=== PATIENT | female | born 1960 | race Caucasian/White ===

== ENCOUNTER 2016-04-12 10:27 | Inpatient (IN) | payer OTHER ==
[2016-04-12] MEDS ORDERED: NS 0.9% 1000 ML* 2,000 ML IV ONE (11:50)
[2016-04-12] MEDS ORDERED: LORazepam INJ* 2 MG/ML 1 ML VIAL IV ONE (11:50)
[2016-04-12 12:40] LABS: Hematocrit 39 % (35-47); Hemoglobin 12.4 g/dl (12.0-16.0); Mean Corpuscular HGB Conc 32 g/dl (31-36); Mean Corpuscular Hemoglobin 27 pg (27-31); Mean Corpuscular Volume 83 fL (80-97); Mean Platelet Volume 8 um3 (7.4-10.4); Red Blood Count 4.65 10^6/ul (4.0-5.4); Red Cell Distribution Width 16 % (10.5-15); White Blood Count 8.9 10^3/ul (3.5-10.8)
[2016-04-12 12:56] LABS: ALT 13 U/L (7-52); AST 16 U/L (13-39); Albumin 4.1 g/dL (3.2-5.2); Alkaline Phosphatase 79 U/L (34-104); Anion Gap 6 mmol/L (2-11); BUN/Creatinine Ratio 15.8 (8-20); Blood Urea Nitrogen 12 mg/dL (6-24); CO2 Carbon Dioxide 24 mmol/L (22-32); Calcium 9.6 mg/dL (8.6-10.3); Chloride 107 mmol/L (101-111); EGFR Non-African American 79.3 (>60); Globulin 3.5 g/dL (2-4); Glucose 103 mg/dL (70-100); Potassium 3.9 mmol/L (3.5-5.0); Sodium 137 mmol/L (133-145); Total Protein 7.6 g/dL (6.4-8.9)
[2016-04-12] MEDS ORDERED: Iohexol 350* (CONTRAST) 500 ML MDV IV ONE (13:06)
[2016-04-12 13:10] LABS: Alcohol < 10 mg/dL (<10)
--- NOTE | 2016-04-12 13:47 | RAD ---
HISTORY: Expressive aphasia, subacute trauma COMPARISONS: May 03, 2007 TECHNIQUE: Multiple contiguous axial CT scans were obtained of the head without intravenous contrast. FINDINGS: HEMORRHAGE/INFARCT: There is no hemorrhage or acute infarct. MASSES/SHIFT: There is no mass or shift. EXTRA-AXIAL SPACES: There are no extra-axial fluid collections. SULCI AND VENTRICLES: The sulci and ventricles are normal in size and position for the patient's stated age. CEREBRUM: There are no focal parenchymal abnormalities. BRAINSTEM: There are no focal parenchymal abnormalities. CEREBELLUM: There are no focal parenchymal abnormalities. VESSELS: The vessels are grossly normal. PARANASAL SINUSES: The paranasal sinuses are clear. ORBITS: The orbits are unremarkable. BONES AND SOFT TISSUE: No bone or soft tissue abnormalities are noted. OTHER: None IMPRESSION: NO ACUTE INTRACRANIAL PATHOLOGY.
--- NOTE | 2016-04-12 14:07 | RAD ---
HISTORY: Especially aphasia, carotid occlusion COMPARISONS: Head CT dated April 12, 2016 TECHNIQUE: Multiple contiguous axial CT scans were obtained of the head and neck After the administration of nonionic intravenous contrast timed to the systemic arterial phase of contrast enhancement. Coronal and sagittal multiplanar reformations are submitted for review. Multiple 3-D maximum intensity projection reconstructions are also submitted for review. FINDINGS: CTA NECK: AORTIC ARCH: There is a normal three-vessel branching pattern of the aortic arch. There is no ostial or proximal stenosis of the cephalic great vessels. RIGHT VERTEBRAL ARTERY: The right vertebral artery is patent along its course, without stenosis. LEFT VERTEBRAL ARTERY: The left vertebral artery is patent along its course, without stenosis. DOMINANCE: The vertebral arteries are codominant. RIGHT COMMON CAROTID ARTERY: The right common carotid artery is patent. The right carotid bifurcation occurs at C4 RIGHT INTERNAL CAROTID ARTERY: There is no right internal carotid artery stenosis by NASCET criteria. RIGHT EXTERNAL CAROTID ARTERY: The right external carotid artery is unremarkable. LEFT COMMON CAROTID ARTERY: The left common carotid artery is patent. The left carotid bifurcation occurs at C4-C5 LEFT INTERNAL CAROTID ARTERY: There is no left internal carotid artery stenosis by NASCET criteria. LEFT EXTERNAL CAROTID ARTERY: The left external carotid artery is unremarkable. VENOUS CIRCULATION: The venous system is unremarkable. SALIVARY GLANDS: The parotid glands, submandibular glands, sublingual glands are normal. NASAL CAVITY/NASOPHARYNX: The nasal cavity and nasopharynx are normal. ORAL CAVITY/OROPHARYNX: The oral cavity is obscured by streak artifact from dental amalgam. The visualized oral cavity and oropharynx are unremarkable. LARYNGEAL APPARATUS/HYPOPHARYNX: The laryngeal apparatus and hypopharynx are normal. UPPER AIRWAY/UPPER ESOPHAGUS: The visualized upper airway and esophagus are normal. LUNG APICES: There is biapical panacinar emphysematous change THYROID GLAND: The thyroid gland is normal. LYMPH NODES: There is no lymphadenopathy by size criteria. BONES AND SOFT TISSUES: No bone or soft tissue abnormalities are noted. CTA HEAD: INTRACRANIAL CIRCULATION: There is no aneurysm, vascular malformation, occlusion, or stenosis of the visualized intracranial circulation. The anterior communicating artery complex is clear. Bilateral posterior communicating arteries are identified. VENOUS CIRCULATION: The venous system is unremarkable. PERFUSION: There is no obvious parenchymal perfusion deficit. HEMORRHAGE/INFARCT: There is no hemorrhage or acute infarct. MASSES/SHIFT: There is no mass or shift. EXTRA-AXIAL SPACES: There are no extra-axial fluid collections. SULCI AND VENTRICLES: The sulci and ventricles are normal in size and position for the patient's stated age. CEREBRUM: There are no focal parenchymal abnormalities. BRAINSTEM: There are no focal parenchymal abnormalities. CEREBELLUM: There are no focal parenchymal abnormalities. PARANASAL SINUSES: The paranasal sinuses are clear. ORBITS: The orbits are unremarkable. BONES AND SOFT TISSUE: Degenerative changes are noted along the spine OTHER: There is no abnormal enhancement. IMPRESSION: 1. NO INTERNAL CAROTID ARTERY STENOSIS BY NASCET CRITERIA. 2. NO ANEURYSM, VASCULAR MALFORMATION, OCCLUSION, OR STENOSIS OF THE VISUALIZED INTRACRANIAL CIRCULATION. 3. EMPHYSEMA CPT II Codes: 3100F
[2016-04-12 15:02] LABS: Urine Bacteria Absent (Absent); Urine Bilirubin Negative (Negative); Urine Glucose Negative (Negative); Urine Nitrite Negative (Negative)
--- NOTE | 2016-04-12 16:16 | ED ---
Neno Blanchard Adam, scribed for Navdeep Fall MD on 04/12/16 at 1143 . Neurological HPI - HPI Summary HPI Summary: Pt is a 55 year old female presenting with expressive aphasia. She and her family state that she has been stuttering and unable to form complete sentences since this morning. Pt states that she knows what to say in her head but can not "get the words in line". She is able to understand what others are saying to her. The family states that this has happened once before and it seems to be triggered by stress. The pt fell backwards on the ice last week and struck the back of her head. Since then she has been having shooting pain from her head down her neck whenever she tilts her head backwards. She also c/o fatigue. She denies numbness, weakness, and visual disturbances. PMHx includes emphysema. Pt is on Klonopin. She denies kidney problems. Former tobacco use; negative alcohol /drug use. Pt is left-handed. FMHx of cardiac disease and epilepsy. - History of Current Complaint Chief Complaint: EDNeurologicalDeficit Stated Complaint: AMS, UNABLE TO GET WORDS OUT Time Seen by Provider: 04/12/16 11:23 Hx Obtained From: Patient, Family/Founder And Chief Executive Officer Onset/Duration: Gradual Onset, Started hours ago, Still Present Timing: Constant Onset Severity: Moderate Current Severity: Moderate Neurological Deficit Location: Facial Pain Intensity: 0 Character: Impaired Speech Aggravating: Unknown Alleviating: Nothing Associated Signs and Symptoms: Positive: Headache - Allergy/Home Medications Allergies/Adverse Reactions: Allergies Allergy/AdvReac Type Severity Reaction Status Date / Time Penicillins Allergy Severe Difficulty Verified 10/11/12 08:25 Breathing Home Medications: Home Medications Albuterol/Ipratropium RESP(NF) [Combivent Respimat(NF)] 1 puff INH QID 04/12/16 [History Confirmed 04/12/16] Zolpidem TAB* [Ambien TAB*] 10 mg PO BEDTIME 04/12/16 [History Confirmed ] clonazePAM TAB(*) [KlonoPIN TAB(*)] 3 mg PO TID PRN 04/12/16 [History Confirmed 04/12/16] PMH/Surg Hx/FS Hx/Imm Hx Respiratory History: Reports: Other Respiratory Problems/Disorders - COPD - Cancer History Hx Chemotherapy: No Hx Radiation Therapy: No - Surgical History Surgery Procedure, Year, and Place: Hysterectomy 01/15. Bladder sling and cystocele + rectocele. Bladder repair 08/17 Infectious Disease History: No Infectious Disease History: Denies: Traveled Outside the [place] in Last 30 Days - Family History Known Family History: Positive: Cardiac Disease, Other - Epilepsy, breast cancer - Social History Occupation: Unemployed Lives: With Family - Alcohol Use: None Hx Substance Use: No Substance Use Type: Reports: None Hx Tobacco Use: Yes Smoking Status (MU): Former Smoker Review of Systems Positive: Fatigue. Negative: Fever Negative: Blurred Vision Positive: Other - Neck pain Neurological: Other - Expressive aphasia, repetitive Positive: Headache, Slurred Speech. Negative: Weakness, Numbness All Other Systems Reviewed And Are Negative: Yes Physical Exam - Summary Physical Exam Summary: The patient is obese in no acute distress and in no acute pain. The skin is warm and dry and skin color reflects adequate perfusion. HEENT: The head is normocephalic and atraumatic. The pupils are equal and reactive. The conjunctivae are clear and without drainage. Nares are patent and without drainage. Mouth reveals moist mucous membranes and the throat is without erythema and exudate. The external ears are intact. The ear canals are patent and without drainage. The tympanic membranes are intact. Neck is supple with full range of motion and non-tender. There are no carotid bruits. There is no neck vein distension. Respiratory: Chest is non-tender. Lungs are clear to auscultation and breath sounds are symmetrical and equal. Cardiovascular: Heart is regular rate and rhythm. There is no murmur or rub auscultated. There is no peripheral edema and pulses are symmetrical and equal. Abdomen: The abdomen is soft and non-tender. There are normal bowel sounds heard in all four quadrants and there is no organomegaly palpated. Musculoskeletal: There is no back pain noted. Extremities are non-tender with full range of motion. There is good capillary refill. There is no peripheral edema or calf tenderness elicited. Neurological: Expressive aphasia, repetitive. Slurred speech. No facial droop. No decreased sensation. Negative finger to nose. No drift. Negative heel to lópez. No Babinski. No visual losses. Patient is alert and oriented to person, place and time. The patient has symmetrical motor strength in all four extremities. Psychiatric: The patient has an appropriate affect and does not exhibit any anxiety or depression. Triage Information Reviewed: Yes Vital Signs On Initial Exam: Initial Vitals Temp Pulse Resp BP Pulse Ox 98.2 F 73 20 162/85 100 04/12/16 10:30 04/12/16 10:30 04/12/16 10:30 04/12/16 10:30 04/12/16 10:30 Vital Signs Reviewed: Yes Diagnostics - Vital Signs Vital Signs Temp Pulse Resp BP Pulse Ox 04/12/16 10:30 98.2 F 73 20 162/85 100 - Laboratory Lab Results: Lab Results 04/12/16 04/12/16 04/12/16 Range/Units 12:21 12:21 12:21 WBC 8.9 (3.5-10.8) 10^3/ul RBC 4.65 (4.0-5.4) 10^6/ul Hgb 12.4 (12.0-16.0) g/dl Hct 39 (35-47) % MCV 83 (80-97) fL MCH 27 (27-31) pg MCHC 32 (31-36) g/dl RDW 16 H (10.5-15) % Plt Count 309 (150-450) 10^3/ul MPV 8 (7.4-10.4) um3 Neut % (Auto) 67.8 (38-83) % Lymph % (Auto) 24.5 L (25-47) % [place] % (Auto) 5.5 (1-9) % Eos % (Auto) 1.5 (0-6) % Baso % (Auto) 0.7 (0-2) % Absolute Neuts (auto) 6.0 (1.5-7.7) 10^3/ul Absolute Lymphs (auto) 2.2 (1.0-4.8) 10^3/ul Absolute Monos (auto) 0.5 (0-0.8) 10^3/ul Absolute Eos (auto) 0.1 (0-0.6) 10^3/ul Absolute Basos (auto) 0.1 (0-0.2) 10^3/ul Absolute Nucleated RBC 0 10^3/ul Nucleated RBC % 0 INR (Anticoag Therapy) (0.89-1.11) Sodium 137 (133-145) mmol/L Potassium 3.9 (3.5-5.0) mmol/L Chloride 107 (101-111) mmol/L Carbon Dioxide 24 (22-32) mmol/L Anion Gap 6 (2-11) mmol/L BUN 12 (6-24) mg/dL Creatinine 0.76 (0.51-0.95) mg/dL Est GFR ( Amer) 102.0 (>60) Est GFR (Non-Af Amer) 79.3 (>60) BUN/Creatinine Ratio 15.8 (8-20) Glucose 103 H (70-100) mg/dL Lactic Acid 1.3 (0.5-2.0) mmol/L Calcium 9.6 (8.6-10.3) mg/dL Total Bilirubin 0.30 (0.2-1.0) mg/dL AST 16 (13-39) U/L ALT 13 (7-52) U/L Alkaline Phosphatase 79 (34-104) U/L Troponin I 0.00 (<0.04) ng/mL Total Protein 7.6 (6.4-8.9) g/dL Albumin 4.1 (3.2-5.2) g/dL Globulin 3.5 (2-4) g/dL Albumin/Globulin Ratio 1.2 (1-3) Urine Color Urine Appearance Urine pH (5-9) Ur Specific [place] (1.010-1.030) Urine Protein (Negative) Urine Ketones (Negative) Urine Blood (Negative) Urine Nitrate (Negative) Urine Bilirubin (Negative) Urine Urobilinogen (Negative) Ur Leukocyte Esterase (Negative) Urine WBC (Auto) (Absent) Urine RBC (Auto) (Absent) Ur Squamous Epith Cells (Absent) Urine Bacteria (Absent) Urine Glucose (Negative) Serum Alcohol < 10 (<10) mg/dL 04/12/16 04/12/16 Range/Units 13:00 14:47 WBC (3.5-10.8) 10^3/ul RBC (4.0-5.4) 10^6/ul Hgb (12.0-16.0) g/dl Hct (35-47) % MCV (80-97) fL MCH (27-31) pg MCHC (31-36) g/dl RDW (10.5-15) % Plt Count (150-450) 10^3/ul MPV (7.4-10.4) um3 Neut % (Auto) (38-83) % Lymph % (Auto) (25-47) % [place] % (Auto) (1-9) % Eos % (Auto) (0-6) % Baso % (Auto) (0-2) % Absolute Neuts (auto) (1.5-7.7) 10^3/ul Absolute Lymphs (auto) (1.0-4.8) 10^3/ul Absolute Monos (auto) (0-0.8) 10^3/ul Absolute Eos (auto) (0-0.6) 10^3/ul Absolute Basos (auto) (0-0.2) 10^3/ul Absolute Nucleated RBC 10^3/ul Nucleated RBC % INR (Anticoag Therapy) 0.93 (0.89-1.11) Sodium (133-145) mmol/L Potassium (3.5-5.0) mmol/L Chloride (101-111) mmol/L Carbon Dioxide (22-32) mmol/L Anion Gap (2-11) mmol/L BUN (6-24) mg/dL Creatinine (0.51-0.95) mg/dL Est GFR ( Amer) (>60) Est GFR (Non-Af Amer) (>60) BUN/Creatinine Ratio (8-20) Glucose (70-100) mg/dL Lactic Acid (0.5-2.0) mmol/L Calcium (8.6-10.3) mg/dL Total Bilirubin (0.2-1.0) mg/dL AST (13-39) U/L ALT (7-52) U/L Alkaline Phosphatase (34-104) U/L Troponin I (<0.04) ng/mL Total Protein (6.4-8.9) g/dL Albumin (3.2-5.2) g/dL Globulin (2-4) g/dL Albumin/Globulin Ratio (1-3) Urine Color Straw Urine Appearance Clear Urine pH 5.0 (5-9) Ur Specific [place] 1.005 L (1.010-1.030) Urine Protein Negative (Negative) Urine Ketones Negative (Negative) Urine Blood 1+ H (Negative) Urine Nitrate Negative (Negative) Urine Bilirubin Negative (Negative) Urine Urobilinogen Negative (Negative) Ur Leukocyte Esterase 1+ H (Negative) Urine WBC (Auto) Trace(0-5/hpf) (Absent) Urine RBC (Auto) 1+(3-5/hpf) H (Absent) Ur Squamous Epith Cells Present H (Absent) Urine Bacteria Absent (Absent) Urine Glucose Negative (Negative) Serum Alcohol (<10) mg/dL Result Diagrams: 04/12/16 12:21 04/12/16 12:21 Lab Statement: Any lab studies that have been ordered have been reviewed, and results considered in the medical decision making process. - CT HEAD CTA CT Interpretation Completed By: Radiologist - IMPRESSION: 1. NO INTERNAL CAROTID ARTERY STENOSIS BY NASCET CRITERIA. 2. NO ANEURYSM, VASCULAR MALFORMATION, OCCLUSION, OR STENOSIS OF THE VISUALIZED INTRACRANIAL CIRCULATION. 3. EMPHYSEMA BRAIN CT Interpretation Completed By: Radiologist - IMPRESSION: NO ACUTE INTRACRANIAL PATHOLOGY. - EKG 11:20 Cardiac Rate: NL - 78 BPM EKG Interpretation: Poor R wave progression - Additional Comments Diagnostic Additional Comments: Troponin I - 0.00 NIH Scale - NIH Scale Level of Consciousness: Alert/Keenly Responsive Ask Patient the Month and His/Her Age: Both Correct Ask Pt to Open/Close Eyes and Plant Sciences Professor/Release Non-Paretic Hand: Both Correctly Best Gaze (Only Horizontal Eye Movement): Normal Visual Field Testing: No Visual Loss Facial Paresis-Pt to Smile & Close Eyes or Grimace Symmetry: Normal/Symmetrical Motor Function - Right Arm: No Drift-Holds 10 Seconds Motor Function - Left Arm: No Drift-Holds 10 Seconds Motor Function - Right Leg: No Drift-Holds 10 Seconds Motor Function - Left Leg: No Drift-Holds 10 Seconds Limb Ataxia-Must be out of Proportion to Weakness Present: Absent Sensory (Use Pinprick to Test Arms/Legs/Trunk/Face): Normal Best Language (Describe Picture, Name Items): Some Loss Dysarthria (Read Several Words): Slurs Some Words Extinction and Inattention: No Abnormality Total Score: 2 Course/Dx - Course Course Of Treatment: 14:20 - Requested consult with Neurology. Dr. Mendosa will evaluate the patient. - Differential Dx Differential Diagnoses Neuro: Positive: Anxiety, Cerebrovascular Accident, Metabolic Abnormality, Seizure Disorder, Transient Ischemic Attack - Diagnoses Provider Diagnoses: Expressive aphasia Discharge - Discharge Plan Condition: Stable Disposition: OTHER Discharge Disposition Comment: Pending Neurology consult Referrals: Jami Coppola MD [Primary Care Provider] - The documentation as recorded by the Neno encinas Adam accurately reflects the service I personally performed and the decisions made by me, Navdeep Fall MD.
--- NOTE | 2016-04-12 19:35 | CONS ---
NEUROLOGY CONSULTATION: DATE OF CONSULT: 04/12/16 LOCATION: She is in the emergency room. REFERRING PHYSICIAN: Navdeep Fall DO. CHIEF COMPLAINT: Difficulty speaking. HISTORY OF PRESENT ILLNESS: Libby Mitchell is a 55-year-old right-handed woman accompanied by her and daughter. She was on the phone today speaking with her nephew and then her sister. Her nephew was being sent off to half-way and apparently, the sister wanted some support or there is some other stress going on, but she denies that it was stressful. In any event, she developed difficulty producing words. 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 She has had other episodes in the last several weeks where she stutters and has difficulty speaking when she gets anxious or upset. However, this is qualitatively different and she is having great difficulty producing language. She has not noticed any change in strength, sensation, or vision with this symptom complex, but just inability to produce language to the degree she is used to. PAST MEDICAL HISTORY: Notable for anxiety disorder on chronic clonazepam therapy, COPD. MEDICATIONS: At home consist of: 1. Clonazepam 1 mg p.o. b.i.d. 2. Zolpidem 10 mg p.o. q.h.s. 3. Albuterol 1 puff 4 times a day. ALLERGIES: She is allergic to PENICILLIN. FAMILY HISTORY: Noncontributory. REVIEW OF SYSTEMS: Notable for a fall about 2 weeks ago where she hit her head. Her neck is still sore. She did not lose consciousness. She has not had any recent fevers, infections, change in weight. She has had elevated anxiety for several weeks and just started seeing a therapist a couple of weeks ago. She had an increased dose of her clonazepam for 1 dose when she was extremely sad after the fire department meeting, but that is the only change in medication recently. She gets anxious when she gets short of breath. There is no history of diabetes, cardiac disease, or hypertension. No history of dyslipidemia or thyroid disease. PHYSICAL EXAM: She is overweight. She is afebrile. Blood pressure on the monitor 140/88, heart rate 70 and regular, respiratory rate 16. Heart is in a regular rate and rhythm without murmurs. Carotid pulses are symmetrical and there are no cervical bruits. Lungs are clear. Neurological Exam: Pupils, fundi, and eye movements are normal. I tried to get her to visually track to command and she has normal eye movements when observed casually and also when I have her fix at an object at various points in the room. Visual davis are full to finger counting bilaterally. Facial musculature is intact and symmetric. Facial sensation to pin and light touch are intact and symmetric. Hearing is intact bilaterally. Neck strength is normal. Palate and tongue appear normal. Tongue protrudes in the midline. Palate rises symmetrically. Motor exam reveals normal muscle tone and strength in the limbs. She elevates the right leg and holds it stiffly, but does not offer resistance with break- away weakness inconsistently. She has normal strength in the upper and lower extremities otherwise. Finger taps are slow and telegraphic in the right hand and less so in the left. There is no tremor. Sensory exam in the limbs is intact to light touch, vibration, and proprioception other than diminished vibration in the great toe on the left. I did not attempt to ambulate her. She is alert and tearful. She stutters at times and at other times just speaks extremely slowly and labored. She produces full sentences without paraphasic errors, but does so struggling to get one word out at a time and very slowly. At other times, she stutters on various syllables, but not typically the first one, but sometimes the first one. There is no dysarthria. DIAGNOSTIC STUDIES/LAB DATA: Includes a CT of the brain, which I reviewed and which looks normal. A CT angiogram of the head also interpreted as normal. Other laboratory data notable for a normal CBC and a normal chemistry profile other than a nonfasting glucose of 103. IMPRESSION: Psychogenic speech disorder. Her speech is not aphasic nor is it dysarthric. Her symptoms seem to be precipitated by stressful situations and she has an anxiety disorder. Discussed this with the patient and her family. 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 She has appointment to see a counselor in the last week or two. I have discussed my impression with Libby and her family. Recommended that Mental Health evaluate her while she is here and they are in agreement with that plan. I have also discussed my impression with Dr. Rankin. [id number]/[facility] #: [id number] DARWIN
[2016-04-12] MEDS ORDERED: Albuterol HFA INHALER* 8 gm MDI INH PRN (21:16)
[2016-04-12] MEDS ORDERED: Al Hydrox/Mg Hydrox/Simet LIQ* 30 ML UDC PO PRN (21:17)
[2016-04-12] MEDS: clonazePAM TAB(*) 0.5 MG PO SCH (21:54)
[2016-04-12] MEDS: Zolpidem TAB* 10 MG PO SCH (21:54)
[2016-04-12] MEDS: Ibuprofen TAB* 400 MG PO SCH (21:55)
[2016-04-13] MEDS: Vitamin THERAPEUTIC TAB PO SCH (08:34)
[2016-04-13] MEDS: clonazePAM TAB(*) 0.5 MG PO SCH ×2 (08:35→20:22)
[2016-04-13] MEDS: Acetaminophen TAB* 325 MG PO PRN ×2 (08:36→13:59)
[2016-04-13 10:42] LABS: Benzodiazepine Urine Screen None Detected (None Detect)
--- NOTE | 2016-04-13 12:54 | PN ---
[facility]: Group Therapy Note - Service Type Service Type: 52156 Group Psychotherapy - Cognitive Behavioral Group Therapy ( CBT):Patient attended CBT programming this morning and presented with flat affect that did not vary with discussion. Although responsive to direct prompts to respond to questions, patient did not engage in spontaneous conversation.
[2016-04-13] MEDS: Venlafaxine EXT RELEASE CAP* 37.5 MG PO SCH (14:14)
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
[2016-04-13] MEDS: PTO:Albuterol/Ipratropium RESP(NF) MDI (Combivent Respimat) INH SCH ×2 (18:25→20:22)
[2016-04-13] MEDS: Zolpidem TAB* 10 MG PO SCH (20:23)
[2016-04-13] MEDS: Ibuprofen TAB* 400 MG PO SCH (20:23)
[2016-04-14 01:49] LABS: Cholesterol 159 mg/dL; LDL Cholesterol 69 mg/dL; Triglycerides 217 mg/dL
[2016-04-14] MEDS: Vitamin THERAPEUTIC TAB PO SCH (08:27)
[2016-04-14] MEDS: clonazePAM TAB(*) 0.5 MG PO SCH ×2 (08:27→20:21)
[2016-04-14] MEDS: Venlafaxine EXT RELEASE CAP* 37.5 MG PO SCH (08:28)
[2016-04-14] MEDS: PTO:Albuterol/Ipratropium RESP(NF) MDI (Combivent Respimat) INH SCH ×4 (09:34→20:23)
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
[2016-04-14] MEDS: Ibuprofen TAB* 400 MG PO SCH (20:21)
[2016-04-14] MEDS: Zolpidem TAB* 10 MG PO SCH (20:21)
[2016-04-15] MEDS: PTO:Albuterol/Ipratropium RESP(NF) MDI (Combivent Respimat) INH SCH ×5 (09:09→20:27)
[2016-04-15] MEDS: Vitamin THERAPEUTIC TAB PO SCH (09:10)
[2016-04-15] MEDS: clonazePAM TAB(*) 0.5 MG PO SCH ×2 (09:11→20:26)
[2016-04-15] MEDS: Venlafaxine EXT RELEASE CAP* 75 MG PO SCH (09:11)
--- NOTE | 2016-04-15 11:34 | PN ---
MHU: Group Therapy Note - Service Type Service Type: 44110 Group Psychotherapy - Cognitive Behavioral Group Therapy ( CBT):Patient was attentive and participatory in CBT programming this morning, and remained in good behavioral control. Patient expressed positive insights regarding relevant treatment interventions and goals.
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
[2016-04-15] MEDS: Zolpidem TAB* 10 MG PO SCH (20:26)
[2016-04-15] MEDS: Ibuprofen TAB* 400 MG PO SCH (20:26)
[2016-04-16] MEDS: PTO:Albuterol/Ipratropium RESP(NF) MDI (Combivent Respimat) INH SCH ×4 (09:05→20:30)
[2016-04-16] MEDS: Vitamin THERAPEUTIC TAB PO SCH (09:06)
[2016-04-16] MEDS: Venlafaxine EXT RELEASE CAP* 75 MG PO SCH (09:06)
[2016-04-16] MEDS: clonazePAM TAB(*) 0.5 MG PO SCH ×2 (09:06→20:29)
--- NOTE | 2016-04-16 11:48 | PN ---
MHU: Group Therapy Note - Service Type Service Type: 62093 Group Psychotherapy - Cognitive Behavioral Group Therapy ( CBT):Patient was attentive and participatory in CBT programming this morning, and remained in good behavioral control. Patient expressed positive insights regarding relevant treatment interventions and goals.
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
[2016-04-16] MEDS: Zolpidem TAB* 10 MG PO SCH (20:29)
[2016-04-16] MEDS: Ibuprofen TAB* 400 MG PO SCH (20:32)
[2016-04-17] MEDS: clonazePAM TAB(*) 0.5 MG PO SCH ×2 (09:39→20:34)
[2016-04-17] MEDS: Venlafaxine EXT RELEASE CAP* 75 MG PO SCH (09:39)
[2016-04-17] MEDS: Vitamin THERAPEUTIC TAB PO SCH (09:39)
[2016-04-17] MEDS: PTO:Albuterol/Ipratropium RESP(NF) MDI (Combivent Respimat) INH SCH ×4 (09:39→20:45)
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
[2016-04-17] MEDS: Zolpidem TAB* 10 MG PO SCH (20:34)
[2016-04-17] MEDS: Ibuprofen TAB* 400 MG PO SCH (20:34)
[2016-04-17] MEDS: guaiFENesin LIQ* 100 MG/5 ML UDC PO PRN (20:36)
[2016-04-18] MEDS: Vitamin THERAPEUTIC TAB PO SCH (08:29)
[2016-04-18] MEDS: clonazePAM TAB(*) 0.5 MG PO SCH ×2 (08:30→20:16)
[2016-04-18] MEDS: Venlafaxine EXT RELEASE CAP* 75 MG PO SCH (08:30)
[2016-04-18] MEDS: PTO:Albuterol/Ipratropium RESP(NF) MDI (Combivent Respimat) INH SCH ×4 (08:34→22:06)
[2016-04-18] MEDS: Acetaminophen TAB* 325 MG PO PRN (09:52)
[2016-04-18] MEDS: guaiFENesin LIQ* 100 MG/5 ML UDC PO PRN ×2 (09:52→20:17)
[2016-04-18] MEDS: Ibuprofen TAB* 400 MG PO SCH (20:15)
[2016-04-18] MEDS: Zolpidem TAB* 10 MG PO SCH (20:16)
[2016-04-19] MEDS: guaiFENesin LIQ* 100 MG/5 ML UDC PO PRN (03:09)
[2016-04-19] MEDS: Acetaminophen TAB* 325 MG PO PRN (03:15)
[2016-04-19 08:19] VITALS: BP 130/63
[2016-04-19] MEDS: clonazePAM TAB(*) 0.5 MG PO SCH (08:31)
[2016-04-19] MEDS: Vitamin THERAPEUTIC TAB PO SCH (08:31)
[2016-04-19] MEDS: Venlafaxine EXT RELEASE CAP* 75 MG PO SCH (08:31)
[2016-04-19] MEDS: PTO:Albuterol/Ipratropium RESP(NF) MDI (Combivent Respimat) INH SCH ×2 (08:33→13:14)
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
== END 2016-04-19 14:15 | disposition home or self-care (01) | DRG 751 ==
LOC: ED 10:27 → BSU 19:42
PROVIDERS: ADMIT Psychiatry & Neurology Psychiatry; ATTEND Psychiatry & Neurology Psychiatry
DX: F32.2 Major depressive disorder, single episode, severe without psychotic features (principal); E55.9 Vitamin D deficiency, unspecified; F41.1 Generalized anxiety disorder; J44.9 Chronic obstructive pulmonary disease, unspecified; N39.3 Stress incontinence (female) (male); Z79.899 Other long term (current) drug therapy; Z81.8 Family history of other mental and behavioral disorders; Z81.1 Family history of alcohol abuse and dependence; Z88.0 Allergy status to penicillin
CPT/HCPCS: 36415; 70450; 70496; 70498; 80053; 80061; 80307; 80320; 81003; 81015; 83605; 84484; 85025; 85610; 87086; 90853; 93005; 99222; 99231; 99232; 99233; 99238; A9270-GY; G0480; J2060; Q9967

== ENCOUNTER 2016-08-11 16:46 | Emergency (ER) | payer OTHER ==
[2016-08-11 16:51] VITALS: BP 140/65
[2016-08-11] MEDS ORDERED: Ketorolac INJ* 60 MG/2 ML VIAL IM ONE (17:39)
--- NOTE | 2016-08-11 18:26 | RAD ---
INDICATION: Back pain. COMPARISON: Comparison is made with a prior x-ray study of the lumbar spine from May 15, 2015. TECHNIQUE: 5 views of the lumbar spine were obtained including lateral, oblique, AP and a coned-down lateral view of the lumbar sacral junction. FINDINGS: There is a mild lumbar scoliosis convex toward the left side. In addition there is mild retrolisthesis of L2 relative to L3 of approximately 5 mm which is unchanged. No fracture is seen. There is mild to moderate degenerative disc disease at the L1-L2, L2-L3 and L5-S1 levels. There is a small calcification which projects over the lower pole of the right kidney measuring 4 mm in size. IMPRESSION: 1. MILD TO MODERATE DEGENERATIVE DISC DISEASE. 2. GRADE 1 RETROLISTHESIS AT THE L2-L3 LEVEL. 3. PROBABLE SMALL RIGHT RENAL CALCULUS.
--- NOTE | 2016-08-11 19:50 | UC ---
Carlito Blanchard Benjamin, scribed for Ling Lazcano MD on 08/11/16 at 1732 . Back Pain HPI - HPI Summary HPI Summary: 55yo female c/o having low back pain for a week that radiates down her LLE with numbness. Pain is worse with movement. 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 No relief with oxycodone or Klonopin. Pt has hx of chronic back pain from a slipped disk but her pain now is worse. Pt thinks her disk has slipped out again. Pain gets worse with movement. Denies any trauma. Pt had some urinary incontinence earlier but not now and this is not unusual for her. She is s/p vaginal sling. Pt denies dysuria and hematuria. No hx of kidney stones. Fhx of HTN, DM, [place] at 39, back problems, and scoliosis. PMHx includes slipped disk, aphasia, depression, and anxiety. Former smoker. - History of Current Complaint Chief Complaint: UCBackPain Stated Complaint: LOWER BACK PAIN Time Seen by Provider: 08/11/16 17:25 Hx Obtained From: Patient ?: No Onset/Duration: Gradual Onset, Lasting Days, Still Present Timing: Constant Severity Initially: Severe Severity Currently: Severe Pain Intensity: 10 Pain Scale Used: 0-10 Numeric Back Pain: Is Discrete @ - lower back Character: Aching Aggravating: Movement Alleviating: Nothing Associated Signs And Symptoms: Positive: Numbness - LLE Related History: Previous Back Injury - Allergies/Home Medications Allergies/Adverse Reactions: Allergies Allergy/AdvReac Type Severity Reaction Status Date / Time Penicillins Allergy Severe Difficulty Verified 08/11/16 16:50 Breathing PMH/Surg Hx/FS Hx/Imm Hx Previously Healthy: No Respiratory History: COPD Psychological History: Anxiety, Depression - Surgical History Surgical History: Yes Surgery Procedure, Year, and Place: Hysterectomy 01/15. Bladder sling and cystocele + rectocele. Bladder repair 08/17 - Family History Known Family History: Positive: Cardiac Disease, Other - Epilepsy, breast cancer - Social History Alcohol Use: None Substance Use Type: None Smoking Status (MU): Former Smoker - Immunization History Most Recent Influenza Vaccination: this season Most Recent Tetanus Shot: Unknown Most Recent Pneumonia Vaccination: none Review of Systems Constitutional: Negative Skin: Negative Eyes: Negative ENT: Negative Respiratory: Negative Cardiovascular: Negative Gastrointestinal: Negative Genitourinary: Negative Motor: Negative Neurovascular: Negative Musculoskeletal: Arthralgia - lower back pain Neurological: Negative Psychological: Negative All Other Systems Reviewed And Are Negative: Yes Physical Exam Triage Information Reviewed: Yes Appearance: Ill-Appearing, Pain Distress - Moderate, Obese Vital Signs: Initial Vital Signs Temp 98.1 F 08/11/16 16:49 Pulse 105 08/11/16 16:49 Resp 20 08/11/16 16:49 BP 140/65 08/11/16 16:49 Pulse Ox 98 08/11/16 16:49 Vital Signs Reviewed: Yes Eyes: Positive: Conjunctiva Clear ENT: Positive: Normal ENT inspection, Hearing grossly normal. Negative: Muffled /hoarse voice Neck: Positive: Supple, Nontender, No Lymphadenopathy Respiratory: Positive: Lungs clear, Normal breath sounds, No respiratory distress Cardiovascular: Positive: RRR, No Murmur, Pulses Normal Abdomen Description: Positive: Nontender, No Organomegaly, Soft. Negative: Distended, Guarding, McBurney's Point Tenderness, Peritoneal Signs Bowel Sounds: Positive: Present Musculoskeletal: Positive: Strength Intact, ROM Intact, Other: - tender in Lumbarsacral area, left paraspinous. pt able to walk on heels and toes. Reflexes knee and ankle 2+ symmetric. No CVA tenderness Neurological: Positive: Alert, Muscle Tone Normal Psychological Exam: Normal Skin Exam: Normal Diagnostics - Laboratory Diagnostic Studies Completed/Ordered: Test: Negative. UA: positive for blood and leukocyte esterase, otherwise normal urine. - Radiology LS XR Xray Interpretation: Positive (See Comments) - IMPRESSION: 1. MILD TO MODERATE DEGENERATIVE DISC DISEASE. 2. GRADE 1 RETROLISTHESIS AT THE L2-L3 LEVEL. 3. PROBABLE SMALL RIGHT RENAL CALCULUS. Radiology Interpretation Completed By: Radiologist Re-Evaluation - Re-Evaluation First Eval Re-Evaluation Time: 18:45 Change: Improved Comment: Pt is improved with Toradol. Back Pain Course/Dx - Course Course Of Treatment: No results on I-STOP. Allergies noted. high blood pressure noted. 54yo F with hx of chronic low back pain s/p slipped disk today presents with worsened low back pain that radiates to left leg with numbness and tingling. Pain is now severe and upon examination, Lumbarsacral X-ray was ordered. X-ray reports RETROLISTHESIS, DDD, and SMALL RIGHT RENAL CALCULUS. Urine was positive for blood and leukocyte esterase, otherwise normal. Pt will be discharged with pain medications and recommendation to follow up with MRI. Pt wants to work. Will not treat as UTI at this time as pt has no urinary sxs. This does not present as a kidney stone with the subacute hx and no hematuria or flank pain, however pt is advised that there is a stone in her right kidney ( not in her ureter or pelvis that is noted on plain lumbar films). - Differential Dx/Diagnosis Differential Diagnosis/HQI/PQRI: Arthritis, Herniated Disc, Strain, Sprain Provider Diagnoses: High blood pressure without diagnosis of hypertension. Lumbar Strain. Discharge - Discharge Plan Condition: Stable Disposition: HOME Prescriptions: Carisoprodol TAB* [Soma TAB*] 350 mg PO BEDTIME PRN #15 tab MDD 1 PRN Reason: Pain HYDROcodone/ACETAMIN 5-325 MG* [[place] 5-325 TAB*] 1 tab PO Q4H PRN #18 tab MDD 6 PRN Reason: Pain Patient Education Materials: Low Back Strain (ED) Referrals: Jami Coppola MD [Primary Care Provider] - 2 Days Additional Instructions: Your blood pressure was elevated today. You need to have this rechecked within a month with Dr. Coppola. We gave a copy of your xray results to you. You may have a urinary tract infection. We will notify you if you need antibiotics based on the urine culture results. RETURN TO URGENT CARE FOR ANY NEW OR WORSENING SYMPTOMS. The documentation as recorded by the Carlito encinas Benjamin accurately reflects the service I personally performed and the decisions made by me, Ling Lazcano MD.
== END 2016-08-11 19:00 | disposition home or self-care (01) ==
LOC: UCEAST 16:46
DX: R03.0 Elevated blood-pressure reading, without diagnosis of hypertension (principal); S39.012A Strain of muscle, fascia and tendon of lower back, initial encounter; X58.XXXA Exposure to other specified factors, initial encounter; Z87.891 Personal history of nicotine dependence
CPT/HCPCS: 72110; 81003; 84702; 87086; 96372; 99212; G0463; J1885

== ENCOUNTER 2016-12-11 11:00 | Emergency (ER) | payer OTHER ==
[2016-12-11 11:17] VITALS: BP 131/71
--- NOTE | 2016-12-11 11:47 | UC ---
Complaint Female HPI - HPI Summary HPI Summary: Patient presents with complaints of increased dysuria, urinary frequency, and urgency x 2 weeks. She tried to flush it out with azo and reports very little improvement. She complains of flank pain. Denies fever, chills, nausea or vomiting. She states she has a history of UTI's and has not had one in a very long time. She reports these symptoms are like what she has experienced in the past. - History Of Current Complaint Chief Complaint: UCGU Stated Complaint: UTI Time Seen by Provider: 12/11/16 11:17 Hx Obtained From: Patient ?: No Onset/Duration: Gradual Onset, Lasting Weeks, Still Present Timing: Intermittent Severity Initially: Moderate Severity Currently: Moderate Character: Burning Aggravating Factor(s): Urination Associated Signs And Symptoms: Positive: Back Pain Related Hx: Similar Episode/Dx as: - UTI - Allergies/Home Medications Allergies/Adverse Reactions: Allergies Allergy/AdvReac Type Severity Reaction Status Date / Time Penicillins Allergy Severe Difficulty Verified 11/22/16 11:25 Breathing PMH/Surg Hx/FS Hx/Imm Hx Previously Healthy: Yes - Surgical History Surgical History: Yes Surgery Procedure, Year, and Place: Hysterectomy 01/15. Bladder sling and cystocele + rectocele. Bladder repair 08/17 - Family History Known Family History: Positive: Cardiac Disease, Other - Epilepsy, breast cancer - Social History Occupation: Employed Full-time Lives: Alone Alcohol Use: None Substance Use Type: None Smoking Status (MU): Former Smoker - Immunization History Most Recent Influenza Vaccination: this season Most Recent Tetanus Shot: Unknown Most Recent Pneumonia Vaccination: none Review of Systems Constitutional: Negative Skin: Negative Eyes: Negative ENT: Negative Respiratory: Negative Cardiovascular: Negative Gastrointestinal: Negative Genitourinary: Dysuria, Frequency, Urgency Motor: Negative Neurovascular: Negative Musculoskeletal: Negative Neurological: Negative Psychological: Negative All Other Systems Reviewed And Are Negative: Yes Physical Exam Triage Information Reviewed: Yes Appearance: Well-Appearing Vital Signs: Initial Vital Signs Temp 98.6 F 12/11/16 11:14 Pulse 79 12/11/16 11:14 Resp 18 12/11/16 11:14 BP 131/71 12/11/16 11:14 Pulse Ox 99 12/11/16 11:14 Vital Signs Reviewed: Yes Eye Exam: Normal ENT Exam: Normal Dental Exam: Normal Neck exam: Normal Neck: Positive: 1 Respiratory Exam: Normal Cardiovascular Exam: Normal Abdominal Exam: Normal Musculoskeletal Exam: Normal Neurological Exam: Normal Psychological Exam: Normal Skin Exam: Normal Complaint Female Dx - Course Course Of Treatment: Patient presents with symptoms similar to her previous UTI' s. Nontoxic appearance, normal vital signs. Currently taking azo so ua was unreliable so there fore will treat based on previous history. I recommend that she follow up with her urologist in 2 days, and go to the ER if she develops fever, chills worsening back pain. Virgilio verbalized understanding and was in agreement with the discharge plan. - Differential Dx/Diagnosis Differential Diagnosis/HQI/PQRI: Urinary Tract Infection Provider Diagnoses: uti Discharge - Discharge Plan Condition: Stable Disposition: HOME Prescriptions: Ciprofloxacin TAB* [Cipro 500 MG TAB*] 500 mg PO BID #20 tab Fluconazole 100 MG TAB* [Diflucan 100 MG TAB*] 100 mg PO DAILY #1 tab Phenazopyridine 200 mg (NF) [Pyridium 200 MG tab *] 200 mg PO TID PRN #6 tab PRN Reason: uti Patient Education Materials: Urinary Tract Infection in Women (GEN) Referrals: Jami Coppola MD [Primary Care Provider] - Froylan Cruz MD [Medical Doctor] - Additional Instructions: If you feel worse with fever, chills flank or flank pain you must go to the ER at once.
--- NOTE | 2016-12-13 10:57 | UC ---
Progress - Progress Note Progress Note: please call this pt and let her know that her urine cx revealed mixed [place] which raised suspicion for contamination of urine sample. if pt is doing well and problems are resolving, she should follow up as directed. if not, pt should be re-seen and a new specimen collected.
== END 2016-12-11 12:00 | disposition home or self-care (01) ==
LOC: UCEAST 11:00
DX: N39.0 Urinary tract infection, site not specified (principal); Z88.0 Allergy status to penicillin
CPT/HCPCS: 81003; 87086; 99212; G0463

== ENCOUNTER 2017-03-26 08:32 | Emergency (ER) | payer OTHER ==
[2017-03-26 08:48] VITALS: BP 127/68
--- NOTE | 2017-03-26 09:34 | UC ---
Complaint Female HPI - HPI Summary HPI Summary: urinary frequency and dysuria for several days about a week and has been taking analgesics to no avail, no fever no flank pain. - History Of Current Complaint Chief Complaint: UCGU Stated Complaint: URINARY ISSUE Time Seen by Provider: 03/26/17 08:55 Hx Obtained From: Patient Hx Last Menstrual Period: hyster ?: No Onset/Duration: Gradual Onset, Lasting Days Timing: Constant Severity Initially: Mild Severity Currently: Moderate Pain Scale Used: 0-10 Numeric - 4 Character: Burning Aggravating Factor(s): Urination Alleviating Factor(s): Nothing Associated Signs And Symptoms: Positive: Negative - Risk Factors Ectopic Risk Factor: Negative Ovarian Torsion Risk Factor: Negative - Allergies/Home Medications Allergies/Adverse Reactions: Allergies Allergy/AdvReac Type Severity Reaction Status Date / Time Penicillins Allergy Severe Difficulty Verified 03/26/17 08:43 Breathing PMH/Surg Hx/FS Hx/Imm Hx Previously Healthy: Yes Respiratory History: Asthma GI/ History: Urosepsis Psychological History: Anxiety, Depression - Surgical History Surgical History: Yes Surgery Procedure, Year, and Place: Hysterectomy 01/15. Bladder sling and cystocele + rectocele. Bladder repair 08/17 - Family History Known Family History: Positive: Cardiac Disease, Other - Epilepsy, breast cancer - Social History Alcohol Use: None Substance Use Type: None Smoking Status (MU): Former Smoker - Immunization History Most Recent Influenza Vaccination: this season Most Recent Tetanus Shot: Unknown Most Recent Pneumonia Vaccination: none Review of Systems Constitutional: Negative Genitourinary: Dysuria All Other Systems Reviewed And Are Negative: Yes Physical Exam Triage Information Reviewed: Yes Appearance: Well-Appearing Vital Signs: Initial Vital Signs Temp 98 F 03/26/17 08:45 Pulse 91 03/26/17 08:45 Resp 16 03/26/17 08:45 BP 127/68 03/26/17 08:45 Pulse Ox 100 03/26/17 08:45 Vital Signs Reviewed: Yes Eye Exam: Normal ENT Exam: Normal Dental Exam: Normal Neck exam: Normal Respiratory Exam: Normal Cardiovascular Exam: Normal Abdominal Exam: Normal Complaint Female Dx - Course Course Of Treatment: continue fluids, rest, take antibiotics as prescribed - Differential Dx/Diagnosis Provider Diagnoses: UTI Discharge - Discharge Plan Condition: Stable Disposition: HOME Patient Education Materials: Urinary Tract Infection in Women (ED) Referrals: Iggy Kumar MD [Primary Care Provider] -
--- NOTE | 2017-03-27 16:13 | UC ---
- Progress Note Progress Note: Please call patient -let here know her urine culture does not show evidence of UTI, If symptoms are continuing this patient should follow with primary care doctor---ok to stop Cipro Course/Dx - Course Course Of Treatment: continue fluids, rest, take antibiotics as prescribed
== END 2017-03-26 09:45 | disposition home or self-care (01) ==
LOC: UCEAST 08:32
DX: N39.0 Urinary tract infection, site not specified (principal); J45.909 Unspecified asthma, uncomplicated; F41.9 Anxiety disorder, unspecified; F32.9 Major depressive disorder, single episode, unspecified; Z90.710 Acquired absence of both cervix and uterus; Z88.0 Allergy status to penicillin; Z87.891 Personal history of nicotine dependence
CPT/HCPCS: 81003; 87086; 99212; G0463

== ENCOUNTER 2017-05-16 15:07 | Emergency (ER) | payer OTHER ==
[2017-05-16 15:21] VITALS: BP 134/80
--- NOTE | 2017-05-16 15:33 | UC ---
Throat Pain/Nasal [place] HPI - HPI Summary HPI Summary: 56 y/o female presents to the urgent care c/o sore throat, laryngitis, nasal congestion w/ yellowish nasal discharge for the past week. Pt reports she has PMHX of COPD, emphysema and recurrent sinusitis. She has been taking Ciprofloxacin PO she had at home since last Tuesday to alleviate her symptoms. She states sinus pain and ISBELL started today. She feels SOB at times and her PCP usually give her Prednisone PO to alleviate symptoms. Pt denies SOB today, chest pain, abdominal pain, dizziness, N/V/D - History of Current Complaint Hx Obtained From: Patient Hx Last Menstrual Period: hysterectomy ?: No Onset/Duration: Gradual Onset, Lasting Weeks - 1 week, Worse Since - today Severity: Moderate Pain Intensity: 7 Pain Scale Used: 0-10 Numeric Cough: Nonproductive Associated Signs & Symptoms: Positive: Sinus Discomfort, Nasal Discharge, Other - hoarseness. Negative: Fever, Rash - Epiglottits Risk Factors Epiglottis Risk Factors: Negative <Mildred Nicole - Last Filed: 05/17/17 14:24> <Geovanna Heredia - Last Filed: 05/17/17 14:52> - History of Current Complaint Chief Complaint: UCRespiratory Stated Complaint: CONGESTED Time Seen by Provider: 05/16/17 15:22 - Allergies/Home Medications Allergies/Adverse Reactions: Allergies Allergy/AdvReac Type Severity Reaction Status Date / Time Penicillins Allergy Hives/Diff. Verified 05/16/17 15:21 Breathing/I tching PMH/Surg Hx/FS Hx/Imm Hx Previously Healthy: Yes Respiratory History: COPD Other Respiratory History: emphysema Psychological History: Anxiety, Depression - Surgical History Surgical History: Yes Surgery Procedure, Year, and Place: Hysterectomy 01/15. Bladder sling and cystocele + rectocele. Bladder repair 08/17 - Family History Known Family History: Positive: Cardiac Disease Family History: Epilepsy, breast cancer - Social History Occupation: Employed Part-time Lives: With Family Alcohol Use: None Substance Use Type: None Smoking Status (MU): Former Smoker - Immunization History Most Recent Influenza Vaccination: this season Most Recent Tetanus Shot: Unknown Most Recent Pneumonia Vaccination: none <Mildred Nicole - Last Filed: 05/17/17 14:24> Review of Systems Constitutional: Negative Skin: Negative Eyes: Negative ENT: Sore Throat, Nasal Discharge, Sinus Congestion, Sinus Pain/Tenderness, Other - hoarseness Respiratory: Cough Cardiovascular: Negative Gastrointestinal: Negative Genitourinary: Negative Motor: Negative Neurovascular: Negative Musculoskeletal: Negative Neurological: Headache Psychological: Negative Is Patient Immunocompromised?: No All Other Systems Reviewed And Are Negative: Yes <Mildred Nicole - Last Filed: 05/17/17 14:24> Physical Exam - Summary Physical Exam Summary: Vitals: reviewed General: Well developed, well-nourished female patient with NAD. Head and face: Normocephalic and atraumatic, Positive tenderness over the frontal and maxillary sinuses.. Eyes: PERRLA, EOMI x 2. Normal conjunctiva. No eye discharge. ENT: Ears and TM with normal limits. Nose: with yellowish discharge and erythematous mucosa. Pharynx with erythema , no exudate.No B/L tonsilar enlargement. Neck: Supple, no JVD, no carotid bruits and no lymphadenopathy. Lungs: clear, no rales, no rhonchi, no wheezes. CVS: RRR, S1 and S2 present no murmurs or gallops appreciated. Abdomen: soft nontender with positive bowel sounds. Extremities: no edema noted. Neuro: WNL. Skin: warm and dry Triage Information Reviewed: Yes Vital Signs: Initial Vital Signs Temp 98.4 F 05/16/17 15:12 Pulse 80 05/16/17 15:12 Resp 18 05/16/17 15:12 BP 134/80 05/16/17 15:12 Pulse Ox 100 05/16/17 15:12 <Mildred Nicole - Last Filed: 05/17/17 14:24> Vital Signs: Initial Vital Signs Temp 98.4 F 05/16/17 15:12 Pulse 80 05/16/17 15:12 Resp 18 05/16/17 15:12 BP 134/80 05/16/17 15:12 Pulse Ox 100 05/16/17 15:12 <Geovanna Heredia - Last Filed: 05/17/17 14:52> Throat Pain/Nasal Course/Dx - Course Course Of Treatment: 56 y/o female presents to the urgent care c/o sore throat, laryngitis, nasal congestion w/ yellowish nasal discharge for the past week. Pt reports she has PMHX of COPD, emphysema and recurrent sinusitis. She has been taking Ciprofloxacin PO she had at home since last Tuesday to alleviate her symptoms. She states sinus pain and ISBELL started today. She feels SOB at times and her PCP usually give her Prednisone PO to alleviate symptoms. Pt denies SOB today, chest pain, abdominal pain, dizziness, N/V/D. Hx obtained. Pt w/ acute bacterial sinusitis on examination. Pt explained she doesn't need Prednisone PO for now since her lungs are clear. Pt insistead and started to cry. Pt also requested refill for albuterol inhaler. Pt w/ PMHX of anxiety and depression. She insisted she didn' wants to get a COPD exacerbation. Pt PCP allergic. Pt Rx Doxycycline PO, Flonase nasal spray and Prednisone taper dose. Discharge instructions explained to Pt. Advised to Return to the clinic or PCP if symptoms do not improve.Pt understood and agreed with plan of care. - Differential Dx/Diagnosis Differential Diagnosis/HQI/PQRI: Laryngitis, Mononucleosis, Otitis Media, Pharyngitis, Sinusitis, Tonsillitis, URI Provider Diagnoses: 1- Acute bacterial sinusitis <Mildred Nicole - Last Filed: 05/17/17 14:24> Discharge <Mildred Nicole - Last Filed: 05/17/17 14:24> <Geovanna Heredia - Last Filed: 05/17/17 14:52> - Discharge Plan Condition: Stable Disposition: HOME Prescriptions: Albuterol HFA INHALER* [Ventolin HFA Inhaler*] 1 - 2 puff INH Q4H PRN #1 mdi PRN Reason: Wheezing Albuterol/Ipratropium RESP(NF) [Combivent Respimat (NF)] 1 aer IN DAILY #1 mdi DOXYcycline CAP(*) [DOXYcycline 100MG CAP(*)] 100 mg PO BID #20 cap Fluticasone NASAL SPRAY 50MCG* [Flonase NASAL SPRAY 50MCG*] 2 spray BOTH NARES DAILY #1 btl predniSONE TAB* [Deltasone TAB*] 20 mg PO DAILY #11 tab Patient Education Materials: Sinusitis (ED) Referrals: Iggy Kumar MD [Primary Care Provider] - 1 Week Additional Instructions: 1- Please increase fluid intake and rest. take full course of antibiotic to avoid resistance. Please stop taking the Ciprofloxacin PO 2-Use Flonase as directed to help drain fluid. Also buy saline drops to clear sinuses 3- Continue taking the albuterol inhaler to alleviate cough 3-Return to the clinic or PCP if symptoms do not improve for further management and treatment Attestation Statement User Type: Provider - I was available for consult. This patient was seen by the DE[facility]. The patient was not presented to, seen by, or examined by me. Kathie <Geovanna Heredia - Last Filed: 05/17/17 14:52>
== END 2017-05-16 15:45 | disposition home or self-care (01) ==
LOC: UCEAST 15:07
DX: J01.90 Acute sinusitis, unspecified (principal); J43.9 Emphysema, unspecified; F41.9 Anxiety disorder, unspecified; F32.9 Major depressive disorder, single episode, unspecified; Z88.0 Allergy status to penicillin
CPT/HCPCS: 99212; G0463

== ENCOUNTER 2018-02-07 11:29 | Emergency (ER) | payer OTHER ==
--- OUTSIDE RECORDS SUMMARY | 2018-02-07 11:35 | XMS REPORT | Continuity of Care Document ---
:1960 External Reference #:[id number] Author Name [facility] Care Team Providers Name Role Phone Iggy Kumar MD Primary Care Physician Unavailable Payers Type Date Identification Numbers Payment Provider Subscriber Policy Number: [id number] Jasmine/[employer] Libby Mitchell PayID: [id number] [address] [address] [place] [address] Advance Directives Description No Information Available Problems Date Description Provider Status Onset: 01/07/2016 Chronic obstructive lung disease Feli Niño MD Active Onset: 01/07/2016 Disturbance in sleep behavior Feli Niño MD Active Onset: 01/07/2016 Obesity Feli Niño MD Active Onset: 01/04/2017 Speech and language disorder Iggy Kumar M.D. Active Onset: 02/15/2017 Disturbance in speech Iggy Kumar M.D. Active Onset: 02/15/2017 Thoracic and lumbosacral neuritis Iggy Kumar M.D. Active Onset: 04/11/2017 Concussion with no loss of Sin Sol M.D. Active consciousness Onset: 04/11/2017 Disturbance in speech rhythm Sin Sol M.D. Active Onset: 10/07/2017 Pain in limb Iggy Kumar M.D. 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 Hand Dominance Left-handed Cigarette Use Quit 16 Years Ago ETOH Use Denies alcohol use Tobacco Use Start: Unknown End: Patient is a former smoker Unknown Smoking Status Reviewed: 02/02/18 Patient is a former smoker Exercise Type/Frequency Exercises rarely Allergies, Adverse Reactions, Alerts Date Description Reaction Status Severity Comments 01/07/2016 Penicillin Active Medications Medication Date Status Form Strength Qnty SIG Indications Ordering Provider Incruse Ellipta 12/30/ Active Aerosol 62.5mcg/I 30uni 1 act qday Zsofia 2018 nh ts Tim[place], GEAR INSPECTOR Phenazopyridine 12/21/ Active Tablets 100mg 30tab 1 tabs by N39.0 Zsofia HCL 2018 s mouth [place], three GEAR INSPECTOR times a day as needed Vitamin D 10/26/ Active Capsules [id number] 8caps take 1 E55.9 Zsofia (Ergocalciferol) 2018 capsule [place], every week GEAR INSPECTOR for 8 weeks Ventolin HFA 10/13/ Active Aerosol 108(90Bas 18gm 2 puffs by Feli 2017 e) mouth four [place], mcg/Act times a MD day as needed Albuterol Sulfate 01/05/ Active Nebulizer (2.5mg/3M 270ml 1 vial via Feli 2015 L) 0.083% nebulizer [place], 4 times MD daily as needed Clonazepam 01/05/ Active Tablets 2mg 1 by mouth Unknown 2015 three times a day as needed Combivent 01/05/ Active Aerosol 20-100mcg 12gm 1 puffs 4 Feli Respimat 2015 /Act daily as [place], needed MD Ibuprofen 01/05/ Active Tablets 200mg as needed Unknown 2015 Effexor XR / Active Caps ER 150mg 1 by mouth Unknown 0000 24HR every day, take with 37.5 MG Hydrocodone/Aceta / Active Take 1 Unknown minophen [phone] tablet 3 MG times daily Vitamin D3 / Active Capsules 5000Unit 1 by mouth Unknown Maximum Strength 0000 every day Zinc / Active Capsules 1 by mouth Unknown 0000 every day Effexor XR / Active Caps ER 37.5mg two by Unknown 0000 24HR mouth every day with the 150 MG tab Gabapentin / Active Capsules 300mg Take 1 Unknown 0000 Capsule By Mouth Four Times A Day as Needed Ciprofloxacin HCL 12/21/ Hx Tablets 250mg 10tab take 1 tab N39.0 Zsofia 2018 - s by mouth [place], 12/30/ twice a GEAR INSPECTOR 2018 day for 5 days Spiriva Respimat 10/19/ Hx Aerosol 2.5mcg/Ac 4unit 2 puffs J43.9 Zsofia 2018 - t s every day [place], 12/26/ GEAR INSPECTOR 2018 Prednisone 01/06/ Hx Tablets 1mg 120ta take 4 J44.9 Feli 2015 - bs tablets by [place], 04/01/ mouth 2016 daily Ambien 01/05/ Hx Tablets 10mg 1 by mouth Unknown 2015 - every 11/29/ night at 2017 bedtime as needed sleep insomnia Ergocalciferol 01/05/ Hx Capsules [id number] 1 tab by Unknown 2015 - mouth 01/05/ every week 2015 Prednisone 01/05/ Hx Tablets 10mg 5tabx Unknown 2015 - 2days,4 01/05/ [id number] 2015 [id number] ,7cmqb2vpu s,1tabxday . Vesicare 01/05/ Hx Tablets 10mg 1 by mouth Unknown 2015 - every day 02/15/ prn 2016 Neurontin / Hx Capsules 100mg 300 mg in Unknown 0000 - the 10/12/ morning, 2018 600 mg at bedtime Immunizations CPT Code Status Date Vaccine Reaction Lot # [id number] Given 12/21/2017 Influenza Virus Vaccine, [id number] Quadrivalent, Split, Preservative Free 31027 Given 02/15/2017 Pneumonia Vaccine [id number] Given 01/04/2017 Influenza Virus Vaccine, no immediate reaction, [id number] Quadrivalent, Split, pt tolerated well Preservative Free Vital Signs Date Vital Result Comment 02/02/2018 1:56pm Height 64 inches 5'4" Heart Rate 72 /min BP Systolic Sitting 110 mmHg BP Diastolic Sitting 78 mmHg Respiratory Rate 16 /min 12/21/2017 2:13pm Height 64 inches 5'4" Weight 239.00 lb Heart Rate 87 /min BP Systolic Sitting 112 mmHg BP Diastolic Sitting 80 mmHg Body Temperature 98.8 F O2 % BldC Oximetry 98 % BMI (Body Mass Index) 41.0 kg/m2 10/26/2017 9:17am Height 64 inches 5'4" Weight 235.38 lb Heart Rate 90 /min BP Systolic Sitting 98 mmHg BP Diastolic Sitting 68 mmHg O2 % BldC Oximetry 97 % BMI (Body Mass Index) 40.4 kg/m2 10/13/2017 10:51am Height 64 inches 5'4" Weight 232.00 lb Heart Rate 84 /min BP Systolic Sitting 90 mmHg BP Diastolic Sitting 60 mmHg Respiratory Rate 14 /min O2 % BldC Oximetry 95 % BMI (Body Mass Index) 39.8 kg/m2 10/07/2017 8:33am Height 64 inches 5'4" Weight 229.00 lb Heart Rate 89 /min BP Systolic 100 mmHg BP Diastolic 78 mmHg O2 % BldC Oximetry 98 % BMI (Body Mass Index) 39.3 kg/m2 05/26/2017 1:43pm Height 64 inches 5'4" Weight 224.00 lb Heart Rate 108 /min BP Systolic Sitting 112 mmHg BP Diastolic Sitting 82 mmHg Respiratory Rate 17 /min BMI (Body Mass Index) 38.4 kg/m2 05/23/2017 9:54am Height 64 inches 5'4" Weight 223.38 lb Heart Rate 87 /min BP Systolic Sitting 112 mmHg BP Diastolic Sitting 78 mmHg Body Temperature 97.9 F O2 % BldC Oximetry 97 % BMI (Body Mass Index) 38.3 kg/m2 04/11/2017 1:05pm Height 64 inches 5'4" Weight 225.00 lb Heart Rate 84 /min BP Systolic 116 mmHg BP Diastolic 78 mmHg Respiratory Rate 16 /min BMI (Body Mass Index) 38.6 kg/m2 02/15/2017 8:30am Height 64 inches 5'4" Weight 224.00 lb w/o shoes Heart Rate 88 /min reg BP Systolic Sitting 100 mmHg Lue, lg cuff BP Diastolic Sitting 72 mmHg Lue, lg cuff Respiratory Rate 16 /min Body Temperature 98.3 F tympanic BMI (Body Mass Index) 38.4 kg/m2 01/04/2017 3:27pm Height 64 inches 5'4" Weight 223.38 lb Heart Rate 82 /min BP Systolic 118 mmHg BP Diastolic 68 mmHg Body Temperature 99.1 F O2 % BldC Oximetry 96 % BMI (Body Mass Index) 38.3 kg/m2 11/30/2016 9:32am Height 64 inches 5'4" Weight 220.00 lb Heart Rate 93 /min BP Systolic Sitting 118 mmHg BP Diastolic Sitting 70 mmHg Respiratory Rate 18 /min Pain Level 0 O2 % BldC Oximetry 97 % BMI (Body Mass Index) 37.8 kg/m2 04/02/2016 8:30am Height 64 inches 5'4" Heart Rate 92 /min BP Systolic Sitting 138 mmHg BP Diastolic Sitting 78 mmHg Respiratory Rate 18 /min O2 % BldC Oximetry 96 % 01/07/2016 10:29am Height 64 inches 5'4" Weight 221.50 lb Heart Rate 80 /min BP Systolic 122 mmHg BP Diastolic 80 mmHg Respiratory Rate 14 /min O2 % BldC Oximetry 98 % BMI (Body Mass Index) 38.0 kg/m2 Neck Circumference in inches 15.5 Results Test Date Facility Test Result H/L Range Note Ua Routine 12/21/2017 [facility] Ua Specific [place] 1.020 Ua PH 5 Ua Color yellow Ua Appera clear Ua WBC ++ Ua Protein trace Ua Glucose normal Ua Ketones negative Ua Bilirubin negative Ua Urobilinogen normal Ua Nitrite negative Ua Occult Blood about 50 Urinalysis Profile 12/21/2017 [facility] Urine Color Yellow [address] [place] [address] [phone] Urine Appearance Cloudy Urine Specific [place] 1.012 N 1.010-1.030 Urine pH 5.0 N 5-9 Urine Urobilinogen Negative Negative Urine Ketones Negative Negative Urine Protein Negative Negative Urine Leukocytes 3+ Abnormal Negative Urine Blood 1+ Abnormal Negative Urine Nitrite Negative Negative Urine Bilirubin Negative Negative Urine Glucose Negative Negative Urine White Blood Cell 2+(11-20/hpf) Abnormal Absent Urine Red Blood Cell 1+(3-5/hpf) Abnormal Absent Urine Bacteria 1+ Abnormal Absent Urine Squamous Epithelial Cell Present Abnormal Absent Urine Culture And 12/21/2017 [facility] Urine Culture SEE RESULT [address] [place] [address] [phone] Connective Tissue 10/07/2017 [facility] Anti-Nuclear 0.[address] [place] [address] [phone] Cyclic Citrullinated Peptide <15.6 U 3 Interpretation See Comment 4 Laboratory test 08/16/2017 [facility] Vitamin B12 419 pg/mL N 180-[address] [place] [address] [phone] Vitamin D Total 25(Oh) 15.9 ng/mL Low 20-50 Ceruloplasmin 27.9 mg/dL 6 Urine Culture And 08/16/2017 [facility] Urine Culture SEE RESULT [address] [place] [address] [phone] CBC Auto Diff 08/16/2017 [facility] White Blood 7.7 10^3/uL N 3.5-[address] Count .8 [place] [address] [phone] Red Blood Count 4.64 10^6/uL N 4.00-5.40 Hemoglobin 12.6 g/dL N 12.0-16.0 Hematocrit 39 % N 35-47 Mean Corpuscular Volume 84 fL N 80-97 Mean Corpuscular Hemoglobin 27 pg N 27-31 Mean Corpuscular HGB Conc 32 g/dL N 31-36 Red Cell Distribution Width 16 % High 10.5-15 Platelet Count 300 10^3/uL N 150-450 Mean Platelet Volume 7.8 um3 N 7.4-10.4 Abs Neutrophils 4.5 10^3/uL N 1.5-7.7 Abs Lymphocytes 2.3 10^3/uL N 1.0-4.8 Abs Monocytes 0.5 10^3/uL N 0-0.8 Abs Eosinophils 0.3 10^3/uL N 0-0.6 Abs Basophils 0.1 10^3/uL N 0-0.2 Abs Nucleated RBC 0 10^3/uL Granulocyte % 58.5 % N 38-83 Lymphocyte % 30.5 % N 25-47 Monocyte % 6.7 % N 0-7 Eosinophil % 3.4 % N 0-6 Basophil % 0.9 % N 0-2 Nucleated Red Blood Cells % 0.1 Comp Metabolic Panel 08/16/2017 [facility] Sodium 139 mmol/L N 139-[address] [place] [address] [phone] Potassium 4.7 mmol/L N 3.5-5.0 Chloride 104 mmol/L N 101-111 Co2 Carbon Dioxide 28 mmol/L N 22-32 Anion Gap 7 mmol/L N 2-11 Glucose 91 mg/dL N 70-100 Blood Urea Nitrogen 11 mg/dL N 6-24 Creatinine 0.81 mg/dL N 0.51-0.95 BUN/Creatinine Ratio 13.6 N 8-20 Calcium 9.5 mg/dL N 8.6-10.3 Total Protein 6.9 g/dL N 6.4-8.9 Albumin 4.0 g/dL N 3.2-5.2 Globulin 2.9 g/dL N 2-4 Albumin/Globulin Ratio 1.4 N 1-3 Total Bilirubin 0.40 mg/dL N 0.2-1.0 Alkaline Phosphatase 75 U/L N 34-104 Alt 20 U/L N 7-52 Ast 20 U/L N 13-39 Egfr Non- 73.4 >60 Egfr 94.4 >60 8 Laboratory test 08/16/2017 [facility] Cortisol 4.63 g/dL [address] [place] [address] [phone] Lipid Profile 08/16/2017 [facility] Triglycerides 237 mg/dL 10 (Trig/Chol/HDL) [address] [place] [address] [phone] Cholesterol 166 mg/dL 11 HDL Cholesterol 46.2 mg/dL 12 LDL Cholesterol 72 mg/dL 13 Laboratory test 08/16/2017 [facility] TSH 1.28 N 0.34-5.[address] (Thyroid mcIU/[place] [address] Stim Horm) [phone] Urine Culture And 03/26/2017 [facility] Urine SEE RESULT 14 , Sensitivities [address] Culture BELOW [address] [place] [address] [phone] Poc Urinalysis 03/26/2017 [facility] Poc Negative Negative [address] Glucose, [place] [address] Urine [phone] Poc Bilirubin, Urine Negative Negative Poc Ketone, Urine Negative Negative Poc Specific [place], Urine <=1.005 Low 1.010-1.030 Poc Blood, Urine Trace-lysed Abnormal Negative Poc pH, Urine 6.0 N 5-9 Poc Protein, Urine Negative Negative Poc Urobilinogen, Urine 0.2 Negative Poc Nitrite, Urine Negative Negative Poc Leukocytes, Urine 1+ Abnormal Negative Poc Color, Urine Yellow Poc Clarity, Urine Clear 16 Xray 12/03/[address] [facility] [address] Lung <pending> [address] [place] [address] Dose [phone] Laboratory test 02/12/2016 [facility] Alpha 1 147 mg/dL N 100 - [address] Antitrypsin A1a [address] [place] [address] [phone] 1 SEE RESULT BELOW Name: LIBBY MITCHELL : [address]: Suleiman Izquierdo NP Acct: [id number] Unit: [id number] AGE: 57 Location: [facility] Re12/21/17 SEX: F Status: REG REF SPEC: [id number] CRICKET: 12/21/[address]: Suleiman Izquierdo NP REQ: [id number] RECD: 12/21/17 STATUS: COMP _ SOURCE: URINE SPDESC: ORDERED: Urine Culture COMMENTS: [id number] Urine Source: Clean Catch Procedure Result Reported Site Urine Culture Final 12/22/17- 1656 ML No growth of clinically significant organisms * ML - Main Lab . END OF REPORT DEPARTMENT OF PATHOLOGY, [address] [place] [address] Joby Hays M.D. Director [facility] # [id number] 2 REFERENCE VALUE <=1.0 (Negative) 3 REFERENCE VALUE <20.0 (Negative) 4 Tests for antibodies to dsDNA and CORTEZ antigens are not performed automatically unless the DEDRA result is > or= 3.0 U. Studies performed at [facility] indicate that positive DEDRA results <3.0 U are rarely accompanied by positive second order tests. Test Performed by: [facility] [place] - [address] [address] 5 Normal Range 180 to 914 Indeterminate Range 145 to 180 Deficient Range <145 6 REFERENCE VALUE 20.0 - 51.0 Test Performed by: [facility] - [address] [address] 7 SEE RESULT BELOW Name: LIBBY MITCHELL : [address]: Hortensia Recinos [facility] Acct: [id number] Unit: [id number] AGE: 56 Location: [facility] Re08/16/17 SEX: F Status: REG REF SPEC: [id number] CRICKET: 08/16/[address]: Hortensia Recinos [facility] REQ: [id number] RECD: 08/16/17 STATUS: JONO BO DR: Rachana Kumar MD _ SOURCE: URINE SPDESC: ORDERED: Urine Culture QUERIES: Urine Source: Clean Catch Procedure Result Reported Site Urine Culture Final 08/17/17- 1326 ML No growth of clinically significant organisms * ML - Main Lab . END OF REPORT DEPARTMENT OF PATHOLOGY, [address] [place] [address] Joby Hays M.D. Director [facility] # [id number] 8 Because ethnic data is not always readily available, this report includes an eGFR for both -Americans and non- Americans. The National Kidney Disease Education Program (NKDEP) does not endorse the use of the MDRD equation for patients that are not between the ages of 18 and 70, are , have extremes of body size, muscle mass, or nutritional status, or are non- or non-. According to the National Kidney Foundation, irrespective of diagnosis, the stage of the disease is based on the level of kidney function: Stage Description GFR(mL/min/1.73 m(2)) 1 Kidney damage with normal or decreased GFR 90 2 Kidney damage with mild decrease in GFR 60-89 3 Moderate decrease in GFR 30-59 4 Severe decrease in GFR 15-29 5 Kidney failure <15 (or dialysis) 9 AM 8.7-22.4 PM <10 10 Desirable: <150 Borderline High: 150-199 High: 200-499 Very High: >500 11 Desirable: <200 Borderline High: 200-239 High: >239 12 Low: <40 Desirable: 40-60 High: >60 13 Desirable: <100 Near Optimal: 100-129 Borderline High: 130-159 High: 160-189 Very High: >189 14 [id number] 15 SEE RESULT BELOW Name: LIBBY MITCHELL : [address]: Shanice Oates MD Acct: [id number] Unit: [id number] AGE: 56 Location: [facility] Re03/26/17 SEX: F Status: DEP ER SPEC: [id number] CRICKET: 03/26/17-[address] [facility] DR: Shanice Oates MD REQ: [id number] RECD: 03/26/17 STATUS: JONO BO DR: Iggy Kumar MD _ SOURCE: URINE SPDESC: ORDERED: Urine Culture COMMENTS: [id number] Procedure Result Reported Site Urine Culture Final 03/27/17- 1204 ML No Growth (<1,000 CFU/mL) * ML - MAIN LAB ([facility]) . END OF REPORT * ML=Testing performed at Main Lab DEPARTMENT OF PATHOLOGY, [address] [place] [address] Joby Hays M.D. Director [facility] # [id number] 16 [employer] Consultant: [id number] Test Performed by: [address] [address] [employer] Set Up Technician: Tarun Saab II, M.D., Ph.D. Procedures Date Code Description Status 11/17/2017 [id number] Bone Mineral Density Test Completed 11/17/2017 45960265 Mammogram Completed 04/06/2016 67305 EKG, Interpretation Only Completed 02/13/2016 48949 Polysomnography Sleep Staging 4+ Parameters Completed 02/12/2016 51192 Diffusing Capacity Completed 02/12/2016 41358 Plethysmography Determination Lung Volumes & Per Completed Airway Resist 02/12/2016 00061 Pulmonary Stress Test Simple Completed 02/12/2016 79981 Pulmonary Function><Bronchodil Completed 04/22/2014 56428696 Mammogram Completed 03/07/2012 45939567 Colonoscopy Completed Encounters Type Date Location Provider Dx Diagnosis Office Visit 12/21/2017 [facility] Internal Suleiman Izquierdo, N39.0 Urinary tract 2:20p Medicine - [place] GEAR INSPECTOR infection, site Rd not specified J43.8 Other emphysema E55.9 Vitamin D deficiency, unspecified E66.09 Other obesity due to excess calories Z23 Encounter for immunization Office Visit 10/26/2017 9:20a [facility] Internal Suleiman Izquierdo, Z00.00 Encntr for Medicine - [place] GEAR INSPECTOR general adult Rd medical exam w/o abnormal findings E55.9 Vitamin D deficiency, unspecified E66.09 Other obesity due to excess calories Z12.31 Encntr screen mammogram for malignant neoplasm of breast N95.1 Menopausal and female climacteric states H61.21 Impacted cerumen, right ear Z00.01 Encounter for general adult medical exam w abnormal findings H61.23 Impacted cerumen, bilateral Office Visit 10/13/2017 11:00a Pulmonology And [facility]eli J44.9 [facility] [place] obstructive [facility] pulmonary disease, unspecified E66.09 Other obesity due to excess calories Office Visit 10/07/2017 8:20a [facility] Internal Iggy R47.89 Other speech Crow Kumar M.D. disturbances [place] [address] M79.606 Pain in leg, unspecified J44.9 Chronic obstructive pulmonary disease, unspecified Office Visit 05/26/2017 Marisol Sol R47.89 Other speech 1:45p Neurologic [place] disturbances Services Of [facility] S06.0x0S Concussion without loss of consciousness, sequela R41.89 Oth symptoms and signs w cognitive functions and awareness Office Visit 05/23/2017 10:00a [facility] Internal Iggy R47.89 Other speech Crow Kumar M.D. disturbances [address] Z12.39 Encounter for oth screening for malignant neoplasm of breast J44.9 Chronic obstructive pulmonary disease, unspecified E66.9 Obesity, unspecified Office Visit 04/11/2017 Marisol Sol, R47.89 Other speech 1:00p Neurologic MSunnyDSunny disturbances Services Of [facility] Office Visit 02/15/2017 [facility] Internal Iggy Kumar R47.9 Unspecified 8:40a Medicine - [place] Yennifer.DSunny speech Rd disturbances J44.9 Chronic obstructive pulmonary disease, unspecified M51.16 Intervertebral disc disorders w radiculopathy, lumbar region E66.8 Other obesity Z68.38 Body mass index (BMI) 38.0-38.9, adult Z23 Encounter for immunization Office Visit 01/04/2017 3:20p [facility] Jacob Gifford.9 Chronic Medicine - [place] obstructive [address] pulmonary disease, unspecified S06.0x0A Concussion without loss of consciousness, initial encounter Z23 Encounter for immunization Office Visit 11/30/2016 9:15a Pulmonology And Feli Vela44.9 [facility] [place] obstructive [facility] pulmonary disease, unspecified Z12.2 Encntr screen for malignant neoplasm of respiratory organs Z87.891 Personal history of nicotine dependence Office Visit 04/12/2016 Neurohospitalist Maninder Castro 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 at [place] [facility]02/02/2018 - Sin Sol M.D.R47.89 Other speech nshkdzzooanhJ23.0x0S Concussion without loss of consciousness, sequela
[2018-02-07 11:51] VITALS: BP 116/71
--- NOTE | 2018-02-07 11:56 | UC ---
UC General HPI - HPI Summary HPI Summary: 57 yo lady c/o 4-5 days dysuria, local pain with urination, lower pelvic pain. No fever / chills. Does have a hx of urethral sling. No sharon hematuria. Does suffer from back pain, trying to have physical therapy. However, this has been causing her pelvic discomfort. No rash. - History of Current Complaint Chief Complaint: UCGU Stated Complaint: PERSONAL Time Seen by Provider: 02/07/18 11:55 Hx Obtained From: Patient Hx Last Menstrual Period: hysterectomy Pain Intensity: 8 - Allergy/Home Medications Allergies/Adverse Reactions: Allergies Allergy/AdvReac Type Severity Reaction Status Date / Time Penicillins Allergy Hives/Diff. Verified 02/07/18 11:51 Breathing/I tching Home Medications: Home Medications Phenazopyridine HCl [Pyridium] 1 tab PO ONCE PRN 02/07/18 [History Confirmed 06/22] PMH/Surg Hx/FS Hx/Imm Hx Previously Healthy: No - see hpi, see below - Surgical History Surgical History: Yes Surgery Procedure, Year, and Place: Hysterectomy 01/15. Bladder sling and cystocele + rectocele. Bladder repair 08/17 - Family History Known Family History: Positive: Cardiac Disease, Other - Epilepsy, breast cancer Family History: Epilepsy, breast cancer - Social History Alcohol Use: None Substance Use Type: None Substance Use Comment - Amount & Last Used: hydrocodone with tylenol and clonazepam Smoking Status (MU): Former Smoker Length of Time of Smoking/Using Tobacco: 1999 - Immunization History Most Recent Influenza Vaccination: this season Most Recent Tetanus Shot: Unknown Most Recent Pneumonia Vaccination: none Review of Systems All Other Systems Reviewed And Are Negative: Yes Constitutional: Positive: Negative Skin: Positive: Other - see hpi Eyes: Positive: Negative ENT: Positive: Negative Respiratory: Positive: Negative Cardiovascular: Positive: Negative Gastrointestinal: Positive: Other - see hpi Genitourinary: Positive: Other - see hpi Motor: Positive: Negative Neurovascular: Positive: Negative Musculoskeletal: Positive: Negative Neurological: Positive: Negative Psychological: Positive: Negative Is Patient Immunocompromised?: No Physical Exam Triage Information Reviewed: Yes Appearance: Well-Nourished Vital Signs: Initial Vital Signs Temp 97.5 F 02/07/18 11:40 Pulse 83 02/07/18 11:40 Resp 18 02/07/18 11:40 BP 116/71 02/07/18 11:40 Pulse Ox 100 02/07/18 11:40 Vital Signs Reviewed: Yes Eye Exam: Normal - grossly normal ENT Exam: Normal - grossly normal Neck exam: Normal Respiratory Exam: Normal - no tachypnea, no dyspnea RR normal Cardiovascular Exam: Normal - HR regular. Nondiaphoretic. Abdominal Exam: Other - No cvat Abd nontender. Local pelvic discomfort. See Pelvic exam. Pelvic Exam: Positive: Other - Normal female genitalia. Urethral meatus mild swelling (as described by pt) No external sores / lesions noted. Vag vault white discharge. No sharon masses / focal tenderness. Musculoskeletal Exam: Normal - grossly nad. + hx chronic back pain Neurological Exam: Normal - grossly nonfocal Psychological Exam: Normal - conversing easily and appropriately Skin Exam: Normal - no visible or reported rash Course/Dx - Course Course Of Treatment: Reviewed coa / tx plan. Will hold off abx, pending urine cx. She will f/u PCP as well. Encouraged to f/u Dr. Cruz, but doesn't want to call for follow up at this time. Questions answered as posed to the best of my ability. - Diagnoses Provider Diagnosis: Vaginitis Discharge - Sign-Out/Discharge Documenting (check all that apply): Patient Departure All imaging exams completed and their final reports reviewed: No Studies - Discharge Plan Condition: Stable Disposition: HOME Prescriptions: Fluconazole [Diflucan 150 MG (NF)] 150 mg PO DAILY #2 tab metroNIDAZOLE VAGINAL 0.75%* 1 applic VAGINAL BEDTIME 7 Days #1 tube Patient Education Materials: Vaginitis (ED) Referrals: Iggy Kumar MD [Primary Care Provider] - Additional Instructions: We are treating you for presumptive yeast infection and presumptive bacterial vaginosis. You have other tests in the lab, including urine culture. You will be notified if the urine culture is positive, requiring treatment. Also routine test for gc / chlamydia. You will be notified if results positive. Please follow up with your primary care physician - in the next 1-2 weeks for re -evaluation. Seek medical attention for worse or new problems. Drink plenty of water. - Billing Disposition and Condition Condition: STABLE Disposition: Home
--- NOTE | 2018-02-08 16:26 | UC ---
- Progress Note Progress Note: 02/08/2015 Vaginal swabs positive for Gardnerella and negative for Jessica. Pt Rx Metrogel and Fluconazole PO. GC/Chlamydia=negative No change Mildred Gonzalez PA-C Course/Dx - Diagnoses Provider Diagnoses: Vaginitis Discharge - Sign-Out/Discharge Documenting (check all that apply): Patient Departure - d/c home All imaging exams completed and their final reports reviewed: No Studies - Discharge Plan Condition: Stable Disposition: HOME Prescriptions: Fluconazole [Diflucan 150 MG (NF)] 150 mg PO DAILY #2 tab metroNIDAZOLE VAGINAL 0.75%* 1 applic VAGINAL BEDTIME 7 Days #1 tube Patient Education Materials: Vaginitis (ED) Referrals: Iggy Kumar MD [Primary Care Provider] - Additional Instructions: We are treating you for presumptive yeast infection and presumptive bacterial vaginosis. You have other tests in the lab, including urine culture. You will be notified if the urine culture is positive, requiring treatment. Also routine test for gc / chlamydia. You will be notified if results positive. Please follow up with your primary care physician - in the next 1-2 weeks for re -evaluation. Seek medical attention for worse or new problems. Drink plenty of water. - Billing Disposition and Condition Condition: STABLE Disposition: Home
== END 2018-02-07 13:01 | disposition home or self-care (01) ==
LOC: UCEAST 11:29
DX: N76.0 Acute vaginitis (principal); Z90.710 Acquired absence of both cervix and uterus; Z88.0 Allergy status to penicillin; Z87.891 Personal history of nicotine dependence
CPT/HCPCS: 81003; 87086; 87480; 87491; 87510; 87591; 99212; G0463

== ENCOUNTER 2018-02-25 08:42 | Emergency (ER) | payer OTHER ==
[2018-02-25 08:48] VITALS: BP 115/70
--- NOTE | 2018-02-25 09:03 | UC ---
Throat Pain/Nasal [place] HPI - HPI Summary HPI Summary: 57-year-old female presents with onset of sore throat yesterday. Denies fever, chills, ear pain, nasal congestion, dysphagia, chest pain, shortness of breath, cough, wheezing, abdominal pain, nausea, vomiting, or diarrhea. - History of Current Complaint Chief Complaint: UCRespiratory Stated Complaint: SORE THROAT Time Seen by Provider: 02/25/18 09:00 Hx Obtained From: Patient Hx Last Menstrual Period: hysterectomy Pain Intensity: 5 - Allergies/Home Medications Allergies/Adverse Reactions: Allergies Allergy/AdvReac Type Severity Reaction Status Date / Time Penicillins Allergy Hives/Diff. Verified 02/25/18 08:48 Breathing/I tching PMH/Surg Hx/FS Hx/Imm Hx Respiratory History: COPD Psychological History: Anxiety Other Psychological History: Complex regional pain syndrome - Surgical History Surgical History: Yes Surgery Procedure, Year, and Place: Hysterectomy 01/15. Bladder sling and cystocele + rectocele. Bladder repair 08/17 - Family History Known Family History: Positive: Cardiac Disease, Other - Epilepsy, breast cancer Family History: Epilepsy, breast cancer - Social History Occupation: Employed Full-time Lives: With Family Alcohol Use: None Substance Use Type: None Substance Use Comment - Amount & Last Used: hydrocodone with tylenol and clonazepam Smoking Status (MU): Former Smoker Length of Time of Smoking/Using Tobacco: 1999 - Immunization History Most Recent Influenza Vaccination: this season Most Recent Tetanus Shot: Unknown Most Recent Pneumonia Vaccination: none Review of Systems All Other Systems Reviewed And Are Negative: Yes Constitutional: Negative: Fever, Chills Skin: Negative: Rash ENT: Positive: Sore Throat. Negative: Ear Ache, Nasal Discharge, Sinus Congestion, Sinus Pain/Tenderness Respiratory: Negative: Shortness Of Breath, Cough Cardiovascular: Negative: Palpitations, Chest Pain Gastrointestinal: Negative: Abdominal Pain, Vomiting, Diarrhea, Nausea Is Patient Immunocompromised?: No Physical Exam - Summary Physical Exam Summary: GENERAL APPEARANCE: Well developed, well nourished, alert and cooperative, and appears to be in no acute distress. EYES: Conjunctiva clear. No discharge. Vision is grossly intact. EARS: External auditory canals and tympanic membranes clear, hearing grossly intact. NOSE: No nasal discharge. THROAT: Mild pharyngeal erythema. No tonsilar inflammation or exudate. Oral cavity normal. NECK: Neck supple, non-tender without lymphadenopathy. CARDIAC: Normal S1 and S2. No S3, S4 or murmurs. Rhythm is regular. There is no peripheral edema, cyanosis or pallor. Extremities are warm and well perfused. Capillary refill is less than 2 seconds. LUNGS: Clear to auscultation and percussion without rales, rhonchi, wheezing or diminished breath sounds. ABDOMEN: Positive bowel sounds. Soft, nondistended, nontender. No guarding or rebound. No masses or hepatosplenomegally. SKIN: Skin normal color, texture and turgor with no lesions or eruptions. Triage Information Reviewed: Yes Vital Signs: Initial Vital Signs Temp 99 F 02/25/18 08:45 Pulse 104 02/25/18 08:45 Resp 20 02/25/18 08:45 BP 115/70 02/25/18 08:45 Pulse Ox 98 02/25/18 08:45 Vital Signs Reviewed: Yes Diagnostics - Laboratory Diagnostic Studies Completed/Ordered: Rapid strep negative. Throat culture pending. Throat Pain/Nasal Course/Dx - Course Course Of Treatment: 57-year-old female presents with onset of sore throat yesterday. Denies fever, chills, ear pain, nasal congestion, dysphagia, chest pain, shortness of breath, cough, wheezing, abdominal pain, nausea, vomiting, or diarrhea. Afebrile. VSS. Exam unremarkable except for mild pharyngeal erythema. Rapid strep negative. Patient concerned that rapid strep is not accurate. Will send throat culture at her request. Recommend symptomatic treatment for viral pharyngitis. She is to follow up with PCP if symptoms persist. Warning symptoms reviewed. Verbalizes understanding and agrees with POC. - Differential Dx/Diagnosis Differential Diagnosis/HQI/PQRI: Influenza, Pharyngitis, Sinusitis, Tonsillitis , URI Provider Diagnosis: Viral pharyngitis Discharge - Sign-Out/Discharge Documenting (check all that apply): Patient Departure All imaging exams completed and their final reports reviewed: No Studies - Discharge Plan Condition: Stable Disposition: HOME Referrals: Iggy Kumar MD [Primary Care Provider] - 7 Days (If symptoms persist.) Additional Instructions: Your rapid strep test in the clinic today was negative. Your symptoms are likely from a viral infection. Viral infections do not respond to antibiotics and are limited to the treatment of symptoms. Viral infections typically run their course in 7-10 days. Drink plenty of fluids to avoid dehydration especially if you are running any fever. Use salt water gargles several times a day. Take over the counter acetaminophen (Tylenol) or ibuprofen (Advil, Motrin) according to directions as needed for pain or fever. You may also use Chloraseptic spray or Cepacol lonzenges according to directions which contain a numbing medication and can provide some temporary relief from your sore throat. Return here or follow up with your primary care provider if symptoms persist for more than 10 days or if you have any worsening of symptoms. Seek immediate medical attention in the emergency room if you have fever greater than 100.5 F despite taking acetaminophen or ibuprofen, are unable to swallow or develop drooling, are unable to open your mouth fully, are unable to eat or drink, have pain that is not relieved with over the counter pain medication, or have any difficulty breathing. - Billing Disposition and Condition Condition: STABLE Disposition: Home
== END 2018-02-25 09:34 | disposition home or self-care (01) ==
LOC: UCEAST 08:42
DX: J02.9 Acute pharyngitis, unspecified (principal); J44.9 Chronic obstructive pulmonary disease, unspecified; Z88.0 Allergy status to penicillin; Z87.891 Personal history of nicotine dependence
CPT/HCPCS: 87070; 87651; 99211; G0463

== ENCOUNTER 2018-04-16 14:52 | Emergency (ER) | payer OTHER ==
--- OUTSIDE RECORDS SUMMARY | 2018-04-16 14:57 | XMS REPORT | Continuity of Care Document ---
:1960 External Reference #:[id number] Author Name Pooja Cat Care Team Providers Name Role Phone Iggy Kumar MD Primary Care Physician Unavailable Payers Type Date Identification Numbers Payment Provider Subscriber Policy Number: [id number] Jasmine/[employer] Medicaid Libby Mitchell PayID: [id number] [address] [address] [place] [address] Advance Directives Description No Information Available Problems [...] Comments General Coronary Artery Disease (CAD) General PA Father due to PA () - age 73 Mother due to Emphysema () - age 58 Siblings 4 1 brother of PA age 39 1 sister obesity Social History Type Date Description Comments Sex Unknown Marital Status 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 Cigarette Use Quit 16 Years Ago ETOH Use Denies alcohol use Tobacco Use Start: Unknown End: Patient is a former smoker Unknown Smoking Status Reviewed: 03/23/18 Patient is a former smoker Exercise Type/Frequency Exercises rarely Allergies, Adverse Reactions, Alerts Date Description Reaction Status Severity Comments 01/07/2016 Penicillin Active Medications Medication Date Status Form Strength Qnty SIG Indications Ordering Provider Spiriva 02/22 Active Capsules 18mcg 30cap inhale the J44.9 Holland Handihaler /2017 s contents of DRAKE Ye one capsule via handihaler by mouth every day Phenazopyridine 12/21 Active Tablets 100mg 30tab 1 tabs by N39.0 Zsofia HCL s mouth three [place], times a day BLUE LINE OPERATOR as needed Vitamin D 10/26 Active Capsules [id number] 8caps take 1 E55.9 Zsofia (Ergocalciferol) capsule Tim[place], every week BLUE LINE OPERATOR for 8 weeks Ventolin HFA 10/13 Active Aerosol 108(90Bas 18gm 2 puffs by Feli e) mouth four [place], mcg/Act times a day MD as needed Albuterol Sulfate 01/05 Active Nebulizer (2.5mg/3M 270ml 1 vial via L) 0.083% nebulizer 4 [place], times daily MD as needed Clonazepam 01/05 Active Tablets 2mg 1 by mouth three times a day as needed Combivent 01/05 Active Aerosol 20-100mcg 12gm 1 puffs 4 Feli Respimat /2015 /Act daily as [place], needed Ibuprofen 01/05 Active Tablets 200mg as needed Effexor XR Active Caps ER 150mg 1 by mouth Unknown /0000 24HR every day, take with 37.5 MG Hydrocodone/Aceta Active Take 1 Unknown minophen 500-300 /0000 tablet 3 MG times daily Vitamin D3 Active Capsules 5000Unit 1 by mouth Unknown Maximum Strength /0000 every day Zinc Active Capsules 1 by mouth Unknown /0000 every day Effexor XR Active Caps ER 37.5mg two by Unknown /0000 24HR mouth every day with the 150 MG tab Gabapentin Active Capsules 300mg Take 1 Unknown /0000 Capsule By Mouth Four Times A Day as Needed Incruse Ellipta 12/30 Hx Aerosol 62.5mcg/I 30uni 1 act qday J44.9 nh ts [place], - BLUE LINE OPERATOR 02/22 Ciprofloxacin HCL 12/21 Hx Tablets 250mg 10tab take 1 tab N39.0 s by mouth [place], - twice a day BLUE LINE OPERATOR 12/30 for 5 days Spiriva Respimat 10/19 Hx Aerosol 2.5mcg/Ac 4unit 2 puffs J43.9 t s every day [place], - BLUE LINE OPERATOR 12/26 Prednisone 01/06 Hx Tablets 1mg 120ta take 4 J44.9 bs tablets by [place], - mouth daily MD 04/01 Ambien 01/05 Hx Tablets 10mg 1 by mouth every night - at bedtime 11/29 as needed sleep insomnia Ergocalciferol 01/05 Hx Capsules [id number] 1 tab by mouth every - week 01/05 Prednisone 01/05 Hx Tablets 10mg 5tabx 2days,4 - [id number] 01/05 9tpor4awaf, [id number], 1tabxday. Vesicare 01/05 Hx Tablets 10mg 1 by mouth every day - prn 02/15 Neurontin 00 Hx Capsules 100mg 300 mg in Unknown /0000 the - morning, 10/12 600 mg at bedtime Immunizations CPT Code Status Date Vaccine Reaction Lot # [id number] Given 12/21/2017 Influenza Virus Vaccine, [id number] Quadrivalent, Split, Preservative Free [id number] Given 02/15/2017 Pneumonia Vaccine [id number] Given 01/04/2017 Influenza Virus Vaccine, no immediate reaction, [id number] Quadrivalent, Split, pt tolerated well Preservative Free Vital Signs Date Vital Result Comment 03/23/2018 2:46pm Height 64 inches 5'4" Weight 244.00 lb Heart Rate 91 /min BP Systolic Sitting 100 mmHg large cuff left arm BP Diastolic Sitting 80 mmHg large cuff left arm Body Temperature 98.5 F O2 % BldC Oximetry 97 % at rest on room air BMI (Body Mass Index) 41.9 kg/m2 02/22/2018 2:00pm Height 64 inches 5'4" Weight 241.00 lb Heart Rate 91 /min BP Systolic 109 mmHg BP Diastolic 62 mmHg O2 % BldC Oximetry 97 % BMI (Body Mass Index) 41.4 kg/m2 02/02/2018 1:56pm Height 64 inches 5'4" Heart [...] Date Facility Test Result H/L Range Note Laboratory test [facility] Culture Throat SEE RESULT 1, 2 finding [address] [place] [address] [phone] Laboratory test [facility] Rapid Strep Negative Negative 3 finding [address] [place] [address] [phone] Laboratory test [facility] Gardnerella/Yeas SEE RESULT 4, 5 finding [address] t: [place] [address] [phone] GC/Chlamydia [facility] Chlamydia Negative Negative Amplified Rna [address] [place] [address] [phone] Neisseria gonorrhoeae (GC) Rna Negative Negative Urine Culture And 02/07/2018 [facility] Urine SEE RESULT 6 , [address] [place] [address] [phone] Poc Urinalysis 02/07/2018 [facility] Poc Negative Negative [address] Glucose, [place] [address] Urine [phone] Poc Bilirubin, Urine Negative Negative Poc Ketone, Urine Negative Negative Poc Specific [place], Urine 1.010 N 1.010-1.030 Poc Blood, Urine 1+ Abnormal Negative Poc pH, Urine 5.0 N 5-9 Poc Protein, Urine Negative Negative Poc Urobilinogen, Urine 0.2 Negative Poc Nitrite, Urine Negative Negative Poc Leukocytes, Urine 3+ Abnormal Negative Poc Color, Urine Yellow Poc Clarity, Urine Clear 8 Ua Routine 12/21/2017 [facility] Ua Specific [place] 1.020 Ua PH 5 Ua Color yellow Ua Appera clear Ua WBC ++ Ua Protein trace Ua Glucose normal Ua Ketones negative Ua Bilirubin negative Ua Urobilinogen normal Ua Nitrite negative Ua Occult Blood about 50 Urinalysis Profile 12/21/2017 [facility] Urine Color Yellow [address] [place] [address] [phone] Urine Appearance Cloudy Urine Specific [place] 1.012 N 1.010-1.030 Urine pH 5.0 N [...] Present Abnormal Absent Urine Culture And 12/21/2017 [facility] Urine Culture SEE RESULT [address] [place] [address] [phone] Connective Tissue 10/07/2017 [facility] Anti-Nuclear 0.3 U [address] [place] [address] [phone] Cyclic Citrullinated Peptide <15.6 U 11 Interpretation See Comment 12 Laboratory 08/16/2017 [facility] TSH (Thyroid Stim 1.28 N 0.34 -5.60 test finding [address] Horm) mcIU/[place] [address] [phone] Lipid Profile 08/16/2017 [facility] Triglycerides 237 mg/dL 13 (Trig/Chol/HDL [address] ) [place] [address] [phone] Cholesterol 166 mg/dL 14 HDL Cholesterol 46.2 mg/dL 15 LDL Cholesterol 72 mg/dL 16 Laboratory test 08/16/2017 [facility] Cortisol 4.63 g/dL [address] [place] [address] [phone] Comp Metabolic 08/16/2017 [facility] Sodium 139 mmol/L N 139- [address] [place] [address] [phone] Potassium 4.7 mmol/L N 3.5-5.0 Chloride 104 [...] Egfr Non- 73.4 >60 Egfr 94.4 >60 18 CBC Auto Diff 08/16/2017 [facility] White Blood 7.7 10^3/uL N 3.5-10.[address] [place] [address] [phone] Red Blood Count 4.64 10^6/uL N 4.00-5.40 [...] 0-2 Nucleated Red Blood Cells % 0.1 Urine Culture And 08/16/2017 [facility] Urine Culture SEE RESULT [address] [place] [place], [place] [address] [phone] Laboratory test 08/16/2017 [facility] Vitamin B12 419 pg/mL N 180-9 [address] 14 [place], [place] [address] [phone] Vitamin D Total 25(Oh) 15.9 ng/mL Low 20-50 Ceruloplasmin 27.9 mg/dL 21 Poc Urinalysis 03/26/2017 [facility] Poc Glucose, Negative Negative [address] Urine [place], [place] [address] [phone] Poc Bilirubin, Urine Negative Negative Poc Ketone, Urine Negative Negative Poc Specific [place], Urine <=1.005 Low 1.010-1.030 Poc Blood, Urine Trace-lysed Abnormal Negative Poc pH, Urine 6.0 N 5-9 Poc Protein, Urine Negative Negative Poc Urobilinogen, Urine 0.2 Negative Poc Nitrite, Urine Negative Negative Poc Leukocytes, Urine 1+ Abnormal Negative Poc Color, Urine Yellow Poc Clarity, Urine Clear 22 Urine Culture And 03/26/2017 [facility] Urine Culture SEE RESULT 23, [address] [place] [place], [place] [id number] [phone] Xray 12/03/[address] [facility] [address] Lung <pending> [address] [address] Dose [phone] Laboratory test 02/12/2016 [facility] Alpha 1 147 mg/dL N 100 - [address] Antitrypsin A1a 190 [place], [place] [address] [phone] 1 [id number] 2 SEE RESULT BELOW Name: LIBBY MITCHELL : [address]: Shanice Alarcon MD Acct: [id number] Unit: [id number] AGE: 57 Location: [facility] Re02/25/18 SEX: F Status: DEP ER SPEC: [id number] CRICKET: 02/25/[address] [facility] [address]: Jr Vallejo NP REQ: [id number] RECD: 02/25/18 STATUS: COMP HIENHR DR: Shanice Kumar MD _ SOURCE: THROAT SPDESC: ORDERED: Throat Culture COMMENTS: [id number] Procedure Result Reported Site Throat Culture Final 02/27/18- 1258 ML Organism 1 NORMAL GUILLERMO Quantity 2+ Throat cultures are clinically indicated to detect the presence of group A strep, arcanobacterium and yeast. In certain cases, predominating organisms will be reported. * ML - Main Lab . END OF REPORT DEPARTMENT OF PATHOLOGY, [address] [place] [address] Joby Hays M.D. Director [facility] # [id number] 3 Stock Blender: [id number] Would you like to order Trichomonas Vaginalis RNA testing? N 5 SEE RESULT BELOW Name: LIBBY MITCHELL : [address]: Michelle Gleason MD Acct: [id number] Unit: [id number] AGE: 57 Location: [facility] Re02/07/18 SEX: F Status: DEP ER SPEC: [id number] CRICKET: 02/07/18-[address] [facility] [address]: Michelle Gleason MD REQ: [id number] RECD: 02/07/18 STATUS: [facility] DR: Iggy Kumar MD _ S[facility] ORDERED: Raheem,Yeast DNA COMMENTS: [id number] Would you like to order Trichomonas Vaginalis RNA testing? N Procedure Result Reported Site Gardnerella/Yeast: Vaginal DNA Final 02/08/18- 1235 ML Organism 1 POSITIVE GARDNERELLA Organism 2 Negative Jessica The presence of G. vaginalis, although suggestive, is not diagnostic for bacterial vaginosis. Results should be interpreted in conjuction with other clinical and laboratory data available. Women with vaginal discharge should be evaluated for risk factors of cervicitis and pelvic inflammatory disease, toxic shock syndrome (S.aureus), and if present, evaluated for organisms not included in this assay such as N. gonorrhoeae, C. trachomatis, Mobiluncus, Mycoplasma and/or Prevotella. Mixed infections may occur. The performance of this test on patient specimens collected during or immediately after antimicrobial therapy is unknown. The presence or absence of Jessica species, or G. vaginalis cannot be used as a test for therapeutic success or failure. * ML - Main Lab . END OF REPORT DEPARTMENT OF PATHOLOGY, [address] [place] [address] Joby Hays M.D. Director [facility] # [id number] 6 [id number] 7 SEE RESULT BELOW Name: LIBBY MITCHELL : [address]: Michelle Gleason MD Acct: [id number] Unit: [id number] AGE: 57 Location: [facility] Re02/07/18 SEX: F Status: DEP ER SPEC: [id number] CRICKET: 02/07/18-[address] [facility] [address]: Michelle Gleason MD REQ: [id number] RECD: 02/07/18 STATUS: JONO BO DR: Iggy Kumar MD _ SOURCE: URINE SPDESC: ORDERED: Urine Culture COMMENTS: [id number] Procedure Result Reported Site Urine Culture Final 02/08/18- 1326 ML No growth of clinically significant organisms * ML - Main Lab . END OF REPORT DEPARTMENT OF PATHOLOGY, [address] [place] [address] Joby Hays M.D. Director [facility] # [id number] 8 Stock Blender: [id number] 9 SEE RESULT BELOW Name: LIBBY MITCHELL : [address]: Suleiman Izquierdo NP Acct: [id number] Unit: [id number] AGE: 57 Location: [facility] Re12/21/17 SEX: F Status: REG REF SPEC: [id number] CRICKET: 12/21/17-[address]: Suleiman Izquierdo NP REQ: [id number] RECD: 12/21/17 STATUS: COMP _ SOURCE: URINE SPDESC: ORDERED: Urine Culture COMMENTS: [id number] Urine Source: Clean Catch Procedure Result Reported Site Urine Culture Final 12/22/17- 1657 ML No growth of clinically significant organisms * ML - Main Lab . END OF REPORT DEPARTMENT OF PATHOLOGY, [address] [place] [address] Joby Hays M.D. Director [facility] # [id number] 10 REFERENCE VALUE <=1.0 (Negative) 11 REFERENCE VALUE <20.0 (Negative) 12 Tests for antibodies to dsDNA and CORTEZ antigens are not performed automatically unless the DEDRA result is > or= 3.0 U. Studies performed at [facility] indicate that positive DEDRA results <3.0 U are rarely accompanied by positive second order tests. Test Performed by: [address] [address] 13 Desirable: <150 Borderline High: 150-199 High: 200-499 Very High: >500 14 Desirable: <200 Borderline High: 200-239 High: >239 15 Low: <40 Desirable: 40-60 High: >60 16 Desirable: <100 Near Optimal: 100-129 Borderline High: 130-159 High: 160-189 Very High: >189 17 AM 8.7-22.4 PM <10 18 Because ethnic data is not always readily [...] 15-29 5 Kidney failure <15 (or dialysis) 19 SEE RESULT BELOW Name: LIBBY MITCHELL : [address]: Hortensia Recinos [facility] Acct: [id number] Unit: [id number] AGE: 56 Location: [facility] Re08/16/17 SEX: F Status: REG REF SPEC: [id number] CRICKET: 08/16/[address]: Hortensia Recinos [facility] REQ: [id number] RECD: 08/16/17 STATUS: JONO BO DR: Rachana Kumar MD _ SOURCE: URINE SPDESC: ORDERED: Urine Culture QUERIES: Urine Source: Clean Catch Procedure Result Reported Site Urine Culture Final 08/17/17- 1326 ML No growth of clinically significant organisms * ML - Main Lab . END OF REPORT DEPARTMENT OF PATHOLOGY, [address] [place] [address] Joby Hays M.D. Director [facility] # [id number] 20 Normal Range 180 to 914 Indeterminate Range 145 to 180 Deficient Range <145 21 REFERENCE VALUE 20.0 - 51.0 Test Performed by: [address] [address] 22 Stock Blender: [id number] 24 SEE RESULT BELOW Name: LIBBY MITCHELL : [address]: Shanice Oates MD Acct: [id number] Unit: [id number] AGE: 56 Location: [facility] Re03/26/17 SEX: F Status: DEP ER SPEC: [id number] CRICKET: 03/26/[address] [facility] [address]: Shanice Oates MD REQ: [id number] RECD: 03/26/17 STATUS: COMP ANUPAM DR: Iggy Kumar MD _ SOURCE: URINE SPDESC: ORDERED: Urine Culture COMMENTS: [id number] Procedure Result Reported Site Urine Culture Final 03/27/17- 1204 ML No Growth (<1,000 CFU/mL) * ML - MAIN LAB ([facility]) . END OF REPORT * ML=Testing performed at Main Lab DEPARTMENT OF PATHOLOGY, [address] [place] [address] Joby Hays M.D. Director [facility] # [id number] 25 Test Performed by: [facility] [place] [address] Collar Sewer: Tarun Saab II, M.D., Ph.D. Procedures Date Code Description Status 11/17/2017 642031465 Bone Mineral Density Test Completed 11/17/2017 90102830 Mammogram Completed 04/06/2016 82531 EKG, Interpretation Only Completed 02/13/2016 13338 Polysomnography Sleep Staging 4+ Parameters Completed 02/12/2016 60262 Diffusing Capacity Completed 02/12/2016 69733 Plethysmography Determination Lung Volumes & Per Completed Airway Resist 02/12/2016 83637 Pulmonary Stress Test Simple Completed 02/12/2016 77608 Pulmonary Function><Bronchodil Completed 04/22/2014 48167346 Mammogram Completed 03/07/2012 24100853 Colonoscopy Completed Encounters Type Date Location Provider Dx Diagnosis Office Visit 02/22/2018 [facility] Internal Holland Ye NP M54.9 Dorsalgia, 1:40p Medicine - unspecified [place] J44.9 Chronic obstructive pulmonary disease, unspecified Office Visit 02/02/2018 Marisol Sol, R47.89 Other speech 1:45p Neurologic M.D. disturbances [facility] S06.0x0S Concussion without loss of consciousness, sequela Office Visit 12/21/2017 2:20p [facility] Internal [place] Timbo, N39.0 Urinary tract Medicine - [place] BLUE LINE OPERATOR infection, site Rd not specified J43.8 Other emphysema E55.9 Vitamin D deficiency, unspecified E66.09 Other obesity due to excess calories Z23 Encounter for immunization Office Visit 10/26/2017 9:20a [facility] Internal Zsofia Timbo, Z00.00 Encntr for Medicine - [place] BLUE LINE OPERATOR general adult Rd medical exam w/o abnormal [...] Chronic Sleep Services Of MD [place] obstructive [facility] pulmonary disease, unspecified E66.09 Other obesity due to excess calories Office Visit 10/07/2017 8:20a [facility] Internal Iggy R47.89 Other speech Medicine Maged Kumar M.D. disturbances [place] [address] M79.606 Pain in leg, unspecified J44.9 Chronic obstructive pulmonary disease, unspecified Office Visit 05/26/2017 Marisol Sol R47.89 Other speech 1:45p Neurologic M.DSunny disturbances [facility] S06.0x0S Concussion without loss of consciousness, sequela R41.89 Oth symptoms and signs w cognitive functions and awareness Office Visit 05/23/2017 10:00a [facility] Internal Iggy R47.89 Other speech Medicine Maged Kumar M.D. disturbances [place] [address] Z12.39 Encounter for oth screening for malignant neoplasm of breast J44.9 Chronic obstructive pulmonary disease, unspecified E66.9 Obesity, unspecified Office Visit 04/11/2017 Marisol Sol R47.89 Other speech 1:00p Neurologic MSunnyDSunny disturbances Services [facility] Office Visit 02/15/2017 [facility] Internal Iggy Kumar, R47.9 Unspecified 8:40a Medicine - [place] Yennifer.Bharath speech Rd disturbances J44.9 Chronic obstructive pulmonary disease, unspecified M51.16 Intervertebral disc disorders w radiculopathy, lumbar region E66.8 Other obesity Z68.38 Body mass index (BMI) 38.0-38.9, adult Z23 Encounter for immunization Office Visit 01/04/2017 3:20p [facility] Dane Gifford44Pillo Chronic Medicine - Kim[place] obstructive [place] [address] pulmonary disease, unspecified S06.0x0A Concussion without loss of consciousness, initial encounter Z23 Encounter for immunization Office Visit 11/30/2016 9:15a Pulmonology And Feli James.Rito Chronic Sleep [facility] Of [facility] [place] obstructive 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 MD [place] obstructive pulmonary disease, unspecified E66.09 Other obesity due to excess calories Office Visit 01/07/2016 10:15a Pulmonology And Feli J44.9 Chronic Sleep Services Of MD [place] obstructive [facility] pulmonary disease, unspecified G47.9 Sleep disorder, unspecified E66.09 Other obesity due to excess calories Plan of Treatment Future Appointment(s):05/08/2018 10:00 am - Sin Sol M.D. at [place] [facility]03/23/2018 - Hoang He M.D.J06.9 Acute upper respiratory infection, unspecifiedComments:Likely viral; pain sx resolved at present. Continue rest, fluids, analgesics as needed. (+) white spot on L tonsil perhaps entrapped food as the tonsil does not look inflamed. Gargles suggested for now
[2018-04-16] MEDS ORDERED: Aspirin 81 mg CHEW TAB* 81 MG TAB.CHEW ONE (15:38)
[2018-04-16] MEDS ORDERED: Aspirin 81 mg CHEW TAB* 81 MG TAB.CHEW PO ONE (15:40)
--- NOTE | 2018-04-16 15:47 | UC ---
Cardiac HPI - HPI Summary HPI Summary: PT PRESENTS WITH 2 DAYS OF MIDSTERNAL CHEST PAIN - DESCRIBED SQUEEZING PRESSURE. ALSO C/O SOB - WORSE WHEN LAYING DOWN AND TAKING DEEP BREATHS. HAS ISBELL BUT DENIES NAUSEA. NO SWEATS. STATES HER SPEECH IS "OFF" TODAY. PT HAS STUTTER AT BASELINE AND ALSO SUSTAINED A HEAD INJURY 2017 WHICH LEFT HER WITH DELAYED SPEECH. PT TODAY IS HAVING DIFFICULTY WITH FINDING WORDS AND HAS SOME GARBLED SPEECH. - History of Current Complaint Chief Complaint: UCChestPain Stated Complaint: SOB Time Seen by Provider: 04/16/18 15:26 Hx Obtained From: Patient Hx Last Menstrual Period: hysterectomy Onset/Duration: Lasting Days, Still Present Timing: Constant Initial Severity: Moderate Current Severity: Moderate Pain Intensity: 4 Chest Pain Location: Mid Sternal Character: Pressure/Squeezing Aggravating Factor(s): Position, Deep Breaths Alleviating Factor(s): Nothing Associated Signs & Symptoms: Positive: Chest Pain, Headaches, SOB, Nausea/ Vomiting - Allergy/Home Medications Allergies/Adverse Reactions: Allergies Allergy/AdvReac Type Severity Reaction Status Date / Time Penicillins Allergy Hives/Diff. Verified 04/16/18 15:05 Breathing/I tching PMH/Surg Hx/FS Hx/Imm Hx Respiratory History: COPD, Asthma Other Neurological History: HEAD INJURY 2017 WITH DELAYED SPEECH - Surgical History Surgical History: Yes Surgery Procedure, Year, and Place: Hysterectomy 01/15. Bladder sling and cystocele + rectocele. Bladder repair 08/17 - Family History Known Family History: Positive: Cardiac Disease, Other - Epilepsy, breast cancer Family History: Epilepsy, breast cancer - Social History Alcohol Use: None Substance Use Type: None Substance Use Comment - Amount & Last Used: hydrocodone with tylenol and clonazepam Smoking Status (MU): Former Smoker Length of Time of Smoking/Using Tobacco: 1999 - Immunization History Most Recent Influenza Vaccination: this season Most Recent Tetanus Shot: Unknown Most Recent Pneumonia Vaccination: none Review of Systems All Other Systems Reviewed And Are Negative: Yes Constitutional: Positive: Negative Respiratory: Positive: Shortness Of Breath Cardiovascular: Positive: Chest Pain Gastrointestinal: Positive: Nausea Neurological: Positive: Headache, Other - SPEECH DIFFICULTY Physical Exam Triage Information Reviewed: Yes Appearance: Well-Appearing, No Pain Distress, Well-Nourished Vital Signs: Initial Vital Signs Temp 97.5 F 04/16/18 15:07 Pulse 90 02/10/19 15:07 Resp 16 04/16/18 15:07 BP 146/90 04/16/18 15:07 Pulse Ox 99 04/16/18 15:07 Vital Signs Reviewed: Yes Eyes: Positive: Conjunctiva Clear ENT: Positive: Hearing grossly normal Neck: Positive: Supple, Nontender, No Lymphadenopathy Respiratory Exam: Normal Cardiovascular Exam: Normal Abdomen Description: Positive: Nontender, Soft Musculoskeletal: Positive: No Edema Neurological: Positive: Alert, Other: - CN II-XII GROSSLY INTACT BILATERALLY. RAPID ALTERNATING MOVEMENTS INTACT. NEG PRONATOR DRIFT. NEG ROMBERG. 5/5 STRENGTH. HEEL TO LAMBERT INTACT BILATERALLY. FINGER TO NOSE INTACT BUT SLUGGISH. SPEECH IS SLOW WITH DIFFICULTY FINDING WORDS AND SOME GARBLED SPEECH Psychological: Positive: Age Appropriate Behavior Skin: Negative: Rashes Diagnostics - EKG Cardiac Rate: NL - 80BPM Cardiac Rhythm: Sinus: Normal Ectopy: None ST Segment: Normal - Assessment/Plan Course Of Treatment: PT WITH 2 DAYS OF CP, SOB AND TODAY HAS GARBLED SPEECH AND DIFFICULTY FINDING WORDS. HAS A STUTTER AT BASELINE BUT PT STATES TODAY IS WORSE. TO [facility] BY AMBULANCE. - Clinical Impression Provider Diagnosis: Chest pain, Speech abnormality - Physician Notifications Discussed Patient Care With: John Monreal - TO [facility] BY AMBULANCE Time Discussed With Above Provider: 15:45 Instructed by Provider To: Will See In ED Discharge - Sign-Out/Discharge Documenting (check all that apply): Patient Departure All imaging exams completed and their final reports reviewed: No Studies - Discharge Plan Condition: Stable Disposition: TRANS HIGHER LVL OF CARE FAC Referrals: Iggy Kumar MD [Primary Care Provider] - - Billing Disposition and Condition Condition: STABLE Disposition: Trans Higher Lvl of Care Fac
[2018-04-16 15:52] VITALS: BP 129/75
== END 2018-04-16 15:55 | disposition short-term general hospital (02) ==
LOC: UCEAST 14:52
DX: R07.89 Other chest pain (principal); R47.89 Other speech disturbances; J44.9 Chronic obstructive pulmonary disease, unspecified; Z87.891 Personal history of nicotine dependence; Z88.0 Allergy status to penicillin
CPT/HCPCS: 93005; 99213; A9270-GY; G0463

== ENCOUNTER 2018-04-16 16:21 | Emergency (ER) | payer OTHER ==
[2018-04-16] MEDS ORDERED: Albuterol/Ipratropium NEB.SOL* Albuterol 2.5 MG/Ipratropium 0.5 MG 3 ML INH ONE (16:30)
[2018-04-16] MEDS ORDERED: methylPREDNISolone 125 MG* 2 ML VIAL IV ONE (16:30)
--- NOTE | 2018-04-16 16:33 | ED ---
Shortness of Breath - HPI Summary HPI Summary: This patient is a 57 year old F brought in by ambulance and referred to [facility] by convenient care with a chief complaint of SOB that began two days ago. The patient rates the pain 5/10 in severity. Symptoms aggravated by nothing. Symptoms alleviated by nothing. Patient reports chest pressure, difficulty swallowing, back pain, and cough (green sputum). Patient denies fever and chills. Patient has baseline dysphasia from a previous concussion. - History of Current Complaint Time Seen by Provider: 04/16/18 16:24 Hx Obtained From: Patient Onset/Duration: Sudden Onset, Lasting Days, Still Present Timing: Constant Dyspnea At: Rest Aggrevating Factors: Nothing Alleviating Factors: Nothing Associated Signs & Symptoms: Cough (Productive), Chest Pain Unrelated to Cough - Allergy/Home Medications Allergies/Adverse Reactions: Allergies Allergy/AdvReac Type Severity Reaction Status Date / Time Penicillins Allergy Hives/Diff. Verified 04/16/18 15:05 Breathing/I tching Home Medications: Home Medications Umeclidinium [place] [Incruse Ellipta] 62.5 mcg INH DAILY 04/16/18 [History Confirmed 04/16/18] PMH/Surg Hx/FS Hx/Imm Hx Previously Healthy: No Endocrine/Hematology History: Denies: Hx Diabetes, Hx Thyroid Disease Cardiovascular History: Denies: Hx Hypertension, Hx Pacemaker/ICD Respiratory History: Reports: Hx Asthma, Hx Chronic Obstructive Pulmonary Disease (COPD) - stage 3, Other Respiratory Problems/Disorders - COPD GI History: Denies: Hx Ulcer History: Denies: Hx Renal Disease Musculoskeletal History: Reports: Hx Back Problems, Hx Scoliosis Sensory History: Denies: Hx Hearing Aid Psychiatric History: Reports: Hx Anxiety, Hx Depression, Hx Post Traumatic Stress Disorder Denies: Hx Eating Disorder, Hx Panic Disorder, Hx Suicide Attempt, Hx of Violent Episodes Against Others - Cancer History Hx Chemotherapy: No Hx Radiation Therapy: No - Surgical History Surgery Procedure, Year, and Place: Hysterectomy 01/15. Bladder sling and cystocele + rectocele. Bladder repair 08/17 Infectious Disease History: Denies: Hx Clostridium Difficile, Hx Hepatitis, Hx Human Immunodeficiency Virus (HIV), Hx of Known/Suspected MRSA, Hx Shingles, Hx Tuberculosis, Hx Known/ Suspected VRE, Hx Known/Suspected VRSA, History Other Infectious Disease - Family History Known Family History: Positive: Cardiac Disease, Other - Epilepsy, breast cancer Family History: Epilepsy, breast cancer - Social History Occupation: Employed Full-time Lives: With Family Alcohol Use: None Hx Substance Use: No Substance Use Type: Reports: None Substance Use Comment - Amount & Last Used: hydrocodone with tylenol and clonazepam Hx Tobacco Use: Yes Smoking Status (MU): Former Smoker Length of Time of Smoking/Using Tobacco: 1999 Review of Systems Negative: Fever, Chills Positive: Other - Positive difficulty swallowing Positive: Chest Pain Positive: Shortness Of Breath, Cough Positive: Other - Positive back pain All Other Systems Reviewed And Are Negative: Yes Physical Exam - Summary Physical Exam Summary: VITAL SIGNS: Reviewed. GENERAL: Patient is a well-developed and nourished female who is lying comfortable in the stretcher. Patient is not in any acute respiratory distress. HEAD AND FACE: No signs of trauma. No ecchymosis, hematomas or skull depressions. No sinus tenderness. EYES: PERRLA, EOMI x 2, No injected conjunctiva, no nystagmus. EARS: Hearing grossly intact. Ear canals and tympanic membranes are within normal limits. MOUTH: Oropharynx within normal limits. NECK: Supple, trachea is midline, no adenopathy, no JVD, no carotid bruit, no c- spine tenderness, neck with full ROM. CHEST: Symmetric, no tenderness at palpation LUNGS: Wheezing. Decreased breath sounds bilaterally. CVS: Regular rate and rhythm, S1 and S2 present, no murmurs or gallops appreciated. ABDOMEN: Soft, non-tender. No signs of distention. No rebound no guarding, and no masses palpated. Bowel sounds are normal. EXTREMITIES: FROM in all major joints, no edema, no cyanosis or clubbing. NEURO: Alert and oriented x 3. No acute neurological deficits. Speech is normal and follows commands. 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 SKIN: Dry and warm Triage Information Reviewed: Yes Vital Signs Reviewed: Yes Diagnostics - Laboratory Result Diagrams: 04/16/18 16:42 04/16/18 16:42 Lab Statement: Any lab studies that have been ordered have been reviewed, and results considered in the medical decision making process. - Radiology Chest XR Radiology Interpretation Completed By: Radiologist Summary of Radiographic Findings: CXR reveals, per radiologist, low lung volumes , small bibasilar infiltrates suggestive of atelectasis less likely pneumonia. ED physician has reviewed this radiology report. - EKG 1626 Cardiac Rate: NL EKG Rhythm: Sinus Rhythm - 83 BPM Summary of EKG Findings: An EKG taken at 1626 reveals nml sinus rhythm at 83 BPM and similar to previous EKG taken on 04/12/16. Course/Dx - Course Assessment/Plan: Patient is a 57-year-old female who presents to the emergency room complaining of shortness of breath. Patient has history of emphysema. Test results without any significant abnormality except for glucose of 1:15 and CRP of 39. Urinalysis is contaminated however the patient has 3+ leukocytes, 3+ RBCs and positive squamous epithelial cells. Influenza A and B is negative. Chest x-ray impression: Low lung volumes, small bibasilar infiltrate suggestive of atelectasis is likely pneumonia. The ED course the patient was given Levaquin to cover an early pneumonia and questionable UTI. Patient also was given DuoNebs and centimeter and her symptoms have improved. At this time the patient will be discharged home with follow-up with PCP. Patient is hemolyticus stable alert oriented 3. - Diagnoses Differential Diagnosis/HQI/PQRI: Positive: Bronchitis, CHF, Chest Wall Pain, COPD Exacerbation, NE, Pneumonia Provider Diagnoses: Pneumonia, COPD (chronic obstructive pulmonary disease) Discharge - Sign-Out/Discharge Documenting (check all that apply): Patient Departure - Discharge home Patient Received Moderate/Deep Sedation with Procedure: No - Discharge Plan Condition: Stable Disposition: HOME Prescriptions: Levofloxacin TAB* [Levaquin TAB*] 750 mg PO DAILY #6 tab Patient Education Materials: Levofloxacin (By mouth), Urinary Tract Infection in Women (ED), Pneumonia (ED) Referrals: Iggy Kumar MD [Primary Care Provider] - 2 Days Additional Instructions: RETURN TO THE EMERGENCY DEPARTMENT FOR NEW OR WORSENING SYMPTOMS - Billing Disposition and Condition Condition: STABLE Disposition: Home - Attestation Statements Document Initiated by Scribe: Yes Documenting Scribe: Ada Palumbo Provider For Whom Daniel is Documenting (Include Credential): Dr. Hoang Macario MD Scribe Attestation: Ada Blanchard scribed for Dr. Hoang Macario MD on 04/16/18 at 2101. Scribe Documentation Reviewed: Yes Provider Attestation: The documentation as recorded by the Ada encinas accurately reflects the service I personally performed and the decisions made by me, Dr. Hoang Macario MD Status of Daniel Document: Viewed
[2018-04-16 17:02] LABS: Hematocrit 40 % (35-47); Hemoglobin 13.2 g/dl (12.0-16.0); Mean Corpuscular HGB Conc 33 g/dl (31-36); Mean Corpuscular Hemoglobin 28 pg (27-31); Mean Corpuscular Volume 85 fL (80-97); Red Blood Count 4.72 10^6/ul (4.00-5.40); White Blood Count 9.7 10^3/ul (3.5-10.8)
[2018-04-16 17:03] LABS: ABS Basophils 0.1 10^3/ul (0-0.2); ABS Eosinophils 0.3 10^3/ul (0-0.6); ABS Lymphocytes 2.9 10^3/ul (1.0-4.8); ABS Monocytes 0.6 10^3/ul (0-0.8); ABS Nucleated RBC 0 10^3/ul; Mean Platelet Volume 7.6 fL (7.4-10.4); Platelet Count 362 10^3/ul (150-450); Red Cell Distribution Width 16 % (10.5-15)
[2018-04-16 17:04] LABS: Eosinophil % 2.6 %; Lymphocyte % 29.3 %; Nucleated Red Blood Cells % 0
[2018-04-16 17:27] LABS: Albumin 4.4 g/dL (3.2-5.2); Calcium 9.6 mg/dL (8.6-10.3); Total Bilirubin 0.4 mg/dL (0.2-1.0)
[2018-04-16 17:43] LABS: Influenza A Molecular NEGATIVE (Negative); Influenza B Molecular NEGATIVE (Negative)
[2018-04-16 17:52] LABS: Albumin/Globulin Ratio 1.2 (1-3); BUN/Creatinine Ratio 11.1 (8-20); CKMB ng/mL 1.7 ng/mL (0.6-6.3); EGFR African American 88.5 (>60); EGFR Non-African American 73.1 (>60); Globulin 3.7 g/dL (2-4); Total Protein 8.1 g/dL (6.4-8.9)
[2018-04-16 17:53] LABS: C Reactive Protein 39.09 mg/L (<8.01)
[2018-04-16 18:51] LABS: Urine Appearance Cloudy; Urine Bacteria 1+ (Absent); Urine Bilirubin Negative (Negative); Urine Blood 1+ (Negative); Urine Color Yellow; Urine Glucose Negative (Negative); Urine Ketones Negative (Negative); Urine Nitrite Negative (Negative); Urine Protein Negative (Negative); Urine Red Blood Cell 3+(>10/hpf) (Absent); Urine Specific Gravity 1.004 (1.010-1.030); Urine Squamous Epithelial Cell Present (Absent); Urine Urobilinogen Negative (Negative); Urine White Blood Cell 3+(>20/hpf) (Absent)
[2018-04-16] MEDS ORDERED: Levofloxacin TAB* 250 MG PO ONE (19:43)
[2018-04-16 19:59] VITALS: BP 130/76
== END 2018-04-16 19:59 | disposition home or self-care (01) ==
LOC: ED 16:21
DX: J18.9 Pneumonia, unspecified organism (principal); J44.9 Chronic obstructive pulmonary disease, unspecified; Z88.0 Allergy status to penicillin; Z87.891 Personal history of nicotine dependence
CPT/HCPCS: 36415; 71046; 80053; 81003; 81015; 82550; 82553; 83605; 83880; 84484; 85025; 86140; 87040; 87086; 93005; 96374; 99284; A9270-GY; J2930

== ENCOUNTER 2018-04-17 15:16 | Emergency (ER) | payer OTHER ==
--- NOTE | 2018-04-17 18:09 | ED ---
Shortness of Breath - HPI Summary HPI Summary: Pt is a 57 y/o F presenting to the ED with a chief complaint of shortness of breath. She was here yesterday and received a breathing treatment but her sob has been the same since then, which she has been monitoring with a pulse oximeter. She gets out of breath very easily, including when she talks. She last used her nebulizer just MACHINE BOSS. - History of Current Complaint Chief Complaint: EDShortnessOfBreath Time Seen by Provider: 04/17/18 17:57 Hx Obtained From: Patient Onset/Duration: Gradual Onset, Lasting Days, Still Present Timing: Constant Current Severity: Moderate Dyspnea At: Rest Aggrevating Factors: Movement, Deep Breaths, Other - talking Alleviating Factors: Bronchodilators Associated Signs & Symptoms: Negative - Allergy/Home Medications Allergies/Adverse Reactions: Allergies Allergy/AdvReac Type Severity Reaction Status Date / Time Penicillins Allergy Hives/Diff. Verified 04/17/18 15:44 Breathing/I tching PMH/Surg Hx/FS Hx/Imm Hx Previously Healthy: No Endocrine/Hematology History: Denies: Hx Diabetes, Hx Thyroid Disease Cardiovascular History: Denies: Hx Hypertension, Hx Pacemaker/ICD Respiratory History: Reports: Hx Asthma, Hx Chronic Obstructive Pulmonary Disease (COPD) - stage 3, Other Respiratory Problems/Disorders - emphysema GI History: Denies: Hx Ulcer History: Denies: Hx Renal Disease Musculoskeletal History: Reports: Hx Back Problems, Hx Scoliosis Sensory History: Denies: Hx Hearing Aid Psychiatric History: Reports: Hx Anxiety, Hx Depression, Hx Post Traumatic Stress Disorder Denies: Hx Eating Disorder, Hx Panic Disorder, Hx Suicide Attempt, Hx of Violent Episodes Against Others - Cancer History Hx Chemotherapy: No Hx Radiation Therapy: No - Surgical History Surgery Procedure, Year, and Place: Hysterectomy 01/15. Bladder sling and cystocele + rectocele. Bladder repair 08/17 Infectious Disease History: No Infectious Disease History: Denies: Hx Clostridium Difficile, Hx Hepatitis, Hx Human Immunodeficiency Virus (HIV), Hx of Known/Suspected MRSA, Hx Shingles, Hx Tuberculosis, Hx Known/ Suspected VRE, Hx Known/Suspected VRSA, History Other Infectious Disease, Traveled Outside the [place] in Last 30 Days - Family History Known Family History: Positive: Cardiac Disease, Other - Epilepsy, breast cancer Family History: Epilepsy, breast cancer - Social History Alcohol Use: None Hx Substance Use: No Substance Use Type: Reports: None Substance Use Comment - Amount & Last Used: hydrocodone with tylenol and clonazepam Hx Tobacco Use: Yes Smoking Status (MU): Former Smoker Length of Time of Smoking/Using Tobacco: 1999 Review of Systems Negative: Fever Positive: Shortness Of Breath All Other Systems Reviewed And Are Negative: Yes Physical Exam - Summary Physical Exam Summary: Appearance: The patient is ill-appearing in no acute distress and in no acute pain. Skin: The skin is warm and dry and skin color reflects adequate perfusion. HEENT: The head is normocephalic and atraumatic. The pupils are equal and reactive. The conjunctivae are clear and without drainage. Nares are patent and without drainage. Mouth reveals moist mucous membranes and the throat is without erythema and exudate. The external ears are intact. The ear canals are patent and without drainage. The tympanic membranes are intact. Neck: The neck is supple with full range of motion and non-tender. There are no carotid bruits. There is no neck vein distension. Respiratory: Chest is non-tender. Lungs are clear to auscultation and breath sounds are symmetrical and equal. Cardiovascular: Heart is regular rate and rhythm. There is no murmur or rub auscultated. There is no peripheral edema and pulses are symmetrical and equal. Abdomen: The abdomen is soft and non-tender. There are normal bowel sounds heard in all four quadrants and there is no organomegaly palpated. Musculoskeletal: There is no back tenderness noted. Extremities are non-tender with full range of motion. There is good capillary refill. There is no peripheral edema or calf tenderness elicited. Neurological: Patient is alert and oriented to person, place and time. The patient has symmetrical motor strength in all four extremities. Cranial nerves are grossly intact. Deep tendon reflexes are symmetrical and equal in all four extremities. Psychiatric: The patient has an appropriate affect and does not exhibit any anxiety or depression. Triage Information Reviewed: Yes Vital Signs On Initial Exam: Initial Vitals Temp Pulse Resp BP Pulse Ox 99 F 95 18 146/75 97 04/17/18 15:36 04/17/18 15:36 04/17/18 15:36 04/17/18 15:36 04/17/18 15:36 Vital Signs Reviewed: Yes Diagnostics - Vital Signs Vital Signs Temp Pulse Resp BP Pulse Ox 04/17/18 17:18 99 F 96 20 132/62 99 04/17/18 15:36 99 F 95 18 146/75 97 - Laboratory Result Diagrams: 04/17/18 18:06 04/17/18 18:06 Lab Statement: Any lab studies that have been ordered have been reviewed, and results considered in the medical decision making process. - EKG 1634 Cardiac Rate: NL - 91 EKG Rhythm: Sinus Rhythm ST Segment: Normal Ectopy: None EKG Comparison: No Significant Change - from 04/16/18. Summary of EKG Findings: L axis deviation Course/Dx - Course Course Of Treatment: Ms. Mitchell presented to the emergency department with the complaint that she needs to be observed. She was seen here yesterday and diagnosed as early pneumonia with COPD exacerbation. She was given a dose of steroids here in the emergency department and discharged home on antibiotics. She has a nebulizer machine as well as an inhaler. She is almost out of her nebulizer solution so she called Dr. Niño's office with a request for refill. Something in my conversation had Dr. Niño refer her to the emergency department. She did refill the prescription. Here the patient is nontoxic in appearance with stable vitals her pulse ox varies a little bit with conversation. We ambulated her around and she did not significantly drop her pulse ox although her heart rate increased a little bit. She felt fine. I recommended we continue the steroids for a few days and we gave her dose here and a prescription for a few more days. - Diagnoses Provider Diagnoses: COPD exacerbation, Pneumonia Discharge - Sign-Out/Discharge Documenting (check all that apply): Patient Departure Patient Received Moderate/Deep Sedation with Procedure: No - Discharge Plan Condition: Stable Disposition: HOME Prescriptions: predniSONE TAB* [Deltasone 20 MG TAB*] 40 mg PO DAILY #10 tab Referrals: Iggy Kumar MD [Primary Care Provider] - Additional Instructions: Please take your prescribed medications as instructed. Follow up with your primary care provider in the next 2-3 days. Return to the Emergency Department with any new or worsening symptoms. - Billing Disposition and Condition Condition: STABLE Disposition: Home - Attestation Statements Document Initiated by Scribe: Yes Documenting Scribe: Yesi Cowart Provider For Whom Scribe is Documenting (Include Credential): John Monreal MD. Scribe Attestation: I, Yesi Cowart, scribed for John Monreal MD. on 04/17/18 at 2050. Scribe Documentation Reviewed: Yes Provider Attestation: The documentation as recorded by the scribe, Yesi Cowart accurately reflects the service I personally performed and the decisions made by me, John Monreal MD. Status of Scribe Document: Viewed
[2018-04-17 18:38] LABS: Albumin 4.5 g/dL (3.2-5.2); Albumin/Globulin Ratio 1.3 (1-3); BUN/Creatinine Ratio 16.7 (8-20); Calcium 9.6 mg/dL (8.6-10.3); EGFR African American 92.4 (>60); EGFR Non-African American 76.4 (>60); Globulin 3.6 g/dL (2-4); Total Bilirubin 0.3 mg/dL (0.2-1.0); Total Protein 8.1 g/dL (6.4-8.9)
[2018-04-17 18:39] LABS: ABS Basophils 0 10^3/ul (0-0.2); ABS Eosinophils 0 10^3/ul (0-0.6); ABS Lymphocytes 2.8 10^3/ul (1.0-4.8); ABS Monocytes 1.1 10^3/ul (0-0.8); ABS Neutrophils 14.7 10^3/ul (1.5-7.7); ABS Nucleated RBC 0 10^3/ul; Eosinophil % 0 %; Hematocrit 38 % (35-47); Hemoglobin 12.6 g/dl (12.0-16.0); Lymphocyte % 15.3 %; Mean Corpuscular HGB Conc 33 g/dl (31-36); Mean Corpuscular Hemoglobin 28 pg (27-31); Mean Corpuscular Volume 85 fL (80-97); Mean Platelet Volume 7.9 fL (7.4-10.4); Nucleated Red Blood Cells % 0.1; Platelet Count 383 10^3/ul (150-450); Red Blood Count 4.53 10^6/ul (4.00-5.40); Red Cell Distribution Width 15 % (10.5-15); White Blood Count 18.7 10^3/ul (3.5-10.8)
[2018-04-17] MEDS ORDERED: predniSONE TAB* 20 MG PO ONE (18:39)
[2018-04-17 19:09] VITALS: BP 133/75
== END 2018-04-17 19:36 | disposition home or self-care (01) ==
LOC: ED 15:16
DX: J44.1 Chronic obstructive pulmonary disease with (acute) exacerbation (principal); J18.9 Pneumonia, unspecified organism; I48.91 Unspecified atrial fibrillation; Z88.0 Allergy status to penicillin; Z87.891 Personal history of nicotine dependence
CPT/HCPCS: 36415; 80053; 83605; 83880; 84484; 85025; 87040; 93005; 99282; J7512

== ENCOUNTER 2018-05-26 05:41 | Observation (INO) | payer OTHER ==
--- OUTSIDE RECORDS SUMMARY | 2018-05-26 06:06 | XMS REPORT | Continuity of Care Document ---
:1960 External Reference #:[id number] Author Name Mally Hatfield Care Team Providers Name Role Phone Iggy Kumar MD Primary Care Physician Unavailable Payers Date Identification Numbers Payment Provider Subscriber Policy Number: [id number] Jasmine/[employer] Libby Mtichell PayID: [id number] [address] [id number] [place] [address] Advance Directives Description No Information Available Problems Date Description Provider Status Onset: 01/07/2016 Chronic obstructive lung disease Feli Niño MD Active Onset: 01/07/2016 Disturbance in sleep behavior Feli Niño MD Active Onset: 01/07/2016 Obesity Feli Nioñ MD Active Onset: 01/04/2017 Speech and language disorder Iggy Kumar M.D. Active Onset: 02/15/2017 Disturbance in speech Iggy Kumar M.D. Active Onset: 02/15/2017 Thoracic and lumbosacral neuritis Iggy Kumar M.D. Active Onset: 04/11/2017 Concussion with no loss of Sin Sol M.D. Active consciousness Onset: 04/11/2017 Disturbance in speech rhythm Sin Sol M.D. Active Onset: 10/07/2017 Pain in limb Iggy Kumar M.D. Active Onset: 05/08/2018 Abnormal involuntary movement Sin Sol M.D. Active Onset: 05/08/2018 Headache Sin Sol M.D. 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 Hand Dominance Left-handed Cigarette Use Quit 16 Years Ago ETOH Use Denies alcohol use Tobacco Use Start: Unknown End: Patient is a former smoker Unknown Smoking Status Reviewed: 05/12/18 Patient is a former smoker Exercise Type/Frequency Exercises rarely Allergies, Adverse Reactions, Alerts Date Description Reaction Status Severity Comments 01/07/2016 Penicillin Active Medications Medication Date Status Form Strength Qnty SIG Indications Ordering Provider Omeprazole 04/21 Active Capsules 20mg 30cap 1 by mouth R10.[address] estes once daily DRAKE Ye Spiriva 02/22 Active Capsules 18mcg 30cap inhale the J44.9 Holland Handihaler s contents of DRAKE Ye one capsule via handihaler by mouth every day Phenazopyridine 12/21 Active Tablets 100mg 30tab 1 tabs by N39.0 Zsofia HCL s mouth three [place], times a day ORCHID GROWER as needed Ventolin HFA 10/13 Active Aerosol 108(90Bas 18gm 2 puffs by Feli e) mouth four [place], mcg/Act times a day MD as needed Albuterol Sulfate 01/05 Active Nebulizer (2.5mg/3M 270ml 1 vial via L) 0.083% nebulizer 4 [place], times daily MD as needed Clonazepam 01/05 Active Tablets 2mg 1 by mouth two times a day, additional one time per day in the middle of the day if needed Ibuprofen 01/05 Active Tablets 200mg as needed Effexor XR Active Caps ER 150mg 1 by mouth Unknown /0000 24HR every day, take with 75 MG Vitamin D3 Active Capsules 5000Unit 1 by mouth Unknown Maximum Strength /0000 every day (when remembered per pt 05/08/18) Gabapentin Active Capsules 300mg Take 1 Unknown /0000 Capsule By Mouth Four Times A Day as Needed Effexor XR Active Caps ER 75mg 1 cap by Unknown /0000 24HR mouth every day with Effexor 150 MG Hydrocodone-Aceta Active Tablets 5-325mg Take 1 Unknown minophen /0000 Tablet By Mouth Three Times Daily as Needed For Pain Maximum Daily Dose Of3 Tablets Per Day Prednisone 04/21 Hx Tablets 10mg 12tab 3 tab daily J44.9 Holland s x 2 days, DRAKE Ye - then 2 tab 05/07 daily for day, and 1 tab for 2 day. Incruse Ellipta 12/30 Hx Aerosol 62.5mcg/I 30uni 1 act qday J44.9 ofi nh ts Timbo, - ORCHID GROWER 02/22 Ciprofloxacin HCL 12/21 Hx Tablets 250mg 10tab take 1 tab N39.0 ofi s by mouth [place], - twice a day ORCHID GROWER 12/30 for 5 days Vitamin D 10/26 Hx Capsules 98256Rfum 8caps take 1 E55.9 Zsofia (Ergocalciferol) capsule Tim[place], - every week ORCHID GROWER 05/07 for 8 weeks Spiriva Respimat 10/19 Hx Aerosol 2.5mcg/Ac 4unit 2 puffs J43.9 t s every day Timbo, - ORCHID GROWER 12/26 Prednisone 01/06 Hx Tablets 1mg 120ta take 4 J44.9 bs tablets by [place], - mouth daily 04/01 Ambien 01/05 Hx Tablets 10mg 1 by mouth every night - at bedtime 11/29 as needed sleep insomnia Combivent 01/05 Hx Aerosol 20-100mcg 12gm 04/21/18 Feli Respimat /2015 /Act reports [place], - pulmonary 05/07 DC'd puffs 4 daily as needed Ergocalciferol 01/05 Hx Capsules 79321Fool 1 tab by mouth every - week 01/05 Prednisone 01/05 Hx Tablets 10mg 5tabx 2days,4 - [id number] 01/05 [id number], [id number], 1tabxday. Vesicare 01/05 Hx Tablets 10mg 1 by mouth every day - prn 02/15 Neurontin 00 Hx Capsules 100mg 300 mg in Unknown / the - morning, 10/12 600 mg at bedtime Hydrocodone/Aceta Hx Take 1 Unknown minophen 500-300 /0000 tablet 3 MG - times daily 05/07 Zinc Hx Capsules 1 by mouth Unknown /0000 every day - 05/07 Effexor XR Hx Caps ER 37.5mg two by Unknown /0000 24HR mouth every - day with 05/08 the 150 MG tab Prednisone Hx Tablets 20mg Take 40mg Unknown /0000 by mouth - once a day 05/07 for 5 days. Levaquin Hx Tablets 500mg 1 by mouth Unknown /0000 every day - for 7 days. 04/21 Immunizations CPT Code Status Date Vaccine Reaction Lot # 97711 Given 12/21/2017 Influenza Virus Vaccine, [id number] Quadrivalent, Split, Preservative Free [id number] Given 02/15/2017 Pneumonia Vaccine [id number] Given 01/04/2017 Influenza Virus Vaccine, no immediate reaction, [id number] Quadrivalent, Split, pt tolerated well Preservative Free Vital Signs Date Vital Result Comment 05/12/2018 8:49am Height 64 inches 5'4" Weight 239.12 lb Heart Rate 96 /min BP Systolic Sitting 104 mmHg BP Diastolic Sitting 82 mmHg Respiratory Rate 16 /min O2 % BldC Oximetry 96 % On Ra BMI (Body Mass Index) 41.0 kg/m2 05/08/2018 10:05am Height 64 inches 5'4" Weight 239.00 lb Heart Rate 104 /min BP Systolic Sitting 104 mmHg BP Diastolic Sitting 78 mmHg Respiratory Rate 18 /min BMI (Body Mass Index) 41.0 kg/m2 04/21/2018 10:17am Height 64 inches 5'4" Weight 239.25 lb Heart Rate 84 /min BP Systolic 123 mmHg BP Diastolic 72 mmHg Body Temperature 96.7 F O2 % BldC Oximetry 97 % BMI (Body Mass Index) 41.1 kg/m2 03/23/2018 2:46pm Height 64 inches 5'4" Weight [...] Test Result H/L Range Note Laboratory test 04/21/2018 [facility] Vitamin D 22.1 ng/mL N 20-[address](Oh) [place] [address] [phone] Laboratory test 04/21/2018 [facility] Lipase 20 U/L N 11.0- 82.[address] [place] [address] [phone] Hemoglobin A1c (Glyco HGB) 6.3 % High 4.0-5.6 1 Laboratory test 04/17/2018 [facility] Lactic Acid 1.9 mmol/L N 0.5-2.0 [address] [place] [address] [phone] CBC Auto Diff 04/17/2018 [facility] White Blood 18.7 High 3.5- 10.[address] Count 10^3/[place] [address] [phone] Red Blood Count 4.53 10^6/uL N 4.00-5.40 Hemoglobin 12.6 g/dL N 12.0-16.0 Hematocrit 38 % N 35-47 Mean Corpuscular Volume 85 fL N 80-97 Mean Corpuscular Hemoglobin 28 pg N 27-31 Mean Corpuscular HGB Conc 33 g/dL N 31-36 Red Cell Distribution Width 15 % N 10.5-15 Platelet Count 383 10^3/uL N 150-450 Mean Platelet Volume 7.9 fL N 7.4-10.4 Abs Neutrophils 14.7 10^3/uL High 1.5-7.7 Abs Lymphocytes 2.8 10^3/uL N 1.0-4.8 Abs Monocytes 1.1 10^3/uL High 0-0.8 Abs Eosinophils 0 10^3/uL N 0-0.6 Abs Basophils 0 10^3/uL N 0-0.2 Abs Nucleated RBC 0 10^3/uL Granulocyte % 79.0 % Lymphocyte % 15.3 % Monocyte % 5.7 % Eosinophil % 0 % Basophil % 0 % Nucleated Red Blood Cells % 0.1 Comp Metabolic Panel 04/17/2018 [facility] Sodium 138 mmol/L N 135-[address] [place] [address] [phone] Potassium 4.0 mmol/L N 3.5-5.0 Chloride 105 mmol/L N 101-111 Co2 Carbon Dioxide 26 mmol/L N 22-32 Anion Gap 7 mmol/L N 2-11 Glucose 146 mg/dL High 70-100 Blood Urea Nitrogen 13 mg/dL N 6-24 Creatinine 0.78 mg/dL N 0.51-0.95 BUN/Creatinine Ratio 16.7 N 8-20 Calcium 9.6 mg/dL N 8.6-10.3 Total Protein 8.1 g/dL N 6.4-8.9 Albumin 4.5 g/dL N 3.2-5.2 Globulin 3.6 g/dL N 2-4 Albumin/Globulin Ratio 1.3 N 1-3 Total Bilirubin 0.30 mg/dL N 0.2-1.0 Alkaline Phosphatase 83 U/L N 34-104 Alt 20 U/L N 7-52 Ast 17 U/L N 13-39 Egfr Non- 76.4 >60 Egfr 92.4 >60 3 Laboratory test 04/17/2018 [facility] Troponin-I (TnI) 0.00 ng/ mL <0.04 [address] [place] [address] [phone] B-Type Natriuretic Peptide BNP 42 pg/mL <=100 Blood Culture SEE RESULT BELOW 5 Urinalysis Profile 04/16/2018 [facility] Urine Color Yellow [address] [place] [address] [phone] Urine Appearance Cloudy Urine Specific [place] 1.004 Low 1.010-1.030 Urine pH 6.0 N 5-9 Urine Urobilinogen Negative Negative Urine Ketones Negative Negative Urine Protein Negative Negative Urine Leukocytes 3+ Abnormal Negative Urine Blood 1+ Abnormal Negative Urine Nitrite Negative Negative Urine Bilirubin Negative Negative Urine Glucose Negative Negative Urine White Blood Cell 3+(>20/hpf) Abnormal Absent Urine Red Blood Cell 3+(>10/hpf) Abnormal Absent Urine Bacteria 1+ Abnormal Absent Urine Squamous Epithelial Cell Present Abnormal Absent Urine Culture And 04/16/2018 [facility] Urine Culture SEE RESULT [address] [place] [address] [phone] Rapid Influenza A 04/16/2018 [facility] Influenza A NEGATIVE Negative 7 & B Molecular [address] [place] [address] [phone] Influenza B Molecular NEGATIVE Negative Laboratory test 04/16/2018 [facility] Rapid Influenza SEE RESULT [address] [place] [address] [phone] CBC Auto Diff 04/16/2018 [facility] White Blood 9.7 10^3/uL N 3.5-[address] Count .8 [place] [address] [phone] Red Blood Count 4.72 10^6/uL N 4.00-5.40 Hemoglobin 13.2 g/dL N 12.0-16.0 Hematocrit 40 % N 35-47 Mean Corpuscular Volume 85 fL N 80-97 Mean Corpuscular Hemoglobin 28 pg N 27-31 Mean Corpuscular HGB Conc 33 g/dL N 31-36 Red Cell Distribution Width 16 % High 10.5-15 Platelet Count 362 10^3/uL N 150-450 Mean Platelet Volume 7.6 fL N 7.4-10.4 Abs Neutrophils 6.0 10^3/uL N 1.5-7.7 Abs Lymphocytes 2.9 10^3/uL N 1.0-4.8 Abs Monocytes 0.6 10^3/uL N 0-0.8 Abs Eosinophils 0.3 10^3/uL N 0-0.6 Abs Basophils 0.1 10^3/uL N 0-0.2 Abs Nucleated RBC 0 10^3/uL Granulocyte % 61.4 % Lymphocyte % 29.3 % Monocyte % 6.1 % Eosinophil % 2.6 % Basophil % 0.1 % Nucleated Red Blood Cells % 0 Laboratory test 04/16/2018 [facility] Lactic Acid 1.1 mmol/L N 0.5-2.0 9 finding [address] [place] [address] [phone] B-Type Natriuretic Peptide BNP 11 pg/mL <=100 Comp Metabolic Panel 04/16/2018 [facility] Sodium 137 mmol/L N 135-145 [address] [place] [address] [phone] Potassium 4.0 mmol/L N 3.5-5.0 Chloride 103 mmol/L N 101-111 Co2 Carbon Dioxide 26 mmol/L N 22-32 Anion Gap 8 mmol/L N 2-11 Calcium 9.6 mg/dL N 8.6-10.3 Albumin 4.4 g/dL N 3.2-5.2 Total Bilirubin 0.40 mg/dL N 0.2-1.0 Glucose 115 mg/dL High 70-100 Blood Urea Nitrogen 9 mg/dL N 6-24 Creatinine 0.81 mg/dL N 0.51-0.95 BUN/Creatinine Ratio 11.1 N 8-20 Total Protein 8.1 g/dL N 6.4-8.9 Globulin 3.7 g/dL N 2-4 Albumin/Globulin Ratio 1.2 N 1-3 Alkaline Phosphatase 83 U/L N 34-104 Alt 19 U/L N 7-52 Ast 19 U/L N 13-39 Egfr Non- 73.1 >60 Egfr 88.5 >60 10 CKMB 04/16/2018 [facility] CKMB ng/mL 1.7 ng/mL N 0.6-6.3 [address] [place] [address] [phone] Laboratory test 04/16/2018 [facility] Troponin-I 0.00 ng/mL < 0.04 [address] (TnI) [place] [address] [phone] Creatine Kinase(CK) 84 U/L N 10-223 C Reactive Protein 39.09 mg/L High <8.01 Blood Culture SEE RESULT BELOW 12 Laboratory 02/25/2018 [facility] Culture Throat SEE RESULT 13, 14 test finding [address] [place] [address] [phone] Laboratory 02/25/2018 [facility] Rapid Strep Negative Negative 15 test finding [address] [place] [address] [phone] Laboratory 02/07/2018 [facility] Gardnerella/Ye SEE RESULT 16, 17 test finding [address] ast: [place] [address] Dna [phone] GC/Chlamydia 02/07/2018 [facility] Chlamydia Negative Negative Amplified Rna [address] [place] [address] Rna [phone] Neisseria gonorrhoeae (GC) Rna Negative Negative Urine Culture And 02/07/2018 [facility] Urine SEE RESULT 18 , [address] [place] [address] [phone] Poc Urinalysis 02/07/2018 [facility] Poc Negative Negative [address] Glucose, [place] [address] Urine [phone] Poc Bilirubin, Urine Negative Negative Poc Ketone, Urine Negative Negative Poc Specific [place], Urine 1.010 N 1.010-1.030 Poc Blood, Urine 1+ Abnormal Negative Poc pH, Urine 5.0 N 5-9 Poc Protein, Urine Negative Negative Poc Urobilinogen, Urine 0.2 Negative Poc Nitrite, Urine Negative Negative Poc Leukocytes, Urine 3+ Abnormal Negative Poc Color, Urine Yellow Poc Clarity, Urine Clear 20 Ua Routine 12/21/2017 [facility] In House Ua Specific [place] 1.020 Ua PH 5 Ua Color yellow Ua Appera clear Ua WBC ++ Ua Protein trace Ua Glucose normal Ua Ketones negative Ua Bilirubin negative Ua Urobilinogen normal Ua Nitrite negative Ua Occult Blood about 50 Urinalysis Profile 12/21/2017 [facility] Urine Color Yellow [address] [place] [address] [phone] Urine Appearance Cloudy Urine Specific [place] 1.012 N 1.010-1.030 Urine pH 5.0 N [...] Present Abnormal Absent Urine Culture And 12/21/2017 [facility] Urine Culture SEE RESULT [address] [place] [address] [phone] Connective Tissue 10/07/2017 [facility] Anti-Nuclear 0.3 U [address] [place] [address] [phone] Cyclic Citrullinated Peptide <15.6 U 23 Interpretation See Comment 24 Urine Culture And 08/16/2017 [facility] Urine Culture SEE RESULT [address] [place] [address] [phone] CBC Auto Diff 08/16/2017 [facility] White Blood 7.7 10^3/uL N 3.5-[address] Count 0.8 [place] [address] [phone] Red Blood Count 4.64 10^6/uL N 4.00-5.40 [...] 0-2 Nucleated Red Blood Cells % 0.1 Laboratory test 08/16/2017 [facility] Vitamin B12 419 pg/mL N 180-914 26 [place] [address] [phone] Vitamin D Total 25(Oh) 15.9 ng/mL Low 20-50 Ceruloplasmin 27.9 mg/dL 27 Comp Metabolic Panel 08/16/2017 [facility] Sodium 139 mmol/L N 139-145 [place] [address] [phone] Potassium 4.7 mmol/L N 3.5-5.0 Chloride 104 [...] Egfr Non- 73.4 >60 Egfr 94.4 >60 28 Laboratory 08/16/2017 [facility] TSH (Thyroid Stim 1.28 N 0.34 -5.60 test finding Horm) mcIU/[place] [address] [phone] Laboratory 08/16/2017 [facility] Cortisol 4.[address] [facility] g/[place] [address] [phone] Lipid Profile 08/16/2017 [facility] Triglycerides 237 mg/dL 30 (Trig/Chol/HDL [address] ) [place] [address] [phone] Cholesterol 166 mg/dL 31 HDL Cholesterol 46.2 mg/dL 32 LDL Cholesterol 72 mg/dL 33 Poc Urinalysis 03/26/2017 [facility] Poc Glucose, Negative Negative [address] [place] [address] [phone] Poc Bilirubin, Urine Negative Negative Poc Ketone, Urine Negative Negative Poc Specific [place], Urine <=1.005 Low 1.010-1.030 Poc Blood, Urine Trace-lysed Abnormal Negative Poc pH, Urine 6.0 N 5-9 Poc Protein, Urine Negative Negative Poc Urobilinogen, Urine 0.2 Negative Poc Nitrite, Urine Negative Negative Poc Leukocytes, Urine 1+ Abnormal Negative Poc Color, Urine Yellow Poc Clarity, Urine Clear 34 Urine Culture And 03/26/2017 [facility] Urine Culture SEE RESULT 35, [address] [place] [address] [phone] Xray 12/03/2016 [facility] CT Lung <pending> [address] [place] [address] Dose [phone] Laboratory test 02/12/2016 [facility] Alpha 1 147 mg/dL N 100 - [address] Antitrypsin A1a 190 [place], [place] [address] [phone] 1 Therapeutic target for the treatment of diabetes mellitus patients is <7% HBA1C, and in selective patients <6.0%. Please refer to [place] [employer] diabetic care guidelines for further information. 2 [facility] Severe Sepsis and Septic Shock Management Bundle Measure requires all lactic acids initially measuring >2.0 mmol/L be repeated. 3 Because ethnic data is not always readily [...] 15-29 5 Kidney failure <15 (or dialysis) 4 Troponin-I testing on Plasma Separator Tubes (PST) has a known false positive rate of 0.20-0.40%. All positive troponins reflex immediate secondary confirmatory testing. 5 SEE RESULT BELOW Name: LIBBY MITCHELL : [address]: John Monreal MD Acct: [id number] Unit: [id number] AGE: 57 Location: ED Re04/17/18 SEX: F Status: DEP ER SPEC: [id number] CRICKET: 04/17/[address] [facility] [address]: Demetrice ALY REQ: [id number] RECD: 04/17/18 STATUS: JONO BO DR: [facility] Iggy Kumar MD _ SOURCE: BLOOD,VENO SPDESC: ORDERED: Blood Cult Procedure Result Reported Site Aerobic Culture Bottle Final 04/22/18- 1818 ML No Growth Day 5 Anaerobic Culture Bottle Final 04/22/18- 1818 ML No Growth Day 5 * ML - Main Lab . END OF REPORT DEPARTMENT OF PATHOLOGY, [address] [place] [address] Joby Hays M.D. Director [facility] # [id number] SEE RESULT BELOW Name: RANILIBBY : [address]: Hoang Macario MD Acct: [id number] Unit: [id number] AGE: 57 Location: ED Re04/16/18 SEX: F Status: DEP ER SPEC: [id number] CRICKET: 04/16/[address]: Hoang Macario MD REQ: [id number] RECD: 04/16/18 STATUS: JONO BO DR: Iggy Kumar MD _ SOURCE: URINE SPDESC: ORDERED: Urine Culture Procedure Result Reported Site Urine Culture Final 04/18/18 0817 ML No growth of clinically significant organisms * ML - Main Lab . END OF REPORT DEPARTMENT OF PATHOLOGY, [address] [place] [address] Joby Hays M.D. Director [facility] # [id number] 7 Trimming Department Blocker: [id number] SEE RESULT BELOW Name: LIBBY MITCHELL : [address]: Hoang Macario MD Acct: [id number] Unit: [id number] AGE: 57 Location: ED Re04/16/18 SEX: F Status: REG ER SPEC: [id number] CRICKET: 04/16/[address] [facility] [address]: Hoang Macario MD REQ: [id number] RECD: 04/16/18 STATUS: JONO BO DR: Iggy Kumar MD _ SOURCE: FERN SPDES: ORDERED: Flu A B Request Procedure Result Reported Site Rapid Influenza A B Request Final 04/16/18- 1731 ML Specimen received for Influenza A/B Molecular testing * ML - Main Lab . END OF REPORT DEPARTMENT OF PATHOLOGY, [address] [place] [address] Joby Hays M.D. Director [facility] # [id number] 9 [facility] Severe Sepsis and Septic Shock Management Bundle Measure requires all lactic acids initially measuring >2.0 mmol/L be repeated. 10 Because ethnic data is not always readily [...] 15-29 5 Kidney failure <15 (or dialysis) 11 Troponin-I testing on Plasma Separator Tubes (PST) has a known false positive rate of 0.20-0.40%. All positive troponins reflex immediate secondary confirmatory testing. 12 SEE RESULT BELOW Name: LIBBY MITCHELL : [address]: Hoang Macario MD Acct: [id number] Unit: [id number] AGE: 57 Location: ED Re04/16/18 SEX: F Status: DEP ER SPEC: [id number] CRICKET: 04/16/[address] [facility] [address]: Hoang Macario MD REQ: [id number] RECD: 04/16/18 STATUS: JONO BO DR: Iggy Kumar MD _ SOURCE: BLOOD,VENO SPDESC: ORDERED: Blood Cult Procedure Result Reported Site Aerobic Culture Bottle Final 04/21/18- 1655 ML No Growth Day 5 Anaerobic Culture Bottle Final 04/21/18- 1655 ML No Growth Day 5 * ML - Main Lab . END OF REPORT DEPARTMENT OF PATHOLOGY, [address] [place] [address] Joby Hays M.D. Director [facility] # [id number] 14 SEE RESULT BELOW Name: LIBBY MITCHELL : [address]: Shanice Alarcon MD Acct: [id number] Unit: [id number] AGE: 57 Location: [facility] Re02/25/18 SEX: F Status: DEP ER SPEC: [id number] CRICKET: 02/25/[address] [facility] [address]: Jr Vallejo NP REQ: [id number] RECD: 02/25/18 STATUS: JONO BO DR: Shanice Kumar MD _ SOURCE: THROAT SPDESC: ORDERED: Throat Culture COMMENTS: [id number] Procedure Result Reported Site Throat Culture Final 02/27/18- 1258 ML Organism 1 NORMAL GUILLERMO Quantity 2+ Throat cultures are clinically indicated to detect the presence of group A strep, arcanobacterium and yeast. In certain cases, predominating organisms will be reported. * ML - Main Lab . END OF REPORT DEPARTMENT OF PATHOLOGY, [address] [place] [address] Joby Hays M.D. Director [facility] # [id number] 15 Trimming Department Blocker: [id number] Would you like to order Trichomonas Vaginalis RNA testing? N 17 SEE RESULT BELOW Name: LIBBY MITCHELL : [address]: Michelle Gleason MD Acct: [id number] Unit: [id number] AGE: 57 Location: [facility] Re02/07/18 SEX: F Status: DEP ER SPEC: [id number] CRICKET: 02/07/18-[address] [facility] [address]: Michelle Gleason MD REQ: [id number] RECD: 02/07/18-1608 STATUS: COMP ANUPAM DR: Iggy Kumar MD _ SOURCE: VAGINAL SPDESC: ORDERED: Raheem,Yeast DNA COMMENTS: [id number] Would you like to order Trichomonas Vaginalis [...] . END OF REPORT DEPARTMENT OF PATHOLOGY, [address] [place] [address] Joby Hays M.D. Director [facility] # [id number] 18 [id number] 19 SEE RESULT BELOW Name: LIBBY MITCHELL : [address]: Michelle Gleason MD Acct: [id number] Unit: [id number] AGE: 57 Location: [facility] Re02/07/18 SEX: F Status: DEP ER SPEC: [id number] CRICKET: 02/07/18-[address] [facility] [address]: Michelle Gleasno MD REQ: [id number] RECD: 02/07/18 STATUS: JONO BO DR: Iggy Kumar MD _ SOURCE: URINE SPDESC: ORDERED: Urine Culture COMMENTS: [id number] Procedure Result Reported Site Urine Culture Final 02/08/18- 1326 ML No growth of clinically significant organisms * ML - Main Lab . END OF REPORT DEPARTMENT OF PATHOLOGY, [address] [address] Joby Hays M.D. Director [facility] # [id number] 20 Trimming Department Blocker: [id number] 21 SEE RESULT BELOW Name: LIBBY MITCHELL : [address]: Suleiman Izquierdo NP Acct: [id number] Unit: [id number] AGE: 57 Location: [facility] Re12/21/17 SEX: F Status: REG REF SPEC: [id number] CRICKET: 12/21/[address] [facility] [address]: Suleiman Izquierdo NP REQ: [id number] RECD: 12/21/17 STATUS: COMP _ SOURCE: URINE SPDESC: ORDERED: Urine Culture COMMENTS: [id number] Urine Source: Clean Catch Procedure Result Reported Site Urine Culture Final 12/22/17- 1657 ML No growth of clinically significant organisms * - Main Lab . END OF REPORT DEPARTMENT OF PATHOLOGY, [address] [place] [address] Joby Hays M.D. Director [facility] # [id number] 22 REFERENCE VALUE <=1.0 (Negative) 23 REFERENCE VALUE <20.0 (Negative) 24 Tests for antibodies to dsDNA and CORTEZ antigens are not performed automatically unless the DEDRA result is > or= 3.0 U. Studies performed at [facility] indicate that positive DEDRA results <3.0 U are rarely accompanied by positive second order tests. Test Performed by: [facility] - [address] [address] 25 SEE RESULT BELOW Name: LIBBY MITCHELL : [address]: Hortensia Recinos [facility] Acct: [id number] Unit: [id number] AGE: 56 Location: [facility] [facility] Re08/16/17 SEX: F Status: REG REF SPEC: [id number] CRICKET: 08/16/[address]: Hortensia Recinos [facility] REQ: [id number] RECD: 08/16/17 STATUS: JONO BO DR: Rachana Kumar MD _ SOURCE: URINE SPDESC: ORDERED: Urine Culture QUERIES: Urine Source: Clean Catch Procedure Result Reported Site Urine Culture Final 08/17/17- 1326 ML No growth of clinically significant organisms * ML - Main Lab . END OF REPORT DEPARTMENT OF PATHOLOGY, [address] [place] [id number] Joby Hays M.D. Director [facility] # [id number] 26 Normal Range 180 to 914 Indeterminate Range 145 to 180 Deficient Range <145 27 REFERENCE VALUE 20.0 - 51.0 Test Performed by: [address] [id number] 28 Because ethnic data is not always readily [...] 15-29 5 Kidney failure <15 (or dialysis) 29 AM 8.7-22.4 PM <10 30 Desirable: <150 Borderline High: 150-199 High: 200-499 Very High: >500 31 Desirable: <200 Borderline High: 200-239 High: >239 32 Low: <40 Desirable: 40-60 High: >60 33 Desirable: <100 Near Optimal: 100-129 Borderline High: 130-159 High: 160-189 Very High: >189 34 Trimming Department Blocker: [id number] SEE RESULT BELOW Name: LIBBY MITCHELL : [address]: Shanice Oates MD Acct: [id number] Unit: [id number] AGE: 56 Location: [facility] Re03/26/17 SEX: F Status: DEP ER SPEC: [id number] CRICKET: 03/26/[address] [facility] [address]: Shanice Oates MD REQ: [id number] RECD: 03/26/17 STATUS: JONO BO DR: Iggy Kumar MD _ SOURCE: URINE SPDESC: ORDERED: Urine Culture COMMENTS: [id number] Procedure Result Reported Site Urine Culture Final 03/27/17- 1204 ML No Growth (<1,000 CFU/mL) * ML - MAIN LAB (PSC1) . END OF REPORT * ML=Testing performed at Main Lab DEPARTMENT OF PATHOLOGY, [address] [place] [address] Joby Hays M.D. Director [facility] # [id number] 37 Test Performed by: [address] [id number] [employer] Teacher: Tarun Saab II, M.D., Ph.D. Procedures Date Code Description Status 11/17/2017 623983187 Bone Mineral Density Test Completed 11/17/2017 [id number] Mammogram Completed 04/06/2016 95908 EKG, Interpretation Only Completed 02/13/2016 76911 Polysomnography Sleep Staging 4+ Parameters Completed 02/12/2016 08152 Diffusing Capacity Completed 02/12/2016 52005 Plethysmography Determination Lung Volumes & Per Completed Airway Resist 02/12/2016 98403 Pulmonary Stress Test Simple Completed 02/12/2016 75670 Pulmonary Function><Bronchodil Completed 04/22/2014 57943938 Mammogram Completed 03/07/2012 44039434 Colonoscopy Completed Encounters Type Date Location Provider Dx Diagnosis Office Visit 04/21/2018 [facility] Internal Holland Ye NP J44.9 Chronic obstructive 10:00a Medicine - pulmonary disease, [place] unspecified J18.9 Pneumonia, unspecified organism R10.9 Unspecified abdominal pain R73.9 Hyperglycemia, unspecified Office Visit 02/22/2018 1:40p 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 disturbances Services [facility] S06.0x0S Concussion without loss of consciousness, sequela Office Visit 12/21/2017 2:20p [facility] Internal Suleiman Izquierdo, N39.0 Urinary tract Medicine - [place] infection, site Rd not specified J43.8 Other emphysema E55.9 Vitamin D deficiency, unspecified E66.09 Other obesity due to excess calories Z23 Encounter for immunization Office Visit 10/26/2017 9:20a [facility] Internal Suleiman Izquierdo, Z00.00 Encntr for Medicine - [place] GROWER general adult Rd medical exam w/o abnormal [...] [facility] [place] obstructive Home Health Billing Specialist pulmonary disease, unspecified E66.09 Other obesity due to excess calories Office Visit 10/07/2017 8:20a [facility] Internal Iggy R47.89 Other speech Crow Kumar M.D. disturbances [place] [address] M79.606 Pain in leg, unspecified J44.9 Chronic obstructive pulmonary disease, unspecified Office Visit 05/26/2017 Marisol Sol R47.89 Other speech 1:45p Neurologic Kimi disturbances Services [facility] S06.0x0S Concussion without loss of consciousness, sequela R41.89 Oth symptoms and signs w cognitive functions and awareness Office Visit 05/23/2017 10:00a [facility] Internal Iggy R47.89 Other speech Crow Kumar M.D. disturbances [address] [address] Z12.39 Encounter for oth screening for malignant neoplasm of breast J44.9 Chronic obstructive pulmonary disease, unspecified E66.9 Obesity, unspecified Office Visit 04/11/2017 Marisol Sol R47.89 Other speech 1:00p Neurologic Kimi disturbances Services [facility] Office Visit 02/15/2017 [facility] Internal Briana Samayoa Unspecified 8:40a Medicine - [place] Yennifer.DSunny speech Rd disturbances J44.9 Chronic obstructive pulmonary disease, unspecified M51.16 Intervertebral disc disorders w radiculopathy, lumbar region E66.8 Other obesity Z68.38 Body mass index (BMI) 38.0-38.9, adult Z23 Encounter for immunization Office Visit 01/04/2017 3:20p [facility] Internal Iggy Stacy J44.9 Chronic Medicine - M.D. obstructive [address] pulmonary disease, unspecified S06.0x0A Concussion without loss of consciousness, initial encounter Z23 Encounter for immunization Office Visit 11/30/2016 9:15a Pulmonology And Feli Vela44.9 Chronic [facility] [place] obstructive 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 [place] obstructive pulmonary disease, unspecified E66.09 Other obesity due to excess calories Office Visit 01/07/2016 10:15a Pulmonology And Feli Vela44.9 Chronic [facility] [place] obstructive Home Health Billing Specialist pulmonary disease, unspecified G47.9 Sleep disorder, unspecified E66.09 Other obesity due to excess calories Plan of Treatment Future Appointment(s):08/24/2018 3:15 pm - Sin Sol M.D. at [place] [facility]05/12/2018 - Feli Niño MDJ44.9 Chronic obstructive pulmonary disease, unspecifiedNew Orders:PFTW/Spirometry Vol Pre/ Post Bronchdilat Dlco Complete, Ordered: 05/12/18Follow up:3 weeks, please schedule 30 min [id number] Pneumonia, unspecified organismNew Labs:Sputum Culture & Sensitiv, Ordered: 05/12/18New Xrays:CT Chest W/O, Ordered: R10.9 Unspecified abdominal pain
--- OUTSIDE RECORDS SUMMARY | 2018-05-26 06:07 | XMS REPORT | Continuity of Care Document ---
:1960 External Reference #:[id number] Author Name Shahrzad Catarina Care Team Providers Name Role Phone Iggy Kumar MD Primary Care Physician Unavailable Payers Date Identification Numbers Payment Provider Subscriber Policy Number: [id number] J[employer] Medicaid Libby Mitchell PayID: [id number] [address] [place] [address] Advance Directives Description No Information Available Problems [...] Comments General Coronary Artery Disease (CAD) General ID Father due to ID () - age 73 Mother due to Emphysema () - age 58 Siblings 4 1 brother of ID age 39 1 sister obesity Social History Type Date Description Comments Sex Unknown Marital Status 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 Cigarette Use Quit 16 Years Ago ETOH Use Denies alcohol use Tobacco Use Start: Unknown End: Patient is a former smoker Unknown Smoking Status Reviewed: 05/08/18 Patient is a former smoker Exercise Type/Frequency [...] s mouth three [place], times a day [employer] as needed Ventolin HFA 10/13 Active Aerosol 108(90Bas 18gm 2 puffs by Feli e) mouth four [place], mcg/Act times a day MD as needed Albuterol Sulfate 01/05 Active Nebulizer (2.5mg/3M 270ml 1 vial via L) 0.083% nebulizer 4 [place], times daily MD as needed Clonazepam 01/05 Active Tablets 2mg 1 by mouth three times a day as needed Ibuprofen 01/05 Active Tablets 200mg as needed Effexor XR Active Caps ER 150mg 1 by mouth Unknown /0000 24HR every day, take with 75 MG Vitamin D3 Active Capsules 5000Unit 1 by mouth Unknown Maximum Strength /0000 every day Zinc Active Capsules 1 by mouth Unknown /0000 every day Gabapentin Active Capsules 300mg Take 1 Unknown /0000 Capsule By Mouth Four Times A Day as Needed Prednisone Active Tablets 20mg Take 40mg Unknown /0000 by mouth once a day for 5 days. Effexor XR Active Caps ER 75mg 1 [...] Aerosol 62.5mcg/I 30uni 1 act qday J44.9 Zsofi nh ts Timbo, - [employer] 02/22 Ciprofloxacin HCL 12/21 Hx Tablets 250mg 10tab take 1 tab N39.0 Zsofi s by mouth Tim[place], - twice a day [employer] 12/30 for 5 days Vitamin D 10/26 Hx Capsules 06993Hcdq 8caps take 1 E55.9 Zsofia (Ergocalciferol) capsule Timbo, - every week [employer] 05/07 for 8 Spiriva Respimat 10/19 Hx Aerosol 2.5mcg/Ac 4unit 2 puffs J43.9 ofi t s every day Timbo, - [employer] 12/26 Prednisone 01/06 Hx Tablets 1mg 120ta take 4 J44.9 bs tablets by [place], - mouth daily 04/01 Ambien 01/05 Hx Tablets 10mg 1 by mouth every night - at bedtime 11/29 as needed sleep insomnia Combivent 01/05 Hx Aerosol 20-100mcg 12gm 04/21/18 Feli Respimat /2015 /Act reports [place], - pulmonary 05/07 DC'd puffs 4 daily as needed Ergocalciferol 01/05 Hx Capsules 53173Hxbe 1 tab by mouth every - week 01/05 Prednisone 01/05 Hx Tablets 10mg 5tabx 2days,4 - leyx3fbts 01/05 [id number], 0xbyi7aiir, 1tabxday. Vesicare 01/05 Hx Tablets 10mg 1 by mouth every day - prn 02/15 Neurontin 00 Hx Capsules 100mg 300 mg in Unknown / the - morning, 10/12 600 mg at bedtime Hydrocodone/Aceta 00 Hx Take 1 Unknown minophen 500-300 /0000 tablet 3 MG - times daily 05/07 Effexor XR Hx Caps ER 37.5mg two by Unknown /0000 24HR mouth every - day with 05/08 the 150 MG /2018 tab Levaquin Hx Tablets 500mg 1 by mouth Unknown /0000 every day - for 7 days. 04/21 Immunizations CPT Code Status Date Vaccine Reaction Lot # [id number] Given 12/21/2017 Influenza Virus Vaccine, [id number] Quadrivalent, Split, Preservative Free [id number] Given 02/15/2017 Pneumonia Vaccine [id number] Given 01/04/2017 Influenza Virus Vaccine, no immediate reaction, [id number] Quadrivalent, Split, pt tolerated well Preservative Free Vital Signs Date Vital Result Comment 05/08/2018 10:05am Height 64 inches 5'4" Weight [...] Result H/L Range Note Laboratory test 04/21/2018 [facility] Vitamin D 22.1 ng/mL N 20-[address](Oh) [place] [address] [phone] Laboratory test 04/21/2018 [facility] Lipase 20 U/L N 11.0- 82.[address] [place] [address] [phone] Hemoglobin A1c (Glyco HGB) 6.3 % High 4.0-5.6 1 Laboratory test 04/17/2018 [facility] Lactic Acid 1.9 mmol/L N 0.5-2.[address] [place] [address] [phone] CBC Auto Diff 04/17/2018 [facility] White Blood 18.7 High 3.5- 10.[address] Count 10^3/[place] [address] [phone] Red Blood Count 4.53 10^6/uL N 4.00-5.40 [...] Cells % 0.1 Comp Metabolic Panel 04/17/2018 [facility] Sodium 138 mmol/L N 135-145 [address] [place] [address] [phone] Potassium 4.0 mmol/L N 3.5-5.0 Chloride 105 [...] Egfr 92.4 >60 3 Laboratory test 04/17/2018 [facility] Troponin-I (TnI) 0.00 ng/ mL <0.04 4 finding [address] [place] [address] [phone] B-Type Natriuretic Peptide BNP 42 pg/mL <=100 Blood Culture SEE RESULT BELOW 5 Urinalysis Profile 04/16/2018 [facility] Urine Color Yellow [address] [place], [place] [address] [phone] Urine Appearance Cloudy Urine Specific Cherry 1.004 Low 1.010-1.030 Urine pH 6.0 N [...] Present Abnormal Absent Urine Culture And 04/16/2018 [facility] Urine Culture SEE RESULT [address] [place] [address] [phone] Rapid Influenza A 04/16/2018 [facility] Influenza A NEGATIVE Negative 7 & B Molecular [address] [place] [address] [phone] Influenza B Molecular NEGATIVE Negative Laboratory test 04/16/2018 [facility] Rapid Influenza SEE RESULT [address] A B Antigen BELOW [place], [place] [address] [phone] CBC Auto Diff 04/16/2018 [facility] White Blood 9.7 10^3/uL N 3.5-[address] Count .8 [place], [place] [address] [phone] Red Blood Count 4.72 10^6/uL N 4.00-5.40 [...] Blood Cells % 0 Laboratory test 04/16/2018 [facility] Lactic Acid 1.1 mmol/L N 0.5-2.[address] [place] [address] [phone] B-Type Natriuretic Peptide BNP 11 pg/mL <=100 Comp Metabolic Panel 04/16/2018 [facility] Sodium 137 mmol/L N 135-[address] [place] [address] [phone] Potassium 4.0 mmol/L N 3.5-5.0 Chloride 103 [...] >60 Egfr 88.5 >60 10 CKMB 04/16/2018 [facility] CKMB ng/mL 1.7 ng/mL N 0.6-6.[address] [place] [address] [phone] Laboratory test 04/16/2018 [facility] Troponin-I 0.00 ng/mL < 0.[address] (TnI) [place] [address] [phone] Creatine Kinase(CK) 84 U/L N 10-223 C Reactive Protein 39.09 mg/L High <8.01 Blood Culture SEE RESULT BELOW 12 Laboratory 02/25/2018 [facility] Rapid Strep Negative Negative 13 test finding [address] Molecular [place], [place] [phone] [phone] Laboratory 02/25/2018 [facility] Culture SEE RESULT 14, 15 test finding [address] Throat BELOW [place], [place] [address] [phone] Poc Urinalysis 02/07/2018 [facility] Poc Glucose, Negative Negative [address] Urine [place], [place] [address] [phone] Poc Bilirubin, Urine Negative Negative Poc Ketone, Urine Negative Negative Poc Specific Cherry, Urine 1.010 N 1.010-1.030 Poc Blood, Urine 1+ Abnormal Negative Poc pH, Urine 5.0 N 5-9 Poc Protein, Urine Negative Negative Poc Urobilinogen, Urine 0.2 Negative Poc Nitrite, Urine Negative Negative Poc Leukocytes, Urine 3+ Abnormal Negative Poc Color, Urine Yellow Poc Clarity, Urine Clear 16 Urine Culture 02/07/2018 [facility] Urine Culture SEE RESULT 17, And [address] BELOW 18 Sensitivities [place], [place] [address] [phone] GC/Chlamydia 02/07/2018 [facility] Chlamydia Negative Negative 19 Amplified Rna [address] [place] [address] Rna [phone] Neisseria gonorrhoeae (GC) Rna Negative Negative Laboratory test 02/07/2018 [facility] Gardnerella/Yeast: SEE RESULT [address] Vaginal Dna BELOW [place], [place] [id number] [phone] Ua Routine 12/21/2017 [facility] Ua Specific Cherry 1.020 Ua PH 5 Ua Color yellow Ua Appera clear Ua WBC ++ Ua Protein trace Ua Glucose normal Ua Ketones negative Ua Bilirubin negative Ua Urobilinogen normal Ua Nitrite negative Ua Occult Blood about 50 Urinalysis Profile 12/21/2017 [facility] Urine Color Yellow [address] [place] [address] [phone] Urine Appearance Cloudy Urine Specific Cherry 1.012 N 1.010-1.030 Urine pH 5.0 N [...] Present Abnormal Absent Urine Culture And 12/21/2017 [facility] Urine Culture SEE RESULT [address] [place] [address] [phone] Connective Tissue 10/07/2017 [facility] Anti-Nuclear 0.3 U [address] [place] [address] [phone] Cyclic Citrullinated Peptide <15.6 U 23 Interpretation See Comment 24 Laboratory test 08/16/2017 [facility] Vitamin B12 419 pg/mL N 180-914 [address] [place] [address] [phone] Vitamin D Total 25(Oh) 15.9 ng/mL Low 20-50 Ceruloplasmin 27.9 mg/dL 26 Laboratory 08/16/2017 [facility] TSH (Thyroid Stim 1.28 N 0.34 -5.[address] Horm) mcIU/[place] [address] [phone] Lipid Profile 08/16/2017 [facility] Triglycerides 237 mg/dL 27 (Trig/Chol/HDL [address] ) [place] [address] [phone] Cholesterol 166 mg/dL 28 HDL Cholesterol 46.2 mg/dL 29 LDL Cholesterol 72 mg/dL 30 Laboratory test 08/16/2017 [facility] Cortisol 4.63 g/dL [address] [place] [address] [phone] Comp Metabolic 08/16/2017 [facility] Sodium 139 mmol/L N 139- [address] [place] [address] [phone] Potassium 4.7 mmol/L N 3.5-5.0 Chloride 104 [...] Egfr Non- 73.4 >60 Egfr 94.4 >60 32 Urine Culture And 08/16/2017 [facility] Urine Culture SEE RESULT [address] [place] [address] [phone] CBC Auto Diff 08/16/2017 [facility] White Blood 7.7 10^3/uL N 3.5-[address] Count 0.8 [place] [address] [phone] Red Blood Count 4.64 10^6/uL N 4.00-5.40 [...] Blood Cells % 0.1 Urine Culture And 03/26/2017 [facility] Urine SEE RESULT 34 , [address] [place] [place] [address] [phone] Poc Urinalysis 03/26/2017 [facility] Poc Negative Negative [address] Glucose, [place] [address] Urine [phone] Poc Bilirubin, Urine Negative Negative Poc Ketone, Urine Negative Negative Poc Specific Cherry, Urine <=1.005 Low 1.010-1.030 Poc Blood, Urine Trace-lysed Abnormal Negative Poc pH, Urine 6.0 N 5-9 Poc Protein, Urine Negative Negative Poc Urobilinogen, Urine 0.2 Negative Poc Nitrite, Urine Negative Negative Poc Leukocytes, Urine 1+ Abnormal Negative Poc Color, Urine Yellow Poc Clarity, Urine Clear 36 Xray 12/03/2016 [facility] CT Lung <pending> [address] [place] [place] [address] Dose [phone] Laboratory test 02/12/2016 [facility] Alpha 1 147 mg/dL N 100 - [address] Antitrypsin A1a 190 [place] [address] [phone] 1 Therapeutic target for the treatment of diabetes mellitus patients is <7% HBA1C, and in selective patients <6.0%. Please refer to [place] [employer] diabetic care guidelines for further information. 2 [facility] Severe Sepsis and Septic Shock Management Bundle [...] [address]: John Monreal MD Acct: [id number] Unit: [id number] AGE: 57 Location: ED Re04/17/18 SEX: F Status: DEP ER SPEC: [id number] CRICKET: 04/17/[address]: Demetrice ALY REQ: [id number] RECD: 04/17/18 STATUS: JONO BO DR: [facility] Iggy Kumar MD _ SOURCE: BLOOD,VENO SPDESC: ORDERED: Blood Cult Procedure Result Reported Site Aerobic Culture Bottle Final 04/22/18- 1818 ML No Growth Day 5 Anaerobic Culture Bottle Final 04/22/18- 1818 ML No Growth Day 5 * ML - Main Lab . END OF REPORT DEPARTMENT OF PATHOLOGY, [address] [place] [address] Joby Hays M.D. Director [facility] # [id number] 6 SEE RESULT BELOW Name: LIBBY MITCHELL : [address]: Hoang Macario MD Acct: [id number] Unit: [id number] AGE: 57 Location: ED Re04/16/18 SEX: F Status: DEP ER SPEC: [id number] CRICKET: 04/16/[address]: Hoang Macario MD REQ: [id number] RECD: 02/10/19-1843 STATUS: COMP [facility] DR: Iggy Kumar MD _ SOURCE: URINE SPDESC: ORDERED: Urine Culture Procedure Result Reported Site Urine Culture Final 04/18/18- 816 ML No growth of clinically significant organisms * ML - Main Lab . END OF REPORT DEPARTMENT OF PATHOLOGY, [address] [place] [address] Joby Hays M.D. Director [facility] # [id number] 7 Collection Specialist: [id number] 8 SEE RESULT BELOW Name: LIBBY MITCHELL : [address]: Hoang Macario MD Acct: [id number] Unit: [id number] AGE: 57 Location: ED Re04/16/18 SEX: F Status: REG ER SPEC: [id number] CRICKET: 04/16/[address]: Hoang Macario MD REQ: [id number] RECD: 04/16/18 STATUS: COMP [facility]EN[facility] DR: Iggy Kumar MD _ SOURCE: [facility]: ORDERED: Flu A B Request Procedure Result Reported Site Rapid Influenza A B Request Final 04/16/18- 1730 ML Specimen received for Influenza A/B Molecular testing * ML - Main Lab . END OF REPORT DEPARTMENT OF PATHOLOGY, [address] [place] [address] Joby Hays M.D. Director [facility] # [id number] 9 [facility] Severe Sepsis and Septic Shock Management Bundle [...] [address]: Hoang Macario MD Acct: [id number] Unit: [id number] AGE: 57 Location: ED Re04/16/18 SEX: F Status: DEP ER SPEC: [id number] CRICKET: 04/16/[address] [facility] [address]: Hoang Macario MD REQ: [id number] RECD: 04/16/18 STATUS: JONO BO DR: Iggy Kumar MD _ SOURCE: BLOOD,VENO SPDES: ORDERED: Blood Cult Procedure Result Reported Site Aerobic Culture Bottle Final 04/21/18- 1654 ML No Growth Day 5 Anaerobic Culture Bottle Final 04/21/181654 ML No Growth Day 5 * ML - Main Lab . END OF REPORT DEPARTMENT OF PATHOLOGY, [address] [place] [address] Joby Hays M.D. Director [facility] # [id number] 13 Collection Specialist: [id number] 15 SEE RESULT BELOW Name: LIBBY MITCHELL : [address]: Shanice Alarcon MD Acct: [id number] Unit: [id number] AGE: 57 Location: [facility] Re02/25/18 SEX: F Status: DEP ER SPEC: [id number] CRICKET: 02/25/[address] [facility] [address]: Jr Vallejo NP REQ: [id number] RECD: 02/25/18 STATUS: JONO BO DR: Shanice Kumar MD _ SOURCE: THROAT SPDESC: ORDERED: Throat Culture COMMENTS: [id number] Procedure Result Reported Site Throat Culture Final 02/27/18- 1258 ML Organism 1 NORMAL GUILLERMO Quantity 2+ Throat cultures are clinically indicated to detect the presence of group A strep, arcanobacterium and yeast. In certain cases, predominating organisms will be reported. * ML - Main Lab . END OF REPORT DEPARTMENT OF PATHOLOGY, [address] [place] [address] Joby Hays M.D. Director [facility] # [id number] 16 Collection Specialist: [id number] 18 SEE RESULT BELOW Name: LIBBY MITCHELL : [address]: Michelle Gleason MD Acct: [id number] Unit: [id number] AGE: 57 Location: [facility] Re02/07/18 SEX: F Status: DEP ER SPEC: [id number] CRICKET: 02/07/18-[address] [facility] [address]: Michelle Gleason MD REQ: [id number] RECD: 02/07/18 STATUS: JONO BO DR: Iggy Kumar MD _ SOURCE: URINE [facility]: ORDERED: Urine Culture COMMENTS: [id number] Procedure Result Reported Site Urine Culture Final 02/08/18- 1326 ML No growth of clinically significant organisms * ML - Main Lab . END OF REPORT DEPARTMENT OF PATHOLOGY, [address] [place] [address] Joby Hays M.D. Director [facility] # [id number] 19 [id number] Would you like to order Trichomonas Vaginalis RNA testing? N 20 SEE RESULT BELOW Name: LIBBY MITCHELL : [address]: Michelle Gleason MD Acct: [id number] Unit: [id number] AGE: 57 Location: [facility] Re02/07/18 SEX: F Status: DEP ER SPEC: [id number] CRICKET: 02/07/18-[address] [facility] [address]: Michelle Gleason MD REQ: [id number] RECD: 02/07/18 STATUS: JONO BO DR: Iggy Kumar MD _ SOURCE: VAGINAL SPDESC: ORDERED: Raheem,Yeast DNA COMMENTS: [id number] Would you like to order Trichomonas Vaginalis [...] . END OF REPORT DEPARTMENT OF PATHOLOGY, [address] [place] [address] Joby Hays M.D. Director [facility] # [id number] 21 SEE RESULT BELOW Name: LIBBY MITCHELL : [address]: Suleiman Izquierdo NP Acct: [id number] Unit: [id number] AGE: 57 Location: [facility] Re12/21/17 SEX: F Status: REG REF SPEC: [id number] CRICKET: 12/21/17-[address]: Suleiman Izquierdo NP REQ: [id number] RECD: 12/21/17 STATUS: COMP _ SOURCE: URINE SPDESC: ORDERED: Urine Culture COMMENTS: [id number] Urine Source: Clean Catch Procedure Result Reported Site Urine Culture Final 12/22/17- 1657 ML No growth of clinically significant organisms * ML - Main Lab . END OF REPORT DEPARTMENT OF PATHOLOGY, [address] [place] [address] Joby Hays M.D. Director [facility] # [id number] 22 REFERENCE VALUE <=1.0 (Negative) 23 REFERENCE VALUE <20.0 (Negative) 24 Tests for antibodies to dsDNA and CORTEZ antigens are not performed automatically unless the DEDRA result is > or= 3.0 U. Studies performed at [facility] indicate that positive DEDRA results <3.0 U are rarely accompanied by positive second order tests. Test Performed by: [place] [address] 25 Normal Range 180 to 914 Indeterminate Range 145 to 180 Deficient Range <145 26 REFERENCE VALUE 20.0 - 51.0 Test Performed by: [place] [address] 27 Desirable: <150 Borderline High: 150-199 High: 200-499 Very High: >500 28 Desirable: <200 Borderline High: 200-239 High: >239 29 Low: <40 Desirable: 40-60 High: >60 30 Desirable: <100 Near Optimal: 100-129 Borderline High: 130-159 High: 160-189 Very High: >189 31 AM 8.7-22.4 PM <10 32 Because ethnic data is not always readily [...] 15-29 5 Kidney failure <15 (or dialysis) 33 SEE RESULT BELOW Name: LIBBY MITCHELL : [address]: Hortensia Recinos [facility] Acct: [id number] Unit: [id number] AGE: 56 Location: [facility] Re08/16/17 SEX: F Status: REG REF SPEC: [id number] CRICKET: 08/16/[address] [facility] [address]: Hortensia Recinos [facility] REQ: [id number] RECD: 08/16/17 STATUS: JONO BO DR: Rachana Kumar MD _ SOURCE: URINE SPDESC: ORDERED: Urine Culture QUERIES: Urine Source: Clean Catch Procedure Result Reported Site Urine Culture Final 08/17/17- 1326 ML No growth of clinically significant organisms * ML - Main Lab . END OF REPORT DEPARTMENT OF PATHOLOGY, [address] [place] [address] Joby Hays M.D. Director [facility] # [id number] 34 [id number] 35 SEE RESULT BELOW Name: LIBBY MITCHELL : [address]: Shanice Oates MD Acct: [id number] Unit: [id number] AGE: 56 Location: [facility] Re03/26/17 SEX: F Status: DEP ER SPEC: [id number] CRICKET: 03/26/[address] [facility] [address]: Shanice Oates MD REQ: [id number] RECD: 03/26/17 STATUS: COMP [facility] DR: Iggy Kumar MD _ SOURCE: URINE SPDESC: ORDERED: Urine Culture COMMENTS: [id number] Procedure Result Reported Site Urine Culture Final 03/27/17- 1204 ML No Growth (<1,000 CFU/mL) * ML - MAIN LAB ([facility]) . END OF REPORT * ML=Testing performed at Main Lab DEPARTMENT OF PATHOLOGY, [address] [place] [address] Joby Hays M.D. Director [facility] # [id number] 36 Collection Specialist: [id number] 37 Test Performed by: [address] [address] [employer]: Tarun Saab II, M.D., Ph.D. Procedures Date Code Description Status 11/17/2017 038969631 Bone Mineral Density Test Completed 11/17/2017 48334780 Mammogram Completed 04/06/2016 61713 EKG, Interpretation Only Completed 02/13/2016 78173 Polysomnography Sleep Staging 4+ Parameters Completed 02/12/2016 20161 Diffusing Capacity Completed 02/12/2016 00156 Plethysmography Determination Lung Volumes & Per Completed Airway Resist 02/12/2016 68810 Pulmonary Stress Test Simple Completed 02/12/2016 14787 Pulmonary Function><Bronchodil Completed 04/22/2014 39047037 Mammogram Completed 03/07/2012 37936184 Colonoscopy Completed Encounters Type Date Location Provider Dx Diagnosis Office Visit 04/21/2018 [facility] Holland Ye NP J44.9 Chronic obstructive 10:00a Medicine - pulmonary disease, [place] unspecified J18.9 Pneumonia, unspecified organism R10.9 Unspecified abdominal pain R73.9 Hyperglycemia, unspecified Office Visit 02/22/2018 1:40p [facility] Holland Ye, M54.9 Dorsalgia, Medicine - EXTERNAL AUDITOR unspecified [place] J44.9 Chronic obstructive pulmonary disease, unspecified Office Visit 02/02/2018 Marisol Vogt Ebenezer, R47.89 Other speech 1:45p Neurologic M.D. disturbances [facility] S06.0x0S Concussion without loss of consciousness, sequela Office Visit 12/21/2017 2:20p [facility] Suleiman Izquierdo, N39.0 Urinary tract Medicine - [place] [employer] infection, site Rd not specified J43.8 Other emphysema E55.9 Vitamin D deficiency, unspecified E66.09 Other obesity due to excess calories Z23 Encounter for immunization Office Visit 10/26/2017 9:20a [facility] Internal Suleiman Izquierdo, Z00.00 Encntr for Medicine - [place] [employer] ADJUSTER general adult Rd medical exam w/o abnormal [...] [facility] [place] obstructive [facility] pulmonary disease, unspecified E66.09 Other obesity due to excess calories Office Visit 10/07/2017 8:20a [facility] Internal Iggy R47.89 Other speech Medicine Maged Kumar M.D. disturbances [address] M79.606 Pain in leg, unspecified J44.9 Chronic obstructive pulmonary disease, unspecified Office Visit 05/26/2017 Marisol Sol R47.89 Other speech 1:45p Neurologic M.DSunny disturbances [facility] S06.0x0S Concussion without loss of consciousness, sequela R41.89 Oth symptoms and signs w cognitive functions and awareness Office Visit 05/23/2017 10:00a [facility] Internal Iggy R47.89 Other speech Crow Kumar M.D. disturbances [address] Z12.39 Encounter for oth screening for malignant neoplasm of breast J44.9 Chronic obstructive pulmonary disease, unspecified E66.9 Obesity, unspecified Office Visit 04/11/2017 Marisol Sol, R47.89 Other speech 1:00p Neurologic MSunnyDSunny disturbances Services [facility] Office Visit 02/15/2017 [facility] Iggy Kumar R47.9 Unspecified 8:40a Medicine - [place] M.DSunny speech Rd disturbances J44.9 Chronic obstructive pulmonary disease, unspecified M51.16 Intervertebral disc disorders w radiculopathy, lumbar region E66.8 Other obesity Z68.38 Body mass index (BMI) 38.0-38.9, adult Z23 Encounter for immunization Office Visit 01/04/2017 3:20p [facility] Vilma Gifford Chronic Medicine - [place] obstructive [address] pulmonary disease, unspecified S06.0x0A Concussion without loss of consciousness, initial encounter Z23 Encounter for immunization Office Visit 11/30/2016 9:15a Pulmonology And Feli J44.9 Chronic [facility] [place] obstructive [facility] pulmonary disease, unspecified Z12.2 Encntr screen for malignant neoplasm of respiratory organs Z87.891 Personal history of nicotine dependence Office Visit 04/12/2016 Neurohospitalist Maninder Castro 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 at [facility]06/19/2018 2:30 pm - Feli Niño MD at [facility]03/23/2018 - Hoang He M.D.J06.9 Acute upper respiratory infection, unspecifiedComments:Likely viral; pain sx resolved at present. Continue rest, fluids, analgesics as needed. (+) white spot on L tonsil perhaps entrapped food as the tonsil does not look inflamed. Gargles suggested for now
--- OUTSIDE RECORDS SUMMARY | 2018-05-26 06:07 | XMS REPORT | Continuity of Care Document ---
:1960 External Reference #:[id number] Author Name Mally Hatfield Care Team Providers Name Role Phone Iggy Kumar MD Primary Care Physician Unavailable Payers Date Identification Numbers Payment Provider Subscriber Policy Number: [id number] Jasmine/[employer] Libby Mitchell PayID: [id number] [address] [address] [place] [address] Advance Directives Description No Information Available Problems [...] Comments General Coronary Artery Disease (CAD) General [place] Father due to [place] () - age 73 Mother due to Emphysema () - age 58 Siblings 4 1 brother of [place] age 39 1 sister obesity Social History Type Date Description Comments Sex Unknown Marital Status 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-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 Cigarette Use Quit 16 [...] s mouth three Tim[place], times a day [employer] as needed Ventolin HFA 10/13 Active Aerosol [...] qday J44.9 ofi nh ts [place], - [employer] 02/22 Ciprofloxacin HCL 12/21 Hx Tablets 250mg 10tab take 1 tab N39.0 ofi s by mouth Tim[place], - twice a day [employer] 12/30 for 5 days Vitamin D 10/26 Hx Capsules [id number] 8caps take 1 E55.9 Zsofia (Ergocalciferol) capsule Tim[place], - every week [employer] 05/07 for 8 weeks Spiriva Respimat 10/19 Hx Aerosol 2.5mcg/Ac 4unit 2 puffs J43.9 t s every day Tim[place], - [employer] 12/26 Prednisone 01/06 Hx Tablets 1mg 120ta take 4 J44.9 bs tablets by [place], - mouth daily 04/01 Ambien 01/05 Hx Tablets 10mg 1 by mouth every night - at bedtime 11/29 as needed sleep insomnia Combivent 01/05 Hx Aerosol 20-100mcg 12gm 04/21/18 Feli Respimat /2015 /Act reports [place], - pulmonary 05/07 DC'd puffs 4 daily as needed Ergocalciferol 01/05 Hx Capsules [id number] 1 tab by mouth every - week 01/05 Prednisone 01/05 Hx Tablets 10mg 5tabx 2days,4 - [id number] 01/05 [id number], [id number], 1tabxday. Vesicare 01/05 Hx Tablets 10mg 1 [...] Code Status Date Vaccine Reaction Lot # [id number] Given 12/21/2017 Influenza Virus Vaccine, [id number] Quadrivalent, Split, Preservative Free [id number] Given 02/15/2017 Pneumonia Vaccine [id number] Given 01/04/2017 Influenza Virus Vaccine, no immediate [...] Result H/L Range Note Laboratory test 04/21/2018 [facility] Vitamin D 22.1 ng/mL N 20-[address] Total 25(Oh) [place] [address] [phone] Laboratory test 04/21/2018 [facility] Lipase 20 U/L N 11.0- 82.[address] [place] [address] [phone] Hemoglobin A1c (Glyco HGB) 6.3 % High 4.0-5.6 1 Laboratory test 04/17/2018 [facility] Lactic Acid 1.9 mmol/L N 0.5-2.0 [address] [place] [address] [phone] CBC Auto Diff 04/17/2018 [facility] White Blood 18.7 High 3.5- 10.[address] Count 10^3/[place] [address] [phone] Red Blood Count 4.53 10^6/uL N 4.00-5.40 [...] Cells % 0.1 Comp Metabolic Panel 04/17/2018 [facility] Sodium 138 mmol/L N 135-[address] [place] [address] [phone] Potassium 4.0 mmol/L N 3.5-5.0 Chloride 105 [...] Egfr 92.4 >60 3 Laboratory test 04/17/2018 [facility] Troponin-I (TnI) 0.00 ng/ mL <0.04 [address] [place] [address] [phone] B-Type Natriuretic Peptide BNP 42 pg/mL <=100 Blood Culture SEE RESULT BELOW 5 Urinalysis Profile 04/16/2018 [facility] Urine Color Yellow [address] [place] [address] [phone] Urine Appearance Cloudy Urine Specific Anthon 1.004 Low 1.010-1.030 Urine pH 6.0 N [...] Present Abnormal Absent Urine Culture And 04/16/2018 [facility] Urine Culture SEE RESULT [address] [place] [address] [phone] Rapid Influenza A 04/16/2018 [facility] Influenza A NEGATIVE Negative 7 & B Molecular [address] [place] [address] [phone] Influenza B Molecular NEGATIVE Negative Laboratory test 04/16/2018 [facility] Rapid Influenza SEE RESULT [address] A B [place] [address] [phone] CBC Auto Diff 04/16/2018 [facility] White Blood 9.7 10^3/uL N 3.5-[address] Count .8 [place] [address] [phone] Red Blood Count 4.72 10^6/uL N 4.00-5.40 [...] Blood Cells % 0 Laboratory test 04/16/2018 [facility] Lactic Acid 1.1 mmol/L N 0.5-2.0 9 finding [address] [place] [address] [phone] B-Type Natriuretic Peptide BNP 11 pg/mL <=100 Comp Metabolic Panel 04/16/2018 [facility] Sodium 137 mmol/L N 135-145 [address] [place] [address] [phone] Potassium 4.0 mmol/L N 3.5-5.0 Chloride 103 [...] >60 Egfr 88.5 >60 10 CKMB 04/16/2018 [facility] CKMB ng/mL 1.7 ng/mL N 0.6-6.3 [address] [place] [address] [phone] Laboratory test 04/16/2018 [facility] Troponin-I 0.00 ng/mL < 0.04 [address] (TnI) [place] [address] [phone] Creatine Kinase(CK) 84 U/L N 10-223 C Reactive Protein 39.09 mg/L High <8.01 Blood Culture SEE RESULT BELOW 12 Laboratory 02/25/2018 [facility] Culture Throat SEE RESULT 13, 14 test finding [address] [place] [address] [phone] Laboratory 02/25/2018 [facility] Rapid Strep Negative Negative 15 test finding [address] [place] [address] [phone] Laboratory 02/07/2018 [facility] Gardnerella/Ye SEE RESULT 16, 17 test finding [address] ast: [place] [address] Dna [phone] GC/Chlamydia 02/07/2018 [facility] Chlamydia Negative Negative Amplified Rna [address] [place] [address] Rna [phone] Neisseria gonorrhoeae (GC) Rna Negative Negative Urine Culture And 02/07/2018 [facility] Urine SEE RESULT 18 , [address] [place] [address] [phone] Poc Urinalysis 02/07/2018 [facility] Poc Negative Negative [address] Glucose, [place] [address] Urine [phone] Poc Bilirubin, Urine Negative Negative Poc Ketone, Urine Negative Negative Poc Specific Anthon, Urine 1.010 N 1.010-1.030 Poc Blood, Urine 1+ Abnormal Negative Poc pH, Urine 5.0 N 5-9 Poc Protein, Urine Negative Negative Poc Urobilinogen, Urine 0.2 Negative Poc Nitrite, Urine Negative Negative Poc Leukocytes, Urine 3+ Abnormal Negative Poc Color, Urine Yellow Poc Clarity, Urine Clear 20 Ua Routine 12/21/2017 [facility] Ua Specific Anthon 1.020 Ua PH 5 Ua Color yellow Ua Appera clear Ua WBC ++ Ua Protein trace Ua Glucose normal Ua Ketones negative Ua Bilirubin negative Ua Urobilinogen normal Ua Nitrite negative Ua Occult Blood about 50 Urinalysis Profile 12/21/2017 [facility] Urine Color Yellow [address] [place] [address] [phone] Urine Appearance Cloudy Urine Specific Anthon 1.012 N 1.010-1.030 Urine pH 5.0 N [...] Present Abnormal Absent Urine Culture And 12/21/2017 [facility] Urine Culture SEE RESULT [address] [place] [address] [phone] Connective Tissue 10/07/2017 [facility] Anti-Nuclear 0.3 U [address] [place] [address] [phone] Cyclic Citrullinated Peptide <15.6 U 23 Interpretation See Comment 24 Urine Culture And 08/16/2017 [facility] Urine Culture SEE RESULT [address] [place] [address] [phone] CBC Auto Diff 08/16/2017 [facility] White Blood 7.7 10^3/uL N 3.5-[address] Count 0.8 [place] [address] [phone] Red Blood Count 4.64 10^6/uL N 4.00-5.40 [...] Blood Cells % 0.1 Laboratory test 08/16/2017 [facility] Vitamin B12 419 pg/mL N 180-914 26 [place] [address] [phone] Vitamin D Total 25(Oh) 15.9 ng/mL Low 20-50 Ceruloplasmin 27.9 mg/dL 27 Comp Metabolic Panel 08/16/2017 [facility] Sodium 139 mmol/L N 139-145 [place] [address] [phone] Potassium 4.7 mmol/L N 3.5-5.0 Chloride 104 [...] >60 Egfr 94.4 >60 28 Laboratory 08/16/2017 [facility] TSH (Thyroid Stim 1.28 N 0.34 -5.60 test finding Horm) mcIU/[place] [address] [phone] Laboratory 08/16/2017 [facility] Cortisol 4.63 29 test finding [facility] g/[place] [address] [phone] Lipid Profile 08/16/2017 [facility] Triglycerides 237 mg/dL 30 (Trig/Chol/HDL [address] ) [place] [address] [phone] Cholesterol 166 mg/dL 31 HDL Cholesterol 46.2 mg/dL 32 LDL Cholesterol 72 mg/dL 33 Poc Urinalysis 03/26/2017 [facility] Poc Glucose, Negative Negative [address] [place] [address] [phone] Poc Bilirubin, Urine Negative Negative Poc Ketone, Urine Negative Negative Poc Specific Anthon, Urine <=1.005 Low 1.010-1.030 Poc Blood, Urine Trace-lysed Abnormal Negative Poc pH, Urine 6.0 N 5-9 Poc Protein, Urine Negative Negative Poc Urobilinogen, Urine 0.2 Negative Poc Nitrite, Urine Negative Negative Poc Leukocytes, Urine 1+ Abnormal Negative Poc Color, Urine Yellow Poc Clarity, Urine Clear 34 Urine Culture And 03/26/2017 [facility] Urine Culture SEE RESULT 35, [address] [place] [address] [phone] Xray 12/03/2016 [facility] CT Lung <pending> [address] [place] [address] Dose [phone] Laboratory test 02/12/2016 [facility] Alpha 1 147 mg/dL N 100 - [address] Antitrypsin A1a 190 [place], [place] [address] [phone] 1 Therapeutic target for the treatment of diabetes mellitus patients is <7% HBA1C, and in selective patients <6.0%. Please refer to [employer] diabetic care guidelines for further information. 2 [facility] Severe Sepsis and Septic Shock [...] [address]: John Monreal MD Acct: [id number] Unit: [id number] AGE: 57 Location: ED Re04/17/18 SEX: F Status: DEP ER SPEC: [id number] CRICKET: 04/17/[address] [facility] [address]: Demetrice ALY REQ: [id number] RECD: 04/17/18 STATUS: JONO BO DR: [facility] Igyg Kumar MD _ SOURCE: BLOOD,VENO SPDESC: ORDERED: Blood Cult Procedure Result Reported Site Aerobic Culture Bottle Final 04/22/18- 1818 ML No Growth Day 5 Anaerobic Culture Bottle Final 04/22/18- 1818 ML No Growth Day 5 * ML - Main Lab . END OF REPORT DEPARTMENT OF PATHOLOGY, [address] [place] [address] Joby Hays M.D. Director [facility] # [id number] 6 SEE RESULT BELOW Name: RANILIBBY : [address]: Hoang Macario MD Acct: [id number] Unit: [id number] AGE: 57 Location: ED Re04/16/18 SEX: F Status: DEP ER SPEC: [id number] CRICKET: 04/16/[address]: Hoang Macario MD REQ: [id number] RECD: 04/16/18 STATUS: JONO BO DR: Iggy Kumar MD _ SOURCE: URINE SPDESC: ORDERED: Urine Culture Procedure Result Reported Site Urine Culture Final 04/18/18 0817 ML No growth of clinically significant organisms * ML - Main Lab . END OF REPORT DEPARTMENT OF PATHOLOGY, [address] [place] [address] Joby Hays M.D. Director [facility] # [id number] 7 [place] Spreader: [id number] 8 SEE RESULT BELOW Name: LIBBY MITCHELL : [address]: Hoang Macario MD Acct: [id number] Unit: [id number] AGE: 57 Location: ED Re04/16/18 SEX: F Status: REG ER SPEC: [id number] CRICKET: 04/16/[address] [facility] [address]: Hoang Macario MD REQ: [id number] RECD: 04/16/18 STATUS: JONO BO DR: gIgy Kumar MD _ SOURCE: FERN SPDES: ORDERED: Flu A B Request Procedure Result Reported Site Rapid Influenza A B Request Final 04/16/18- 1731 ML Specimen received for Influenza A/B Molecular testing * ML - Main Lab . END OF REPORT DEPARTMENT OF PATHOLOGY, [address] [place] [address] Joby Hays M.D. Director [facility] # [id number] 9 [facility] Severe Sepsis and Septic Shock [...] [address]: Hoang Macario MD Acct: [id number] Unit: [id number] AGE: 57 Location: ED Re04/16/18 SEX: F Status: DEP ER SPEC: [id number] CRICKET: 04/16/[address] [facility] [address]: Hoang Macario MD REQ: [id number] RECD: 04/16/18 STATUS: JONO BO DR: Iggy Kumar MD _ SOURCE: BLOOD,VENO SPDESC: ORDERED: Blood Cult Procedure Result Reported Site Aerobic Culture Bottle Final 04/21/18- 1655 ML No Growth Day 5 Anaerobic Culture Bottle Final 04/21/18- 1655 ML No Growth Day 5 * ML - Main Lab . END OF REPORT DEPARTMENT OF PATHOLOGY, [address] [place] [address] Joby Hays M.D. Director [facility] # [id number] 13 [id number] 14 SEE RESULT BELOW Name: LIBBY MITCHELL : [address]: Shanice Alarcon MD Acct: [id number] Unit: [id number] AGE: 57 Location: [facility] Re02/25/18 SEX: F Status: DEP ER SPEC: [id number] CRICKET: 02/25/[address] [facility] [address]: Jr Vallejo NP REQ: [id number] RECD: 02/25/18 STATUS: JONO BO DR: Shanice Kumar MD _ SOURCE: THROAT SPDESC: ORDERED: Throat Culture COMMENTS: [id number] Procedure Result Reported Site Throat Culture Final 02/27/18- 1258 ML Organism 1 NORMAL GUILLERMO Quantity 2+ Throat cultures are clinically indicated to detect the presence of group A strep, arcanobacterium and yeast. In certain cases, predominating organisms will be reported. * ML - Main Lab . END OF REPORT DEPARTMENT OF PATHOLOGY, [address] [place] [address] Joby Hays M.D. Director [facility] # [id number] 15 [place] Spreader: [id number] Would you like to order Trichomonas Vaginalis RNA testing? N 17 SEE RESULT BELOW Name: LIBBY MITCHELL : [address]: Michelle Gleason MD Acct: [id number] Unit: [id number] AGE: 57 Location: [facility] Re02/07/18 SEX: F Status: DEP ER SPEC: [id number] CRICKET: 02/07/18-[address] [facility] [address]: Michelle Gleason MD REQ: [id number] RECD: 02/07/18-1608 STATUS: COMP ANUPAM DR: Iggy Kumar MD _ SOURCE: VAGINAL SPDESC: ORDERED: Raheem,Yeast DNA COMMENTS: [id number] Would you like to order Trichomonas Vaginalis [...] . END OF REPORT DEPARTMENT OF PATHOLOGY, [address] [place] [address] Joby Hays M.D. Director [facility] # [id number] 18 [id number] 19 SEE RESULT BELOW Name: LIBBY MITCHELL : [address]: Michelle Gleason MD Acct: [id number] Unit: [id number] AGE: 57 Location: [facility] Re02/07/18 SEX: F Status: DEP ER SPEC: [id number] CRICKET: 02/07/18-[address] [facility] [address]: Michelle Gleason MD REQ: [id number] RECD: 02/07/18 STATUS: JONO BO DR: Iggy Kumar MD _ SOURCE: URINE SPDESC: ORDERED: Urine Culture COMMENTS: [id number] Procedure Result Reported Site Urine Culture Final 02/08/18- 1326 ML No growth of clinically significant organisms * ML - Main Lab . END OF REPORT DEPARTMENT OF PATHOLOGY, [address] [place] [address] Joby Hays M.D. Director [facility] # [id number] 20 [place] Spreader: [id number] 21 SEE RESULT BELOW Name: LIBBY MITCHELL : [address]: Suleiman Izquierdo NP Acct: [id number] Unit: [id number] AGE: 57 Location: [facility] Re12/21/17 SEX: F Status: REG REF SPEC: [id number] CRICKET: 12/21/[address] [facility] [address]: Suleiman Izquierdo NP REQ: [id number] RECD: 12/21/17 STATUS: COMP _ SOURCE: URINE SPDESC: ORDERED: Urine Culture COMMENTS: [id number] Urine Source: Clean Catch Procedure Result Reported Site Urine Culture Final 12/22/17- 1657 ML No growth of clinically significant organisms * - Main Lab . END OF REPORT DEPARTMENT OF PATHOLOGY, [address] [place] [address] Joby Hays M.D. Director [facility] # [id number] 22 REFERENCE VALUE <=1.0 (Negative) 23 REFERENCE VALUE <20.0 (Negative) 24 Tests for antibodies to dsDNA and CORTEZ antigens are not performed automatically unless the DEDRA result is > or= 3.0 U. Studies performed at [facility] indicate that positive DEDRA results <3.0 U are rarely accompanied by positive second order tests. Test Performed by: [facility] - [address] [address] 25 SEE RESULT BELOW Name: LIBBY MITCHELL : [address]: Hortensia Recinos [facility] Acct: [id number] Unit: [id number] AGE: 56 Location: [facility] Re08/16/17 SEX: F Status: REG REF SPEC: [id number] CRICKET: 08/16/[address]: Hortensia Recinos [facility] REQ: [id number] RECD: 08/16/17 STATUS: JONO BO DR: Rachana Kumar MD _ SOURCE: URINE SPDESC: ORDERED: Urine Culture QUERIES: Urine Source: Clean Catch Procedure Result Reported Site Urine Culture Final 08/17/17- 1326 ML No growth of clinically significant organisms * ML - Main Lab . END OF REPORT DEPARTMENT OF PATHOLOGY, [address] [place] [address] Joby Hays M.D. Director [facility] # [id number] 26 Normal Range 180 to 914 Indeterminate Range 145 to 180 Deficient Range <145 27 REFERENCE VALUE 20.0 - 51.0 Test Performed by: [address] [address] 28 Because ethnic data is not always [...] 130-159 High: 160-189 Very High: >189 34 [place] Spreader: [id number] 35 [id number] 36 SEE RESULT BELOW Name: LIBBY MITCHELL : [address]: Shanice Oates MD Acct: [id number] Unit: [id number] AGE: 56 Location: [facility] Re03/26/17 SEX: F Status: DEP ER SPEC: [id number] CRICKET: 03/26/[address] [facility] [address]: Shanice Oates MD REQ: [id number] RECD: 03/26/17 STATUS: JONO BO DR: Iggy Kumar MD _ SOURCE: URINE SPDESC: ORDERED: Urine Culture COMMENTS: [id number] Procedure Result Reported Site Urine Culture Final 03/27/17- 1204 ML No Growth (<1,000 CFU/mL) * ML - MAIN LAB (PSC1) . END OF REPORT * ML=Testing performed at Main Lab DEPARTMENT OF PATHOLOGY, [address] [place] [address] Joby Hays M.D. Director [facility] # [id number] 37 Test Performed by: [address] [address] Fire Alarm Technician: Tarun Saab II, M.D., Ph.D. Procedures Date Code Description Status 11/17/2017 620062774 Bone Mineral Density Test Completed 11/17/2017 [id number] Mammogram Completed 04/06/2016 25747 EKG, Interpretation Only Completed 02/13/2016 51626 Polysomnography Sleep Staging 4+ Parameters Completed 02/12/2016 83843 Diffusing Capacity Completed 02/12/2016 46680 Plethysmography Determination Lung Volumes & Per Completed Airway Resist 02/12/2016 51512 Pulmonary Stress Test Simple Completed 02/12/2016 43378 Pulmonary Function><Bronchodil Completed 04/22/2014 23469959 Mammogram Completed 03/07/2012 38632471 Colonoscopy Completed Encounters Type Date Location Provider Dx Diagnosis Office Visit 04/21/2018 [facility] Internal Holland Ye NP J44.9 Chronic obstructive 10:00a Medicine - pulmonary disease, [place] unspecified J18.9 Pneumonia, unspecified organism R10.9 Unspecified abdominal pain R73.9 Hyperglycemia, unspecified Office Visit 02/22/2018 1:40p [facility] Internal Holland Ye, M54.9 Dorsalgia, Medicine - SOCIAL SERVICES unspecified [place] J44.9 Chronic obstructive pulmonary disease, unspecified Office Visit 02/02/2018 Marisol Sol, R47.89 Other speech 1:45p Neurologic M.D. disturbances Services Of [facility] S06.0x0S Concussion without loss of consciousness, sequela Office Visit 12/21/2017 2:20p [facility] Internal Suleiman Izquierdo, N39.0 Urinary tract Medicine - [place] [employer] infection, site Rd not specified J43.8 Other emphysema E55.9 Vitamin D deficiency, unspecified E66.09 Other obesity due to excess calories Z23 Encounter for immunization Office Visit 10/26/2017 9:20a [facility] Internal Suleiman Izquierdo, Z00.00 Encntr for Medicine - [place] [employer] general adult Rd medical exam w/o abnormal [...] Chronic [facility] [place] obstructive [facility] pulmonary disease, unspecified E66.09 Other obesity due to excess calories Office Visit 10/07/2017 8:20a [facility] Internal Iggy R47.89 Other speech Crow Kumar M.D. disturbances [address] M79.606 Pain in leg, unspecified J44.9 Chronic obstructive pulmonary disease, unspecified Office Visit 05/26/2017 Marisol Sol R47.89 Other speech 1:45p Neurologic Kimi disturbances Services Of [facility] S06.0x0S Concussion without loss of consciousness, sequela R41.89 Oth symptoms and signs w cognitive functions and awareness Office Visit 05/23/2017 10:00a [facility] Internal Iggy R47.89 Other speech Crow Kumar M.D. disturbances [address] Z12.39 Encounter for oth screening for malignant neoplasm of breast J44.9 Chronic obstructive pulmonary disease, unspecified E66.9 Obesity, unspecified Office Visit 04/11/2017 Marisol Sol R47.89 Other speech 1:00p Neurologic Kimi disturbances Services Of [facility] Office Visit 02/15/2017 [facility] Internal Briana Samayoa Unspecified 8:40a Medicine - [place] Yennifer.DSunny speech Rd disturbances J44.9 Chronic obstructive pulmonary disease, unspecified M51.16 Intervertebral disc disorders w radiculopathy, lumbar region E66.8 Other obesity Z68.38 Body mass index (BMI) 38.0-38.9, adult Z23 Encounter for immunization Office Visit 01/04/2017 3:20p [facility] Internal Iggy Stacy J44.9 Chronic Medicine - M.D. 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 at [place] [facility]05/12/2018 - Feli Niño MDJ44.9 Chronic obstructive pulmonary disease, unspecifiedNew Orders:PFTW/Spirometry Vol Pre/ Post Bronchdilat Dlco Complete, Ordered: 05/12/18Follow up:3 weeks, please schedule 30 min [id number] Pneumonia, unspecified organismNew Labs:Sputum Culture & Sensitiv, Ordered: 05/12/18New Xrays:CT Chest W/O, Ordered: R10.9 Unspecified abdominal pain
--- OUTSIDE RECORDS SUMMARY | 2018-05-26 06:07 | XMS REPORT | Continuity of Care Document ---
:1960 External Reference #:[id number] Author Name Mally Hatfield Care Team Providers Name Role Phone Iggy Kumar MD Primary Care Physician Unavailable Payers Date Identification Numbers Payment Provider Subscriber Policy Number: [id number] Jasmine/[employer] Medicaid Libby Mitchell PayID: [id number] [address] [address] [place] [address] Advance Directives Description No Information Available Problems [...] Onset: 04/11/2017 Concussion with no loss of Sni Sol M.D. Active consciousness Onset: 04/11/2017 Disturbance in speech rhythm Sin Sol M.D. Active Onset: 10/07/2017 Pain in limb Iggy Kumar M.D. Active Onset: 05/08/2018 Abnormal involuntary movement Sin Sol M.D. Active Onset: 05/08/2018 Headache Sin Sol M.D. 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 Cigarette Use Quit 16 [...] s mouth three [place], times a day ACQUISITIONS EDITOR as needed Ventolin HFA 10/13 Active Aerosol [...] 1 act qday J44.9 ofi nh ts iTmbo, - ACQUISITIONS EDITOR 02/22 Ciprofloxacin HCL 12/21 Hx Tablets 250mg 10tab take 1 tab N39.0 ofi s by mouth [place], - twice a day ACQUISITIONS EDITOR 12/30 for 5 days Vitamin D 10/26 Hx Capsules [id number] 8caps take 1 E55.9 Zsofia (Ergocalciferol) capsule Tim[place], - every week ACQUISITIONS EDITOR 05/07 for 8 weeks Spiriva Respimat 10/19 Hx Aerosol 2.5mcg/Ac 4unit 2 puffs J43.9 t s every day Timbo, - ACQUISITIONS EDITOR 12/26 Prednisone 01/06 Hx Tablets 1mg 120ta take 4 J44.9 bs tablets by [place], - mouth daily 04/01 Ambien 01/05 Hx Tablets 10mg 1 by mouth every night - at bedtime 11/29 as needed sleep insomnia Combivent 01/05 Hx Aerosol 20-100mcg 12gm 04/21/18 Feli Respimat /2015 /Act reports [place], - pulmonary 05/07 DC'd puffs 4 daily as needed Ergocalciferol 01/05 Hx Capsules [id number] 1 tab by mouth every - week 01/05 Prednisone 01/05 Hx Tablets 10mg 5tabx 2days,4 - nowd4lppr 01/05 [id number], 1hqtb3rwwe, 1tabxday. Vesicare 01/05 Hx Tablets 10mg 1 [...] Code Status Date Vaccine Reaction Lot # [id number] Given 12/21/2017 Influenza Virus Vaccine, [id number] Quadrivalent, Split, Preservative Free [id number] Given 02/15/2017 Pneumonia Vaccine [id number] Given 01/04/2017 Influenza Virus Vaccine, no immediate [...] Result H/L Range Note Laboratory test 04/21/2018 [facility] Vitamin D 22.1 ng/mL N 20-[address] Total 25(Oh) [place] [address] [phone] Laboratory test 04/21/2018 [facility] Lipase 20 U/L N 11.0- 82.[address] [place] [address] [phone] Hemoglobin A1c (Glyco HGB) 6.3 % High 4.0-5.6 1 Laboratory test 04/17/2018 [facility] Lactic Acid 1.9 mmol/L N 0.5-2.0 [address] [place] [address] [phone] CBC Auto Diff 04/17/2018 [facility] White Blood 18.7 High 3.5- 10.[address] Count 10^3/[place] [address] [phone] Red Blood Count 4.53 10^6/uL N 4.00-5.40 [...] Cells % 0.1 Comp Metabolic Panel 04/17/2018 [facility] Sodium 138 mmol/L N 135-[address] [place] [address] [phone] Potassium 4.0 mmol/L N 3.5-5.0 Chloride 105 [...] Egfr 92.4 >60 3 Laboratory test 04/17/2018 [facility] Troponin-I (TnI) 0.00 ng/ mL <0.04 [address] [place] [address] [phone] B-Type Natriuretic Peptide BNP 42 pg/mL <=100 Blood Culture SEE RESULT BELOW 5 Urinalysis Profile 04/16/2018 [facility] Urine Color Yellow [address] [place] [address] [phone] Urine Appearance Cloudy Urine Specific [place] 1.004 Low 1.010-1.030 Urine pH 6.0 N [...] Present Abnormal Absent Urine Culture And 04/16/2018 [facility] Urine Culture SEE RESULT [address] [place] [address] [phone] Rapid Influenza A 04/16/2018 [facility] Influenza A NEGATIVE Negative 7 & B Molecular [address] [place] [address] [phone] Influenza B Molecular NEGATIVE Negative Laboratory test 04/16/2018 [facility] Rapid Influenza SEE RESULT [address] [place] [address] [phone] CBC Auto Diff 04/16/2018 [facility] White Blood 9.7 10^3/uL N 3.5-[address] Count .8 [place] [address] [phone] Red Blood Count 4.72 10^6/uL N 4.00-5.40 [...] Blood Cells % 0 Laboratory test 04/16/2018 [facility] Lactic Acid 1.1 mmol/L N 0.5-2.0 9 finding [address] [place] [address] [phone] B-Type Natriuretic Peptide BNP 11 pg/mL <=100 Comp Metabolic Panel 04/16/2018 [facility] Sodium 137 mmol/L N 135-145 [address] [place] [address] [phone] Potassium 4.0 mmol/L N 3.5-5.0 Chloride 103 [...] >60 Egfr 88.5 >60 10 CKMB 04/16/2018 [facility] CKMB ng/mL 1.7 ng/mL N 0.6-6.3 [address] [place] [address] [phone] Laboratory test 04/16/2018 [facility] Troponin-I 0.00 ng/mL < 0.04 [address] (TnI) [place] [address] [phone] Creatine Kinase(CK) 84 U/L N 10-223 C Reactive Protein 39.09 mg/L High <8.01 Blood Culture SEE RESULT BELOW 12 Laboratory 02/25/2018 [facility] Culture Throat SEE RESULT 13, 14 test finding [address] [place] [address] [phone] Laboratory 02/25/2018 [facility] Rapid Strep Negative Negative 15 test finding [address] [place] [address] [phone] Laboratory 02/07/2018 [facility] Gardnerella/Ye SEE RESULT 16, 17 test finding [address] ast: [place] [address] Dna [phone] GC/Chlamydia 02/07/2018 [facility] Chlamydia Negative Negative Amplified Rna [address] [place] [address] Rna [phone] Neisseria gonorrhoeae (GC) Rna Negative Negative Urine Culture And 02/07/2018 [facility] Urine SEE RESULT 18 , [address] [place] [address] [phone] Poc Urinalysis 02/07/2018 [facility] Poc Negative Negative [address] Glucose, [place] [address] Urine [phone] Poc Bilirubin, Urine Negative Negative Poc Ketone, Urine Negative Negative Poc Specific [place], Urine 1.010 N 1.010-1.030 Poc Blood, Urine 1+ Abnormal Negative Poc pH, Urine 5.0 N 5-9 Poc Protein, Urine Negative Negative Poc Urobilinogen, Urine 0.2 Negative Poc Nitrite, Urine Negative Negative Poc Leukocytes, Urine 3+ Abnormal Negative Poc Color, Urine Yellow Poc Clarity, Urine Clear 20 Ua Routine 12/21/2017 [employer] Celebr[employer] In House Ua Specific [place] 1.020 Ua PH 5 Ua Color yellow Ua Appera clear Ua WBC ++ Ua Protein trace Ua Glucose normal Ua Ketones negative Ua Bilirubin negative Ua Urobilinogen normal Ua Nitrite negative Ua Occult Blood about 50 Urinalysis Profile 12/21/2017 [facility] Urine Color Yellow [address] [place] [address] [phone] Urine Appearance Cloudy Urine Specific [place] 1.012 N 1.010-1.030 Urine pH 5.0 N [...] Present Abnormal Absent Urine Culture And 12/21/2017 [facility] Urine Culture SEE RESULT [address] [place] [address] [phone] Connective Tissue 10/07/2017 [facility] Anti-Nuclear 0.3 U [address] [place] [address] [phone] Cyclic Citrullinated Peptide <15.6 U 23 Interpretation See Comment 24 Urine Culture And 08/16/2017 [facility] Urine Culture SEE RESULT [address] [place] [address] [phone] CBC Auto Diff 08/16/2017 [facility] White Blood 7.7 10^3/uL N 3.5-[address] Count 0.8 [place] [address] [phone] Red Blood Count 4.64 10^6/uL N 4.00-5.40 [...] Blood Cells % 0.1 Laboratory test 08/16/2017 [facility] Vitamin B12 419 pg/mL N 180-914 26 [place] [address] [phone] Vitamin D Total 25(Oh) 15.9 ng/mL Low 20-50 Ceruloplasmin 27.9 mg/dL 27 Comp Metabolic Panel 08/16/2017 [facility] Sodium 139 mmol/L N 139-145 [place] [address] [phone] Potassium 4.7 mmol/L N 3.5-5.0 Chloride 104 [...] >60 Egfr 94.4 >60 28 Laboratory 08/16/2017 [facility] TSH (Thyroid Stim 1.28 N 0.34 -5.60 test finding Horm) mcIU/[place] [address] [phone] Laboratory 08/16/2017 [facility] Cortisol 4.63 29 test finding [facility] g/[place] [address] [phone] Lipid Profile 08/16/2017 [facility] Triglycerides 237 mg/dL 30 (Trig/Chol/HDL [address] ) [place] [address] [phone] Cholesterol 166 mg/dL 31 HDL Cholesterol 46.2 mg/dL 32 LDL Cholesterol 72 mg/dL 33 Poc Urinalysis 03/26/2017 [facility] Poc Glucose, Negative Negative [address] [place] [address] [phone] Poc Bilirubin, Urine Negative Negative Poc Ketone, Urine Negative Negative Poc Specific [place], Urine <=1.005 Low 1.010-1.030 Poc Blood, Urine Trace-lysed Abnormal Negative Poc pH, Urine 6.0 N 5-9 Poc Protein, Urine Negative Negative Poc Urobilinogen, Urine 0.2 Negative Poc Nitrite, Urine Negative Negative Poc Leukocytes, Urine 1+ Abnormal Negative Poc Color, Urine Yellow Poc Clarity, Urine Clear 34 Urine Culture And 03/26/2017 [facility] Urine Culture SEE RESULT 35, [address] [place] [address] [phone] Xray 12/03/2016 [facility] CT Lung <pending> [address] [place] [address] Dose [phone] Laboratory test 02/12/2016 [facility] Alpha 1 147 mg/dL N 100 - [address] Antitrypsin A1a 190 [place], [place] [phone] 1 Therapeutic target for the treatment of diabetes mellitus patients is <7% HBA1C, and in selective patients <6.0%. Please refer to [place] [employer] diabetic care guidelines for further information. 2 [facility] Severe Sepsis and Septic Shock Management [...] [address]: John Monreal MD Acct: [id number] Unit: [id number] AGE: 57 Location: ED Re04/17/18 SEX: F Status: DEP ER SPEC: [id number] CRICKET: 04/17/[address] [facility] [address]: Demetrice ALY REQ: [id number] RECD: 04/17/18 STATUS: JONO BO DR: [facility] Iggy Kumar MD _ SOURCE: BLOOD,VENO SPDESC: ORDERED: Blood Cult Procedure Result Reported Site Aerobic Culture Bottle Final 04/22/18- 1818 ML No Growth Day 5 Anaerobic Culture Bottle Final 04/22/18- 1818 ML No Growth Day 5 * ML - Main Lab . END OF REPORT DEPARTMENT OF PATHOLOGY, [address] [place] [address] Joby Hays M.D. Director [facility] # [id number] 6 SEE RESULT BELOW Name: RANILIBBY : [address]: Hoang Macario MD Acct: [id number] Unit: [id number] AGE: 57 Location: ED Re04/16/18 SEX: F Status: DEP ER SPEC: [id number] CRICKET: 04/16/[address]: Hoang Macario MD REQ: [id number] RECD: 04/16/18 STATUS: JONO BO DR: Iggy Kumar MD _ SOURCE: URINE SPDESC: ORDERED: Urine Culture Procedure Result Reported Site Urine Culture Final 04/18/18 0817 ML No growth of clinically significant organisms * ML - Main Lab . END OF REPORT DEPARTMENT OF PATHOLOGY, [address] [place] [address] Joby Hays M.D. Director [facility] # [id number] 7 Boat Builder: [id number] 8 SEE RESULT BELOW Name: LIBBY MITCHELL : [address]: Hoang Macario MD Acct: [id number] Unit: [id number] AGE: 57 Location: ED Re04/16/18 SEX: F Status: REG ER SPEC: [id number] CRICKET: 04/16/[address] [facility] [address]: Hoang Macario MD REQ: [id number] RECD: 04/16/18 STATUS: JONO BO DR: Iggy Kumar MD _ SOURCE: FERN SPDES: ORDERED: Flu A B Request Procedure Result Reported Site Rapid Influenza A B Request Final 04/16/18- 1731 ML Specimen received for Influenza A/B Molecular testing * ML - Main Lab . END OF REPORT DEPARTMENT OF PATHOLOGY, [address] [place] [address] Joby Hays M.D. Director [facility] # [id number] 9 [facility] Severe Sepsis and Septic Shock Management [...] [address]: Hoang Macario MD Acct: [id number] Unit: [id number] AGE: 57 Location: ED Re04/16/18 SEX: F Status: DEP ER SPEC: [id number] CRICKET: 04/16/[address] [facility] [address]: Hoang Macario MD REQ: [id number] RECD: 04/16/18 STATUS: JONO BO DR: Iggy Kumar MD _ SOURCE: BLOOD,VENO SPDESC: ORDERED: Blood Cult Procedure Result Reported Site Aerobic Culture Bottle Final 04/21/18- 1655 ML No Growth Day 5 Anaerobic Culture Bottle Final 04/21/18- 1655 ML No Growth Day 5 * ML - Main Lab . END OF REPORT DEPARTMENT OF PATHOLOGY, [address] [place] [address] Joby Hays M.D. Director [facility] # [id number] 13 [id number] 14 SEE RESULT BELOW Name: LIBBY MITCHELL : [address]: Shanice Alarcon MD Acct: [id number] Unit: [id number] AGE: 57 Location: [facility] Re02/25/18 SEX: F Status: DEP ER SPEC: [id number] CRICKET: 02/25/[address] [facility] [address]: Jr Vallejo NP REQ: [id number] RECD: 02/25/18 STATUS: JONO BO DR: Shanice Kumar MD _ SOURCE: THROAT SPDESC: ORDERED: Throat Culture COMMENTS: [id number] Procedure Result Reported Site Throat Culture Final 02/27/18- 1258 ML Organism 1 NORMAL GUILLERMO Quantity 2+ Throat cultures are clinically indicated to detect the presence of group A strep, arcanobacterium and yeast. In certain cases, predominating organisms will be reported. * ML - Main Lab . END OF REPORT DEPARTMENT OF PATHOLOGY, [address] [place] [address] Joby Hays M.D. Director [facility] # [id number] 15 Boat Builder: [id number] Would you like to order Trichomonas Vaginalis RNA testing? N 17 SEE RESULT BELOW Name: LIBBY MITCHELL : [address]: Michelle Gleason MD Acct: [id number] Unit: [id number] AGE: 57 Location: [facility] Re02/07/18 SEX: F Status: DEP ER SPEC: [id number] CRICKET: 02/07/18-[address] [facility] [address]: Michelle Gleason MD REQ: [id number] RECD: 02/07/18-1608 STATUS: COMP ANUPAM DR: Iggy Kumar MD _ SOURCE: VAGINAL SPDESC: ORDERED: Raheem,Yeast DNA COMMENTS: [id number] Would you like to order Trichomonas Vaginalis [...] . END OF REPORT DEPARTMENT OF PATHOLOGY, [address] [place] [address] Joby Hays M.D. Director [facility] # [id number] 18 [id number] 19 SEE RESULT BELOW Name: LIBBY MITCHELL : [address]: Michelle Gleason MD Acct: [id number] Unit: [id number] AGE: 57 Location: [facility] Re02/07/18 SEX: F Status: DEP ER SPEC: [id number] CRICKET: 02/07/18-[address] [facility] [address]: Michelle Gleason MD REQ: [id number] RECD: 02/07/18 STATUS: JONO BO DR: Iggy Kumar MD _ SOURCE: URINE SPDESC: ORDERED: Urine Culture COMMENTS: [id number] Procedure Result Reported Site Urine Culture Final 02/08/18- 1326 ML No growth of clinically significant organisms * ML - Main Lab . END OF REPORT DEPARTMENT OF PATHOLOGY, [address] [place] [address] Joby Hays M.D. Director [facility] # [id number] 20 Boat Builder: [id number] 21 SEE RESULT BELOW Name: LIBBY MITCHELL : [address]: Suleiman Izquiredo NP Acct: [id number] Unit: [id number] AGE: 57 Location: [facility] Re12/21/17 SEX: F Status: REG REF SPEC: [id number] CRICKET: 12/21/[address] [facility] [address]: Suleiman Izquierdo NP REQ: [id number] RECD: 12/21/17 STATUS: COMP _ SOURCE: URINE SPDESC: ORDERED: Urine Culture COMMENTS: [id number] Urine Source: Clean Catch Procedure Result Reported Site Urine Culture Final 12/22/17- 1657 ML No growth of clinically significant organisms * - Main Lab . END OF REPORT DEPARTMENT OF PATHOLOGY, [address] [place] [address] Joby Hays M.D. Director [facility] # [id number] 22 REFERENCE VALUE <=1.0 (Negative) 23 REFERENCE VALUE <20.0 (Negative) 24 Tests for antibodies to dsDNA and CORTEZ antigens are not performed automatically unless the DEDRA result is > or= 3.0 U. Studies performed at [facility] indicate that positive DEDRA results <3.0 U are rarely accompanied by positive second order tests. Test Performed by: [facility] - [address] [address] 25 SEE RESULT BELOW Name: LIBBY MITCHELL : [address]: Hortensia Recinos [facility] Acct: [id number] Unit: [id number] AGE: 56 Location: [facility] Re08/16/17 SEX: F Status: REG REF SPEC: [id number] CRICKET: 08/16/[address]: Hortensia Recinos [facility] REQ: [id number] RECD: 08/16/17 STATUS: JONO BO DR: Rachana Kumar MD _ SOURCE: URINE SPDESC: ORDERED: Urine Culture QUERIES: Urine Source: Clean Catch Procedure Result Reported Site Urine Culture Final 08/17/17- 1326 ML No growth of clinically significant organisms * ML - Main Lab . END OF REPORT DEPARTMENT OF PATHOLOGY, [address] [place] [address] Joby Hays M.D. Director [facility] # [id number] 26 Normal Range 180 to 914 Indeterminate Range 145 to 180 Deficient Range <145 27 REFERENCE VALUE 20.0 - 51.0 Test Performed by: [address] [address] 28 Because ethnic data is not always [...] 130-159 High: 160-189 Very High: >189 34 Boat Builder: [id number] 35 [id number] 36 SEE RESULT BELOW Name: LIBBY MITCHELL : [address]: Shanice Oates MD Acct: [id number] Unit: [id number] AGE: 56 Location: [facility] Re03/26/17 SEX: F Status: DEP ER SPEC: [id number] CRICKET: 03/26/[address] [facility] [address]: Shanice Oates MD REQ: [id number] RECD: 03/26/17 STATUS: JONO BO DR: Iggy Kumar MD _ SOURCE: URINE SPDESC: ORDERED: Urine Culture COMMENTS: [id number] Procedure Result Reported Site Urine Culture Final 03/27/17- 1204 ML No Growth (<1,000 CFU/mL) * ML - MAIN LAB (PSC1) . END OF REPORT * ML=Testing performed at Main Lab DEPARTMENT OF PATHOLOGY, [address] [place] [address] Joby Hays M.D. Director [facility] # [id number] 37 Test Performed by: [address] [address] [place]: Tarun Saab II, M.D., Ph.D. Procedures Date Code Description Status 11/17/2017 165360564 Bone Mineral Density Test Completed 11/17/2017 47478809 Mammogram Completed 04/06/2016 41854 EKG, Interpretation Only Completed 02/13/2016 26297 Polysomnography Sleep Staging 4+ Parameters Completed 02/12/2016 02429 Diffusing Capacity Completed 02/12/2016 06892 Plethysmography Determination Lung Volumes & Per Completed Airway Resist 02/12/2016 26846 Pulmonary Stress Test Simple Completed 02/12/2016 06834 Pulmonary Function><Bronchodil Completed 04/22/2014 19351074 Mammogram Completed 03/07/2012 69931076 Colonoscopy Completed Encounters Type Date Location Provider Dx Diagnosis Office Visit 04/21/2018 [facility] Internal Holland Ye NP J44.9 Chronic obstructive 10:00a Medicine - pulmonary disease, [place] unspecified J18.9 Pneumonia, unspecified organism R10.9 Unspecified abdominal pain R73.9 Hyperglycemia, unspecified Office Visit 02/22/2018 1:40p [facility] Internal Holland Ye, M54.9 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 disturbances Services Of [facility] S06.0x0S Concussion without loss of consciousness, sequela Office Visit 12/21/2017 2:20p [facility] Internal Suleiman Izquierdo, N39.0 Urinary tract Medicine - [place] ACQUISITIONS EDITOR infection, site Rd not specified J43.8 Other emphysema E55.9 Vitamin D deficiency, unspecified E66.09 Other obesity due to excess calories Z23 Encounter for immunization Office Visit 10/26/2017 9:20a [facility] Internal Suleiman Izquierdo, Z00.00 Encntr for Medicine - [place] ACQUISITIONS EDITOR general adult Rd medical exam w/o abnormal [...] Chronic [facility] Of [facility] [place] obstructive Aboriginal Ceremonial Celebrant pulmonary disease, unspecified E66.09 Other obesity due to excess calories Office Visit 10/07/2017 8:20a [facility] Internal Iggy R47.89 Other speech Crow Kumar M.D. disturbances [address] M79.606 Pain in leg, unspecified J44.9 Chronic obstructive pulmonary disease, unspecified Office Visit 05/26/2017 Marisol Sol R47.89 Other speech 1:45p Neurologic Kimi disturbances Services Of [facility] S06.0x0S Concussion without loss of consciousness, sequela R41.89 Oth symptoms and signs w cognitive functions and awareness Office Visit 05/23/2017 10:00a [facility] Internal Iggy R47.89 Other speech Crow Kumar M.D. disturbances [address] Z12.39 Encounter for oth screening for malignant neoplasm of breast J44.9 Chronic obstructive pulmonary disease, unspecified E66.9 Obesity, unspecified Office Visit 04/11/2017 Marisol Sol R47.89 Other speech 1:00p Neurologic Kimi disturbances Services Of [facility] Office Visit 02/15/2017 [facility] Internal Briana Samayoa Unspecified 8:40a Medicine - [place] Yennifer.DSunny speech Rd disturbances J44.9 Chronic obstructive pulmonary disease, unspecified M51.16 Intervertebral disc disorders w radiculopathy, lumbar region E66.8 Other obesity Z68.38 Body mass index (BMI) 38.0-38.9, adult Z23 Encounter for immunization Office Visit 01/04/2017 3:20p [facility] Internal Iggy Stacy J44.9 Chronic Medicine - M.D. 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 at [facility]05/12/2018 - Feli Niño MDJ44.9 Chronic obstructive pulmonary disease, unspecifiedNew Orders:PFTW/Spirometry Vol Pre/ Post Bronchdilat Dlco Complete, Ordered: 05/12/18Follow up:3 weeks, please schedule 30 min [id number] Pneumonia, unspecified organismNew Labs:Sputum Culture & Sensitiv, Ordered: 05/12/18New Xrays:CT Chest W/O, Ordered: R10.9 Unspecified abdominal pain
--- OUTSIDE RECORDS SUMMARY | 2018-05-26 06:07 | XMS REPORT | Continuity of Care Document ---
:1960 External Reference #:[id number] Author Name Mally Hatfield Care Team Providers Name Role Phone Iggy Kumar MD Primary Care Physician Unavailable Payers Date Identification Numbers Payment Provider Subscriber Policy Number: [id number] Jasmine/[employer] Medicaid Libby Mitchell PayID: [id number] [address] [address] [place] [address] Advance Directives Description No Information Available Problems [...] Comments General Coronary Artery Disease (CAD) General [place] Father due to [place] () - age 73 Mother due to Emphysema () - age 58 Siblings 4 1 brother of [place] age 39 1 sister obesity Social History Type Date Description Comments Sex Unknown Marital Status 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-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 Cigarette Use Quit 16 [...] s mouth three [place], times a day 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 as 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 Ventolin HFA 10/13 Active Aerosol [...] qday J44.9 ofi nh ts [place], - 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 SPECIALIST 02/22 Ciprofloxacin HCL 12/21 Hx Tablets 250mg 10tab take 1 tab N39.0 ofi s by mouth [place], - twice a day 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 SPECIALIST 12/30 for 5 days Vitamin D 10/26 Hx Capsules [id number] 8caps take 1 E55.9 Zsofia (Ergocalciferol) capsule [place], - every week 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 SPECIALIST 05/07 for 8 weeks Spiriva Respimat 10/19 Hx Aerosol 2.5mcg/Ac 4unit 2 puffs J43.9 t s every day [place], - 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 SPECIALIST 12/26 Prednisone 01/06 Hx Tablets 1mg 120ta take 4 J44.9 bs tablets by [place], - mouth daily 04/01 Ambien 01/05 Hx Tablets 10mg 1 by mouth every night - at bedtime 11/29 as needed sleep insomnia Combivent 01/05 Hx Aerosol 20-100mcg 12gm 04/21/18 Feli Respimat /2015 /Act reports [place], - pulmonary 05/07 DC'd puffs 4 daily as needed Ergocalciferol 01/05 Hx Capsules [id number] 1 tab by mouth every - week 01/05 Prednisone 01/05 Hx Tablets 10mg 5tabx 2days,4 - obne8mipm 01/05 6liom4nasf, 5plnd3xfeb, 1tabxday. Vesicare 01/05 Hx Tablets 10mg 1 [...] Code Status Date Vaccine Reaction Lot # [id number] Given 12/21/2017 Influenza Virus Vaccine, [id number] Quadrivalent, Split, Preservative Free [id number] Given 02/15/2017 Pneumonia Vaccine [id number] Given 01/04/2017 Influenza Virus Vaccine, no immediate [...] Range Note Laboratory test 04/21/2018 [facility] Vitamin D 22.1 ng/mL N 20-[address] Total 25(Oh) [place] [address] [phone] Laboratory test 04/21/2018 [facility] Lipase 20 U/L N 11.0- 82.[address] [place] [address] [phone] Hemoglobin A1c (Glyco HGB) 6.3 % High 4.0-5.6 1 Laboratory test 04/17/2018 [facility] Lactic Acid 1.9 mmol/L N 0.5-2.0 [address] [place] [address] [phone] CBC Auto Diff 04/17/2018 [facility] White Blood 18.7 High 3.5- 10.[address] Count 10^3/[place] [address] [phone] Red Blood Count 4.53 10^6/uL N 4.00-5.40 [...] 0.1 Comp Metabolic Panel 04/17/2018 [facility] Sodium 138 mmol/L N 135-[address] [place] [address] [phone] Potassium 4.0 mmol/L N 3.5-5.0 Chloride 105 [...] >60 3 Laboratory test 04/17/2018 [facility] Troponin-I (TnI) 0.00 ng/ mL <0.04 [address] [place] [address] [phone] B-Type Natriuretic Peptide BNP 42 pg/mL <=100 Blood Culture SEE RESULT BELOW 5 Urinalysis Profile 04/16/2018 [facility] Urine Color Yellow [address] [place] [address] [phone] Urine Appearance Cloudy Urine Specific Maxwell 1.004 Low 1.010-1.030 Urine pH 6.0 N [...] Absent Urine Culture And 04/16/2018 [facility] Urine Culture SEE RESULT [address] [place] [address] [phone] Rapid Influenza A 04/16/2018 [facility] Influenza A NEGATIVE Negative 7 & B Molecular [address] [place] [address] [phone] Influenza B Molecular NEGATIVE Negative Laboratory test 04/16/2018 [facility] Rapid Influenza SEE RESULT [address] [place] [address] [phone] CBC Auto Diff 04/16/2018 [facility] White Blood 9.7 10^3/uL N 3.5-[address] Count .8 [place] [address] [phone] Red Blood Count 4.72 10^6/uL N 4.00-5.40 [...] % 0 Laboratory test 04/16/2018 [facility] Lactic Acid 1.1 mmol/L N 0.5-2.0 9 finding [address] [place] [address] [phone] B-Type Natriuretic Peptide BNP 11 pg/mL <=100 Comp Metabolic Panel 04/16/2018 [facility] Sodium 137 mmol/L N 135-145 [address] [place] [address] [phone] Potassium 4.0 mmol/L N 3.5-5.0 Chloride 103 [...] 88.5 >60 10 CKMB 04/16/2018 [facility] CKMB ng/mL 1.7 ng/mL N 0.6-6.3 [address] [place] [address] [phone] Laboratory test 04/16/2018 [facility] Troponin-I 0.00 ng/mL < 0.04 [address] (TnI) [place] [address] [phone] Creatine Kinase(CK) 84 U/L N 10-223 C Reactive Protein 39.09 mg/L High <8.01 Blood Culture SEE RESULT BELOW 12 Laboratory 02/25/2018 [facility] Culture Throat SEE RESULT 13, 14 test finding [address] [place] [address] [phone] Laboratory 02/25/2018 [facility] Rapid Strep Negative Negative 15 test finding [address] [place] [address] [phone] Laboratory 02/07/2018 [facility] Gardnerella/Ye SEE RESULT 16, 17 test finding [address] ast: [place] [address] Dna [phone] GC/Chlamydia 02/07/2018 [facility] Chlamydia Negative Negative Amplified Rna [address] [place] [address] Rna [phone] Neisseria gonorrhoeae (GC) Rna Negative Negative Urine Culture And 02/07/2018 [facility] Urine SEE RESULT 18 , [address] [place] [address] [phone] Poc Urinalysis 02/07/2018 [facility] Poc Negative Negative [address] Glucose, [place] [address] Urine [phone] Poc Bilirubin, Urine Negative Negative Poc Ketone, Urine Negative Negative Poc Specific Maxwell, Urine 1.010 N 1.010-1.030 Poc Blood, Urine 1+ Abnormal Negative Poc pH, Urine 5.0 N 5-9 Poc Protein, Urine Negative Negative Poc Urobilinogen, Urine 0.2 Negative Poc Nitrite, Urine Negative Negative Poc Leukocytes, Urine 3+ Abnormal Negative Poc Color, Urine Yellow Poc Clarity, Urine Clear 20 Ua Routine 12/21/2017 [employer] [facility] Ua Specific Maxwell 1.020 Ua PH 5 Ua Color yellow Ua Appera clear Ua WBC ++ Ua Protein trace Ua Glucose normal Ua Ketones negative Ua Bilirubin negative Ua Urobilinogen normal Ua Nitrite negative Ua Occult Blood about 50 Urinalysis Profile 12/21/2017 [facility] Urine Color Yellow [address] [place] [address] [phone] Urine Appearance Cloudy Urine Specific Maxwell 1.012 N 1.010-1.030 Urine pH 5.0 N [...] Absent Urine Culture And 12/21/2017 [facility] Urine Culture SEE RESULT [address] [place] [address] [phone] Connective Tissue 10/07/2017 [facility] Anti-Nuclear 0.3 U [address] [place] [address] [phone] Cyclic Citrullinated Peptide <15.6 U 23 Interpretation See Comment 24 Urine Culture And 08/16/2017 [facility] Urine Culture SEE RESULT [address] [place] [address] [phone] CBC Auto Diff 08/16/2017 [facility] White Blood 7.7 10^3/uL N 3.5-[address] Count 0.8 [place] [address] [phone] Red Blood Count 4.64 10^6/uL N 4.00-5.40 [...] % 0.1 Laboratory test 08/16/2017 [facility] Vitamin B12 419 pg/mL N 180-914 26 [place] [address] [phone] Vitamin D Total 25(Oh) 15.9 ng/mL Low 20-50 Ceruloplasmin 27.9 mg/dL 27 Comp Metabolic Panel 08/16/2017 [facility] Sodium 139 mmol/L N 139-145 [place] [address] [phone] Potassium 4.7 mmol/L N 3.5-5.0 Chloride 104 [...] 94.4 >60 28 Laboratory 08/16/2017 [facility] TSH (Thyroid Stim 1.28 N 0.34 -5.60 test finding Horm) mcIU/[place] [address] [phone] Laboratory 08/16/2017 [facility] Cortisol 4.63 29 test finding [facility] g/[place] [address] [phone] Lipid Profile 08/16/2017 [facility] Triglycerides 237 mg/dL 30 (Trig/Chol/HDL [address] ) [place] [address] [phone] Cholesterol 166 mg/dL 31 HDL Cholesterol 46.2 mg/dL 32 LDL Cholesterol 72 mg/dL 33 Poc Urinalysis 03/26/2017 [facility] Poc Glucose, Negative Negative [address] [place] [address] [phone] Poc Bilirubin, Urine Negative Negative Poc Ketone, Urine Negative Negative Poc Specific Maxwell, Urine <=1.005 Low 1.010-1.030 Poc Blood, Urine Trace-lysed Abnormal Negative Poc pH, Urine 6.0 N 5-9 Poc Protein, Urine Negative Negative Poc Urobilinogen, Urine 0.2 Negative Poc Nitrite, Urine Negative Negative Poc Leukocytes, Urine 1+ Abnormal Negative Poc Color, Urine Yellow Poc Clarity, Urine Clear 34 Urine Culture And 03/26/2017 [facility] Urine Culture SEE RESULT 35, [address] [place] [address] [phone] Xray 12/03/2016 [facility] CT Lung <pending> [address] [place] [address] Dose [phone] Laboratory test 02/12/2016 [facility] Alpha 1 147 mg/dL N 100 - [address] Antitrypsin A1a [address] [place], [place] [address] [phone] 1 Therapeutic target for the treatment of diabetes mellitus patients is <7% HBA1C, and in selective patients <6.0%. Please refer to [place] [employer] diabetic care guidelines for further information. 2 [facility] Severe Sepsis and Septic Shock Management [...] [address]: John Monreal MD Acct: [id number] Unit: [id number] AGE: 57 Location: ED Re04/17/18 SEX: F Status: DEP ER SPEC: [id number] CRICKET: 04/17/[address] [facility] [address]: Demetrice ALY REQ: [id number] RECD: 04/17/18 STATUS: JONO BO DR: [facility] Iggy Kumar MD _ SOURCE: BLOOD,VENO SPDESC: ORDERED: Blood Cult Procedure Result Reported Site Aerobic Culture Bottle Final 04/22/18- 1818 ML No Growth Day 5 Anaerobic Culture Bottle Final 04/22/18- 1818 ML No Growth Day 5 * ML - Main Lab . END OF REPORT DEPARTMENT OF PATHOLOGY, [address] [place] [address] Joby Hays M.D. Director [facility] # [id number] 6 SEE RESULT BELOW Name: RANILIBBY : [address]: Hoang Macario MD Acct: [id number] Unit: [id number] AGE: 57 Location: ED Re04/16/18 SEX: F Status: DEP ER SPEC: [id number] CRICKET: 04/16/[address]: Hoang Macario MD REQ: [id number] RECD: 04/16/18 STATUS: JONO BO DR: Iggy Kumar MD _ SOURCE: URINE SPDESC: ORDERED: Urine Culture Procedure Result Reported Site Urine Culture Final 04/18/18 0817 ML No growth of clinically significant organisms * ML - Main Lab . END OF REPORT DEPARTMENT OF PATHOLOGY, [address] [place] [address] Joby Hays M.D. Director [facility] # [id number] 7 Die Engraving Supervisor: [id number] SEE RESULT BELOW Name: LIBBY MITCHELL : [address]: Hoang Macario MD Acct: [id number] Unit: [id number] AGE: 57 Location: ED Re04/16/18 SEX: F Status: REG ER SPEC: [id number] CRICKET: 04/16/[address] [facility] [address]: Hoang Macario MD REQ: [id number] RECD: 04/16/18 STATUS: JONO BO DR: Iggy Kumar MD _ SOURCE: FERN SPDES: ORDERED: Flu A B Request Procedure Result Reported Site Rapid Influenza A B Request Final 04/16/18- 1731 ML Specimen received for Influenza A/B Molecular testing * ML - Main Lab . END OF REPORT DEPARTMENT OF PATHOLOGY, [address] [place] [address] Joby Hays M.D. Director [facility] # [id number] 9 [facility] Severe Sepsis and Septic Shock Management [...] [address]: Hoang Macario MD Acct: [id number] Unit: [id number] AGE: 57 Location: ED Re04/16/18 SEX: F Status: DEP ER SPEC: [id number] CRICKET: 04/16/[address] [facility] [address]: Hoang Mcaario MD REQ: [id number] RECD: 04/16/18 STATUS: JONO BO DR: Iggy Kumar MD _ SOURCE: BLOOD,VENO SPDESC: ORDERED: Blood Cult Procedure Result Reported Site Aerobic Culture Bottle Final 04/21/18- 1655 ML No Growth Day 5 Anaerobic Culture Bottle Final 04/21/18- 1655 ML No Growth Day 5 * ML - Main Lab . END OF REPORT DEPARTMENT OF PATHOLOGY, [address] [place] [address] Joby Hays M.D. Director [facility] # [id number] 13 [id number] 14 SEE RESULT BELOW Name: LIBBY MITCHELL : [address]: Shanice Alarcon MD Acct: [id number] Unit: [id number] AGE: 57 Location: [facility] Re02/25/18 SEX: F Status: DEP ER SPEC: [id number] CRICKET: 02/25/[address] [facility] [address]: Jr Vallejo NP REQ: [id number] RECD: 02/25/18 STATUS: JONO BO DR: Shanice Kumar MD _ SOURCE: THROAT SPDESC: ORDERED: Throat Culture COMMENTS: [id number] Procedure Result Reported Site Throat Culture Final 02/27/18- 1258 ML Organism 1 NORMAL GUILLERMO Quantity 2+ Throat cultures are clinically indicated to detect the presence of group A strep, arcanobacterium and yeast. In certain cases, predominating organisms will be reported. * ML - Main Lab . END OF REPORT DEPARTMENT OF PATHOLOGY, [address] [place] [address] Joby Hays M.D. Director [facility] # [id number] 15 Die Engraving Supervisor: [id number] Would you like to order Trichomonas Vaginalis RNA testing? N 17 SEE RESULT BELOW Name: LIBBY MITCHELL : [address]: Michelle Gleason MD Acct: [id number] Unit: [id number] AGE: 57 Location: [facility] Re02/07/18 SEX: F Status: DEP ER SPEC: [id number] CRICKET: 02/07/18-[address] [facility] [address]: Michelle Gleason MD REQ: [id number] RECD: 02/07/18-1608 STATUS: COMP ANUPAM DR: Iggy Kumar MD _ SOURCE: VAGINAL SPDESC: ORDERED: Raheem,Yeast DNA COMMENTS: [id number] Would you like to order Trichomonas Vaginalis [...] END OF REPORT DEPARTMENT OF PATHOLOGY, [address] [place] [address] Joby Hays M.D. Director [facility] # [id number] 18 [id number] 19 SEE RESULT BELOW Name: LIBBY MITCHELL : [address]: Michelle Gleason MD Acct: [id number] Unit: [id number] AGE: 57 Location: [facility] Re02/07/18 SEX: F Status: DEP ER SPEC: [id number] CRICKET: 02/07/18-[address] [facility] [address]: Michelle Gleason MD REQ: [id number] RECD: 02/07/18 STATUS: JONO BO DR: Iggy Kumar MD _ SOURCE: URINE SPDESC: ORDERED: Urine Culture COMMENTS: [id number] Procedure Result Reported Site Urine Culture Final 02/08/18- 1326 ML No growth of clinically significant organisms * ML - Main Lab . END OF REPORT DEPARTMENT OF PATHOLOGY, [address] [place] [address] Joby Hays M.D. Director [facility] # [id number] 20 Die Engraving Supervisor: [id number] 21 SEE RESULT BELOW Name: LIBBY MITCHELL : [address]: Suleiman Izquierdo NP Acct: [id number] Unit: [id number] AGE: 57 Location: [facility] Re12/21/17 SEX: F Status: REG REF SPEC: [id number] CRICKET: 12/21/[address] [facility] [address]: Suleiman Izquierdo NP REQ: [id number] RECD: 12/21/17 STATUS: COMP _ SOURCE: URINE SPDESC: ORDERED: Urine Culture COMMENTS: [id number] Urine Source: Clean Catch Procedure Result Reported Site Urine Culture Final 12/22/17- 1657 ML No growth of clinically significant organisms * - Main Lab . END OF REPORT DEPARTMENT OF PATHOLOGY, [address] [place] [address] Joby Hays M.D. Director [facility] # [id number] 22 REFERENCE VALUE <=1.0 (Negative) 23 REFERENCE VALUE <20.0 (Negative) 24 Tests for antibodies to dsDNA and CORTEZ antigens are not performed automatically unless the DEDRA result is > or= 3.0 U. Studies performed at [facility] indicate that positive DEDRA results <3.0 U are rarely accompanied by positive second order tests. Test Performed by: [facility] - [address] [address] 25 SEE RESULT BELOW Name: LIBBY MITCHELL : [address]: Hortensia Recinos [facility] Acct: [id number] Unit: [id number] AGE: 56 Location: [facility] Re08/16/17 SEX: F Status: REG REF SPEC: [id number] CRICKET: 08/16/[address]: Hortensia Recinos [facility] REQ: [id number] RECD: 08/16/17 STATUS: JONO BO DR: Rachana Kumar MD _ SOURCE: URINE SPDESC: ORDERED: Urine Culture QUERIES: Urine Source: Clean Catch Procedure Result Reported Site Urine Culture Final 08/17/17- 1326 ML No growth of clinically significant organisms * ML - Main Lab . END OF REPORT DEPARTMENT OF PATHOLOGY, [address] [place] [address] Joby Hays M.D. Director [facility] # [id number] 26 Normal Range 180 to 914 Indeterminate Range 145 to 180 Deficient Range <145 27 REFERENCE VALUE 20.0 - 51.0 Test Performed by: [address] [address] 28 Because ethnic data is not always [...] 130-159 High: 160-189 Very High: >189 34 Die Engraving Supervisor: [id number] 36 SEE RESULT BELOW Name: LIBBY MITCHELL : [address]: Shanice Oates MD Acct: [id number] Unit: [id number] AGE: 56 Location: [facility] Re03/26/17 SEX: F Status: DEP ER SPEC: [id number] CRICKET: 03/26/[address] [facility] [address]: Shanice Oates MD REQ: [id number] RECD: 03/26/17 STATUS: JONO BO DR: Iggy Kumar MD _ SOURCE: URINE SPDESC: ORDERED: Urine Culture COMMENTS: [id number] Procedure Result Reported Site Urine Culture Final 03/27/17- 1204 ML No Growth (<1,000 CFU/mL) * ML - MAIN LAB (PSC1) . END OF REPORT * ML=Testing performed at Main Lab DEPARTMENT OF PATHOLOGY, [address] [place] [address] Joby Hays M.D. Director [facility] # [id number] 37 Test Performed by: [address] [address] Loss Prevention Investigator: Tarun Saab II, M.D., Ph.D. Procedures Date Code Description Status 11/17/2017 018181699 Bone Mineral Density Test Completed 11/17/2017 24902765 Mammogram Completed 04/06/2016 09690 EKG, Interpretation Only Completed 02/13/2016 32319 Polysomnography Sleep Staging 4+ Parameters Completed 02/12/2016 09707 Diffusing Capacity Completed 02/12/2016 18531 Plethysmography Determination Lung Volumes & Per Completed Airway Resist 02/12/2016 54049 Pulmonary Stress Test Simple Completed 02/12/2016 14273 Pulmonary Function><Bronchodil Completed 04/22/2014 47199431 Mammogram Completed 03/07/2012 68783890 Colonoscopy Completed Encounters Type Date Location Provider Dx Diagnosis Office Visit 04/21/2018 [facility] Internal Holland Ye NP J44.9 Chronic obstructive 10:00a Medicine - pulmonary disease, [place] unspecified J18.9 Pneumonia, unspecified organism R10.9 Unspecified abdominal pain R73.9 Hyperglycemia, unspecified Office Visit 02/22/2018 1:40p [facility] Internal Holland Ye, M54.9 Dorsalgia, Medicine - [employer] unspecified [place] J44.9 Chronic obstructive pulmonary disease, unspecified Office Visit 02/02/2018 Marisol Sol, R47.89 Other speech 1:45p Neurologic M.D. disturbances Services [facility] S06.0x0S Concussion without loss of consciousness, sequela Office Visit 12/21/2017 2:20p [facility] Internal Suleiman Izquierdo, N39.0 Urinary tract Medicine - [place] 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 SPECIALIST infection, site Rd not specified J43.8 Other emphysema E55.9 Vitamin D deficiency, unspecified E66.09 Other obesity due to excess calories Z23 Encounter for immunization Office Visit 10/26/2017 9:20a [facility] Internal Suleiman Izquierdo, Z00.00 Encntr for Medicine - [place] 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 SPECIALIST general adult Rd medical exam w/o abnormal [...] Chronic [facility] [place] obstructive [employer] pulmonary disease, unspecified E66.09 Other obesity due to excess calories Office Visit 10/07/2017 8:20a [facility] Internal Iggy R47.89 Other speech Crow Kumar M.D. disturbances [place] [address] M79.606 Pain in leg, unspecified J44.9 Chronic obstructive pulmonary disease, unspecified Office Visit 05/26/2017 Marisol Sol R47.89 Other speech 1:45p Neurologic Kimi disturbances [facility] S06.0x0S Concussion without loss of consciousness, sequela R41.89 Oth symptoms and signs w cognitive functions and awareness Office Visit 05/23/2017 10:00a [facility] Internal Iggy R47.89 Other speech Crow Kumar M.D. disturbances [place] [address] Z12.39 Encounter for oth screening for malignant neoplasm of breast J44.9 Chronic obstructive pulmonary disease, unspecified E66.9 Obesity, unspecified Office Visit 04/11/2017 Marisol Sol R47.89 Other speech 1:00p Neurologic Kimi disturbances [facility] Office Visit 02/15/2017 [facility] Internal Briana Samayoa Unspecified 8:40a Medicine - [place] Yennifer.DSunny speech Rd disturbances J44.9 Chronic obstructive pulmonary disease, unspecified M51.16 Intervertebral disc disorders w radiculopathy, lumbar region E66.8 Other obesity Z68.38 Body mass index (BMI) 38.0-38.9, adult Z23 Encounter for immunization Office Visit 01/04/2017 3:20p [facility] Internal Iggy Stacy J44.9 Chronic Medicine - M.D. 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 at [place] [facility]05/12/2018 - Feli Niño MDJ44.9 Chronic obstructive pulmonary disease, unspecifiedNew Orders:PFTW/Spirometry Vol Pre/ Post Bronchdilat Dlco Complete, Ordered: 05/12/18Follow up:3 weeks, please schedule 30 min [id number] Pneumonia, unspecified organismNew Labs:Sputum Culture & Sensitiv, Ordered: 05/12/18New Xrays:CT Chest W/O, Ordered: R10.9 Unspecified abdominal pain
[2018-05-26] MEDS ORDERED: Magnesium Sulfate 2 GM IV* 2 GM/50 ML BAG IVPB ONE (06:24)
[2018-05-26] MEDS ORDERED: Albuterol/Ipratropium NEB.SOL* Albuterol 2.5 MG/Ipratropium 0.5 MG 3 ML INH ONE ×2 (06:24→10:58)
[2018-05-26] MEDS ORDERED: methylPREDNISolone 125 MG* 2 ML VIAL IV ONE (06:24)
[2018-05-26] MEDS ORDERED: NS 0.9% 1000 ML** 1,000 ML IV ONE (06:24)
[2018-05-26] MEDS ORDERED: Levofloxacin 500 MG IVPREMIX(* 500 MG/100 ML BAG IVPB ONE (06:27)
--- NOTE | 2018-05-26 06:40 | ED ---
Shortness of Breath - HPI Summary HPI Summary: Patient is a 57-year-old female who presents to the ED with the chief complaint of acute onset of SOB which began last evening. History of asthma, COPD and emphysema. Previous smoker, quit 19 years ago. Symptoms are aggravated with ambulation and exertion, better with rest. She does not use O2 at home. She states she has also had an increased HR over the past evening and has been unable to sleep. Family hx of CHF and heart failure and brother at 49yo of PE. No known clotting hx. She states Dr. Niño has ordered her an outpatient CT chest which she has not done. Hx of anxiety and appears very anxious on arrival. Denies known sick contacts, but has been endorsing sweats. Denies chills or subjective fevers. - History of Current Complaint Chief Complaint: EDGeneral Time Seen by Provider: 05/26/18 06:08 Hx Obtained From: Patient Onset/Duration: Sudden Onset Timing: Constant Current Severity: Mild Dyspnea At: Rest Associated Signs & Symptoms: Negative - Risk Factors Pulmonary Embolism: Negative Cardiac: Negative Pseudomonas: Chronic Lung Disease Tuberculosis: Negative - Allergy/Home Medications Allergies/Adverse Reactions: Allergies Allergy/AdvReac Type Severity Reaction Status Date / Time Penicillins Allergy Hives/Diff. Verified 05/12/18 11:44 Breathing/I tching Home Medications: Home Medications Gabapentin CAP(*) [Neurontin 300 CAP(*)] 300 mg PO BID 05/26/18 [History Confirmed 05/26/18] Gabapentin CAP(*) [Neurontin 300 CAP(*)] 600 mg PO BEDTIME 05/26/18 [History Confirmed 05/26/18] PMH/Surg Hx/FS Hx/Imm Hx Previously Healthy: Yes Endocrine/Hematology History: Denies: Hx Diabetes, Hx Thyroid Disease Cardiovascular History: Denies: Hx Hypertension, Hx Pacemaker/ICD Respiratory History: Reports: Hx Asthma, Hx Chronic Obstructive Pulmonary Disease (COPD) - stage 3, Other Respiratory Problems/Disorders - emphysema GI History: Denies: Hx Ulcer History: Denies: Hx Renal Disease Musculoskeletal History: Reports: Hx Back Problems, Hx Scoliosis Sensory History: Denies: Hx Hearing Aid Psychiatric History: Reports: Hx Anxiety, Hx Depression, Hx Post Traumatic Stress Disorder Denies: Hx Eating Disorder, Hx Panic Disorder, Hx Suicide Attempt, Hx of Violent Episodes Against Others - Cancer History Hx Chemotherapy: No Hx Radiation Therapy: No - Surgical History Surgery Procedure, Year, and Place: Hysterectomy 01/15. Bladder sling and cystocele + rectocele. Bladder repair 08/17 - Immunization History Hx Pertussis Vaccination: No Immunizations Up to Date: Yes Infectious Disease History: No Infectious Disease History: Denies: Hx Clostridium Difficile, Hx Hepatitis, Hx Human Immunodeficiency Virus (HIV), Hx of Known/Suspected MRSA, Hx Shingles, Hx Tuberculosis, Hx Known/ Suspected VRE, Hx Known/Suspected VRSA, History Other Infectious Disease, Traveled Outside the [place] in Last 30 Days - Family History Known Family History: Positive: Cardiac Disease, Other - Epilepsy, breast cancer Family History: Epilepsy, breast cancer - Social History Occupation: Employed Full-time Lives: With Family Alcohol Use: None Hx Substance Use: No Substance Use Type: Reports: None Substance Use Comment - Amount & Last Used: hydrocodone with tylenol and clonazepam Hx Tobacco Use: Yes Smoking Status (MU): Former Smoker Length of Time of Smoking/Using Tobacco: 1999 Review of Systems Negative: Fever, Chills, Fatigue, Skin Diaphoresis Negative: Palpitations, Chest Pain Positive: Shortness Of Breath, Cough Negative: Abdominal Pain, Vomiting, Diarrhea, Nausea Positive: no symptoms reported, see HPI Negative: Arthralgia, Myalgia Skin: Negative Positive: Headache All Other Systems Reviewed And Are Negative: Yes Physical Exam Triage Information Reviewed: Yes Vital Signs On Initial Exam: Initial Vitals Temp Pulse Resp BP Pulse Ox 100.1 F 122 20 129/84 94 05/26/18 05:55 05/26/18 05:55 05/26/18 05:55 05/26/18 05:55 05/26/18 05:55 Vital Signs Reviewed: Yes Appearance: Positive: Well-Appearing, Well-Nourished Skin: Positive: Warm, Skin Color Reflects Adequate Perfusion Head/Face: Positive: Normal Head/Face Inspection Eyes: Positive: EOMI, Conjunctiva Clear Neck: Positive: Supple, No Lymphadenopathy Respiratory/Lung Sounds: Positive: Decreased Breath Sounds, Wheezes Cardiovascular: Positive: Tachycardia. Negative: Leg Edema Left, Leg Edema Right Musculoskeletal: Positive: Normal, Strength/ROM Intact Neurological: Positive: Speech Normal Psychiatric: Positive: Affect/Mood Appropriate Diagnostics - Vital Signs Vital Signs Temp Pulse Resp BP Pulse Ox 05/26/18 05:55 100.1 F 122 20 129/84 94 - Laboratory Result Diagrams: 05/26/18 06:20 05/26/18 06:20 Lab Statement: Any lab studies that have been ordered have been reviewed, and results considered in the medical decision making process. Course/Dx - Course Course Of Treatment: This patient is evaluated for acute onset shortness of breath. Labs obtained including a d-dimer which was < 200. Trop 0.01. Leukocytosis of 20.0 and elevated CRP at 40.24. Chest x-ray obtained: Patchy bibasilar atelectasis versus early consolidation. Urinalysis: 2+ leuk esterase and 1+ WBC. During the course of treatment, the patient is given breathing treatment, with a DuoNeb, given magnesium sulfate 2 mg, levaquin 750mg and NS 1 L. She was also given toradol for temp and ISBELL. She meets septic criteria d/t HR, however awaited influenza result prior giving the full 30cc/kg. Other 2L given with a total of 3L. WOB improved and she remains tachy at 107. Temperature decreased to 99 following administration of toradol. On re- examination, patient remains tachy at 115 and with a O2 demand. O2 discontinued as patient attempted ambulation with sat of 85%. At this time, I have asked the hospitalist team to consult for admission. CT chest ordered. - Diagnoses Differential Diagnosis/HQI/PQRI: Positive: Bronchitis, Pneumonia Provider Diagnoses: Shortness of breath - Physician Notifications Discussed Care of Patient With: Dayana Maher Instructed by Provider To: Admit As Inpatient - Critical Care Time Critical Care Time: 30-74 min Discharge - Sign-Out/Discharge Documenting (check all that apply): Patient Departure - Discharge Plan Condition: Fair Disposition: ADMITTED TO [facility] Referrals: Iggy Kumar MD [Primary Care Provider] - - Billing Disposition and Condition Condition: FAIR Disposition: Admitted to [facility]
[2018-05-26 06:42] LABS: ABS Basophils 0 10^3/ul (0-0.2); ABS Eosinophils 0.2 10^3/ul (0-0.6); ABS Lymphocytes 1.4 10^3/ul (1.0-4.8); ABS Monocytes 0.8 10^3/ul (0-0.8); ABS Neutrophils 17.6 10^3/ul (1.5-7.7); ABS Nucleated RBC 0 10^3/ul; Eosinophil % 0.8 %; Hematocrit 38 % (33-41); Hemoglobin 12.6 g/dL (12.0-16.0); Lymphocyte % 7.2 %; Mean Corpuscular HGB Conc 33 g/dL (31-36); Mean Corpuscular Hemoglobin 28 pg (27-31); Mean Corpuscular Volume 84 fL (80-97); Mean Platelet Volume 7.6 fL (7.4-10.4); Nucleated Red Blood Cells % 0.1; Platelet Count 333 10^3/uL (150-450); Red Blood Count 4.52 10^6 /uL (3.70-4.87); Red Cell Distribution Width 16 % (10.5-15)
[2018-05-26] MEDS ORDERED: NS 0.9% 1000 ML** 2,000 ML IV ONE (06:51)
[2018-05-26 07:07] LABS: Influenza A Molecular NEGATIVE (Negative); Influenza B Molecular NEGATIVE (Negative)
[2018-05-26 07:11] LABS: Troponin I 0.01 ng/mL (<0.04)
[2018-05-26 07:14] LABS: Albumin 3.9 g/dL (3.2-5.2); Albumin/Globulin Ratio 1.1 (1-3); BUN/Creatinine Ratio 9.1 (8-20); C Reactive Protein 40.24 mg/L (<8.01); Calcium 8.9 mg/dL (8.6-10.3); EGFR African American 93.8 (>60); EGFR Non-African American 77.5 (>60); Globulin 3.4 g/dL (2-4); Potassium 4.1 mmol/L (3.5-5.0); Total Bilirubin 0.3 mg/dL (0.2-1.0); Total Protein 7.3 g/dL (6.4-8.9)
[2018-05-26] MEDS ORDERED: Ketorolac INJ* 30 MG/ML 1 ML VIAL IV PUSH ONE (07:42)
[2018-05-26 07:52] LABS: Urine Appearance Clear; Urine Bacteria 1+ (Absent); Urine Bilirubin Negative (Negative); Urine Blood 1+ (Negative); Urine Color Straw; Urine Glucose Negative (Negative); Urine Ketones Negative (Negative); Urine Nitrite Negative (Negative); Urine Protein Negative (Negative); Urine Red Blood Cell Trace(0-2/hpf) (Absent); Urine Specific Gravity 1.002 (1.010-1.030); Urine Squamous Epithelial Cell Present (Absent); Urine Urobilinogen Negative (Negative); Urine White Blood Cell 1+(6-10/hpf) (Absent)
[2018-05-26] MEDS ORDERED: Magnesium Hydroxide LIQ* 30 ML UDC PO PRN (12:11)
[2018-05-26] MEDS ORDERED: Al Hydrox/Mg Hydrox/Simet LIQ* 30 ML UDC PO PRN (12:11)
[2018-05-26] MEDS ORDERED: Gabapentin CAP(*) 300 MG PO PRN (12:35)
[2018-05-26] MEDS ORDERED: Albuterol HFA INHALER* 8 gm MDI INH PRN ×2 (12:35→13:21)
[2018-05-26] MEDS ORDERED: Tiotropium CAP.INH* CAP.INH/18 MCG (USE ORDER SET !) INH SCH (13:00)
[2018-05-26] MEDS: clonazePAM TAB(*) 1 MG PO PRN ×2 (14:07→20:58)
[2018-05-26] MEDS: HYDROcodone/ACETAMIN 5-325 MG* 1 TAB PO PRN (14:07)
[2018-05-26] MEDS: Enoxaparin(*) 40 MG/0.4 ML SYR SUBCUT SCH (14:08)
[2018-05-26] MEDS ORDERED: NS 0.9% 500 ML* 500 ML IV ONE (14:11)
[2018-05-26] MEDS ORDERED: Acetaminophen TAB* 325 MG PO PRN (14:13)
[2018-05-26] MEDS: Venlafaxine EXT RELEASE CAP* 75 MG PO SCH (14:24)
[2018-05-26] MEDS: Albuterol/Ipratropium NEB.SOL* Albuterol 2.5 MG/Ipratropium 0.5 MG 3 ML INH SCH ×3 (14:34→23:19)
--- NOTE | 2018-05-26 15:41 | HP ---
CC: Dr. Iggy Kumar; Dr. Feli Niño * HISTORY AND PHYSICAL: DATE OF ADMISSION: 05/26/18 PRIMARY CARE PROVIDER: Dr. Iggy Kumar. OPERATIONS ASSISTANT: Dr. Feli Niño. ATTENDING PHYSICIAN: Dr. Dayana Maher * (dictated by JERMAIN Michael). CHIEF COMPLAINT: Shortness of breath and tachycardia. HISTORY OF PRESENT ILLNESS: Libby Mitchell is a 57-year-old white female with significant past medical history of asthma, COPD, anxiety, who presents to the emergency department with shortness of breath and tachycardia x12 hours that did not improve with home nebulizers or home anxiety treatment. The patient began having shortness of breath and racing heart rate at 7 p.m. yesterday. She tried using nebulizers, which did not help. She also tried taking Klonopin , which did not help. She also noted that her shortness of breath worsened with minimal exertion, such as walking a short distance from her bedroom to her bathroom. She had difficulty falling asleep because of the shortness of breath. Additionally, she has had a productive cough with green phlegm. She does not use home oxygen. She reports that she has had chest heaviness and nausea intermittently since this feeling has started. She denies hemoptysis, palpitations, visual changes, fever, chills, vomiting. She was recently diagnosed with a pneumonia on 04/08/18 and was treated with Levaquin 750 mg p.o. for 7 days. She later followed up with Dr. Niño in her office on 05/12/18 and reported that she was still having productive cough and chest tightness with exertion. The patient reports to me today that she never felt back to baseline after receiving treatment for her pneumonia last month. EMERGENCY DEPARTMENT COURSE: Vital signs in the emergency department include T- max 100.6 degrees Fahrenheit; pulse 105 to 122 beats per minute; respiratory rate of 20 to 29 respirations per minute; O2 sat 95% on 2 L, 85% on room air with ambulation; and blood pressure 129/84. The patient received DuoNeb and initial dose of IV Levaquin in the emergency department. She reports that her shortness of breath did improve with the DuoNeb. Because the patient met sepsis criteria, sepsis protocol was initiated and she ultimately received 3 L of normal saline and blood cultures were drawn. Additionally, the patient received IV Solu-Medrol, Toradol, magnesium sulfate. The hospitalists were asked to evaluate the patient for admission. PAST MEDICAL HISTORY: 1. Asthma. 2. COPD and emphysema. 3. Anxiety. 4. PTSD. 5. Chronic back pain. 6. Obesity. 7. Osteoarthritis. 8. Prolapsed bladder. 9. GERD. PAST SURGICAL HISTORY: Hysterectomy bladder surgery HOME MEDICATIONS: 1. Omeprazole 20 mg p.o. daily. 2. Clonazepam 1 mg p.o. t.i.d. p.r.n. anxiety. 3. Venlafaxine 225 p.o. daily. 4. Spiriva 1 cap inhaled daily. 5. Sprague 5/325 one tab p.o. t.i.d. p.r.n. pain. 6. Gabapentin 300 mg p.o. a.m., 300 mg p.r.n. pain daily, 600 mg p.o. q.h.s. 7. Ventolin inhaler 2 puffs inhaled q.4 hours p.r.n. wheezing. 8. Albuterol nebulizers p.r.n. wheezing. ALLERGIES: PENICILLIN (hives). FAMILY HISTORY: Father at age 73 of [place]. Mother at age 58, complications of emphysema. Brother at age 49 of [place]. SOCIAL HISTORY: The patient is and has 3 children. She notes that her , Yobany, would be her surrogate medical decision maker. His phone number is [phone]. 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 The patient has approximately 25-year history of smoking 2 packs per day. She quit smoking in the year 1999. She denies alcohol use and illicit drug use. REVIEW OF SYSTEMS: An 11-point review of systems was completed and all pertinent positives and negatives are in the HPI. All other systems are negative except for the patient has chronic back pain in musculoskeletal system. PHYSICAL EXAMINATION GENERAL: Obese female, lying in hospital bed comfortably, appearing in mild distress. HEENT: Head: Atraumatic and normocephalic. Eyes: PERRL and sclerae anicteric. ENT: Mucous membranes moist. NECK: Supple. No JVD. RESPIRATORY: The patient is wheezing with respirations, but there is no wheezing on auscultation. There are minimal fine crackles in the left lower lobe on auscultation. Cough present. Chest expansion is symmetrical. CARDIO: Regular rhythm with rate of 96 beats per minute. No murmurs, rubs, or gallops appreciated. No edema. ABDOMEN: Bowel sounds normoactive x4 quadrants. Abdomen is soft, nontender, and nondistended. EXTREMITIES: No clubbing or edema. Negative calf tenderness. NEURO: The patient has no focal deficits. Alert and oriented x3. Cranial nerves II through XII are grossly intact. PSYCH: Patient is occasionally tearful throughout exam. DIAGNOSTIC STUDIES/LAB DATA: EKG today: Sinus rhythm at 117 beats per minute. QTc 457. Abnormal axis, likely left ventricular hypertrophy. Nonspecific T-wave changes to lead III, which are unchanged from EKG on . Chest x-ray today, impression: "Patchy bibasilar atelectasis versus early consolidation." Chest CT today, impression: "Emphysema." White blood cell count 20, hemoglobin 12.6, hematocrit 38, platelet count 333. Sodium 137, potassium 4.1, chloride 103, CO2 25, BUN 7, creatinine 0.77, glucose 119. D-dimer of less than 200. Lactic acid 1.9. Troponin 0.01. CRP 40.24. Influenza A negative. Influenza B negative. Urine with specific gravity of 1.002, +1 blood, +2 leukocyte esterase, +1 white blood cells, squamous epithelial cells present, +1 bacteria. ASSESSMENT AND PLAN: Libby Mitchell is a 57-year-old white female with significant past medical history of asthma, chronic obstructive pulmonary disease, and anxiety, who presents to the ED with shortness of breath and tachycardia, which did not improve with home nebulizer or Klonopin. The patient is admitted in observation for: 1. Acute hypoxic respiratory failure. Related to chronic obstructive pulmonary disease exacerbation. The patient has new O2 requirement, she does not have O2 at home. Ambulating pulse ox in the emergency department resulted in the patient with O2 sat of 85% on room air with little exertion. The patient has not been hospitalized for chronic obstructive pulmonary disease exacerbation at this facility in the past. It is likely that the chronic obstructive pulmonary disease exacerbation is brought about by underlying pneumonia. The patient follows with Dr. Niño outpatient. Dr. Niño ordered a CT chest on 03/08/19, which the patient had the opportunity to receive in the outpatient setting. The patient received CT chest today, which demonstrates emphysema, for which the patient was already diagnosed. Cause of shortness of breath is unlikely to be pulmonary embolism or myocardial infarction as D-dimer is negative and troponin is negative. Her EKG does not demonstrate ischemic changes. Initiating oral prednisone 40 mg daily and DuoNeb every 4 hours. We will continue to monitor respiratory status. In addition, for management of her chronic conditions of asthma and chronic obstructive pulmonary disease, we will continue her home medicine of p.r.n. Ventolin and daily Spiriva. We are holding her p.r.n. albuterol nebulizers as we are giving her DuoNeb nebulizers scheduled. 2. Sepsis secondary to possible pneumonia. Chest x-ray demonstrates possible bibasilar pneumonia, although this was not demonstrated on chest CT. Despite this inconsistent imaging, the patient does indeed have clinical signs and symptoms of pneumonia. She has fever, productive cough, and tachypnea, and tachycardia. In accordance with sepsis protocol, blood cultures drawn and started on IV fluids in ED. The patient failed outpatient therapy with oral Levaquin within the last 5 weeks. Given that the patient never returned to baseline after her prior pneumonia that was treated with Levaquin, it is possible that she never cleared the original infection. For treatment of her pneumonia, IV ceftriaxone and oral azithromycin will be initiated. The patient has an allergy to PENICILLIN, and therefore the patient was advised to immediately alert hospital staff if she is experiencing swelling to her lips or tongue, difficulty breathing, or hives. Urine strep and legionella antigens ordered. Sputum culture ordered. Additionally, a urine culture is ordered because the patient had positive urinalysis. Given the patient's weight, she requires approximately 3300 mL of normal saline per sepsis protocol. An additional 500 mL bolus of normal saline will be given. Lactic acid is 1.9 and does not need to be repeated. Ordered p.r.n. Tylenol for fever as well. Chronic conditions: 3. Anxiety. Continue home Effexor and Klonopin. 4. Gastroesophageal reflux disease. Continue omeprazole. 5. Chronic pain. Continue Sprague and gabapentin. 6. FEN: The patient can have a regular unrestricted diet. Electrolytes are within normal limits. The patient has already received 3 L of normal saline and is going to receive an additional 500 mL bolus of normal saline per sepsis protocol. 7. DVT prophylaxis: The patient is high risk for deep venous thrombosis. Lovenox has been started. 8. Code status: The patient is a full code. TIME SPENT: Approximately 55 minutes was spent on this admission, approximately half spent at bedside. This case has been reviewed by my attending, Dr. Dayana Maher, who agrees with this plan of care. JERMAIN MICHAEL [id number]/CPS #: [id number]
[2018-05-26] MEDS: cefTRIAXone(*) 1 GM in NS 0.9% 50 ML* 50 ML IVPB SCH (18:16)
[2018-05-26] MEDS: Gabapentin CAP(*) 300 MG PO SCH (20:59)
[2018-05-27] MEDS: HYDROcodone/ACETAMIN 5-325 MG* 1 TAB PO PRN ×3 (00:12→15:42)
[2018-05-27] MEDS: Albuterol/Ipratropium NEB.SOL* Albuterol 2.5 MG/Ipratropium 0.5 MG 3 ML INH SCH ×4 (03:08→19:28)
[2018-05-27 05:43] LABS: ABS Basophils 0 10^3/ul (0-0.2); ABS Eosinophils 0 10^3/ul (0-0.6); ABS Lymphocytes 1.4 10^3/ul (1.0-4.8); ABS Monocytes 0.7 10^3/ul (0-0.8); ABS Nucleated RBC 0 10^3/ul; Eosinophil % 0 %; Hematocrit 33 % (33-41); Hemoglobin 10.9 g/dL (12.0-16.0); Lymphocyte % 8.4 %; Mean Corpuscular HGB Conc 33 g/dL (31-36); Mean Corpuscular Hemoglobin 28 pg (27-31); Mean Corpuscular Volume 85 fL (80-97); Mean Platelet Volume 7.4 fL (7.4-10.4); Nucleated Red Blood Cells % 0; Platelet Count 300 10^3/uL (150-450); Red Blood Count 3.91 10^6 /uL (3.70-4.87); Red Cell Distribution Width 16 % (10.5-15)
[2018-05-27 05:57] LABS: BUN/Creatinine Ratio 15.9 (8-20); Calcium 8.3 mg/dL (8.6-10.3); EGFR African American 106.5 (>60); Potassium 3.9 mmol/L (3.5-5.0)
[2018-05-27] MEDS ORDERED: Azithromycin IV* 500 MG ADVAN VIAL/BAG IVPB SCH (07:00)
[2018-05-27] MEDS: Tiotropium CAP.INH* CAP.INH/18 MCG (USE ORDER SET !) INH SCH (08:00)
[2018-05-27] MEDS ORDERED: Spiriva Inhaler DEVICE* 1 EACH DEVICE INH ONE (09:00)
[2018-05-27] MEDS: Gabapentin CAP(*) 300 MG PO SCH ×2 (09:14→20:40)
[2018-05-27] MEDS: predniSONE TAB* 20 MG PO SCH (09:14)
[2018-05-27] MEDS: Pantoprazole TAB * 40 MG TAB PO SCH (09:15)
[2018-05-27] MEDS: Venlafaxine EXT RELEASE CAP* 75 MG PO SCH (09:15)
[2018-05-27] MEDS: Azithromycin IV(*) 500 MG in NS 0.9% 250 ML* 250 ML IVPB SCH (09:27)
[2018-05-27] MEDS: clonazePAM TAB(*) 1 MG PO PRN ×3 (09:27→20:40)
[2018-05-27] MEDS: Enoxaparin(*) 40 MG/0.4 ML SYR SUBCUT SCH (13:28)
--- NOTE | 2018-05-27 15:39 | PN ---
Subjective Date of Service: 05/27/18 Interval History: Ms. Mitchell reports that her breathing has improved but that she remains quite short of breath even with speaking. She denies chest pain, nausea, or abdominal pain. Objective Active Medications: Acetaminophen (Tylenol Tab*) 650 mg PO Q4H PRN Hydrocodone Bitart/Acetaminophen ([place] 5-325 Tab*) 1 tab PO TID PRN Al Hydrox/Mg Hydrox/Simethicone (Maalox Plus*) 30 ml PO Q6H PRN Albuterol (Ventolin Hfa Inhaler*) 2 puff INH Q4H PRN Albuterol/Ipratropium (Duoneb (Albuterol 2.5 Mg/Ipratropium 0.5 Mg)) 1 neb INH [id number] AWAKE ARELI Clonazepam (Klonopin Tab(*)) 1 mg PO TID PRN Enoxaparin Sodium (Lovenox(*)) 40 mg SUBCUT Q24H ARELI Gabapentin (Neurontin Cap(*)) 300 mg PO DAILY@1200 PRN Gabapentin (Neurontin Cap(*)) 300 mg PO DAILY ARELI Gabapentin (Neurontin Cap(*)) 600 mg PO BEDTIME ARELI Ceftriaxone Sodium 1 gm/ (Sodium Chloride) 50 mls @ 200 mls/hr IVPB Q24H ARELI Azithromycin 500 mg/ Sodium (Chloride) 250 mls @ 250 mls/hr IVPB Q24H ARELI Magnesium Hydroxide (Milk Of Magnesia Liq*) 30 ml PO Q4H PRN Pantoprazole Sodium (Protonix Tab*) 40 mg PO DAILY ARELI Prednisone (Deltasone Tab*) 40 mg PO DAILY ARELI Tiotropium [place] (Spiriva Cap.Inh*) 1 cap INH DAILY ARELI Venlafaxine HCl (Effexor Xr Cap*) 225 mg PO DAILY [facility] Vital Signs: Temp Pulse Resp BP Pulse Ox 97.5 F 94 20 148/75 96 05/27/18 15:19 05/27/18 15:19 05/27/18 15:42 05/27/18 15:19 05/27/18 15:19 Oxygen Devices in Use Now: Nasal Cannula Appearance: Female lying in bed in NAD Eyes: No Scleral Icterus Ears/Nose/Mouth/Throat: Mucous Membranes Moist Neck: Trachea Midline Respiratory: Symmetrical Chest Expansion and Respiratory Effort, - - Diminished throughout Cardiovascular: NL Sounds; No Murmurs; No JVD Abdominal: NL Sounds; No Tenderness; No Distention Extremities: No Edema Skin: No Rash or Ulcers Neurological: Alert and Oriented x 3, NL Muscle Strength and Tone Nutrition: Taking PO's Result Diagrams: 05/27/18 05:22 05/27/18 05:22 Assess/Plan/Problems-Billing Assessment: Ms. Mitchell is a 57 yo female with a PMH of who was admitted on 05/26/18 with an acute COPD exacerbation and acute hypoxic respiratory failure. - Patient Problems (1) Acute respiratory failure with hypoxia Comment: - Remains on 2l NC - Secondary to asthma/COPD (2) COPD exacerbation Comment: - Some minimal improvement noted - Continue ceftriaxone, azithromycin, prednisone, duonebs, O2 (3) DVT prophylaxis Comment: - Lovenox (4) Full code status Comment: Status and Disposition: Switch to inpatient given minimal improvement. Anticipate discharge to home when medically stable
[2018-05-27] MEDS ORDERED: clonazePAM TAB(*) 1 MG PO SCH (17:00)
[2018-05-27] MEDS ORDERED: HYDROcodone/ACETAMIN 5-325 MG* 1 TAB PO PRN (17:11)
[2018-05-27] MEDS: cefTRIAXone(*) 1 GM in NS 0.9% 50 ML* 50 ML IVPB SCH (18:09)
[2018-05-28] MEDS: Albuterol/Ipratropium NEB.SOL* Albuterol 2.5 MG/Ipratropium 0.5 MG 3 ML INH SCH ×2 (01:24→07:31)
[2018-05-28] MEDS: Tiotropium CAP.INH* CAP.INH/18 MCG (USE ORDER SET !) INH SCH (07:33)
[2018-05-28] MEDS: Azithromycin IV(*) 500 MG in NS 0.9% 250 ML* 250 ML IVPB SCH (08:04)
[2018-05-28] MEDS: Gabapentin CAP(*) 300 MG PO SCH (08:07)
[2018-05-28] MEDS: Venlafaxine EXT RELEASE CAP* 75 MG PO SCH (08:07)
[2018-05-28] MEDS: predniSONE TAB* 20 MG PO SCH (08:08)
[2018-05-28] MEDS: Pantoprazole TAB * 40 MG TAB PO SCH (08:08)
--- NOTE | 2018-05-28 08:14 | PN ---
Subjective Date of Service: 05/28/18 Interval History: Ms. Mitchell reports feeling better today. She feels that her breathing is essentially at baseline and she is eager for discharge to home. Objective Active Medications: Acetaminophen (Tylenol Tab*) 650 mg PO Q4H PRN Hydrocodone Bitart/Acetaminophen ([place] 5-325 Tab*) 1 tab PO QID PRN Al Hydrox/Mg Hydrox/Simethicone (Maalox Plus*) 30 ml PO Q6H PRN Albuterol (Ventolin Hfa Inhaler*) 2 puff INH Q4H PRN Albuterol/Ipratropium (Duoneb (Albuterol 2.5 Mg/Ipratropium 0.5 Mg)) 1 neb INH [id number] AWAKE ARELI Clonazepam (Klonopin Tab(*)) 1 mg PO QID PRN Enoxaparin Sodium (Lovenox(*)) 40 mg SUBCUT Q24H ARELI Gabapentin (Neurontin Cap(*)) 300 mg PO DAILY@1200 PRN Gabapentin (Neurontin Cap(*)) 300 mg PO DAILY ARELI Gabapentin (Neurontin Cap(*)) 600 mg PO BEDTIME ARELI Ceftriaxone Sodium 1 gm/ (Sodium Chloride) 50 mls @ 200 mls/hr IVPB Q24H ARELI Azithromycin 500 mg/ Sodium (Chloride) 250 mls @ 250 mls/hr IVPB Q24H ARELI Magnesium Hydroxide (Milk Of Magnesia Liq*) 30 ml PO Q4H PRN Pantoprazole Sodium (Protonix Tab*) 40 mg PO DAILY [facility] Pneumococcal Polyvalent Vaccine (Pneumococcal Vac 23-Polyvalent*) 0.5 ml IM .ONCE ONE Prednisone (Deltasone Tab*) 40 mg PO DAILY [facility] Tiotropium [place] (Spiriva Cap.Inh*) 1 cap INH DAILY [facility] Venlafaxine HCl (Effexor Xr Cap*) 225 mg PO DAILY [facility] Vital Signs: Temp Pulse Resp BP Pulse Ox 97.5 F 87 20 136/70 98 05/28/18 07:16 05/28/18 07:33 05/28/18 08:07 05/28/18 07:16 05/28/18 07:33 Oxygen Devices in Use Now: Nasal Cannula Appearance: Female lying in bed in NAD Eyes: No Scleral Icterus Ears/Nose/Mouth/Throat: Mucous Membranes Moist Neck: Trachea Midline Respiratory: Symmetrical Chest Expansion and Respiratory Effort, Clear to Auscultation Cardiovascular: NL Sounds; No Murmurs; No JVD, No Edema Abdominal: NL Sounds; No Tenderness; No Distention Extremities: No Edema Skin: No Rash or Ulcers Neurological: Alert and Oriented x 3, NL Muscle Strength and Tone Result Diagrams: 05/27/18 05:22 05/27/18 05:22 Assess/Plan/Problems-Billing Assessment: Ms. Mitchell is a 57 yo female with a PMH of who was admitted on 05/26/18 with an acute COPD exacerbation and acute hypoxic respiratory failure. - Patient Problems (1) Acute respiratory failure with hypoxia Comment: - Remains on 2l NC - Secondary to asthma/COPD (2) COPD exacerbation Comment: - Some minimal improvement noted - Continue ceftriaxone, azithromycin, prednisone, duonebs, O2 (3) DVT prophylaxis Comment: - Lovenox (4) Full code status Comment: Status and Disposition: Discharge to home
[2018-05-28] MEDS ORDERED: Pneumococcal *Vac Polyvalent 0.5 ML VIAL IM ONE (09:00)
[2018-05-28] MEDS: clonazePAM TAB(*) 1 MG PO PRN (10:43)
[2018-05-28] MEDS: Enoxaparin(*) 40 MG/0.4 ML SYR SUBCUT SCH (11:57)
[2018-05-28 16:18] VITALS: BP 142/62
== END 2018-05-28 16:12 | disposition home or self-care (01) ==
LOC: ED 05:41 → MEDTELE 13:20 → INTOOBSV 05-27 16:03 → OBSVTOIN 05-27 16:03
PROVIDERS: ADMIT Hospitalist; ATTEND Internal Medicine
DX: J96.01 Acute respiratory failure with hypoxia (principal); J44.9 Chronic obstructive pulmonary disease, unspecified; R06.02 Shortness of breath; Z88.0 Allergy status to penicillin; Z87.891 Personal history of nicotine dependence; R05 Cough; J44.1 Chronic obstructive pulmonary disease with (acute) exacerbation; R00.0 Tachycardia, unspecified; J45.909 Unspecified asthma, uncomplicated; J43.9 Emphysema, unspecified; E66.9 Obesity, unspecified; M19.90 Unspecified osteoarthritis, unspecified site; N81.2 Incomplete uterovaginal prolapse
CPT/HCPCS: 36415; 71045; 71250; 80048; 80053; 81003; 81015; 83605; 84484; 85025; 85379; 85610; 86140; 87040; 87070; 87086; 87205; 87899; 90471; 90732; 93005; 94640; 96365; 96375; 99284; A9270-GY; G0009; G0378; J0456; J0696; J1650; J1885; J1956; J2930; J3475; J7512

== ENCOUNTER → 2018-07-06 14:23 | Emergency (ER) | payer OTHER ==
[~2018-07-06 14:23] MED LIST: Albuterol/Ipratropium NEB.SOL* Albuterol 2.5 MG/Ipratropium 0.5 MG 3 ML INH ONE
--- OUTSIDE RECORDS SUMMARY | 2018-07-06 14:58 | XMS REPORT | Continuity of Care Document ---
:1960 External Reference #:[id number] Author Name Mally Hatfield Care Team Providers Name Role Phone Carey Loco M.D. Primary Care Physician Unavailable Payers Date Identification Numbers Payment Provider Subscriber Policy Number: [id number] Jasmine/[employer] Medicaid Libby Mitchell PayID: [id number] [address] [address] [place] [address] Advance Directives Description No Information Available Problems Active Problems Provider Date Chronic obstructive lung disease Feli Niño MD Onset: 01/07/2016 Disturbance in sleep behavior Feli Niño MD Onset: 01/07/2016 Obesity Feli Niño MD Onset: 01/07/2016 Speech and language disorder Iggy Kumar M.D. Onset: 01/04/2017 Disturbance in speech Iggy Kumar M.D. Onset: 02/15/2017 Thoracic and lumbosacral neuritis Iggy Kumar M.D. Onset: 02/15/2017 Concussion with no loss of consciousness Sin Sol M.D. Onset: 2017 Disturbance in speech rhythm Sin Sol M.D. Onset: 04/11/2017 Pain in limb Iggy Kumar M.D. Onset: 10/07/2017 Abnormal involuntary movement Sin Sol M.D. Onset: 05/08/2018 Headache Sin Sol M.D. 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 Left-handed Cigarette Use Quit 16 Years Ago ETOH Use Denies alcohol use Tobacco Use Start: Unknown End: Patient is a former smoker Unknown Smoking Status Reviewed: 06/21/18 Patient is a former smoker Exercise Type/Frequency Exercises rarely Allergies, Adverse Reactions, Alerts Active Allergies Reaction Severity Comments Date Penicillin 01/07/2016 Medications Active Medications SIG Qnty Indications Ordering Date Provider Prednisone 4 tab daily for 3 34tabs J44.1 Piedad 06/21/2018 10mg Tablets days, then 3 tab DRAKE La daily for 3 days, then 2 tab daily for 3 days, then 1 tab daily for 1 wk then resume previous 5mg dosing Doxycycline 1 tab twice daily 14tabs J44.1 Piedad 06/21/2018 Monohydrate for 1 week DRAKE La 100mg Tablets Omeprazole Take 1 Capsule By 30caps R10.9 Holland Ye NP 04/21/2018 20mg Capsules Mouth Every Day DR Lopez Handihaler inhale the 30caps J44.9 Holland Ye NP 02/22/2018 18mcg contents of one Capsules capsule via handihaler by mouth every day Phenazopyridine HCL 1 tabs by mouth 30tabs N39.0 [place] Izquierdo, 2017 100mg three times a day REHAB OFFICE COORDINATOR 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 Ventolin HFA Inhale 2 Puffs By 18units Feli Niño, 10/13/2017 108(90Base) Mouth Four Times MD mcg/Act Aerosol A Day as Needed Albuterol Sulfate 1 vial via 270ml Feli Niño, 01/06/2016 nebulizer 4 times MD (2.5mg/3ML) 0.083% daily as needed Nebulizer Ibuprofen as needed Unknown 01/06/2016 200mg Tablets Clonazepam 1 by mouth three Unknown 1mg Tablets times a day Hydrocodone-Acetaminop Take 1 Tablet By Unknown hen Mouth Three Times 5-325mg Tablets Daily as Needed For Pain Maximum Daily Dose Of3 Tablets Per Day Effexor XR 1 cap by mouth Unknown 75mg Caps ER every day with 24HR Effexor 150 MG Gabapentin Take 1 Capsule By Unknown 300mg Capsules Mouth Four Times A Day as Needed Vitamin D3 Maximum 1 by mouth every Unknown Strength day (when 5000Unit remembered per pt Capsules 05/08/18) Effexor XR 1 by mouth every Unknown 150mg Caps ER day, take with 75 24HR MG History Medications Prednisone 1 tab daily for 1 30tabs J44.9 Piedad 05/31/2018 - 5mg Tablets junie La NP 06/21/2018 Prednisone 3 tab daily x 2 12tabs J44.9 Holland Ye NP 04/21/2018 - 10mg Tablets days, then 2 tab 05/07/2018 daily for 2 day, and 1 tab for 2 day. Incruse Ellipta 1 act qday 30units J44.9 Suleiman Izquierdo, 12/30/2017 - REHAB OFFICE COORDINATOR 02/22/2018 62.5mcg/Inh Aerosol Ciprofloxacin HCL take 1 tab by 10tabs N39.0 Suleiman Izquierdo, 12/21/2017 - 250mg mouth twice a day REHAB OFFICE COORDINATOR 12/30/2017 Tablets for 5 days Vitamin D take 1 capsule 8caps E55.9 Suleiman Izquierdo, 10/26/2017 - (Ergocalciferol) every week for 8 REHAB OFFICE COORDINATOR 05/07/2018 weeks [id number] Capsules Spiriva Respimat 2 puffs every day 4units J43.9 Suleiman Izquierdo, 10/19/2017 - REHAB OFFICE COORDINATOR 12/26/2017 2.5mcg/Act Aerosol Prednisone take 4 tablets by 120tabs J44.9 Feli Niño, 01/07/2016 - 1mg Tablets mouth daily 04/01/2016 Vesicare 1 by mouth every Unknown 01/06/2016 - 10mg Tablets day prn 02/15/2017 Prednisone 5tabx 2days,4 Unknown 01/06/2016 - 10mg Tablets [id number] 01/06/2016 [id number],2tabx2 days,1tabxday. Ergocalciferol 1 tab by mouth Unknown 01/06/2016 - every week 01/06/2016 12993Hsil Capsules Combivent Respimat 04/21/18 reports 12gm Feli Niño, 01/06/2016 - pulmonary DC'd 1 05/07/2018 20-100mcg/Act Aerosol puffs 4 daily as needed Clonazepam 1 by mouth two Unknown 01/06/2016 - 2mg Tablets times a day, 06/02/2018 additional one time per day in the middle of the day if needed Ambien 1 by mouth every Unknown 01/06/2016 - 10mg Tablets night at bedtime 11/29/2016 as needed sleep insomnia Neurontin 300 mg in the Unknown - 100mg morning, 600 mg 10/12/2017 Capsules at bedtime Hydrocodone/Acetamino Take 1 tablet 3 Unknown - phen 500-300 MG times daily 05/07/2018 Zinc 1 by mouth every Unknown - Capsules day 05/07/2018 Effexor XR two by mouth Unknown - 37.5mg Caps every day with 05/08/2018 ER 24HR the 150 MG tab Prednisone Take 40mg by Unknown - 20mg Tablets mouth once a day 05/07/2018 for 5 days. Levaquin 1 by mouth every Unknown - 500mg Tablets day for 7 days. 04/21/2018 Prednisone Take 4 Tablet By Unknown - 10mg Tablets Mouth Every Day 05/31/2018 For 4 Days, Then Take 3 Tablets By Mouth Every Day For 4 Days, Then Take 2 Tablets By Mouth Every Day For 4 Immunizations CPT Code Status Date Vaccine Reaction Lot # [id number] Given 12/21/2017 Influenza Virus Vaccine, [id number] Quadrivalent, Split, Preservative Free [id number] Given 02/15/2017 Pneumonia Vaccine [id number] Given 01/04/2017 Influenza Virus Vaccine, no immediate reaction, [id number] Quadrivalent, Split, pt tolerated well Preservative Free Vital Signs Date Vital Result Comment 06/21/2018 12:52pm Height 64 inches 5'4" Weight 244.25 lb Heart Rate 110 /min BP Systolic Sitting 124 mmHg Lue large cuff BP Diastolic Sitting 76 mmHg Lue large cuff Respiratory Rate 12 /min O2 % BldC Oximetry 96 % BMI (Body Mass Index) 41.9 kg/m2 06/02/2018 1:47pm Height 64 inches 5'4" Weight 241.38 lb Heart Rate 89 /min BP Systolic 117 mmHg BP Diastolic 69 mmHg Body Temperature 98.1 F O2 % BldC Oximetry 97 % BMI (Body Mass Index) 41.4 kg/m2 05/31/2018 10:41am Height 64 inches 5'4" Weight 244.00 lb Heart Rate 88 /min BP Systolic Sitting 114 mmHg Lue large cuff BP Diastolic Sitting 74 mmHg Lue large cuff Respiratory Rate 12 /min O2 % BldC Oximetry 96 % BMI (Body Mass Index) 41.9 kg/m2 05/12/2018 8:49am Height 64 inches 5'4" Weight [...] Date Facility Test Result H/L Range Note Urine Culture And 05/26/2018 [facility] Urine Culture SEE RESULT [address] [place] [address] [phone] Urinalysis Profile 05/26/2018 [facility] Urine Color Straw [address] [place] [address] [phone] Urine Appearance Clear Urine Specific [place] 1.002 Low 1.010-1.030 Urine pH 8.0 N 5-9 Urine Urobilinogen Negative Negative Urine Ketones Negative Negative Urine Protein Negative Negative Urine Leukocytes 2+ Abnormal Negative Urine Blood 1+ Abnormal Negative Urine Nitrite Negative Negative Urine Bilirubin Negative Negative Urine Glucose Negative Negative Urine White Blood Cell 1+(6-10/hpf) Abnormal Absent Urine Red Blood Cell Trace(0-2/hpf) Absent Urine Bacteria 1+ Abnormal Absent Urine Squamous Epithelial Cell Present Abnormal Absent Laboratory test 05/26/2018 [facility] D Dimer < 200 N Less [address] Quantitative ng/mL Than 230 [place] [address] [phone] Inr/Protime 05/26/2018 [facility] Inr 0.90 N 0.77-1.[address] [place] [address] [phone] Laboratory test 05/26/2018 [facility] C Reactive 40.24 High < 8.[address] Protein mg/[place] [address] [phone] Comp Metabolic 05/26/2018 [facility] Sodium 137 N 135-[address] mmol/[place] [address] [phone] Potassium 4.1 mmol/L N 3.5-5.0 Chloride 103 mmol/L N 101-111 Co2 Carbon Dioxide 25 mmol/L N 22-32 Anion Gap 9 mmol/L N 2-11 Glucose 119 mg/dL High 70-100 Blood Urea Nitrogen 7 mg/dL N 6-24 Creatinine 0.77 mg/dL N 0.51-0.95 BUN/Creatinine Ratio 9.1 N 8-20 Calcium 8.9 mg/dL N 8.6-10.3 Total Protein 7.3 g/dL N 6.4-8.9 Albumin 3.9 g/dL N 3.2-5.2 Globulin 3.4 g/dL N 2-4 Albumin/Globulin Ratio 1.1 N 1-3 Total Bilirubin 0.30 mg/dL N 0.2-1.0 Alkaline Phosphatase 87 U/L N 34-104 Alt 28 U/L N 7-52 Ast 32 U/L N 13-39 Egfr Non- 77.5 >60 Egfr 93.8 >60 3 Laboratory test 05/26/2018 [facility] Lactic Acid 1.9 mmol/L N 0.5-2.0 [address] [place] [address] [phone] Rapid Influenza A B Antigen SEE RESULT BELOW 5 Troponin-I (TnI) 0.01 ng/mL <0.04 6 CBC Auto 05/26/2018 [facility] White Blood 20.0 10^3/uL High 3.5-10.[address] [place] [address] [phone] Red Blood Count 4.52 10^6/uL N 3.70-4.87 Hemoglobin 12.6 g/dL N 12.0-16.0 Hematocrit 38 % N 33-41 Mean Corpuscular Volume 84 fL N 80-97 Mean Corpuscular Hemoglobin 28 pg N 27-31 Mean Corpuscular HGB Conc 33 g/dL N 31-36 Red Cell Distribution Width 16 % High 10.5-15 Platelet Count 333 10^3/uL N 150-450 Mean Platelet Volume 7.6 fL N 7.4-10.4 Abs Neutrophils 17.6 10^3/uL High 1.5-7.7 Abs Lymphocytes 1.4 10^3/uL N 1.0-4.8 Abs Monocytes 0.8 10^3/uL N 0-0.8 Abs Eosinophils 0.2 10^3/uL N 0-0.6 Abs Basophils 0 10^3/uL N 0-0.2 Abs Nucleated RBC 0 10^3/uL Granulocyte % 87.9 % Lymphocyte % 7.2 % Monocyte % 3.9 % Eosinophil % 0.8 % Basophil % 0.2 % Nucleated Red Blood Cells % 0.1 Rapid Influenza 05/26/2018 [facility] Influenza A NEGATIVE Negative 7 A & B Molecular [address] [place] [address] [phone] Influenza B Molecular NEGATIVE Negative Basic Metabolic Panel 05/18/2018 [facility] Sodium 139 mmol/L N 135-145 [address] [place] [address] [phone] Potassium 4.6 mmol/L N 3.5-5.0 Chloride 104 mmol/L N 101-111 Co2 Carbon Dioxide 29 mmol/L N 22-32 Anion Gap 6 mmol/L N 2-11 Glucose 121 mg/dL High 70-100 Blood Urea Nitrogen 10 mg/dL N 6-24 Creatinine 0.77 mg/dL N 0.51-0.95 BUN/Creatinine Ratio 13.0 N 8-20 Calcium 9.6 mg/dL N 8.6-10.3 Egfr Non- 77.5 >60 Egfr 93.8 >60 8 Liver Function 05/18/2018 [facility] Total Protein 7.0 g/dL N 6.4-8.9 Panel [address] [place] [address] [phone] Albumin 4.2 g/dL N 3.2-5.2 Globulin 2.8 g/dL N 2-4 Albumin/Globulin Ratio 1.5 N 1-3 Total Bilirubin 0.30 mg/dL N 0.2-1.0 Direct Bilirubin 0.10 mg/dL N 0.03-0.18 Indirect Bilirubin 0.2 mg/dL Low 0.3-1.0 Alkaline Phosphatase 84 U/L N 34-104 Alt 20 U/L N 7-52 Ast 20 U/L N 13-39 Laboratory test 05/18/2018 [facility] Folic Acid > 20.00 > 3.[address] (Folate) ng/[place] [address] [phone] Laboratory test 04/21/2018 [facility] Vitamin D 22.1 ng/mL N 20-50 finding 101 Total 25(Oh) [place] [address] [phone] Laboratory test 04/21/2018 [facility] Lipase 20 U/L N 11.0- 82.0 finding 101 [place] [address] [phone] Hemoglobin A1c (Glyco HGB) 6.3 % High 4.0-5.6 9 Laboratory test 04/17/2018 [facility] Lactic Acid 1.9 mmol/L N 0.5-2.0 10 finding 101 [place] [address] [phone] CBC Auto Diff 04/17/2018 [facility] White Blood 18.7 High 3.5- 10.8 101 Count 10^3/[place] [address] [phone] Red Blood Count 4.53 10^6/uL N 4.00-5.40 [...] Cells % 0.1 Comp Metabolic Panel 04/17/2018 [facility] Sodium 138 mmol/L N 135-[address] [place] [address] [phone] Potassium 4.0 mmol/L N 3.5-5.0 Chloride 105 [...] Egfr Non- 76.4 >60 Egfr 92.4 >60 11 Laboratory test 04/17/2018 [facility] Troponin-I (TnI) 0.00 ng/ mL <0.04 [address] [place] [address] [phone] B-Type Natriuretic Peptide BNP 42 pg/mL <=100 Blood Culture SEE RESULT BELOW 13 Urinalysis Profile 04/16/2018 [facility] Urine Color Yellow [address] [place] [address] [phone] Urine Appearance Cloudy Urine Specific [place] 1.004 Low 1.010-1.030 Urine pH 6.0 N [...] Present Abnormal Absent Urine Culture And 04/16/2018 [facility] Urine Culture SEE RESULT [address] [place] [address] [phone] Rapid Influenza A 04/16/2018 [facility] Influenza A NEGATIVE Negative 15 & B Molecular [address] [place] [address] [phone] Influenza B Molecular NEGATIVE Negative Laboratory test 04/16/2018 [facility] Rapid Influenza SEE RESULT [address] [place] [address] [phone] CBC Auto Diff 04/16/2018 [facility] White Blood 9.7 10^3/uL N 3.5-[address] Count .8 [place] [address] [phone] Red Blood Count 4.72 10^6/uL N 4.00-5.40 [...] Blood Cells % 0 Laboratory test 04/16/2018 [facility] Lactic Acid 1.1 mmol/L N 0.5-2.0 [address] [place] [address] [phone] B-Type Natriuretic Peptide BNP 11 pg/mL <=100 Comp Metabolic Panel 04/16/2018 [facility] Sodium 137 mmol/L N 135-[address] [place] [address] [phone] Potassium 4.0 mmol/L N 3.5-5.0 Chloride 103 [...] Egfr Non- 73.1 >60 Egfr 88.5 >60 18 CKMB 04/16/2018 [facility] CKMB ng/mL 1.7 ng/mL N 0.6-6.[address] [place], [place] [address] [phone] Laboratory test 04/16/2018 [facility] Troponin-I 0.00 ng/mL < 0.04 [address] (TnI) [place] [address] [phone] Creatine Kinase(CK) 84 U/L N 10-223 C Reactive Protein 39.09 mg/L High <8.01 Blood Culture SEE RESULT BELOW 20 Laboratory 02/25/2018 [facility] Culture Throat SEE RESULT 21, 22 test finding [address] [place] [address] [phone] Laboratory 02/25/2018 [facility] Rapid Strep Negative Negative 23 test finding [address] Molecular [place], [place] [address] [phone] Laboratory 02/07/2018 [facility] Gardnerella/Ye SEE RESULT 24, 25 test finding [address] ast: [place] [address] Dna [phone] GC/Chlamydia 02/07/2018 [facility] Chlamydia Negative Negative Amplified Rna [address] [place] [address] Rna [phone] Neisseria gonorrhoeae (GC) Rna Negative Negative Urine Culture And 02/07/2018 [facility] Urine SEE RESULT 26 , [address] Culture BELOW [place], [place] [address] [phone] Poc Urinalysis 02/07/2018 [facility] Poc Negative Negative [address] Glucose, [place] [address] Urine [phone] Poc Bilirubin, Urine Negative Negative Poc Ketone, Urine Negative Negative Poc Specific [place], Urine 1.010 N 1.010-1.030 Poc Blood, Urine 1+ Abnormal Negative Poc pH, Urine 5.0 N 5-9 Poc Protein, Urine Negative Negative Poc Urobilinogen, Urine 0.2 Negative Poc Nitrite, Urine Negative Negative Poc Leukocytes, Urine 3+ Abnormal Negative Poc Color, Urine Yellow Poc Clarity, Urine Clear 28 Ua Routine 12/21/2017 [facility] Ua Specific [place] 1.020 Ua PH 5 Ua Color yellow Ua Appera clear Ua WBC ++ Ua Protein trace Ua Glucose normal Ua Ketones negative Ua Bilirubin negative Ua Urobilinogen normal Ua Nitrite negative Ua Occult Blood about 50 Urinalysis Profile 12/21/2017 [facility] Urine Color Yellow [address] [place] [address] [phone] Urine Appearance Cloudy Urine Specific [place] 1.012 N 1.010-1.030 Urine pH 5.0 N [...] Present Abnormal Absent Urine Culture And 12/21/2017 [facility] Urine Culture SEE RESULT [address] [place] [address] [phone] Connective Tissue 10/07/2017 [facility] Anti-Nuclear 0.3 U [address] [place] [address] [phone] Cyclic Citrullinated Peptide <15.6 U 31 Interpretation See Comment 32 Laboratory test 08/16/2017 [facility] Vitamin B12 419 pg/mL N 180-044 [address] [place] [address] [phone] Vitamin D Total 25(Oh) 15.9 ng/mL Low 20-50 Ceruloplasmin 27.9 mg/dL 34 Urine Culture And 08/16/2017 [facility] Urine Culture SEE RESULT [address] [place] [address] [phone] CBC Auto Diff 08/16/2017 [facility] White Blood 7.7 10^3/uL N 3.5-[address] Count 0.8 [place] [address] [phone] Red Blood Count 4.64 10^6/uL N 4.00-5.40 [...] Cells % 0.1 Comp Metabolic Panel 08/16/2017 [facility] Sodium 139 mmol/L N 139-[address] [place] [address] [phone] Potassium 4.7 mmol/L N 3.5-5.0 Chloride 104 [...] Egfr Non- 73.4 >60 Egfr 94.4 >60 36 Laboratory test 08/16/2017 [facility] Cortisol 4.63 g/dL [address] [place] [address] [phone] Laboratory test 08/16/2017 [facility] TSH (Thyroid Stim 1.28 N 0.34- finding [address] Horm) mcIU/mL 5.60 [place] [address] [phone] Lipid Profile 08/16/2017 [facility] Triglycerides 237 mg/dL 38 (Trig/Chol/HDL) [address] [place] [address] [phone] Cholesterol 166 mg/dL 39 HDL Cholesterol 46.2 mg/dL 40 LDL Cholesterol 72 mg/dL 41 Urine Culture And 03/26/2017 [facility] Urine SEE RESULT 42 , [address] [place] [address] [phone] Poc Urinalysis 03/26/2017 [facility] Poc Negative Negative [address] Glucose, [place] [address] Urine [phone] Poc Bilirubin, Urine Negative Negative Poc Ketone, Urine Negative Negative Poc Specific [place], Urine <=1.005 Low 1.010-1.030 Poc Blood, Urine Trace-lysed Abnormal Negative Poc pH, Urine 6.0 N 5-9 Poc Protein, Urine Negative Negative Poc Urobilinogen, Urine 0.2 Negative Poc Nitrite, Urine Negative Negative Poc Leukocytes, Urine 1+ Abnormal Negative Poc Color, Urine Yellow Poc Clarity, Urine Clear 44 Xray 12/03/2016 [facility] CT Lung <pending> [address] [place] [address] Dose [phone] Laboratory test 02/12/2016 [facility] Alpha 1 147 mg/dL N 100 - [address] Antitrypsin A1a 190 [place] [address] [phone] 1 SEE RESULT BELOW Name: LIBBY MITCHELL : [address]: Dayana Maher DO Acct: [id number] Unit: [id number] AGE: 57 Location: [place] [address] Re05/26/18 SEX: F Status: ADM Chante SPEC: [id number] CRICKET: 05/26/[address]: Claire ALY REQ: [id number] RECD: 05/26/18 STATUS: COMP HIENHR DR: Jessie Kumar MD _ SOURCE: URINE SPDESC: ORDERED: Urine Culture Procedure Result Reported Site Urine Culture Final 05/27/18- 1216 ML No growth of clinically significant organisms * ML - Main Lab . END OF REPORT DEPARTMENT OF PATHOLOGY, [address] [place] [address] Joby Hays M.D. Director [facility] # [id number] 2 Please note: The following may produce a false positive D Dimer test: - Rheumatoid factor greater than 60 IU/ml - Plasma hemoglobin greater than 0.05 gm/dl - Bilirubin greater than 50 mg/dl - Lipids greater than 1000 mg/dl - FDP greater than 20 ug/ml 3 Because ethnic data is not always [...] 5 Kidney failure <15 (or dialysis) 4 [facility] Severe Sepsis and Septic Shock Management Bundle Measure requires all lactic acids initially measuring >2.0 mmol/L be repeated. 5 SEE RESULT BELOW Name: LIBBY MITCHELL : [address]: Aida Jalloh MD Acct: [id number] Unit: [id number] AGE: 57 Location: ED Re05/26/18 SEX: F Status: REG ER SPEC: [id number] CRICKET: 05/26/[address]: Claire ALY REQ: [id number] RECD: 05/26/18 STATUS: JONO BO DR: Jessie Kumar MD _ SOURCE: NASAL SPDESC: ORDERED: Flu A B Request Procedure Result Reported Site Rapid Influenza A B Request Final 05/26/18- 0658 ML Specimen received for Influenza A/B Molecular testing * ML - Main Lab . END OF REPORT DEPARTMENT OF PATHOLOGY, [address] [place] [address] Joby Hays M.D. Director [facility] # [id number] 6 Troponin-I testing on Plasma Separator Tubes (PST) has a known false positive rate of 0.20-0.40%. All positive troponins reflex immediate secondary confirmatory testing. 7 Club Former: [id number] 8 Because ethnic data is not always [...] 5 Kidney failure <15 (or dialysis) 9 Therapeutic target for the treatment of diabetes mellitus patients is <7% HBA1C, and in selective patients <6.0%. Please refer to [place] [employer] diabetic care guidelines for further information. 10 [facility] Severe Sepsis and Septic Shock Management Bundle Measure requires all lactic acids initially measuring >2.0 mmol/L be repeated. 11 Because ethnic data is not always readily [...] 15-29 5 Kidney failure <15 (or dialysis) 12 Troponin-I testing on Plasma Separator Tubes (PST) has a known false positive rate of 0.20-0.40%. All positive troponins reflex immediate secondary confirmatory testing. 13 SEE RESULT BELOW Name: LIBBY MITCHELL : [address]: John Monreal MD Acct: [id number] Unit: [id number] AGE: 57 Location: ED Re04/17/18 SEX: F Status: DEP ER SPEC: [id number] CRICKET: 04/17/18-[address]: Demetrice ALY REQ: [id number] RECD: 04/17/18 STATUS: COMP OTHR DR: [facility] Iggy Kumar MD _ SOURCE: BLOOD,VENO SPDESC: ORDERED: Blood Cult Procedure Result Reported Site Aerobic Culture Bottle Final 04/22/181818 ML No Growth Day 5 Anaerobic Culture Bottle Final 04/22/181818 ML No Growth Day 5 * ML - Main Lab . END OF REPORT DEPARTMENT OF PATHOLOGY, [address] [place] [address] Joby Hays M.D. Director [facility] # [id number] 14 SEE RESULT BELOW Name: LIBBY MITCHELL : [address]: Hoang Macario MD Acct: [id number] Unit: [id number] AGE: 57 Location: ED Re04/16/18 SEX: F Status: DEP ER SPEC: [id number] CRICKET: 04/16/[address]: Hoang Macario MD REQ: [id number] RECD: 04/16/18 STATUS: COMP OTHR DR: Iggy Kumar MD _ SOURCE: URINE SPDESC: ORDERED: Urine Culture Procedure Result Reported Site Urine Culture Final 04/18/18- 816 ML No growth of clinically significant organisms * - Main Lab . END OF REPORT DEPARTMENT OF PATHOLOGY, [address] [place] [address] Joby Hays M.D. Director [facility] # [id number] 15 Club Former: [id number] 16 SEE RESULT BELOW Name: LIBBY MITCHELL : [address]: Hoang Macario MD Acct: [id number] Unit: [id number] AGE: 57 Location: ED Re04/16/18 SEX: F Status: REG ER SPEC: [id number] CRICKET: 04/16/18 [facility] DR: Hoang Macario MD REQ: [id number] RECD: 04/16/18 STATUS: JONO BO DR: Iggy Kumar MD _ SOURCE: [facility]: ORDERED: Flu A B Request Procedure Result Reported Site Rapid Influenza A B Request Final 04/16/18- 1731 ML Specimen received for Influenza A/B Molecular testing * ML - Main Lab . END OF REPORT DEPARTMENT OF PATHOLOGY, [address] [place] [address] Joby Hays M.D. Director [facility] # [id number] 17 [facility] Severe Sepsis and Septic Shock Management Bundle Measure requires all lactic acids initially measuring >2.0 mmol/L be repeated. 18 Because ethnic data is not always [...] 5 Kidney failure <15 (or dialysis) 19 Troponin-I testing on Plasma Separator Tubes (PST) has a known false positive rate of 0.20-0.40%. All positive troponins reflex immediate secondary confirmatory testing. 20 SEE RESULT BELOW Name: LIBBY MITCHELL : [address]: Hoang Macario MD Acct: [id number] Unit: [id number] AGE: 57 Location: ED Re04/16/18 SEX: F Status: DEP ER SPEC: [id number] CRICKET: 04/16/18 [facility] DR: Hoang Macario MD REQ: [id number] RECD: 04/16/18 STATUS: JONO BO DR: Iggy Kumar MD _ SOURCE: BLOOD,VENO SPDESC: ORDERED: Blood Cult Procedure Result Reported Site Aerobic Culture Bottle Final 04/21/18- 1655 ML No Growth Day 5 Anaerobic Culture Bottle Final 04/21/18- 1655 ML No Growth Day 5 * ML - Main Lab . END OF REPORT DEPARTMENT OF PATHOLOGY, [address] [place] [address] Joby Hays M.D. Director [facility] # [id number] 22 SEE RESULT BELOW Name: LIBBY MITCHELL : [address]: Shanice Alarcon MD Acct: [id number] Unit: [id number] AGE: 57 Location: [facility] Re02/25/18 SEX: F Status: DEP ER SPEC: [id number] CRICKET: 02/25/18 [facility] DR: Jr Vallejo TWISTING MACHINE OPERATOR REQ: [id number] RECD: 02/25/18 STATUS: JONO BO DR: Shanice Kumar MD _ SOURCE: THROAT SPDESC: ORDERED: Throat Culture COMMENTS: [id number] Procedure Result Reported Site Throat Culture Final 02/27/18- 1258 ML Organism 1 NORMAL GUILLERMO Quantity 2+ Throat cultures are clinically indicated to detect the presence of group A strep, arcanobacterium and yeast. In certain cases, predominating organisms will be reported. * ML - Main Lab . END OF REPORT DEPARTMENT OF PATHOLOGY, [address] [place] [address] Joby Hays M.D. Director [facility] # [id number] Club Former: [id number] Would you like to order Trichomonas Vaginalis RNA testing? N 25 SEE RESULT BELOW Name: LIBBY MITCHELL : [address]: Michelle Gleason MD Acct: [id number] Unit: [id number] AGE: 57 Location: [facility] Re02/07/18 SEX: F Status: DEP ER SPEC: [id number] CRICKET: 02/07/181244 [facility] DR: Michelle Gleason MD REQ: [id number] RECD: 02/07/18 STATUS: JONO BO DR: Iggy Kumar MD _ SOURCE: VAGINAL SPDESC: ORDERED: Raheem,Yeast DNA COMMENTS: [id number] Would you like to order Trichomonas Vaginalis [...] . END OF REPORT DEPARTMENT OF PATHOLOGY, [address] [place] [address] Joby Hays M.D. Director [facility] # [id number] SEE RESULT BELOW Name: LIBBY MITCHELL : [address]: Michelle Gleason MD Acct: [id number] Unit: [id number] AGE: 57 Location: [facility] Re02/07/18 SEX: F Status: DEP ER SPEC: [id number] CRICKET: 02/07/18-1242 [facility] [address]: Michelle Gleason MD REQ: [id number] RECD: 02/07/18 STATUS: JONO BO DR: Iggy Kumar MD _ SOURCE: URINE SPDESC: ORDERED: Urine Culture COMMENTS: [id number] Procedure Result Reported Site Urine Culture Final 02/08/18- 1326 ML No growth of clinically significant organisms * ML - Main Lab . END OF REPORT DEPARTMENT OF PATHOLOGY, [address] [place] [address] Joby Hays M.D. Director [facility] # [id number] Club Former: [id number] SEE RESULT BELOW Name: LIBBY MITCHELL : [address]: Suleiman Izquierdo NP Acct: [id number] Unit: [id number] AGE: 57 Location: [facility] Re12/21/17 SEX: F Status: REG REF SPEC: [id number] CRICKET: 12/21/17 [facility] [address]: Suleiman Izquierdo NP REQ: [id number] RECD: 12/21/17 STATUS: COMP _ SOURCE: URINE SPDESC: ORDERED: Urine Culture COMMENTS: [id number] Urine Source: Clean Catch Procedure Result Reported Site Urine Culture Final 12/22/17- 165 ML No growth of clinically significant organisms * ML - Main Lab . END OF REPORT DEPARTMENT OF PATHOLOGY, [address] [place] [address] Joby Hays M.D. Director [facility] # [id number] REFERENCE VALUE <=1.0 (Negative) 31 REFERENCE VALUE <20.0 (Negative) 32 Tests for antibodies to dsDNA and CORTEZ antigens are not performed automatically unless the DEDRA result is > or= 3.0 U. Studies performed at [facility] indicate that positive DEDRA results <3.0 U are rarely accompanied by positive second order tests. Test Performed by: [facility] - [address] [address] 33 Normal Range 180 to 914 Indeterminate Range 145 to 180 Deficient Range <145 34 REFERENCE VALUE 20.0 - 51.0 Test Performed by: [facility] - [address] [address] 35 SEE RESULT BELOW Name: LIBBY MITCHELL : [address]: Hortensia Recinos [facility] Acct: [id number] Unit: [id number] AGE: 56 Location: [facility] Re08/16/17 SEX: F Status: REG REF SPEC: [id number] CRICKET: 08/16/[address]: Hortensia Recinos [facility] REQ: [id number] RECD: 08/16/17 STATUS: JONO BO DR: Rachana Kumar MD _ SOURCE: URINE SPDESC: ORDERED: Urine Culture QUERIES: Urine Source: Clean Catch Procedure Result Reported Site Urine Culture Final 08/17/17- 1326 ML No growth of clinically significant organisms * ML - Main Lab . END OF REPORT DEPARTMENT OF PATHOLOGY, [address] [place] [address] Joby Hays M.D. Director [facility] # [id number] 36 Because ethnic data is not always readily [...] 15-29 5 Kidney failure <15 (or dialysis) 37 AM 8.7-22.4 PM <10 38 Desirable: <150 Borderline High: 150-199 High: 200-499 Very High: >500 39 Desirable: <200 Borderline High: 200-239 High: >239 40 Low: <40 Desirable: 40-60 High: >60 41 Desirable: <100 Near Optimal: 100-129 Borderline High: 130-159 High: 160-189 Very High: >189 42 [id number] 43 SEE RESULT BELOW Name: LIBBY MITCHELL : [address]: Shanice Oates MD Acct: [id number] Unit: [id number] AGE: 56 Location: [facility] Re03/26/17 SEX: F Status: DEP ER SPEC: [id number] CRICKET: 03/26/17-50 [facility] [address]: Shanice Oates MD REQ: [id number] RECD: 03/26/17 STATUS: JONO BO DR: Iggy Kumar MD _ SOURCE: URINE SPDESC: ORDERED: Urine Culture COMMENTS: [id number] Procedure Result Reported Site Urine Culture Final 03/27/17- 1204 ML No Growth (<1,000 CFU/mL) * ML - MAIN LAB (PSC1) . END OF REPORT * ML=Testing performed at Main Lab DEPARTMENT OF PATHOLOGY, [address] [place] [address] Joby Hays M.D. Director [facility] # [id number] Club Former: [id number] Test Performed by: [place] [address] Research And Development Technician: Tarun Saab II, M.D., Ph.D. Procedures Date Code Description Status 11/17/2017 349840212 Bone Mineral Density Test Completed 11/17/2017 81480690 Mammogram Completed 04/06/2016 14656 EKG, Interpretation Only Completed 02/13/2016 94861 Polysomnography Sleep Staging 4+ Parameters Completed 02/12/2016 78169 Diffusing Capacity Completed 02/12/2016 00299 Plethysmography Determination Lung Volumes & Per Completed Airway Resist 02/12/2016 56308 Pulmonary Stress Test Simple Completed 02/12/2016 73361 Pulmonary Function><Bronchodil Completed 04/22/2014 15923024 Mammogram Completed 03/07/2012 [id number] Colonoscopy Completed Encounters Type Date Location Provider Dx Diagnosis Office Visit 06/02/2018 Missing Persons Investigator Internal Mari Marker, J44.9 Chronic obstructive 2:00p Medicine - [place] R[facility]-C pulmonary disease, Rd unspecified J18.9 Pneumonia, unspecified organism K83.9 Disease of biliary tract, unspecified Office Visit 05/31/2018 10:45a Pulmonology And Feli J44.9 [facility] [place] obstructive Missing Persons Investigator pulmonary disease, unspecified J18.9 Pneumonia, unspecified organism Office Visit 05/26/2018 [facility] Leti J96.01 Acute respiratory 9:20a Assoc,pc Sheila, BRYNN failure with Hospitalists hypoxia J44.1 Chronic obstructive pulmonary disease w (acute) exacerbation A41.9 Sepsis, unspecified organism Office Visit 05/12/2018 9:00a Pulmonology And Feli J44.9 [facility] [place] obstructive [facility] pulmonary disease, unspecified J18.9 Pneumonia, unspecified organism R10.9 Unspecified abdominal pain Office Visit 05/08/2018 [place] Sin Sol, R47.89 Other speech 10:00a Neurologic M.D. 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 respiratory [place] infection, unspecified Office Visit 02/22/2018 1:40p [facility] Internal Holland Ye, TWISTING MACHINE OPERATOR M54.9 Dorsalgia , Medicine unspecified J44.9 Chronic obstructive pulmonary disease, unspecified Office Visit 02/02/2018 [facility] Sin Sol, R47.89 Other speech 1:45p Neurologic M.DSunny disturbances Services Of [facility] S06.0x0S Concussion without loss of consciousness, sequela Office Visit 12/21/2017 2:20p [facility] Internal Suleiman Izquierdo, N39.0 Urinary tract Medicine - [place] REHAB OFFICE COORDINATOR infection, site Rd not specified J43.8 Other emphysema E55.9 Vitamin D deficiency, unspecified E66.09 Other obesity due to excess calories Z23 Encounter for immunization Office Visit 10/26/2017 9:20a [facility] Internal Suleiman Izquierdo, Z00.00 Encntr for Medicine - [place] REHAB OFFICE COORDINATOR general adult Rd medical exam w/o abnormal [...] [facility] [place] obstructive [facility] pulmonary disease, unspecified E66.09 Other obesity due to excess calories Office Visit 10/07/2017 8:20a [facility] Internal Philo R47.89 Other speech Medicine Mgaed Kumar M.D. disturbances [place] [address] M79.606 Pain in leg, unspecified J44.9 Chronic obstructive pulmonary disease, unspecified Office Visit 05/26/2017 [facility] Sin Sol R47.89 Other speech 1:45p Neurologic MSunnyDSunny disturbances Services Of [facility] S06.0x0S Concussion without loss of consciousness, sequela R41.89 Oth symptoms and signs w cognitive functions and awareness Office Visit 05/23/2017 10:00a [facility] Internal Iggy R47.89 Other speech Crow Kumar M.D. disturbances [place] [address] Z12.39 Encounter for oth screening for malignant neoplasm of breast J44.9 Chronic obstructive pulmonary disease, unspecified E66.9 Obesity, unspecified Office Visit 04/11/2017 Marisol Sol, R47.89 Other speech 1:00p Neurologic M.DSunny disturbances Services Of [facility] Office Visit 02/15/2017 [facility] Internal Iggy Kumar, R47.9 Unspecified 8:40a Medicine - [place] Yennifer.DSunny speech Rd disturbances J44.9 Chronic obstructive pulmonary disease, unspecified M51.16 Intervertebral disc disorders w radiculopathy, lumbar region E66.8 Other obesity Z68.38 Body mass index (BMI) 38.0-38.9, adult Z23 Encounter for immunization Office Visit 01/04/2017 3:20p [facility] Vilma Gifford Chronic Medicine - [place] obstructive [place] [address] pulmonary disease, unspecified S06.0x0A Concussion without loss of consciousness, initial encounter Z23 Encounter for immunization Office Visit 11/30/2016 9:15a Pulmonology And Feli J44.9 [facility] [place] obstructive Missing Persons Investigator pulmonary disease, unspecified Z12.2 Encntr screen for malignant neoplasm of respiratory organs Z87.891 Personal history of nicotine dependence Office Visit 04/12/2016 Neurohospitalist Maninder Castro 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 Office Visit 04/02/2016 [facility] Sleep Feli J44.9 Chronic 8:30a Services Of [facility] MD [place] obstructive pulmonary disease, unspecified E66.09 Other obesity due to excess calories Office Visit 01/07/2016 10:15a Pulmonology And Feli Vela44.9 [facility] [place] obstructive Missing Persons Investigator pulmonary disease, unspecified G47.9 Sleep disorder, unspecified E66.09 Other obesity due to excess calories Plan of Treatment Future Appointment(s):10/03/2018 3:30 pm - Flei Niño MD at [facility]08/24/2018 3:15 pm - Sin Sol M.D. at [facility]06/21/2018 - Feli Niño MDJ44.1 Chronic obstructive pulmonary disease with (acute) exacerbatNew Medication:Prednisone 10 mg - 4 tab daily for 3 days, then 3 tab daily for 3 days, then 2 tab daily for 3 days,then 1 tab daily for 1 wk then resume previous 5mg dosingDoxycycline Monohydrate 100 mg - 1 tab twice daily for 1 weekNew Xrays:Chest PA & Lat 2 VWS, Ordered: 06/21/18R09.02 Hypoxemia
[2018-07-06 15:46] LABS: ABS Basophils 0.1 10^3/ul (0-0.2); ABS Eosinophils 0.1 10^3/ul (0-0.6); ABS Lymphocytes 1.3 10^3/ul (1.0-4.8); ABS Monocytes 0.6 10^3/ul (0-0.8); ABS Neutrophils 17.1 10^3/ul (1.5-7.7); Eosinophil % 0.5 %; Hematocrit 36 % (35-47); Hemoglobin 11.8 g/dL (12.0-16.0); Lymphocyte % 6.9 %; Mean Corpuscular HGB Conc 33 g/dL (31-36); Mean Corpuscular Hemoglobin 28 pg (27-31); Mean Corpuscular Volume 86 fL (80-97); Mean Platelet Volume 7.2 fL (7.4-10.4); Platelet Count 296 10^3/uL (150-450); Red Blood Count 4.22 10^6 /uL (3.70-4.87); Red Cell Distribution Width 16 % (10.5-15); White Blood Count 19.2 10^3/uL (3.5-10.8)
[2018-07-06 16:03] LABS: Troponin I 0.01 ng/mL (<0.04)
[2018-07-06 16:11] LABS: Albumin/Globulin Ratio 1.2 (1-3); C Reactive Protein 51.76 mg/L (<8.01); Calcium 9.4 mg/dL (8.6-10.3); EGFR African American 77.4 (>60); EGFR Non-African American 63.9 (>60); Globulin 3.4 g/dL (2-4); Potassium 4.5 mmol/L (3.5-5.0); Total Bilirubin 0.6 mg/dL (0.2-1.0); Total Protein 7.4 g/dL (6.4-8.9)
--- NOTE | 2018-07-06 17:10 | ED ---
Respiratory - HPI Summary HPI Summary: Patient is a 57-year-old female with a history of COPD presenting to the ED with worsening shortness of breath and increase in O2 demand. She has O2 at home overnights only and on 2 L. She is followed by Dr. Niño and recently saw her 2 days ago. She states she has been on a very long taper dose of steroids and is currently on 5 mg daily. Over the past 3 months, she states her COPD/emphysema has been worsening, however in the past 2 weeks continues to develop worsening shortness of breath despite the steroid. She does have albuterol inhalers/nebulizers at home which she has been using. She states she has been checking her O2 at home and it has dropped as low as 74% while ambulating. She states she must use her O2 during the day now as well as the night. She is currently on 2 L on arrival. She is afebrile, vital signs are stable. Denies CP, abdominal pain, weakness, confusion. She is unsure when her next appointment with Dr. Niño is and is concerned for an infection. She was admitted to [facility] 2 months ago for a COPD exacerbation/PNA area she has been on 3 rounds of antibiotics, with no improvement. - History of Current Complaint Chief Complaint: EDShortnessOfBreath Stated Complaint: SOB PER PT Time Seen by Provider: 07/06/18 14:42 Hx Obtained From: Patient Onset/Duration: Gradual Onset, Lasting Weeks Timing: Constant Current Severity: Moderate Pain Intensity: 6 Character: Cough (Nonproductive), Dyspnea at Rest Sputum Amount: Scant Sputum Color: Clear Aggravating Factor(s): Nothing Alleviating Factor(s): Neb. Bronchodilators (Frequency Of Use), Steriods Associated Signs and Symptoms: Negative - Risk Factors Status Asthmaticus Risk Factors: Recent Steroids, Recent Admissions Pulmonary Embolism Risk Factors: Negative Cardiac Risk Factors: Negative Pseudomonas Risk Factors: Chronic Lung Disease Tuberculosis Risk Factors: Corticosteriod Use, Immune Deficienty, Chronic Respiratory Failure - Allergy/Home Medications Allergies/Adverse Reactions: Allergies Allergy/AdvReac Type Severity Reaction Status Date / Time Penicillins Allergy Hives/Diff. Verified 05/12/18 11:44 Breathing/I tching PMH/Surg Hx/FS Hx/Imm Hx Previously Healthy: No - COPD and emphysema Endocrine/Hematology History: Reports: Other Endocrine/Hematological Disorders - blood clot per pt. Denies: Hx Diabetes, Hx Thyroid Disease Cardiovascular History: Reports: Hx Deep Vein Thrombosis Denies: Hx Hypertension, Hx Pacemaker/ICD Respiratory History: Reports: Hx Asthma, Hx Chronic Obstructive Pulmonary Disease (COPD) - stage 3, Hx Pneumonia, Other Respiratory Problems/Disorders - emphysema GI History: Reports: Other GI Disorders - possible hernia Denies: Hx Ulcer History: Reports: Other Problems/Disorders - bladder prolapse Denies: Hx Renal Disease Musculoskeletal History: Reports: Hx Back Problems, Hx Scoliosis Sensory History: Reports: Hx Contacts or Glasses Denies: Hx Hearing Aid Opthamlomology History: Reports: Hx Contacts or Glasses Neurological History: Reports: Hx Headaches, Other Neuro Impairments/Disorders - concussion with aphasia and stutter Psychiatric History: Reports: Hx Anxiety, Hx Depression, Hx Post Traumatic Stress Disorder Denies: Hx Eating Disorder, Hx Panic Disorder, Hx Suicide Attempt, Hx of Violent Episodes Against Others - Cancer History Hx Chemotherapy: No Hx Radiation Therapy: No - Surgical History Surgery Procedure, Year, and Place: Hysterectomy 01/15. Bladder sling and cystocele + rectocele. Bladder repair 08/17 - Immunization History Hx Pertussis Vaccination: No Immunizations Up to Date: Yes Infectious Disease History: No Infectious Disease History: Denies: Hx Clostridium Difficile, Hx Hepatitis, Hx Human Immunodeficiency Virus (HIV), Hx of Known/Suspected MRSA, Hx Shingles, Hx Tuberculosis, Hx Known/ Suspected VRE, Hx Known/Suspected VRSA, History Other Infectious Disease, Traveled Outside the [place] in Last 30 Days - Family History Known Family History: Positive: Cardiac Disease, Other - Epilepsy, breast cancer Family History: Epilepsy, breast cancer - Social History Occupation: Employed Full-time Lives: Alone Alcohol Use: None Hx Substance Use: No Substance Use Type: Reports: None Substance Use Comment - Amount & Last Used: hydrocodone with tylenol and clonazepam Hx Tobacco Use: Yes Smoking Status (MU): Former Smoker Length of Time of Smoking/Using Tobacco: 1999 Review of Systems Constitutional: Negative Negative: Fever, Chills, Fatigue, Skin Diaphoresis Negative: Palpitations, Chest Pain Positive: Shortness Of Breath, Cough Negative: Abdominal Pain, Vomiting, Diarrhea Positive: see HPI Negative: Arthralgia, Myalgia Negative: Headache All Other Systems Reviewed And Are Negative: Yes Physical Exam Triage Information Reviewed: Yes Vital Signs On Initial Exam: Initial Vitals Temp Pulse Resp BP Pulse Ox 98.2 F 123 25 115/77 95 07/06/18 14:31 07/06/18 14:31 07/06/18 14:31 07/06/18 14:31 07/06/18 14:31 Vital Signs Reviewed: Yes Appearance: Positive: Well-Nourished - Appears to be in respiratory distress, sat at 98% Skin: Positive: Skin Color Reflects Adequate Perfusion Head/Face: Positive: Normal Head/Face Inspection Eyes: Positive: EOMI, GIOVANNA, Conjunctiva Clear Neck: Positive: Supple, No Lymphadenopathy Respiratory/Lung Sounds: Positive: Wheezes. Negative: Rhonchi Cardiovascular: Positive: RRR, Pulses are Symmetrical in both Upper and Lower Extremities Musculoskeletal: Positive: Normal, Strength/ROM Intact Neurological: Positive: Speech Normal Psychiatric: Positive: Normal, Affect/Mood Appropriate AVPU Assessment: Alert Diagnostics - Vital Signs Vital Signs Temp Pulse Resp BP Pulse Ox 07/06/18 16:14 107 99/65 07/06/18 16:04 102 18 100 07/06/18 15:43 105 102/64 98 07/06/18 15:13 106 102/75 98 07/06/18 15:00 112 20 100 07/06/18 14:46 21 99 07/06/18 14:45 99.3 F 07/06/18 14:43 112 114/75 98 07/06/18 14:31 98.2 F 123 25 115/77 95 - Laboratory Lab Results: Lab Results 07/06/18 07/06/18 07/06/18 Range/Units 15:37 15:37 15:37 WBC 19.2 H (3.5-10.8) 10^3/uL RBC 4.22 (3.70-4.87) 10^6 /uL Hgb 11.8 L (12.0-16.0) g/dL Hct 36 (35-47) % MCV 86 (80-97) fL MCH 28 (27-31) pg MCHC 33 (31-36) g/dL RDW 16 H (10.5-15) % Plt Count 296 (150-450) 10^3/uL MPV 7.2 L (7.4-10.4) fL Neut % (Auto) 89.0 % Lymph % (Auto) 6.9 % Ponce % (Auto) 3.1 % Eos % (Auto) 0.5 % Baso % (Auto) 0.5 % Absolute Neuts (auto) 17.1 H (1.5-7.7) 10^3/ul Absolute Lymphs (auto) 1.3 (1.0-4.8) 10^3/ul Absolute Monos (auto) 0.6 (0-0.8) 10^3/ul Absolute Eos (auto) 0.1 (0-0.6) 10^3/ul Absolute Basos (auto) 0.1 (0-0.2) 10^3/ul Absolute Nucleated RBC 0.0 10^3/ul Nucleated RBC % 0.0 Sodium 138 (135-145) mmol/L Potassium 4.5 (3.5-5.0) mmol/L Chloride 103 (101-111) mmol/L Carbon Dioxide 29 (22-32) mmol/L Anion Gap 6 (2-11) mmol/L BUN 10 (6-24) mg/dL Creatinine 0.91 (0.51-0.95) mg/dL Est GFR ( Amer) 77.4 (>60) Est GFR (Non-Af Amer) 63.9 (>60) BUN/Creatinine Ratio 11.0 (8-20) Glucose 146 H (70-100) mg/dL Lactic Acid 1.3 (0.5-2.0) mmol/L Calcium 9.4 (8.6-10.3) mg/dL Total Bilirubin 0.60 (0.2-1.0) mg/dL AST 18 (13-39) U/L ALT 26 (7-52) U/L Alkaline Phosphatase 71 (34-104) U/L Troponin I 0.01 (<0.04) ng/mL C-Reactive Protein 51.76 H (<8.01) mg/L Total Protein 7.4 (6.4-8.9) g/dL Albumin 4.0 (3.2-5.2) g/dL Globulin 3.4 (2-4) g/dL Albumin/Globulin Ratio 1.2 (1-3) Result Diagrams: 07/06/18 15:37 07/06/18 15:37 Lab Statement: Any lab studies that have been ordered have been reviewed, and results considered in the medical decision making process. Disposition - Course Course Of Treatment: During this patient's course of treatment, she is evaluated for COPD/emphysema exacerbation. On arrival, she is on 2 L and sat remains at 98% to 100%. She is afebrile. She is tachycardia between 105 and 115. She is given a DuoNeb on arrival and labs are obtained. Labs show an elevated white count, however this is at baseline for the patient and she has been on chronic steroid use over the past 6 weeks. Other labs WNL. Discussed treatment options with the patient. As this is likely a COPD exacerbation that is continuing, with no evidence of infection, patient is able to be discharged home with the diagnosis of COPD exacerbation. She will follow-up with Dr. Niño. She has O2 at home and I have encouraged her to continue O2 during the daily use as well as nightly use. We will begin a longer course of steroids at this time due to her continuing exacerbation. She is a given a note for work. She is okay with discharge at this time. All questions answered appropriately by provider. - Diagnoses Provider Diagnoses: COPD with exacerbation Discharge - Sign-Out/Discharge Documenting (check all that apply): Patient Departure Patient Received Moderate/Deep Sedation with Procedure: No - Discharge Plan Condition: Stable Disposition: HOME Prescriptions: predniSONE TAB* [Deltasone 10 MG TAB*] 10 mg PO DAILY #60 tab Patient Education Materials: COPD (Chronic Obstructive Pulmonary Disease) (ED) Forms: *Work Release Referrals: Carey Loco MD [Primary Care Provider] - Additional Instructions: Use your oxygen at home at this time - all the time until you begin to feel better Prednisone 4 tabs 4 days, then 3 tabs 4 days, then 2 tabs 4 days, then 1 tab 4 days Please follow-up with Dr. Niño as soon as possible for your continuing symptoms If he develop any fevers, sweats, chills, please call Dr. 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
[2018-07-06 17:17] VITALS: BP 105/70
== END | disposition home or self-care (01) ==
LOC: ED 14:23
DX: J44.1 Chronic obstructive pulmonary disease with (acute) exacerbation (principal); R94.31 Abnormal electrocardiogram [ECG] [EKG]; Z88.0 Allergy status to penicillin; Z86.718 Personal history of other venous thrombosis and embolism; Z87.891 Personal history of nicotine dependence
CPT/HCPCS: 36415; 71046; 80053; 83605; 84484; 85025; 86140; 93005; 99283; A9270-GY

== ENCOUNTER 2018-07-30 10:22 | Emergency (ER) | payer OTHER ==
--- OUTSIDE RECORDS SUMMARY | 2018-07-30 10:28 | XMS REPORT | Continuity of Care Document ---
:1960 External Reference #:[id number] Author Name Chelo Mendez PA-C Address [address] [place] [address] [place] [address] Care Team Providers Name Role Phone Marker,JERMAIN Guerra Care Team Information Stack Attendant Unavailable Payers Date Identification Numbers Payment Provider Subscriber Policy Number: [id number] [facility] Libby Mitchell PayID: [id number] [place] [address] Advance Directives Description No Information Available Problems Active Problems Provider Date Globus sensation Chelo Mendez PA-C Onset: 07/04/2018 Abnormal findings diagnostic imaging of Chelo Mendez PA-C Onset: liver+biliary tract Dysphagia Chelo Mendez PA-C Onset: 07/04/2018 Epigastric pain Chelo Mendez PA-C Onset: 07/04/2018 Right upper quadrant pain Chelo Mendez PA-C Onset: 07/04/2018 Family History Description No Information Available Social History Type Date Description Comments Sex Unknown Tobacco Use Start: Unknown End: Unknown Patient is a former smoker Smoking Status Reviewed: 07/04/18 Patient is a former smoker Allergies, Adverse Reactions, Alerts Active Allergies Reaction Severity Comments Date Penicillin 07/04/2018 Medications Active Medications SIG Qnty Indications Ordering Provider Date Venlafaxine HCL ER Rachana Morrell, MD 150mg Caps ER 24HR Venlafaxine HCL ER Rachana Morrell, 75mg MD Caps ER 24HR Albuterol Sulfate Inhale The Contents Unknown Of 1 Vial Via (2.5mg/3ML) 0.083% Nebulizer 4 Times A Nebulizer Day as Needed Prednisone Please See Attached Unknown 10mg Tablets For Detailed Directions Omeprazole Take 1 Capsule By Unknown 20mg Mouth Every Day Capsules DR Ozuna-Rose Marie Hahn, phen DAHLIA Castillo 5-325mg Tablets Gabapentin Take 1 Capsule By Unknown 300mg Mouth Four Times Capsules Daily as Needed Clonazepam Take 1 Tablet By Unknown 1mg Tablets Mouth Three Times A Day as Needed Ventolin HFA Inhale 2 Puffs By Unknown Mouth Four Times A 108(90Base) mcg/Act Day as Needed Aerosol Spiriva Handihaler Daily Unknown 18mcg Capsules Immunizations Description No Information Available Vital Signs Date Vital Result Comment 07/04/2018 1:54pm Height 64 inches 5'4" Weight 252.00 lb BP Systolic 138 mmHg BP Diastolic 76 mmHg Heart Rate 102 /min BMI (Body Mass Index) 43.3 kg/m2 Results Test Date Facility Test Result H/L Range Note Comp Metabolic Panel 07/04/2018 [facility] Sodium 139 mmol/L N 135-145 Potassium 4.7 mmol/L N 3.5-5.0 Chloride 103 mmol/L N 101-111 Co2 Carbon Dioxide 29 mmol/L N 22-32 Anion Gap 7 mmol/L N 2-11 Glucose 125 mg/dL High 70-100 Blood Urea Nitrogen 14 mg/dL N 6-24 Creatinine 0.81 mg/dL N 0.51-0.95 BUN/Creatinine Ratio 17.3 N 8-20 Calcium 9.3 mg/dL N 8.6-10.3 Total Protein 7.2 g/dL N 6.4-8.9 Albumin 4.1 g/dL N 3.2-5.2 Globulin 3.1 g/dL N 2-4 Albumin/Globulin Ratio 1.3 N 1-3 Total Bilirubin 0.40 mg/dL N 0.2-1.0 Alkaline Phosphatase 77 U/L N 34-104 Alt 30 U/L N 7-52 Ast 21 U/L N 13-39 Egfr Non- 73.1 >60 Egfr 88.5 >60 1 Laboratory test 07/04/2018 [facility] C Reactive 23.87 High <8.01 2 finding Protein mg/L CBC W/Auto 07/04/2018 [facility] White Blood 14.2 3/UL High 4.8-10.8 Differential(!) [address] [place] [address] Auto CNT [phone] RBC Red Blood Count 4.52 X106/UL 4.20-6.20 Hemoglobin Blood 12.3 g/dL 12.0-18.0 Hematocrit 40.1 % 35-52 MCV (Corpuscular Volume) 88.7 FL 79-97 MCH (Corpuscular Hemoglobin) 27.1 pg 27-31 MCHC (Corpuscular Hemog Conc) 30.5 g/dL Low 32.0-36.0 RDW 17.9 % High 10.5-15.0 Platelet Count Blood Auto CNT 358 X103/UL 150-450 MPV 6.6 FL Low 7.4-10.4 Lymph% 18.7 % Low 20.0-45.0 [place]% 3.4 % 1.0-9.0 Neutrophil % 77.9 % 38.0-83.0 Absolute Lymphocytes 2.7 X103/UL 1.0-4.8 Absolute Monocytes 0.5 X103/UL 0.0-0.8 Absolute Neutrophils 11.1 X103/UL High 1.5-7.7 Laboratory test 07/04/2018 [facility] Esr Sedimentation 49 MM High 0-[address] Rate(!) [place] [address] [phone] Surgical 06/01/2012 [facility] [place] DATE: 06/02/ <SEE NOTE> 1 Because ethnic data is not always readily [...] 15-29 5 Kidney failure <15 (or dialysis) 2 [id number] Procedures Date Code Description Status 06/01/2012 90882 Colonscopy+Biopsy Completed 04/10/2010 87263 EGD+Biopsy Single Or Multiple Completed Encounters Type Date Location Provider Dx Diagnosis Office Visit 04/16/2010 [facility] Michelle Dow, 789.01 Pain Abdominal 10:00a [facility] Right Upper Quadrant Office Visit 03/23/2010 [facility] Michelle Dow, 789.01 Pain Abdominal 8:45a Associates [facility] Right Upper Quadrant Plan of Treatment Future Appointment(s):08/25/2018 1:30 pm - Roque Chaudhari DO at [facility]07/04/2018 - JERMAIN Vigil-CR10.11 Right upper quadrant painNew Xrays:MRI, Liver, W/ Contrast (78019), Ordered: R10.13 Epigastric painF45.8 Other somatoform ilogbrifrQ74.10 Dysphagia, [id number] Abnormal findings on diagnostic imaging of liver and biliary tractNew Xrays:MRI, Liver, W/ Contrast (48866), Ordered: 07/04/18
--- OUTSIDE RECORDS SUMMARY | 2018-07-30 10:28 | XMS REPORT | Continuity of Care Document ---
:1960 External Reference #:[id number] Author Name Mally Hatfield Care Team Providers Name Role Phone Leidy Juarez MD Primary Care Physician Unavailable Payers Date Identification Numbers Payment Provider Subscriber Policy Number: [id number] J[employer] Medicaid Libby Mitchell PayID: [id number] [address] [address] [place] [address] Problems Active Problems Provider Date Chronic obstructive [...] Comments General Coronary Artery Disease (CAD) General NE Father due to NE () - age 73 Mother due to Emphysema () - age 58 Siblings 4 1 brother of NE age 39 1 sister obesity Social History Type Date Description Comments Sex Unknown Marital Status 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 Hand Dominance Left-handed Cigarette Use Quit 16 Years Ago ETOH Use Denies alcohol use Tobacco Use Start: Unknown End: Patient is a former smoker Unknown Smoking Status Reviewed: 07/21/18 Patient is a former smoker Exercise Type/Frequency Exercises rarely Allergies, Adverse Reactions, Alerts Active Allergies Reaction Severity Comments Date Penicillin 01/07/2016 Medications Active Medications SIG Qnty Indications Ordering Date Provider Airduo Respiclick 1 unit inhalation 1units Feli Niño, 07/11/2018 113/14 twice daily 113-14mcg/Act Aerosol Symbicort 07/10/18 reports 10.200gm Feli Niño, 07/07/2018 80-4.5mcg/Act hasn't been using MD Aerosol due to ins not covering inhale two puffs by mouth twice a day Prednisone 4 tab daily for 3 34tabs [...] Izquierdo, 2017 100mg three times a day [employer] 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 Ventolin HFA Inhale 2 Puffs By 18unalexander Niño, 10/13/2017 108(90Base) Mouth Four Times MD mcg/Act Aerosol A Day as Needed Ibuprofen as needed Unknown 01/06/2016 200mg Tablets Albuterol Sulfate 1 vial via 270ml Feli Niño, 01/06/2016 nebulizer 4 times MD (2.5mg/3ML) 0.083% daily as needed Nebulizer Effexor XR 1 by mouth every Unknown 150mg Caps ER day, take with 75 24HR MG Vitamin D3 Maximum 1 by mouth every Unknown Strength day (when 5000Unit remembered per pt Capsules 05/08/18) Gabapentin Take 1 Capsule By Unknown 300mg Capsules Mouth Four Times A Day as Needed Effexor XR 1 cap by mouth Unknown 75mg Caps ER every day with 24HR Effexor 150 MG Hydrocodone-Acetaminop Take 1 Tablet By Unknown hen Mouth Three Times 5-325mg Tablets Daily as Needed For Pain Maximum Daily Dose Of3 Tablets Per Day Clonazepam 1 by mouth three Unknown 1mg Tablets times a day History Medications Prednisone 1 tab daily for 1 30tabs J44.9 Piedad 05/31/2018 - 5mg Tablets month DRAKE La 06/21/2018 Prednisone 3 tab daily x 2 12tabs J44.9 Holland Ye NP 04/21/2018 - 10mg Tablets days, then 2 tab 05/07/2018 daily for 2 day, and 1 tab for 2 day. Incruse Ellipta 1 act qday 30units J44.9 Suleiman Izquierdo, 12/30/2017 - [employer] 02/22/2018 62.5mcg/Inh Aerosol Ciprofloxacin HCL take 1 tab by 10tabs N39.0 Suleiman Izquierdo, 12/21/2017 - 250mg mouth twice a day [employer] 12/30/2017 Tablets for 5 days Vitamin D take 1 capsule 8caps E55.9 Suleiman Izquierdo, 10/26/2017 - (Ergocalciferol) every week for 8 [employer] 05/07/2018 weeks [id number] Capsules Spiriva Respimat 2 puffs every day 4units J43.9 Suleiman Izquierdo, 10/19/2017 - [employer]ATOR 12/26/2017 2.5mcg/Act Aerosol Prednisone take 4 tablets by 120tabs J44.9 Feli Niño, 01/07/2016 - 1mg Tablets mouth daily MD 04/01/2016 Vesicare 1 by mouth every Unknown 01/06/2016 - 10mg Tablets day prn 02/15/2017 Prednisone 5tabx 2days,4 Unknown 01/06/2016 - 10mg Tablets [id number] 01/06/2016 [id number],2tabx2 days,1tabxday. Ergocalciferol 1 tab by mouth Unknown 01/06/2016 - every week 01/06/2016 [id number] Capsules Combivent Respimat 04/21/18 reports 12gm Feli [...] Code Status Date Vaccine Reaction Lot # [id number] Given 12/21/2017 Influenza Virus Vaccine, [id number] Quadrivalent, Split, Preservative Free [id number] Given 02/15/2017 Pneumonia Vaccine [id number] Given 01/04/2017 Influenza Virus Vaccine, no immediate reaction, [id number] Quadrivalent, Split, pt tolerated well Preservative Free Vital Signs Date Vital Result Comment 07/21/2018 2:16pm Height 64 inches 5'4" Weight 252.25 lb Heart Rate 90 /min BP Systolic Sitting 118 mmHg Lue regular cuff BP Diastolic Sitting 84 mmHg Lue regular cuff Respiratory Rate 20 /min O2 % BldC Oximetry 96 % BMI (Body Mass Index) 43.3 kg/m2 07/10/2018 3:35pm Height 64 inches 5'4" Weight 250.00 lb Heart Rate 90 /min BP Systolic Sitting 115 mmHg BP Diastolic Sitting 78 mmHg Body Temperature 98.0 F O2 % BldC Oximetry 98 % BMI (Body Mass Index) 42.9 kg/m2 06/21/2018 12:52pm Height 64 inches 5'4" Weight [...] Date Facility Test Result H/L Range Note CBC Auto Diff 07/06/2018 [facility] White Blood 19.2 10^3/uL High 3.5-10.[address] [place] [address] [phone] Red Blood Count 4.22 10^6/uL N 3.70-4.87 Hemoglobin 11.8 g/dL Low 12.0-16.0 Hematocrit 36 % N 35-47 Mean Corpuscular Volume 86 fL N 80-97 Mean Corpuscular Hemoglobin 28 pg N 27-31 Mean Corpuscular HGB Conc 33 g/dL N 31-36 Red Cell Distribution Width 16 % High 10.5-15 Platelet Count 296 10^3/uL N 150-450 Mean Platelet Volume 7.2 fL Low 7.4-10.4 Abs Neutrophils 17.1 10^3/uL High 1.5-7.7 Abs Lymphocytes 1.3 10^3/uL N 1.0-4.8 Abs Monocytes 0.6 10^3/uL N 0-0.8 Abs Eosinophils 0.1 10^3/uL N 0-0.6 Abs Basophils 0.1 10^3/uL N 0-0.2 Abs Nucleated RBC 0.0 10^3/uL Granulocyte % 89.0 % Lymphocyte % 6.9 % Monocyte % 3.1 % Eosinophil % 0.5 % Basophil % 0.5 % Nucleated Red Blood Cells % 0.0 Laboratory test 07/06/2018 [facility] Troponin-I (TnI) 0.01 ng/ mL <0.04 1 finding [address] [place] [address] [phone] Comp Metabolic 07/06/2018 [facility] Sodium 138 mmol/L N 135- 145 Panel [address] [place] [address] [phone] Potassium 4.5 mmol/L N 3.5-5.0 Chloride 103 mmol/L N 101-111 Co2 Carbon Dioxide 29 mmol/L N 22-32 Anion Gap 6 mmol/L N 2-11 Glucose 146 mg/dL High 70-100 Blood Urea Nitrogen 10 mg/dL N 6-24 Creatinine 0.91 mg/dL N 0.51-0.95 BUN/Creatinine Ratio 11.0 N 8-20 Calcium 9.4 mg/dL N 8.6-10.3 Total Protein 7.4 g/dL N 6.4-8.9 Albumin 4.0 g/dL N 3.2-5.2 Globulin 3.4 g/dL N 2-4 Albumin/Globulin Ratio 1.2 N 1-3 Total Bilirubin 0.60 mg/dL N 0.2-1.0 Alkaline Phosphatase 71 U/L N 34-104 Alt 26 U/L N 7-52 Ast 18 U/L N 13-39 Egfr Non- 63.9 >60 Egfr 77.4 >60 2 Laboratory test 07/06/2018 [facility] C Reactive 51.76 mg/L High <8.[address] [place] [address] [phone] Lactic Acid 1.3 mmol/L N 0.5-2.0 3 Urine Culture And 05/26/2018 [facility] Urine Culture SEE RESULT [address] [place] [address] [phone] Urinalysis Profile 05/26/2018 [facility] Urine Color Straw [address] [place] [address] [phone] Urine Appearance Clear Urine Specific Hilton 1.002 Low 1.010-1.030 Urine pH 8.0 N [...] Cell Present Abnormal Absent Laboratory test 05/26/2018 [facility] D Dimer < 200 N Less [address] Quantitative ng/mL Than [address] [place] [address] [phone] Inr/Protime 05/26/2018 [facility] Inr 0.90 N 0.77-1.[address] [place] [address] [phone] Laboratory test 05/26/2018 [facility] C Reactive 40.24 High < 8.[address] Protein mg/[place] [address] [phone] Comp Metabolic 05/26/2018 [facility] Sodium 137 N 135-[address] mmol/[place] [address] [phone] Potassium 4.1 mmol/L N 3.5-5.0 Chloride 103 [...] Egfr Non- 77.5 >60 Egfr 93.8 >60 6 Laboratory test 05/26/2018 [facility] Lactic Acid 1.9 mmol/L N 0.5-2.0 [address] [place] [address] [phone] Rapid Influenza A B Antigen SEE RESULT BELOW 8 Troponin-I (TnI) 0.01 ng/mL <0.04 9 CBC Auto 05/26/2018 [facility] White Blood 20.0 10^3/uL High 3.5-10.[address] [place] [address] [phone] Red Blood Count 4.52 10^6/uL N 3.70-4.87 [...] Blood Cells % 0.1 Rapid Influenza 05/26/2018 [facility] Influenza A NEGATIVE Negative 10 A & B Molecular [address] [place] [address] [phone] Influenza B Molecular NEGATIVE Negative Basic Metabolic Panel 05/18/2018 [facility] Sodium 139 mmol/L N 135-[address] [place] [address] [phone] Potassium 4.6 mmol/L N 3.5-5.0 Chloride 104 mmol/L N 101-111 Co2 Carbon Dioxide 29 mmol/L N 22-32 Anion Gap 6 mmol/L N 2-11 Glucose 121 mg/dL High 70-100 Blood Urea Nitrogen 10 mg/dL N 6-24 Creatinine 0.77 mg/dL N 0.51-0.95 BUN/Creatinine Ratio 13.0 N 8-20 Calcium 9.6 mg/dL N 8.6-10.3 Egfr Non- 77.5 >60 Egfr 93.8 >60 11 Liver Function 05/18/2018 [facility] Total Protein 7.0 g/dL N 6.4-8.[address] [place] [address] [phone] Albumin 4.2 g/dL N 3.2-5.2 Globulin 2.8 g/dL N 2-4 Albumin/Globulin Ratio 1.5 N 1-3 Total Bilirubin 0.30 mg/dL N 0.2-1.0 Direct Bilirubin 0.10 mg/dL N 0.03-0.18 Indirect Bilirubin 0.2 mg/dL Low 0.3-1.0 Alkaline Phosphatase 84 U/L N 34-104 Alt 20 U/L N 7-52 Ast 20 U/L N 13-39 Laboratory test 05/18/2018 [facility] Folic Acid > 20.00 > 3.99 finding 101 (Folate) ng/[place] [address] [phone] Laboratory test 04/21/2018 [facility] Vitamin D 22.1 ng/mL N 20-[address] Total 25(Oh) [place] [address] [phone] Laboratory test 04/21/2018 [facility] Lipase 20 U/L N 11.0- 82.[address] [place] [address] [phone] Hemoglobin A1c (Glyco HGB) 6.3 % High 4.0-5.6 12 Laboratory test 04/17/2018 [facility] Lactic Acid 1.9 mmol/L N 0.5-2.0 [address] [place] [address] [phone] CBC Auto Diff 04/17/2018 [facility] White Blood 18.7 High 3.5- 10.[address] Count 10^3/[place] [address] [phone] Red Blood Count 4.53 10^6/uL N 4.00-5.40 [...] Cells % 0.1 Comp Metabolic Panel 04/17/2018 [facility] Sodium 138 mmol/L N 135-[address] [place] [address] [phone] Potassium 4.0 mmol/L N 3.5-5.0 Chloride 105 [...] Egfr Non- 76.4 >60 Egfr 92.4 >60 14 Laboratory test 04/17/2018 [facility] Troponin-I (TnI) 0.00 ng/ mL <0.04 [address] [place] [address] [phone] B-Type Natriuretic Peptide BNP 42 pg/mL <=100 Blood Culture SEE RESULT BELOW 16 Urinalysis Profile 04/16/2018 [facility] Urine Color Yellow [address] [place] [address] [phone] Urine Appearance Cloudy Urine Specific Hilton 1.004 Low 1.010-1.030 Urine pH 6.0 N [...] Present Abnormal Absent Urine Culture And 04/16/2018 [facility] Urine Culture SEE RESULT [address] [place] [address] [phone] Rapid Influenza A 04/16/2018 [facility] Influenza A NEGATIVE Negative 18 & B Molecular [address] [place] [address] [phone] Influenza B Molecular NEGATIVE Negative Laboratory test 04/16/2018 [facility] Rapid Influenza SEE RESULT [address] [place] [address] [phone] CBC Auto Diff 04/16/2018 [facility] White Blood 9.7 10^3/uL N 3.5-[address] Count .8 [place] [address] [phone] Red Blood Count 4.72 10^6/uL N 4.00-5.40 [...] Blood Cells % 0 Laboratory test 04/16/2018 [facility] Lactic Acid 1.1 mmol/L N 0.5-2.0 20 finding [address] [place] [address] [phone] B-Type Natriuretic Peptide BNP 11 pg/mL <=100 Comp Metabolic Panel 04/16/2018 [facility] Sodium 137 mmol/L N 135-145 [address] [place] [address] [phone] Potassium 4.0 mmol/L N 3.5-5.0 Chloride 103 [...] Egfr Non- 73.1 >60 Egfr 88.5 >60 21 CKMB 04/16/2018 [facility] CKMB ng/mL 1.7 ng/mL N 0.6-6.[address] [place] [address] [phone] Laboratory test 04/16/2018 [facility] Troponin-I 0.00 ng/mL < 0.04 [address] (TnI) [place] [address] [phone] Creatine Kinase(CK) 84 U/L N 10-223 C Reactive Protein 39.09 mg/L High <8.01 Blood Culture SEE RESULT BELOW 23 Laboratory 02/25/2018 [facility] Culture Throat SEE RESULT 24, 25 test finding [address] [place] [address] [phone] Laboratory 02/25/2018 [facility] Rapid Strep Negative Negative 26 test finding [address] [place] [address] [phone] Laboratory 02/07/2018 [facility] Gardnerella/Ye SEE RESULT 27, 28 test finding [address] ast: [place] [address] Dna [phone] GC/Chlamydia 02/07/2018 [facility] Chlamydia Negative Negative Amplified Rna [address] [place] [address] Rna [phone] Neisseria gonorrhoeae (GC) Rna Negative Negative Urine Culture And 02/07/2018 [facility] Urine SEE RESULT 29 , [address] [place] [address] [phone] Poc Urinalysis 02/07/2018 [facility] Poc Negative Negative [address] Glucose, [place] [address] Urine [phone] Poc Bilirubin, Urine Negative Negative Poc Ketone, Urine Negative Negative Poc Specific Hilton, Urine 1.010 N 1.010-1.030 Poc Blood, Urine 1+ Abnormal Negative Poc pH, Urine 5.0 N 5-9 Poc Protein, Urine Negative Negative Poc Urobilinogen, Urine 0.2 Negative Poc Nitrite, Urine Negative Negative Poc Leukocytes, Urine 3+ Abnormal Negative Poc Color, Urine Yellow Poc Clarity, Urine Clear 31 Ua Routine 12/21/2017 [employer] Ua Specific Hilton 1.020 Ua PH 5 Ua Color yellow Ua Appera clear Ua WBC ++ Ua Protein trace Ua Glucose normal Ua Ketones negative Ua Bilirubin negative Ua Urobilinogen normal Ua Nitrite negative Ua Occult Blood about 50 Urinalysis Profile 12/21/2017 [facility] Urine Color Yellow [address] [place] [address] [phone] Urine Appearance Cloudy Urine Specific Hilton 1.012 N 1.010-1.030 Urine pH 5.0 N [...] Abnormal Absent Urine Culture And 12/21/2017 [facility] Urine Culture SEE RESULT [address] [place] [address] [phone] Connective Tissue 10/07/2017 [facility] Anti-Nuclear 0.3 U [address] [place] [address] [phone] Cyclic Citrullinated Peptide <15.6 U 34 Interpretation See Comment 35 Laboratory test 08/16/2017 [facility] Vitamin B12 419 pg/mL N 180-914 [address] [place] [address] [phone] Vitamin D Total 25(Oh) 15.9 ng/mL Low 20-50 Ceruloplasmin 27.9 mg/dL 37 Urine Culture And 08/16/2017 [facility] Urine Culture SEE RESULT [address] [place] [address] [phone] CBC Auto Diff 08/16/2017 [facility] White Blood 7.7 10^3/uL N 3.5-[address] Count 0.8 [place] [address] [phone] Red Blood Count 4.64 10^6/uL N 4.00-5.40 [...] % 0.1 Comp Metabolic Panel 08/16/2017 [facility] Sodium 139 mmol/L N 139-[address] [place] [address] [phone] Potassium 4.7 mmol/L N 3.5-5.0 Chloride 104 [...] Egfr Non- 73.4 >60 Egfr 94.4 >60 39 Laboratory test 08/16/2017 [facility] Cortisol 4.63 g/dL [address] [place] [address] [phone] Laboratory test 08/16/2017 [facility] TSH (Thyroid Stim 1.28 N 0.34- finding [address] Horm) mcIU/mL 5.60 [place], [place] [address] [phone] Lipid Profile 08/16/2017 [facility] Triglycerides 237 mg/dL 41 (Trig/Chol/HDL) [address] [place], [place] [address] [phone] Cholesterol 166 mg/dL 42 HDL Cholesterol 46.2 mg/dL 43 LDL Cholesterol 72 mg/dL 44 Urine Culture And 03/26/2017 [facility] Urine SEE RESULT 45 , [address] Culture BELOW [place], [place] [address] [phone] Poc Urinalysis 03/26/2017 [facility] Poc Negative Negative [address] Glucose, [place] [address] Urine [phone] Poc Bilirubin, Urine Negative Negative Poc Ketone, Urine Negative Negative Poc Specific Hilton, Urine <=1.005 Low 1.010-1.030 Poc Blood, Urine Trace-lysed Abnormal Negative Poc pH, Urine 6.0 N 5-9 Poc Protein, Urine Negative Negative Poc Urobilinogen, Urine 0.2 Negative Poc Nitrite, Urine Negative Negative Poc Leukocytes, Urine 1+ Abnormal Negative Poc Color, Urine Yellow Poc Clarity, Urine Clear 47 Xray 12/03/2016 [facility] CT Lung <pending> [address] [place] [address] Dose [phone] Laboratory test 02/12/2016 [facility] Alpha 1 147 mg/dL N 100 - [address] Antitrypsin A1a 190 [place], [place] [address] [phone] 1 Troponin-I testing on Plasma Separator Tubes (PST) has a known false positive rate of 0.20-0.40%. All positive troponins reflex immediately to secondary confirmatory testing. Using the [employer] DxI 800 Access Immunoassay systems, the 99th percentile upper reference limit was demonstrated to be < 0.03 ng/mL. 2 Because ethnic data is not always readily [...] 15-29 5 Kidney failure <15 (or dialysis) 3 [facility] Severe Sepsis and Septic Shock Management Bundle Measure requires all lactic acids initially measuring >2.0 mmol/L be repeated. 4 SEE RESULT BELOW Name: LIBBY MITCHELL : [address]: Dayana Maher DO Acct: [id number] Unit: [id number] AGE: 57 Location: [place] [address] Re05/26/18 SEX: F Status: ADM Chante SPEC: [id number] CRICKET: 05/26/[address]: Claire ALY REQ: [id number] RECD: 05/26/18 STATUS: JONO BO DR: Jessie Kumar MD _ SOURCE: URINE SPDESC: ORDERED: Urine Culture Procedure Result Reported Site Urine Culture Final 05/27/18- 1216 ML No growth of clinically significant organisms * ML - Main Lab . END OF REPORT DEPARTMENT OF PATHOLOGY, [address] [place] [address] Joby Hays M.D. Director [facility] # [id number] Please note: The following may produce a false positive D Dimer test: - Rheumatoid factor greater than 60 IU/ml - Plasma hemoglobin greater than 0.05 gm/dl - Bilirubin greater than 50 mg/dl - Lipids greater than 1000 mg/dl - FDP greater than 20 ug/ml 6 Because ethnic data is not always readily [...] 15-29 5 Kidney failure <15 (or dialysis) 7 [facility] Severe Sepsis and Septic Shock Management Bundle Measure requires all lactic acids initially measuring >2.0 mmol/L be repeated. 8 SEE RESULT BELOW Name: LIBBY MITCHELL : [address]: Aida Jalloh MD Acct: [id number] Unit: [id number] AGE: 57 Location: ED Re05/26/18 SEX: F Status: REG ER SPEC: [id number] CRICKET: 05/26/[address]: Claire ALY REQ: [id number] RECD: 05/26/18 STATUS: JONO BO DR: Jessie Kumar MD _ SOURCE: NASAL SPDESC: ORDERED: Flu A B Request Procedure Result Reported Site Rapid Influenza A B Request Final 05/26/18- 58 ML Specimen received for Influenza A/B Molecular testing * ML - Main Lab . END OF REPORT DEPARTMENT OF PATHOLOGY, [address] [place] [address] Joby Hays M.D. Director [facility] # [id number] 9 Troponin-I testing on Plasma Separator Tubes (PST) has a known false positive rate of 0.20-0.40%. All positive troponins reflex immediate secondary confirmatory testing. 10 [employer] Professor: [id number] 11 Because ethnic data is not always [...] 5 Kidney failure <15 (or dialysis) 12 Therapeutic target for the treatment of diabetes mellitus patients is <7% HBA1C, and in selective patients <6.0%. Please refer to [place] [employer] diabetic care guidelines for further information. 13 [facility] Severe Sepsis and Septic Shock Management Bundle Measure requires all lactic acids initially measuring >2.0 mmol/L be repeated. 14 Because ethnic data is not always readily [...] 15-29 5 Kidney failure <15 (or dialysis) 15 Troponin-I testing on Plasma Separator Tubes (PST) has a known false positive rate of 0.20-0.40%. All positive troponins reflex immediate secondary confirmatory testing. 16 SEE RESULT BELOW Name: LIBBY MITCHELL : [address]: John Monreal MD Acct: [id number] Unit: [id number] AGE: 57 Location: ED Re04/17/18 SEX: F Status: DEP ER SPEC: [id number] CRICKET: 04/17/[address] [facility] [address]: Demetrice ALY REQ: [id number] RECD: 04/17/18 STATUS: JONO BO DR: [facility] Iggy Kumar MD _ SOURCE: BLOOD,VENO SPDESC: ORDERED: Blood Cult Procedure Result Reported Site Aerobic Culture Bottle Final 04/22/181818 ML No Growth Day 5 Anaerobic Culture Bottle Final 04/22/181818 ML No Growth Day 5 * - Main Lab . END OF REPORT DEPARTMENT OF PATHOLOGY, [address] [place] [address] Joby Hays M.D. Director [facility] # [id number] 17 SEE RESULT BELOW Name: LIBBY MITCHELL : [address]: Hoang Macario MD Acct: [id number] Unit: [id number] AGE: 57 Location: ED Re04/16/18 SEX: F Status: DEP ER SPEC: [id number] CRICKET: 04/16/[address] [facility] [address]: Hoang Macario MD REQ: [id number] RECD: 04/16/18 STATUS: JONO BO DR: Iggy Kumar MD _ SOURCE: URINE SPDESC: ORDERED: Urine Culture Procedure Result Reported Site Urine Culture Final 04/18/18- 08 ML No growth of clinically significant organisms * ML - Main Lab . END OF REPORT DEPARTMENT OF PATHOLOGY, [address] [place] [address] Joby Hays M.D. Director [facility] # [id number] 18 [employer] Professor: [id number] 19 SEE RESULT BELOW Name: LIBBY MITCHELL : [address]: Hoang Macario MD Acct: [id number] Unit: [id number] AGE: 57 Location: ED Re04/16/18 SEX: F Status: REG ER SPEC: [id number] CRICKET: 04/16/[address] [facility] [address]: Hoang Macario MD REQ: [id number] RECD: 04/16/18 STATUS: JONO BO DR: Iggy Kumar MD _ SOURCE: [facility]: ORDERED: Flu A B Request Procedure Result Reported Site Rapid Influenza A B Request Final 04/16/181730 ML Specimen received for Influenza A/B Molecular testing * ML - Main Lab . END OF REPORT DEPARTMENT OF PATHOLOGY, [address] [place] [address] Joby Hays M.D. Director [facility] # [id number] [facility] Severe Sepsis and Septic Shock Management Bundle Measure requires all lactic acids initially measuring >2.0 mmol/L be repeated. 21 Because ethnic data is not always readily [...] 15-29 5 Kidney failure <15 (or dialysis) 22 Troponin-I testing on Plasma Separator Tubes (PST) has a known false positive rate of 0.20-0.40%. All positive troponins reflex immediate secondary confirmatory testing. 23 SEE RESULT BELOW Name: LIBBY MITCHELL : [address]: Hoang Macario MD Acct: [id number] Unit: [id number] AGE: 57 Location: ED Re04/16/18 SEX: F Status: DEP ER SPEC: [id number] CRICKET: 04/16/18-[address] [facility] [address]: Hoang Macario MD REQ: [id number] RECD: 04/16/18 STATUS: JONO BO DR: Iggy Kumar MD _ SOURCE: BLOOD,VENO [facility]: ORDERED: Blood Cult Procedure Result Reported Site Aerobic Culture Bottle Final 04/21/18- 1654 ML No Growth Day 5 Anaerobic Culture Bottle Final 04/21/18- 1654 ML No Growth Day 5 * ML - Main Lab . END OF REPORT DEPARTMENT OF PATHOLOGY, [address] [place] [address] Joby Hays M.D. Director [facility] # [id number] 25 SEE RESULT BELOW Name: LIBBY MITCHELL : [address]: Shanice Alarcon MD Acct: [id number] Unit: [id number] AGE: 57 Location: [facility] Re02/25/18 SEX: F Status: DEP ER SPEC: [id number] CRICKET: 02/25/[address] [facility] [address]: Jr Vallejo NP REQ: [id number] RECD: 02/25/18 STATUS: JONO BO DR: Shanice Kumar MD _ SOURCE: THROAT SPDESC: ORDERED: Throat Culture COMMENTS: [id number] Procedure Result Reported Site Throat Culture Final 02/27/18- 1258 ML Organism 1 NORMAL GUILLERMO Quantity 2+ Throat cultures are clinically indicated to detect the presence of group A strep, arcanobacterium and yeast. In certain cases, predominating organisms will be reported. * ML - Main Lab . END OF REPORT DEPARTMENT OF PATHOLOGY, [address] [place] [address] Joby Hays M.D. Director [facility] # [id number] 26 [employer] Professor: [id number] Would you like to order Trichomonas Vaginalis RNA testing? N 28 SEE RESULT BELOW Name: LIBBY MITCHELL : [address]: Michelle Gleason MD Acct: [id number] Unit: [id number] AGE: 57 Location: [facility] Re02/07/18 SEX: F Status: DEP ER SPEC: [id number] CRICKET: 02/07/18-[address] [facility] [address]: Michelle Gleasno MD REQ: [id number] RECD: 02/07/18 STATUS: COMP OTHR DR: Iggy Kumar MD _ SOURCE: VAGINAL SPDESC: ORDERED: Raheem,Yeast DNA COMMENTS: [id number] Would you like to order Trichomonas Vaginalis [...] END OF REPORT DEPARTMENT OF PATHOLOGY, [address] [place] [address] Joby Hays M.D. Director [facility] # [id number] SEE RESULT BELOW Name: LIBBY MITCHELL : [address]: Michelle Gleason MD Acct: [id number] Unit: [id number] AGE: 57 Location: [facility] Re02/07/18 SEX: F Status: DEP ER SPEC: [id number] CRICKET: 02/07/18-[address] [facility] [address]: Michelle Gleason MD REQ: [id number] RECD: 02/07/18 STATUS: COMP ANUPAM DR: Iggy Kumar MD _ SOURCE: URINE SPDESC: ORDERED: Urine Culture COMMENTS: [id number] Procedure Result Reported Site Urine Culture Final 02/08/18- 1326 ML No growth of clinically significant organisms * ML - Main Lab . END OF REPORT DEPARTMENT OF PATHOLOGY, [address] [place] [address] Joby Hays M.D. Director [facility] # [id number] 31 Humanities And Languages Professor: [id number] SEE RESULT BELOW Name: RANIJIMLIBBY : [address]: Suleiman Izquierdo NP Acct: [id number] Unit: [id number] AGE: 57 Location: [facility] Re12/21/17 SEX: F Status: REG REF SPEC: [id number] CRICKET: 12/21/17 [place] CALDERÓN: Suleiman Izquierdo NP REQ: [id number] RECD: 12/21/17 STATUS: COMP _ SOURCE: URINE [facility]: ORDERED: Urine Culture COMMENTS: [id number] Urine Source: Clean Catch Procedure Result Reported Site Urine Culture Final 12/22/17- 165 ML No growth of clinically significant organisms * ML - Main Lab . END OF REPORT DEPARTMENT OF PATHOLOGY, [address] [place] [address] Joby Hays M.D. Director [facility] # [id number] 33 REFERENCE VALUE <=1.0 (Negative) 34 REFERENCE VALUE <20.0 (Negative) 35 Tests for antibodies to dsDNA and CORTEZ antigens are not performed automatically unless the DEDRA result is > or= 3.0 U. Studies performed at [facility] indicate that positive DEDRA results <3.0 U are rarely accompanied by positive second order tests. Test Performed by: [address] [id number] 36 Normal Range 180 to 914 Indeterminate Range 145 to 180 Deficient Range <145 37 REFERENCE VALUE 20.0 - 51.0 Test Performed by: [facility] - [address] [address] 38 SEE RESULT BELOW Name: LIBBY MITCHELL : [address]: Hortensia Recinos CNM Acct: [id number] Unit: [id number] AGE: 56 Location: [facility] Re08/16/17 SEX: F Status: REG REF SPEC: [id number] CRICKET: 08/16/[address]: Hortensia Recinos CNM REQ: [id number] RECD: 08/16/17 STATUS: JONO BO DR: Rachana Kumar MD _ SOURCE: URINE SPDESC: ORDERED: Urine Culture QUERIES: Urine Source: Clean Catch Procedure Result Reported Site Urine Culture Final 08/17/17- 1326 ML No growth of clinically significant organisms * ML - Main Lab . END OF REPORT DEPARTMENT OF PATHOLOGY, [address] [place] [address] Joby Hays M.D. Director [facility] # [id number] 39 Because ethnic data is not always readily [...] 15-29 5 Kidney failure <15 (or dialysis) 40 AM 8.7-22.4 PM <10 41 Desirable: <150 Borderline High: 150-199 High: 200-499 Very High: >500 42 Desirable: <200 Borderline High: 200-239 High: >239 43 Low: <40 Desirable: 40-60 High: >60 44 Desirable: <100 Near Optimal: 100-129 Borderline High: 130-159 High: 160-189 Very High: >189 45 [id number] SEE RESULT BELOW Name: CHRISSTEODORALIBBY : [address]: Shanice Oates MD Acct: [id number] Unit: [id number] AGE: 56 Location: [facility] Re03/26/17 SEX: F Status: DEP ER SPEC: [id number] CRICKET: 03/26/17-[address] [facility] [address]: Shanice Oates MD REQ: [id number] RECD: 03/26/179884 STATUS: COMP [facility] DR: Iggy Kumar MD _ SOURCE: URINE SPDESC: ORDERED: Urine Culture COMMENTS: [id number] Procedure Result Reported Site Urine Culture Final 03/27/17- 1204 ML No Growth (<1,000 CFU/mL) * ML - MAIN LAB (PSC1) . END OF REPORT * ML=Testing performed at Main Lab DEPARTMENT OF PATHOLOGY, [address] [place] [address] Joby Hays M.D. Director [facility] # [id number] 47 Humanities And Languages Professor: [id number] Test Performed by: [place] [address] Precision Assembly Inspector: Tarun Saab II, M.D., Ph.D. Procedures Date Code Description Status 11/17/2017 [id number] Bone Mineral Density Test Completed 11/17/2017 91513951 Mammogram Completed 04/06/2016 11249 EKG, Interpretation Only Completed 02/13/2016 92034 Polysomnography Sleep Staging 4+ Parameters Completed 02/12/2016 81727 Diffusing Capacity Completed 02/12/2016 04760 Plethysmography Determination Lung Volumes & Per Completed Airway Resist 02/12/2016 08590 Pulmonary Stress Test Simple Completed 02/12/2016 35496 Pulmonary Function><Bronchodil Completed 04/22/2014 12187380 Mammogram Completed 03/07/2012 31761015 Colonoscopy Completed Encounters Type Date Location Provider Dx Diagnosis Office Visit 07/21/2018 Pulmonology And Piedad J44.9 Chronic 2:30p [facility] [place] obstructive [facility] pulmonary disease, unspecified R09.02 Hypoxemia Office Visit 07/10/2018 3:40p [facility] Internal Leidy Juarez J44.9 Chronic Medicine MD obstructive pulmonary disease, unspecified K21.9 Gastro-esophageal reflux disease without esophagitis R73.03 Prediabetes Office Visit 06/21/2018 1:15p Pulmonology And Feli J44.1 Chronic [facility] [place] obstructive [facility] pulmonary disease w (acute) exacerbation R09.02 Hypoxemia Office Visit 06/02/2018 2:00p [facility] Internal Mari J44.9 Chronic Medicine - [place] Marker, RPA-C obstructive Rd pulmonary disease, unspecified J18.9 Pneumonia, unspecified organism K83.9 Disease of biliary tract, unspecified Office Visit 05/31/2018 10:45a Pulmonology And Feli J44.9 Chronic [facility] Of [place] obstructive [facility] pulmonary disease, unspecified J18.9 Pneumonia, unspecified organism Office Visit 05/28/2018 [facility] Cesiila Chinchilla, J44.1 Chronic 9:21a Assoc,pc N.P. obstructive Hospitalists pulmonary disease w (acute) exacerbation Office Visit 05/26/2018 [facility] Leit J96.01 Acute respiratory 9:20a Assoc,pc Danilo'margaret PA-C failure with Hospitalists hypoxia J44.1 Chronic obstructive pulmonary disease w (acute) exacerbation A41.9 Sepsis, unspecified organism Office Visit 05/12/2018 9:00a Pulmonology And Feli J44.9 Chronic [facility] Of [place] obstructive [facility] pulmonary disease, unspecified J18.9 Pneumonia, unspecified organism R10.9 Unspecified abdominal pain Office Visit 05/08/2018 [place] Sin Sol, R47.89 Other speech 10:00a Neurologic M.DSunny disturbances Services Of [facility] R51 Headache R25.1 Tremor, unspecified Office Visit 04/21/2018 10:00a [facility] Internal Holland Ye, J44.9 Chronic obstructive 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 respiratory [place] infection, unspecified Office Visit 02/22/2018 1:40p [facility] Internal Holland Ye, TRANSFORMER COIL WINDER M54.9 Dorsalgia , Medicine unspecified J44.9 Chronic obstructive pulmonary disease, unspecified Office Visit 02/02/2018 Marisol Sol R47.89 Other speech 1:45p Neurologic MBeverley disturbances Services Of [facility] S06.0x0S Concussion without loss of consciousness, sequela Office Visit 12/21/2017 2:20p [facility] Internal Suleiman Izquierdo, N39.0 Urinary tract Medicine - [place] DULL COAT MILL OPERATOR infection, site Rd not specified J43.8 Other emphysema E55.9 Vitamin D deficiency, unspecified E66.09 Other obesity due to excess calories Z23 Encounter for immunization Office Visit 10/26/2017 9:20a [facility] Internal Suleiman Izquierdo, Z00.00 Encntr for Medicine - [place] DULL COAT MILL OPERATOR general adult Rd medical exam w/o [...] [facility] [place] obstructive [facility] pulmonary disease, unspecified E66.09 Other obesity due to excess calories Office Visit 10/07/2017 8:20a [facility] Internal Iggy R47.89 Other speech Medicine - Kimi Kumar disturbances [address] M79.606 Pain in leg, unspecified J44.9 Chronic obstructive pulmonary disease, unspecified Office Visit 05/26/2017 Marisol Walkerer Ebenezer, R47.89 Other speech 1:45p Neurologic M.DSunny disturbances Services Of [facility] S06.0x0S Concussion without loss of consciousness, sequela R41.89 Oth symptoms and signs w cognitive functions and awareness Office Visit 05/23/2017 10:00a [facility] Internal Iggy R47.89 Other speech Crow Kumar M.D. disturbances [address] Z12.39 Encounter for ot screening for malignant neoplasm of breast J44.9 Chronic obstructive pulmonary disease, unspecified E66.9 Obesity, unspecified Office Visit 04/11/2017 [place] Sin Sol, R47.89 Other speech 1:00p Neurologic M.DSunny disturbances Services Of [facility] Office Visit 02/15/2017 [facility] Internal Iggy Kumar R47.9 Unspecified 8:40a Medicine - [place] M.DSunny speech Rd disturbances J44.9 Chronic obstructive pulmonary disease, unspecified M51.16 Intervertebral disc disorders w radiculopathy, lumbar region E66.8 Other obesity Z68.38 Body mass index (BMI) 38.0-38.9, adult Z23 Encounter for immunization Office Visit 01/04/2017 3:20p [facility] Internal Iggy Kumar J44.9 Chronic Medicine - M.DSunny obstructive [address] pulmonary disease, unspecified S06.0x0A Concussion without loss of consciousness, initial encounter Z23 Encounter for immunization Office Visit 11/30/2016 9:15a Pulmonology And Feli J44.9 Chronic [facility] [place] obstructive [facility] pulmonary disease, unspecified Z12.2 Encntr screen for malignant neoplasm of respiratory organs Z87.891 Personal history of nicotine dependence Office Visit 04/12/2016 Neurohospitalist Maninder Castro 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 Office Visit 04/02/2016 Pulmonology And Sleep Feli J44.9 Chronic 8:30a Services Of [facility] MD [place] obstructive pulmonary disease, unspecified E66.09 Other obesity due to excess calories Office Visit 01/07/2016 10:15a Pulmonology And Feli J44.9 Chronic Sleep Services Of [place] obstructive [facility] pulmonary disease, unspecified G47.9 Sleep disorder, unspecified E66.09 Other obesity due to excess calories Plan of Treatment Future Appointment(s):10/03/2018 3:30 pm - Feli Niño MD at [facility]ology [facility] Services [facility]08/24/2018 3:15 pm - Sin Sol M.D. at [facility]07/21/2018 - [place] La, NPJ44.9 Chronic obstructive pulmonary disease, unspecifiedReferral:Megan Navarrete, PT, DPT, Physical TherapistFollow up:Use Symbicort instead of your current fmfpcnpY64.02 Hypoxemia
--- OUTSIDE RECORDS SUMMARY | 2018-07-30 10:28 | XMS REPORT | Continuity of Care Document ---
:1960 External Reference #:[id number] Author Name Chelo Mendez PA-C Address [address] [place] [address] [place] [address] Care Team Providers Name Role Phone Marker,JERMAIN Guerra Care Team Information Mica Machine Operator Unavailable Payers Date Identification Numbers Payment Provider Subscriber Policy Number: [id number] [facility] Libby Mitchell PayID: [id number] [place] [address] Advance Directives Description No Information Available Problems [...] Differential(!) [address] [place] [address] Auto CNT [phone] RBC Red Blood Count 4.52 X106/UL 4.20-6.20 Hemoglobin Blood 12.3 g/dL 12.0-18.0 Hematocrit 40.1 % 35-52 MCV (Corpuscular Volume) 88.7 FL 79-97 MCH (Corpuscular Hemoglobin) 27.1 pg 27-31 MCHC (Corpuscular Hemog Conc) 30.5 g/dL Low 32.0-36.0 RDW 17.9 % High 10.5-15.0 Platelet Count Blood Auto CNT 358 X103/UL 150-450 MPV 6.6 FL Low 7.4-10.4 Lymph% 18.7 % Low 20.0-45.0 [place]% 3.4 % 1.0-9.0 Neutrophil % 77.9 % 38.0-83.0 Absolute Lymphocytes 2.7 X103/UL 1.0-4.8 Absolute Monocytes 0.5 X103/UL 0.0-0.8 Absolute Neutrophils 11.1 X103/UL High 1.5-7.7 Laboratory test 07/04/2018 [facility] Sedimentation 49 MM High 0-[address] Rate(!) [place] [address] [phone] Surgical 06/01/2012 [facility] [place] [place] Pathology DATE: 06/02/ <SEE NOTE> [...] 5 Kidney failure <15 (or dialysis) 2 [id number] Procedures Date Code Description Status 06/01/2012 96776 Colonscopy+Biopsy Completed 04/10/2010 74964 EGD+Biopsy Single Or Multiple Completed Encounters Type Date Location Provider Dx Diagnosis Office Visit 04/16/2010 [facility] Michelle Dow, 789.01 Pain Abdominal 10:00a Associates [facility] HEEL BURNISHER-C Right Upper Quadrant Office Visit 03/23/2010 [facility]enter[facility] Michelle Dow, 789.01 Pain Abdominal 8:45a Associates [facility]-C Right Upper Quadrant Plan of Treatment Future Appointment(s):08/25/2018 1:30 pm - Roque Chaudhari DO at [facility]07/04/2018 - JERAMIN Vigil-CR10.11 Right upper quadrant painNew Xrays:MRI, Liver, W/ Contrast (24665), Ordered: R10.13 Epigastric painF45.8 Other somatoform jktfmsewwK65.10 Dysphagia, qbjxkukfzuqO34.2 Abnormal findings on diagnostic imaging of liver and biliary tractNew Xrays:MRI, Liver, W/ Contrast (38712), Ordered: 07/04/18
--- OUTSIDE RECORDS SUMMARY | 2018-07-30 10:28 | XMS REPORT | Continuity of Care Document ---
:1960 External Reference #:[id number] Author Name Chelo Mendez PA-C Address [address] [place] [address] [place] [address] Care Team Providers Name Role Phone Marker,JERMAIN Guerra Care Team Information Palliative Care Specialist Unavailable Payers Date Identification Numbers Payment Provider Subscriber Policy Number: [id number] [facility] Libby Mitchell PayID: [id number] [place] [address] Advance Directives Description No Information Available Problems [...] Differential(!) [address] [place] [address] Auto CNT [phone] RBC Red Blood Count 4.52 X106/UL 4.20-6.20 Hemoglobin Blood 12.3 g/dL 12.0-18.0 Hematocrit 40.1 % 35-52 MCV (Corpuscular Volume) 88.7 FL 79-97 MCH (Corpuscular Hemoglobin) 27.1 pg 27-31 MCHC (Corpuscular Hemog Conc) 30.5 g/dL Low 32.0-36.0 RDW 17.9 % High 10.5-15.0 Platelet Count Blood Auto CNT 358 X103/UL 150-450 MPV 6.6 FL Low 7.4-10.4 Lymph% 18.7 % Low 20.0-45.0 [place]% 3.4 % 1.0-9.0 Neutrophil % 77.9 % 38.0-83.0 Absolute Lymphocytes 2.7 X103/UL 1.0-4.8 Absolute Monocytes 0.5 X103/UL 0.0-0.8 Absolute Neutrophils 11.1 X103/UL High 1.5-7.7 Laboratory test 07/04/2018 [facility] Esr Sedimentation 49 MM High 0-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
--- OUTSIDE RECORDS SUMMARY | 2018-07-30 10:28 | XMS REPORT | Continuity of Care Document ---
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 Hand Dominance Left-handed Cigarette Use Quit 16 Years Ago ETOH Use Denies alcohol use Tobacco Use Start: Unknown End: Patient is a former smoker Unknown Smoking Status Reviewed: 07/10/18 Patient is a former smoker Exercise Type/Frequency Exercises rarely Allergies, Adverse Reactions, Alerts Active Allergies Reaction Severity Comments Date Penicillin 01/07/2016 Medications Active Medications SIG Qnty Indications Ordering Date Provider Symbicort 07/10/18 reports 10.200gm Feli Niño, 07/07/2018 [...] Izquierdo, 2017 100mg three times a day 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 Ventolin HFA Inhale [...] qday 30units J44.9 Suleiman Izquierdo, 12/30/2017 - 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 02/22/2018 62.5mcg/Inh Aerosol Ciprofloxacin HCL take 1 tab by 10tabs N39.0 Suleiman Izquierdo, 12/21/2017 - 250mg mouth twice a day 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 12/30/2017 Tablets for 5 days Vitamin D take 1 capsule 8caps E55.9 Suleiman Izquierdo, 10/26/2017 - (Ergocalciferol) every week for 8 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 Ergocalciferol 1 tab by mouth Unknown 01/06/2016 - every week 01/06/2016 [id number] Capsules Combivent Respimat 04/21/18 reports 12gm Feli [...] Code Status Date Vaccine Reaction Lot # 28601 Given 12/21/2017 Influenza Virus Vaccine, [id number] Quadrivalent, Split, Preservative Free [id number] Given 02/15/2017 Pneumonia Vaccine [id number] Given 01/04/2017 Influenza Virus Vaccine, no immediate reaction, [id number] Quadrivalent, Split, pt tolerated well Preservative Free Vital Signs Date Vital Result Comment 07/10/2018 3:35pm Height 64 inches 5'4" Weight [...] H/L Range Note CBC Auto Diff 07/06/2018 [facility] White Blood 19.2 10^3/uL High 3.5-10.[address] [place] [address] [phone] Red Blood Count 4.22 10^6/uL N 3.70-4.87 [...] Blood Cells % 0.0 Laboratory test 07/06/2018 [facility] Troponin-I (TnI) 0.01 ng/ mL <0.04 [address] [place] [address] [phone] Comp Metabolic 07/06/2018 [facility] Sodium 138 mmol/L N 135- [address] [place] [address] [phone] Potassium 4.5 mmol/L N 3.5-5.0 Chloride 103 [...] Egfr 77.4 >60 2 Laboratory test 07/06/2018 [facility] C Reactive 51.76 mg/L High <8.[address] [place] [address] [phone] Lactic Acid 1.3 mmol/L N 0.5-2.0 3 Urine Culture And 05/26/2018 [facility] Urine Culture SEE RESULT [address] [place] [address] [phone] Urinalysis Profile 05/26/2018 [facility] Urine Color Straw [address] [place] [address] [phone] Urine Appearance Clear Urine Specific [place] 1.002 Low 1.010-1.030 Urine pH 8.0 N [...] Cell Present Abnormal Absent Laboratory test 05/26/2018 [facility] D Dimer < 200 N Less [address] Quantitative ng/mL Than [address] [place] [address] [phone] Inr/Protime 05/26/2018 [facility] Inr 0.90 N 0.77-1.[address] 2 [place] [address] [phone] Laboratory test 05/26/2018 [facility] C Reactive 40.24 High < 8.[address] Protein mg/[place] [address] [phone] Comp Metabolic 05/26/2018 [facility] Sodium 137 N 135-[address] mmol/[place] [address] [phone] Potassium 4.1 mmol/L N 3.5-5.0 Chloride 103 [...] Egfr 93.8 >60 6 Laboratory test 05/26/2018 [facility] Lactic Acid 1.9 mmol/L N 0.5-2.0 [address] [place] [address] [phone] Rapid Influenza A B Antigen SEE RESULT BELOW 8 Troponin-I (TnI) 0.01 ng/mL <0.04 9 CBC Auto 05/26/2018 [facility] White Blood 20.0 10^3/uL High 3.5-10.[address] [place] [address] [phone] Red Blood Count 4.52 10^6/uL N 3.70-4.87 [...] Blood Cells % 0.1 Rapid Influenza 05/26/2018 [facility] Influenza A NEGATIVE Negative 10 A & B Molecular [address] [place] [address] [phone] Influenza B Molecular NEGATIVE Negative Basic Metabolic Panel 05/18/2018 [facility] Sodium 139 mmol/L N 135-145 [address] [place] [address] [phone] Potassium 4.6 mmol/L N 3.5-5.0 Chloride 104 mmol/L N 101-111 Co2 Carbon Dioxide 29 mmol/L N 22-32 Anion Gap 6 mmol/L N 2-11 Glucose 121 mg/dL High 70-100 Blood Urea Nitrogen 10 mg/dL N 6-24 Creatinine 0.77 mg/dL N 0.51-0.95 BUN/Creatinine Ratio 13.0 N 8-20 Calcium 9.6 mg/dL N 8.6-10.3 Egfr Non- 77.5 >60 Egfr 93.8 >60 11 Liver Function 05/18/2018 [facility] Total Protein 7.0 g/dL N 6.4-8.[address] [place] [address] [phone] Albumin 4.2 g/dL N 3.2-5.2 Globulin 2.8 g/dL N 2-4 Albumin/Globulin Ratio 1.5 N 1-3 Total Bilirubin 0.30 mg/dL N 0.2-1.0 Direct Bilirubin 0.10 mg/dL N 0.03-0.18 Indirect Bilirubin 0.2 mg/dL Low 0.3-1.0 Alkaline Phosphatase 84 U/L N 34-104 Alt 20 U/L N 7-52 Ast 20 U/L N 13-39 Laboratory test 05/18/2018 [facility] Folic Acid > 20.00 > 3.[address] (Folate) ng/[place] [address] [phone] Laboratory test 04/21/2018 [facility] Vitamin D 22.1 ng/mL N 20-[address] Total 25(Oh) [place] [address] [phone] Laboratory test 04/21/2018 [facility] Lipase 20 U/L N 11.0- 82.[address] [place] [address] [phone] Hemoglobin A1c (Glyco HGB) 6.3 % High 4.0-5.6 12 Laboratory test 04/17/2018 [facility] Lactic Acid 1.9 mmol/L N 0.5-2.0 [address] [place] [address] [phone] CBC Auto Diff 04/17/2018 [facility] White Blood 18.7 High 3.5- 10.[address] Count 10^3/[place] [address] [phone] Red Blood Count 4.53 10^6/uL N 4.00-5.40 [...] Cells % 0.1 Comp Metabolic Panel 04/17/2018 [facility] Sodium 138 mmol/L N 135-[address] [place] [address] [phone] Potassium 4.0 mmol/L N 3.5-5.0 Chloride 105 [...] Egfr 92.4 >60 14 Laboratory test 04/17/2018 [facility] Troponin-I (TnI) 0.00 ng/ mL <0.04 [address] [place] [address] [phone] B-Type Natriuretic Peptide BNP 42 pg/mL <=100 Blood Culture SEE RESULT BELOW 16 Urinalysis Profile 04/16/2018 [facility] Urine Color Yellow [address] [place] [address] [phone] Urine Appearance Cloudy Urine Specific [place] 1.004 Low 1.010-1.030 Urine pH 6.0 N [...] Present Abnormal Absent Urine Culture And 04/16/2018 [facility] Urine Culture SEE RESULT [address] [place] [address] [phone] Rapid Influenza A 04/16/2018 [facility] Influenza A NEGATIVE Negative 18 & B Molecular [address] [place] [address] [phone] Influenza B Molecular NEGATIVE Negative Laboratory test 04/16/2018 [facility] Rapid Influenza SEE RESULT [address] [place] [address] [phone] CBC Auto Diff 04/16/2018 [facility] White Blood 9.7 10^3/uL N 3.5-[address] Count .8 [place] [address] [phone] Red Blood Count 4.72 10^6/uL N 4.00-5.40 [...] Blood Cells % 0 Laboratory test 04/16/2018 [facility] Lactic Acid 1.1 mmol/L N 0.5-2.0 20 finding [address] [place] [address] [phone] B-Type Natriuretic Peptide BNP 11 pg/mL <=100 Comp Metabolic Panel 04/16/2018 [facility] Sodium 137 mmol/L N 135-145 [address] [place] [address] [phone] Potassium 4.0 mmol/L N 3.5-5.0 Chloride 103 [...] >60 Egfr 88.5 >60 21 CKMB 04/16/2018 [facility] CKMB ng/mL 1.7 ng/mL N 0.6-6.3 [address] [place] [address] [phone] Laboratory test 04/16/2018 [facility] Troponin-I 0.00 ng/mL < 0.04 [address] (TnI) [place], [place] [address] [phone] Creatine Kinase(CK) 84 U/L N 10-223 C Reactive Protein 39.09 mg/L High <8.01 Blood Culture SEE RESULT BELOW 23 Laboratory 02/25/2018 [facility] Culture Throat SEE RESULT 24, 25 test finding [address] BEL[place], [place] [address] [phone] Laboratory 02/25/2018 [facility] Rapid Strep Negative Negative 26 test finding [address] [place] [address] [phone] Laboratory 02/07/2018 [facility] Gardnerella/Ye SEE RESULT 27, 28 test finding [address] ast: [place] [address] Dna [phone] GC/Chlamydia 02/07/2018 [facility] Chlamydia Negative Negative Amplified Rna [address] [place] [address] Rna [phone] Neisseria gonorrhoeae (GC) Rna Negative Negative Urine Culture And 02/07/2018 [facility] Urine SEE RESULT 29 , [address] [place] [address] [phone] Poc Urinalysis 02/07/2018 [facility] Poc Negative Negative [address] Glucose, [place] [address] Urine [phone] Poc Bilirubin, Urine Negative Negative Poc Ketone, Urine Negative Negative Poc Specific [place], Urine 1.010 N 1.010-1.030 Poc Blood, Urine 1+ Abnormal Negative Poc pH, Urine 5.0 N 5-9 Poc Protein, Urine Negative Negative Poc Urobilinogen, Urine 0.2 Negative Poc Nitrite, Urine Negative Negative Poc Leukocytes, Urine 3+ Abnormal Negative Poc Color, Urine Yellow Poc Clarity, Urine Clear 31 Ua Routine 12/21/2017 [facility] Ua Specific [place] 1.020 Ua PH 5 Ua Color yellow Ua Appera clear Ua WBC ++ Ua Protein trace Ua Glucose normal Ua Ketones negative Ua Bilirubin negative Ua Urobilinogen normal Ua Nitrite negative Ua Occult Blood about 50 Urinalysis Profile 12/21/2017 [facility] Urine Color Yellow [address] [place] [address] [phone] Urine Appearance Cloudy Urine Specific [place] 1.012 N 1.010-1.030 Urine pH 5.0 N [...] Present Abnormal Absent Urine Culture And 12/21/2017 [facility] Urine Culture SEE RESULT [address] [place] [address] [phone] Connective Tissue 10/07/2017 [facility] Anti-Nuclear 0.3 U [address] [place] [address] [phone] Cyclic Citrullinated Peptide <15.6 U 34 Interpretation See Comment 35 Laboratory test 08/16/2017 [facility] Vitamin B12 419 pg/mL N 180-914 [address] [place] [address] [phone] Vitamin D Total 25(Oh) 15.9 ng/mL Low 20-50 Ceruloplasmin 27.9 mg/dL 37 Urine Culture And 08/16/2017 [facility] Urine Culture SEE RESULT [address] [place] [address] [phone] CBC Auto Diff 08/16/2017 [facility] White Blood 7.7 10^3/uL N 3.5-[address] Count 0.8 [place] [address] [phone] Red Blood Count 4.64 10^6/uL N 4.00-5.40 [...] Cells % 0.1 Comp Metabolic Panel 08/16/2017 [facility] Sodium 139 mmol/L N 139-[address] [place] [address] [phone] Potassium 4.7 mmol/L N 3.5-5.0 Chloride 104 [...] Egfr 94.4 >60 39 Laboratory test 08/16/2017 [facility] Cortisol 4.63 g/dL [address] [place] [address] [phone] Laboratory test 08/16/2017 [facility] TSH (Thyroid Stim 1.28 N 0.34- finding [address] Horm) mcIU/mL 5.60 [place] [address] [phone] Lipid Profile 08/16/2017 [facility] Triglycerides 237 mg/dL 41 (Trig/Chol/HDL) [address] [place] [address] [phone] Cholesterol 166 mg/dL 42 HDL Cholesterol 46.2 mg/dL 43 LDL Cholesterol 72 mg/dL 44 Urine Culture And 03/26/2017 [facility] Urine SEE RESULT 45 , [address] [place] [place] [address] [phone] Poc Urinalysis 03/26/2017 [facility] Poc Negative Negative [address] Glucose, [place] [address] Urine [phone] Poc Bilirubin, Urine Negative Negative Poc Ketone, Urine Negative Negative Poc Specific [place], Urine <=1.005 Low 1.010-1.030 Poc Blood, Urine Trace-lysed Abnormal Negative Poc pH, Urine 6.0 N 5-9 Poc Protein, Urine Negative Negative Poc Urobilinogen, Urine 0.2 Negative Poc Nitrite, Urine Negative Negative Poc Leukocytes, Urine 1+ Abnormal Negative Poc Color, Urine Yellow Poc Clarity, Urine Clear 47 Xray 12/03/[address] [facility] [address] Lung <pending> [address] [place] [address] Dose [phone] Laboratory test 02/12/2016 [facility] Alpha 1 147 mg/dL N 100 - [address] Antitrypsin A1a [address] [place] [address] [phone] 1 Troponin-I testing on Plasma Separator Tubes (PST) has a known false positive rate of 0.20-0.40%. All positive troponins reflex immediately to secondary confirmatory testing. Using the [employer] DxI 800 Access Immunoassay systems, the 99th [...] 5 Kidney failure <15 (or dialysis) 3 [facility] Severe Sepsis and Septic Shock Management Bundle Measure requires all lactic acids initially measuring >2.0 mmol/L be repeated. 4 SEE RESULT BELOW Name: LIBBY MITCHELL : [address]: Dayana Maher DO Acct: [id number] Unit: [id number] AGE: 57 Location: [place] [address] Re05/26/18 SEX: F Status: ADM Chante SPEC: [id number] CRICKET: 05/26/[address]: Claire ALY REQ: [id number] RECD: 05/26/18 STATUS: COMP ANUPAM DR: Jessie Kumar MD _ SOURCE: [facility] ORDERED: Urine Culture Procedure Result Reported Site Urine Culture Final 05/27/18- 1216 ML No growth of clinically significant organisms * ML - Main Lab . END OF REPORT DEPARTMENT OF PATHOLOGY, [address] [place] [address] Joby Hays M.D. Director [facility] # [id number] 5 Please note: The following may produce [...] 5 Kidney failure <15 (or dialysis) 7 [place] Severe Sepsis and Septic Shock Management Bundle Measure requires all lactic acids initially measuring >2.0 mmol/L be repeated. 8 SEE RESULT BELOW Name: LIBBY MITCHELL : [address]: Aida Jalloh MD Acct: [id number] Unit: [id number] AGE: 57 Location: ED Re05/26/18 SEX: F Status: REG ER SPEC: [id number] CRICKET: 05/26/[address]: Claire ALY REQ: [id number] RECD: 05/26/18 STATUS: JONO BO DR: Jessie Kumar MD _ SOURCE: NASAL SPDESC: ORDERED: Flu A B Request Procedure Result Reported Site Rapid Influenza A B Request Final 05/26/18- 0658 ML Specimen received for Influenza A/B Molecular testing * ML - Main Lab . END OF REPORT DEPARTMENT OF PATHOLOGY, [address] [place] [address] Joby Hays M.D. Director [facility] # [id number] 9 Troponin-I testing on Plasma Separator Tubes (PST) has a known false positive rate of 0.20-0.40%. All positive troponins reflex immediate secondary confirmatory testing. 10 [employer] Agent: [id number] 11 Because ethnic data is not always [...] in selective patients <6.0%. Please refer to [place] [employer] diabetic care guidelines for further information. 13 [facility] Severe Sepsis and Septic Shock [...] [address]: John Monreal MD Acct: [id number] Unit: [id number] AGE: 57 Location: ED Re04/17/18 SEX: F Status: DEP ER SPEC: [id number] CRICKET: 04/17/[address]: Demetrice ALY REQ: [id number] RECD: 04/17/18 STATUS: JONO BO DR: [facility] Iggy Kumar MD _ SOURCE: BLOOD,VENO SPDESC: ORDERED: Blood Cult Procedure Result Reported Site Aerobic Culture Bottle Final 04/22/18- 1818 ML No Growth Day 5 Anaerobic Culture Bottle Final 04/22/18- 1818 ML No Growth Day 5 * ML - Main Lab . END OF REPORT DEPARTMENT OF PATHOLOGY, [address] [place] [address] Joby Hays M.D. Director [facility] # [id number] 17 SEE RESULT BELOW Name: LIBBY MITCHELL : [address]: Hoang Macario MD Acct: [id number] Unit: [id number] AGE: 57 Location: ED Re04/16/18 SEX: F Status: DEP ER SPEC: [id number] CRICKET: 04/16/[address]: Hoang Macario MD REQ: [id number] RECD: 04/16/18 STATUS: JONO BO DR: Iggy Kumar MD _ SOURCE: URINE SPDESC: ORDERED: Urine Culture Procedure Result Reported Site Urine Culture Final 02816 ML No growth of clinically significant organisms * ML - Main Lab . END OF REPORT DEPARTMENT OF PATHOLOGY, [address] [place] [address] Joby Hays M.D. Director [facility] # [id number] 18 [employer] Agent: [id number] 19 SEE RESULT BELOW Name: LIBBY MITCHELL : [address]: Hoang Macario MD Acct: [id number] Unit: [id number] AGE: 57 Location: ED Re04/16/18 SEX: F Status: REG ER SPEC: [id number] CRICKET: 04/16/[address]: Hoang Macario MD REQ: [id number] RECD: 04/16/18 STATUS: COMP OTHR DR: Iggy Kumar MD _ [facility]: Flu A B Request Procedure Result Reported Site Rapid Influenza A B Request Final 04/16/18- 1731 ML Specimen received for Influenza A/B Molecular testing * ML - Main Lab . END OF REPORT DEPARTMENT OF PATHOLOGY, [address] [place] [address] Joby Hays M.D. Director [facility] # [id number] [facility] Severe Sepsis and Septic Shock Management [...] confirmatory testing. 23 SEE RESULT BELOW Name: JIM MITCHELLMY : [address]: Hoang Macario MD Acct: [id number] Unit: [id number] AGE: 57 Location: ED Re04/16/18 SEX: F Status: DEP ER SPEC: [id number] CRICKET: 04/16/[address] [facility] [address]: Honag Macario MD REQ: [id number] RECD: 04/16/18 STATUS: JONO BO DR: Iggy Kumar MD _ SOURCE: BLOOD,VENO SPDES: ORDERED: Blood Cult Procedure Result Reported Site Aerobic Culture Bottle Final 04/21/18- 1655 ML No Growth Day 5 Anaerobic Culture Bottle Final 04/21/18- 1655 ML No Growth Day 5 * ML - Main Lab . END OF REPORT DEPARTMENT OF PATHOLOGY, [address] [place] [address] Joby Hays M.D. Director [facility] # [id number] 24 [id number] 25 SEE RESULT BELOW Name: LIBBY MITCHELL : [address]: Shanice Alarcon MD Acct: [id number] Unit: [id number] AGE: 57 Location: [facility] Re02/25/18 SEX: F Status: DEP ER SPEC: [id number] CRICKET: 02/25/[address] [facility] [address]: Jr Vallejo NP REQ: [id number] RECD: 02/25/18 STATUS: JONO BO DR: Shanice Kumar MD _ SOURCE: THROAT SPDESC: ORDERED: Throat Culture COMMENTS: [id number] Procedure Result Reported Site Throat Culture Final 02/27/18- 1258 ML Organism 1 NORMAL GUILLERMO Quantity 2+ Throat cultures are clinically indicated to detect the presence of group A strep, arcanobacterium and yeast. In certain cases, predominating organisms will be reported. * ML - Main Lab . END OF REPORT DEPARTMENT OF PATHOLOGY, [address], [place], [place] [address] Joby Hays M.D. Director [facility] # [id number] 26 [employer] Agent: [id number] 27 [id number] Would you like to order Trichomonas Vaginalis RNA testing? N 28 SEE RESULT BELOW Name: LIBBY MITCHELL : [address]: Michelle Gleason MD Acct: [id number] Unit: [id number] AGE: 57 Location: [facility] Re02/07/18 SEX: F Status: DEP ER SPEC: [id number] CRICKET: 02/07/18-[address] [facility] [address]: Michelle Gleason MD REQ: [id number] RECD: 02/07/18 STATUS: COMP ANUPAM DR: Iggy Kumar MD _ SOURCE: VAGINAL SPDESC: ORDERED: Raheem,Yeast DNA COMMENTS: [id number] Would you like to order Trichomonas Vaginalis [...] . END OF REPORT DEPARTMENT OF PATHOLOGY, [address] [place] [address] Joby Hays M.D. Director [facility] # [id number] 29 [id number] 30 SEE RESULT BELOW Name: LIBBY MITCHELL : [address]: Michelle Gleason MD Acct: [id number] Unit: [id number] AGE: 57 Location: [facility] Re02/07/18 SEX: F Status: DEP ER SPEC: [id number] CRICKET: 02/07/18-[address] [facility] [address]: Michelle Gleason MD REQ: [id number] RECD: 02/07/18 STATUS: JONO BO DR: Iggy Kumar MD _ SOURCE: URINE SPDESC: ORDERED: Urine Culture COMMENTS: [id number] Procedure Result Reported Site Urine Culture Final 02/08/18- 1326 ML No growth of clinically significant organisms * ML - Main Lab . END OF REPORT DEPARTMENT OF PATHOLOGY, [address] [place] [address] Joby Hays M.D. Director [facility] # [id number] 31 [employer] Agent: [id number] 32 SEE RESULT BELOW Name: CHRISSLIBBY ARAIZA : [address]: Suleiman Izquierdo NP Acct: [id number] Unit: [id number] AGE: 57 Location: [facility] Re12/21/17 SEX: F Status: REG REF SPEC: [id number] CRICKET: 12/21/[address]: Suleiman Izquierdo NP REQ: [id number] RECD: 12/21/17 STATUS: COMP _ SOURCE: URINE SPDESC: ORDERED: Urine Culture COMMENTS: [id number] Urine Source: Clean Catch Procedure Result Reported Site Urine Culture Final 12/22/17- 1656 ML No growth of clinically significant organisms * ML - Main Lab . END OF REPORT DEPARTMENT OF PATHOLOGY, [address] [place] [address] Joby Hays M.D. Director [facility] # [id number] 33 REFERENCE VALUE <=1.0 (Negative) 34 REFERENCE VALUE <20.0 (Negative) 35 Tests for antibodies to dsDNA and CORTEZ antigens are not performed automatically unless the DEDRA result is > or= 3.0 U. Studies performed at [facility] indicate that positive DEDRA results <3.0 U are rarely accompanied by positive second order tests. Test Performed by: [facility] - [address] [address] 36 Normal Range 180 to 914 Indeterminate Range 145 to 180 Deficient Range <145 37 REFERENCE VALUE 20.0 - 51.0 Test Performed by: [facility] [address] [place] [address] 38 SEE RESULT BELOW Name: LIBBY MITCHELL : [address]: Hortensia Recinos [facility] Acct: [id number] Unit: [id number] AGE: 56 Location: [facility] Re08/16/17 SEX: F Status: REG REF SPEC: [id number] CRICKET: 08/16/[address] [facility] [address]: Hortensia Recinos [facility] REQ: [id number] RECD: 08/16/17 STATUS: JONO BO DR: Rachana Kumar MD _ SOURCE: URINE SPDESC: ORDERED: Urine Culture QUERIES: Urine Source: Clean Catch Procedure Result Reported Site Urine Culture Final 08/17/17- 1326 ML No growth of clinically significant organisms * ML - Main Lab . END OF REPORT DEPARTMENT OF PATHOLOGY, [address] [place] [address] Joby Hays M.D. Director [facility] # [id number] 39 Because ethnic data is not always [...] 130-159 High: 160-189 Very High: >189 45 [id number] 46 SEE RESULT BELOW Name: LIBBY MITCHELL : [address]: Shanice Oates MD Acct: [id number] Unit: [id number] AGE: 56 Location: [facility] Re03/26/17 SEX: F Status: DEP ER SPEC: [id number] CRICKET: 03/26/[address] [facility] [address]: Shanice Oates MD REQ: [id number] RECD: 03/26/178193 STATUS: JONO BO DR: Iggy Kumar MD _ SOURCE: URINE SPDESC: ORDERED: Urine Culture COMMENTS: [id number] Procedure Result Reported Site Urine Culture Final 03/27/17- 1204 ML No Growth (<1,000 CFU/mL) * ML - MAIN LAB ([facility]) . END OF REPORT * ML=Testing performed at Main Lab DEPARTMENT OF PATHOLOGY, [address] [place] [address] Joby Hays M.D. Director [facility] # [id number] 47 [employer] Agent: [id number] 48 Test Performed by: [place] [address] [employer] Associate: Tarun Saab II, M.D., Ph.D. Procedures Date Code Description Status 11/17/2017 [id number] Bone Mineral Density Test Completed 11/17/2017 20116341 Mammogram Completed 04/06/2016 78465 EKG, Interpretation Only Completed 02/13/2016 93287 Polysomnography Sleep Staging 4+ Parameters Completed 02/12/2016 56559 Diffusing Capacity Completed 02/12/2016 66773 Plethysmography Determination Lung Volumes & Per Completed Airway Resist 02/12/2016 44980 Pulmonary Stress Test Simple Completed 02/12/2016 21064 Pulmonary Function><Bronchodil Completed 04/22/2014 [id number] Mammogram Completed 03/07/2012 [id number] Colonoscopy Completed Encounters Type Date Location Provider Dx Diagnosis Office Visit 06/21/2018 Pulmonology [facility] [place].1 Chronic obstructive 1:15p [facility] Of pulmonary disease w [place] [facility] exacerbation R09.02 Hypoxemia Office Visit 06/02/2018 2:00p [facility] Internal Mari J44.9 Chronic Medicine - [place] Marker, RPA-C obstructive Rd pulmonary disease, unspecified J18.9 Pneumonia, unspecified organism K83.9 Disease of biliary tract, unspecified Office Visit 05/31/2018 10:45a Pulmonology And Feli J44.9 Chronic [facility] [place] obstructive [facility] pulmonary disease, unspecified J18.9 Pneumonia, unspecified organism Office Visit 05/28/2018 [facility] Cesilia Chinchilla J44.1 Chronic 9:21a Assoc,pc N.P. obstructive Hospitalists pulmonary disease w (acute) exacerbation Office Visit 05/26/2018 [facility] Leti J96.01 Acute respiratory 9:20a Assoc,pc Sheila PA-C failure with Hospitalists hypoxia J44.1 Chronic obstructive pulmonary disease w (acute) exacerbation A41.9 Sepsis, unspecified organism Office Visit 05/12/2018 9:00a Pulmonology And Feli J44.9 Chronic [facility] [place] obstructive [facility] pulmonary disease, unspecified J18.9 Pneumonia, unspecified organism R10.9 Unspecified abdominal pain Office Visit 05/08/2018 [place] Sin Sol, R47.89 Other speech 10:00a Neurologic M.DSunny disturbances Services Of [facility] R51 Headache R25.1 Tremor, unspecified Office Visit 04/21/2018 10:00a [facility] Internal Holland Ye J44.9 Chronic obstructive Medicine FUTURES TRADER pulmonary disease, unspecified J18.9 Pneumonia, unspecified organism R10.9 Unspecified abdominal pain R73.9 Hyperglycemia, unspecified Office Visit 03/23/2018 3:00p [facility] Internal Hoang Fischer J06.9 Acute upper Medicine Maged He M.D. 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 disturbances [place] [address] M79.606 Pain in leg, unspecified J44.9 Chronic obstructive pulmonary disease, unspecified Office Visit 05/26/2017 Marisol Sol R47.89 Other speech 1:45p Neurologic M.DSunny disturbances Services Of [facility] S06.0x0S Concussion without loss of consciousness, sequela R41.89 Oth symptoms and signs w cognitive functions and awareness Office Visit 05/23/2017 10:00a [facility] Internal Iggy R47.89 Other speech Crow Kumar M.D. disturbances [place] [address] Z12.39 Encounter for oth screening for malignant neoplasm of breast J44.9 Chronic obstructive pulmonary disease, unspecified E66.9 Obesity, unspecified Office Visit 04/11/2017 Marisol Sol R47.89 Other speech 1:00p Neurologic MBeverley disturbances Services Of [facility] Office Visit 02/15/2017 [facility] Internal Briana Samayoa Unspecified 8:40a Medicine - [place] YenniferBeverley speech Rd disturbances J44.9 Chronic obstructive pulmonary disease, unspecified M51.16 Intervertebral disc disorders w radiculopathy, lumbar region E66.8 Other obesity Z68.38 Body mass index (BMI) 38.0-38.9, adult Z23 Encounter for immunization Office Visit 01/04/2017 3:20p [facility] Internal Iggy Kumar J44.9 Chronic Medicine - M.DSunny obstructive [address] pulmonary disease, unspecified S06.0x0A Concussion without loss of consciousness, initial encounter Z23 Encounter for immunization Office Visit 11/30/2016 9:15a Pulmonology And Feli J44.9 [facility] [place] obstructive [facility] pulmonary disease, unspecified Z12.2 Encntr screen for malignant neoplasm of respiratory organs Z87.891 Personal history of nicotine dependence Office Visit 04/12/2016 Neurohospitalist Maninder Castro 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 Office Visit 04/02/2016 Pulmonology And Sleep Feli J44.9 Chronic 8:30a Services Of [facility] MD [place] obstructive pulmonary disease, unspecified E66.09 Other obesity due to excess calories Office Visit 01/07/2016 10:15a Pulmonology And Feli J44.9 Chronic [facility] [place] obstructive [place] pulmonary disease, unspecified G47.9 Sleep disorder, unspecified E66.09 Other obesity due to excess calories Plan of Treatment Future Appointment(s):10/03/2018 3:30 pm - Feli Niño MD at [facility]08/24/2018 3:15 pm - Sin Sol M.D. at [place] [facility]07/10/2018 - Leidy Juarez MDJ44.9 Chronic obstructive pulmonary disease, unspecifiedComments:Continue the steroid taperKeep the appointment with pulmonaryFollow up:F/u 4 edalqF59.9 Gastro-esophageal reflux disease without esophagitisComments:Increase omeprazole to 20 mg twice a day
--- NOTE | 2018-07-30 10:29 | UC ---
Respiratory Complaint HPI - HPI Summary HPI Summary: Patient presents to urgent care reporting progressive shortness of breath over the last 4 days. Patient with a history of emphysema and uses oxygen, as needed. Patient states she's been going on o'clock the last 4 days. Patient is followed closely by pulmonology. Patient states her spent some discussion that her symptoms are not emphysema but potentially cardiac in origin. Patient has a history of smoking but quit 19 years ago. Patient uses an albuterol nebulizer 2-3 times a day. Patient states she's been using it but it hasn't been helping. Patient states when she is on oxygen typically her oxygen saturation is 96-97. Patient states over the last few days it's been 93-94. Patient states when she walks it dips into the mid to low 80s. Patient denies chest pain. Patient states when she walks she has to stop after 5 or 6 steps to catch her breath. Patient with audible scattered wheezing. Patient without fevers or chills. No abdominal pain. Nausea vomiting. Patient H she was on prednisone and finished a long taper approximately 2 weeks ago. Patient's medications reviewed this visit. Patient states she is not . - History of Current Complaint Stated Complaint: TROUBLE BREATHING Time Seen by Provider: 07/30/18 10:28 Hx Obtained From: Patient Hx Last Menstrual Period: hysterectomy Timing: Constant Severity Initially: Mild Severity Currently: Moderate - Allergies/Home Medications Allergies/Adverse Reactions: Allergies Allergy/AdvReac Type Severity Reaction Status Date / Time Penicillins Allergy Hives/Diff. Verified 05/12/18 11:44 Breathing/I tching PMH/Surg Hx/FS Hx/Imm Hx Previously Healthy: No Respiratory History: Other - COPD - Surgical History Surgical History: Yes Surgery Procedure, Year, and Place: Hysterectomy 01/15. Bladder sling and cystocele + rectocele. Bladder repair 08/17 & 2013 - Family History Known Family History: Positive: Cardiac Disease, Other - Epilepsy, breast cancer , Non-Contributory Family History: Epilepsy, breast cancer - Social History Lives: With Family Alcohol Use: None Substance Use Type: None Substance Use Comment - Amount & Last Used: hydrocodone with tylenol and clonazepam Smoking Status (MU): Former Smoker Length of Time of Smoking/Using Tobacco: 1999 - Immunization History Most Recent Influenza Vaccination: this season Most Recent Tetanus Shot: Unknown Most Recent Pneumonia Vaccination: 05/28/18 Review of Systems All Other Systems Reviewed And Are Negative: Yes Constitutional: Positive: Fatigue Respiratory: Positive: Shortness Of Breath, Cough, Other - wheeze Physical Exam - Summary Physical Exam Summary: Vital Signs Reviewed: Yes A+Ox3, significant resp distress - pt speaking 2- 3 word sentences second to dypsnea Eyes: Conjunctiva Clear, GIOVANNA. EOM intact and full ENT: Hearing grossly normal TM x 2 clear, mdry, uvula midline, no exudate, no erythema Neck: Positive: Supple Respiratory: Positive: coarse cough, heaving respiratons with accesspry muscle use, diffuse audible wheeze + BS throughout Cardiovascular: RRR nl s1, s2 no m/r CBT <2 sec abd soft + BS nt/nd no guarding, no distension Musculoskeletal Exam: BAY x 4 without difficulty Strength Intact, ROM Intact Neurological: Positive: Alert, + sensation throughout Psychological: Positive: Normal Response To Family Skin: Positive: no rash, no ecchymosis Triage Information Reviewed: Yes Respiratory Course/Dx - Course Course Of Treatment: Patient presents to urgent care with progressive shortness of breath. Patient with a history of emphysema. Patient's been using her home oxygen that strongly. [id number] without improvement. Patient reports her respiratory sats are in the 80s. Patient's been using her nebulizer without relief. Patient states his been worse over the last 4 days. Upon arrival patient noted to be acutely tachypneic with respirations in the 40s picking 2-3 word sentences. Patient improved when she stepped down. Patient will be given nebulizer and IV Solu-Medrol. Recommend patient to emergency department by EMS. Patient initially reluctant but then in agreement. Calling give report to Dr. Little in the emergency department. - Differential Dx/Diagnosis Provider Diagnosis: Dyspnea Discharge - Sign-Out/Discharge Documenting (check all that apply): Patient Departure All imaging exams completed and their final reports reviewed: No Studies - Discharge Plan Condition: Fair Disposition: TRANS HIGHER LVL OF CARE FAC Referrals: Carey Loco MD [Primary Care Provider] - - Billing Disposition and Condition Condition: FAIR Disposition: Trans Higher Lvl of Care Fac
[2018-07-30] MEDS ORDERED: Albuterol/Ipratropium NEB.SOL* Albuterol 2.5 MG/Ipratropium 0.5 MG 3 ML INH ONE (10:30)
[2018-07-30] MEDS ORDERED: methylPREDNISolone 125 MG* 2 ML VIAL IV ONE (10:30)
[2018-07-30 11:30] VITALS: BP 113/70
== END 2018-07-30 10:50 | disposition short-term general hospital (02) ==
LOC: UCEAST 10:22
DX: R06.00 Dyspnea, unspecified (principal); R06.02 Shortness of breath; J44.9 Chronic obstructive pulmonary disease, unspecified; Z87.09 Personal history of other diseases of the respiratory system; Z88.0 Allergy status to penicillin; Z87.891 Personal history of nicotine dependence; Z99.81 Dependence on supplemental oxygen
CPT/HCPCS: 96374; 99213; A9270-GY; G0463; J2930

== ENCOUNTER 2018-07-30 11:17 | Inpatient (IN) | payer OTHER ==
[2018-07-30] MEDS ORDERED: Albuterol/Ipratropium NEB.SOL* Albuterol 2.5 MG/Ipratropium 0.5 MG 3 ML INH ONE (11:38)
[2018-07-30] MEDS ORDERED: methylPREDNISolone 125 MG* 2 ML VIAL IV ONE (11:38)
--- NOTE | 2018-07-30 11:42 | ED ---
Shortness of Breath - HPI Summary HPI Summary: This patient is a 57 year old F brought to ED via EMS from urgent care with a chief complaint of SOB since 0900 this morning. Patient uses oxygen at nighttime and when walking. However, now she is using it all the time as she can t catch her breath on exertion. Patient no longer smokes, having quit 19 years ago. Patient uses a nebulizer that only helps for a short time but not for very long. Patient was previously on Prednisone with the last dose taken 2-3 weeks ago. The patient rates the pain 0/10 in severity. Symptoms aggravated by nothing. Symptoms alleviated by nothing. Patient reports productive cough with thick mucous, subjective fever at 100 F. Patient denies cardiac disease, swelling of the legs. PMHx of DVT, asthma, COPD, PNA, emphysema but no DM, thyroid disease, HTN. PSHX of hysterectomy, bladder sling and cystocele and rectocele, and bladder repair. FHx of cardiac disease, epilepsy, and breast CA. Patient does not drink alcohol or use substances but is a former smoker. - History of Current Complaint Chief Complaint: EDShortnessOfBreath Time Seen by Provider: 07/30/18 11:21 Hx Obtained From: Patient Onset/Duration: Gradual Onset, Still Present Current Severity: Moderate Dyspnea At: Exertion Aggrevating Factors: Nothing Alleviating Factors: Nothing Associated Signs & Symptoms: Negative - Bilateral leg swelling, Cough ( Productive), Fever - Allergy/Home Medications Allergies/Adverse Reactions: Allergies Allergy/AdvReac Type Severity Reaction Status Date / Time Penicillins Allergy Hives/Diff. Verified 07/30/18 10:47 Breathing/I tching PMH/Surg Hx/FS Hx/Imm Hx Endocrine/Hematology History: Reports: Other Endocrine/Hematological Disorders - blood clot per pt. Denies: Hx Diabetes, Hx Thyroid Disease Cardiovascular History: Reports: Hx Deep Vein Thrombosis Denies: Hx Hypertension, Hx Pacemaker/ICD Respiratory History: Reports: Hx Asthma, Hx Chronic Obstructive Pulmonary Disease (COPD) - stage 3, Hx Pneumonia, Other Respiratory Problems/Disorders - emphysema GI History: Reports: Other GI Disorders - possible hernia Denies: Hx Ulcer History: Reports: Other Problems/Disorders - bladder prolapse Denies: Hx Dialysis, Hx Renal Disease Musculoskeletal History: Reports: Hx Back Problems, Hx Scoliosis Sensory History: Reports: Hx Contacts or Glasses Denies: Hx Hearing Aid Opthamlomology History: Reports: Hx Contacts or Glasses Neurological History: Reports: Hx Headaches, Other Neuro Impairments/Disorders - concussion with aphasia and stutter Psychiatric History: Reports: Hx Anxiety, Hx Depression, Hx Post Traumatic Stress Disorder Denies: Hx Eating Disorder, Hx Panic Disorder, Hx Suicide Attempt, Hx of Violent Episodes Against Others - Cancer History Hx Chemotherapy: No Hx Radiation Therapy: No - Surgical History Surgery Procedure, Year, and Place: Hysterectomy 01/15. Bladder sling and cystocele + rectocele. Bladder repair 08/17 & 2013 Infectious Disease History: No Infectious Disease History: Denies: Hx Clostridium Difficile, Hx Hepatitis, Hx Human Immunodeficiency Virus (HIV), Hx of Known/Suspected MRSA, Hx Shingles, Hx Tuberculosis, Hx Known/ Suspected VRE, Hx Known/Suspected VRSA, History Other Infectious Disease, Traveled Outside the [place] in Last 30 Days - Family History Known Family History: Positive: Cardiac Disease, Other - Epilepsy, breast cancer , Non-Contributory Family History: Epilepsy, breast cancer - Social History Alcohol Use: None Hx Substance Use: No Substance Use Type: Reports: None Substance Use Comment - Amount & Last Used: hydrocodone with tylenol and clonazepam Hx Tobacco Use: Yes Smoking Status (MU): Former Smoker Length of Time of Smoking/Using Tobacco: 1999 Review of Systems Positive: Fever - Subjective at 100 F Cardiovascular: Negative - Swelling of legs Positive: Shortness Of Breath, Cough - Productive All Other Systems Reviewed And Are Negative: Yes Physical Exam - Summary Physical Exam Summary: Appearance: Well appearing, no pain distress Skin: warm, dry, reflects adequate perfusion Head/face: normal Eyes: EOMI, GIOVANNA ENT: normal Neck: supple, non-tender Respiratory: Bilateral wheezing Cardiovascular: Tachycardic Abdomen: non-tender, soft Musculoskeletal: normal, strength/ROM intact Neuro: normal, sensory motor intact, A&Ox3 Triage Information Reviewed: Yes Vital Signs On Initial Exam: Initial Vitals Temp Pulse Resp BP Pulse Ox 100.0 F 109 32 129/74 96 07/30/18 11:22 07/30/18 11:22 07/30/18 11:22 07/30/18 11:22 07/30/18 11:22 Vital Signs Reviewed: Yes Diagnostics - Vital Signs Vital Signs Temp Pulse Resp BP Pulse Ox 07/30/18 11:22 100.0 F 109 32 129/74 96 - Laboratory Result Diagrams: 07/30/18 11:49 07/30/18 11:49 Lab Statement: Any lab studies that have been ordered have been reviewed, and results considered in the medical decision making process. - Radiology CXR Radiology Interpretation Completed By: Radiologist Summary of Radiographic Findings: 1. Mildly limited exam due to body habitus and hypoventilation for this patient. 2. No evidence for acute intrathoracic disease. Dr. Little has reviewed this radiology report. - EKG 1145 Cardiac Rate: Tachycardia - 104 EKG Rhythm: Sinus Tachycardia - 104 BPM Summary of EKG Findings: Sinus tachycardia at 104 BPM, no acute changes. Re-Evaluation - Re-Evaluation First Eval Re-Evaluation Time: 13:03 Comment: Discussed results with patient. Patient will be [place] [facility] Patient understands and agrees with this plan. Course/Dx - Course Course Of Treatment: This patient is a 57 year old F brought to ED via EMS from urgent care with a chief complaint of SOB since 0900 this morning. EKG revealed sinus tachycardia at 104 BPM, no acute changes. In the ED course, patient received Duoneb and solu-medrol. CXR reveals 1. Mildly limited exam due to body habitus and hypoventilation for this patient. 2. No evidence for acute intrathoracic disease. Discussed patient case with Dr. Andres, hospitalist, who accepted the patient for admission to [facility]. I discussed results with patient. The patient understands and agrees with this plan. - Diagnoses Differential Diagnosis/HQI/PQRI: Positive: Asthma, Bronchitis, CHF, COPD Exacerbation, Pneumonia, Pneumothorax, Pulmonary Edema Provider Diagnoses: COPD exacerbation - Physician Notifications Discussed Care of Patient With: Billy Andres Time Discussed With Above Provider: 13:08 Instructed by Provider To: Admit As Inpatient - Discussed patient case with Dr. Andres, hospitalist, who accepted the patient for admission to [facility]. - Critical Care Time Critical Care Time: 30-74 min Discharge - Sign-Out/Discharge Documenting (check all that apply): Patient Departure - Admit Patient Received Moderate/Deep Sedation with Procedure: No - Discharge Plan Condition: Fair Disposition: ADMITTED TO [facility] Referrals: Carey Loco MD [Primary Care Provider] - - Billing Disposition and Condition Condition: FAIR Disposition: Admitted to [facility] - Attestation Statements Document Initiated by Scribe: Yes Documenting Scribe: Cruz Alexandre Provider For Whom Scribe is Documenting (Include Credential): Tony Little MD Scribe Attestation: I, Cruz Alexandre, scribed for Tony Little MD on 07/30/18 at 1410. Scribe Documentation Reviewed: Yes Provider Attestation: The documentation as recorded by the scribe, Cruz Alexandre accurately reflects the service I personally performed and the decisions made by me, Tony Little MD Status of Scribe Document: Viewed
[2018-07-30 12:07] LABS: ABS Eosinophils 0.2 10^3/ul (0-0.6); ABS Lymphocytes 1.8 10^3/ul (1.0-4.8); ABS Monocytes 0.5 10^3/ul (0-0.8); ABS Neutrophils 10.7 10^3/ul (1.5-7.7); Eosinophil % 1.5 %; Hematocrit 36 % (35-47); Hemoglobin 11.7 g/dL (12.0-16.0); Lymphocyte % 13.5 %; Mean Corpuscular HGB Conc 32 g/dL (31-36); Mean Corpuscular Hemoglobin 28 pg (27-31); Mean Corpuscular Volume 86 fL (80-97); Mean Platelet Volume 7.4 fL (7.4-10.4); Platelet Count 301 10^3/uL (150-450); Red Blood Count 4.21 10^6 /uL (3.70-4.87); Red Cell Distribution Width 16 % (10.5-15); White Blood Count 13.3 10^3/uL (3.5-10.8)
[2018-07-30 12:19] LABS: Albumin 3.9 g/dL (3.2-5.2); Albumin/Globulin Ratio 1.1 (1-3); BUN/Creatinine Ratio 8.2 (8-20); Calcium 9.3 mg/dL (8.6-10.3); EGFR African American 83.7 (>60); EGFR Non-African American 69.2 (>60); Globulin 3.6 g/dL (2-4); Potassium 3.5 mmol/L (3.5-5.0); Total Bilirubin 0.5 mg/dL (0.2-1.0); Total Protein 7.5 g/dL (6.4-8.9)
[2018-07-30 12:34] LABS: Activated Partial Thrombo Time 25.3 seconds (26.0-36.3); INR 0.99 (0.82-1.09)
[2018-07-30] MEDS ORDERED: Levofloxacin 750 MG IVPREMIX(* 750 MG/150 ML BAG IVPB ONE (13:06)
[2018-07-30] MEDS ORDERED: Ondansetron INJ* 2 MG/ML VIAL IV PRN (13:56)
[2018-07-30] MEDS ORDERED: Benzonatate CAP* 100 MG PO PRN (13:59)
[2018-07-30] MEDS ORDERED: Gabapentin CAP(*) 300 MG PO PRN (14:05)
[2018-07-30] MEDS ORDERED: NS 0.9% IV ONE (14:07)
[2018-07-30] MEDS: Albuterol/Ipratropium NEB.SOL* Albuterol 2.5 MG/Ipratropium 0.5 MG 3 ML INH SCH ×3 (14:14→23:11)
[2018-07-30] MEDS: HYDROcodone/ACETAMIN 5-325 MG* 1 TAB PO PRN ×2 (15:42→21:53)
[2018-07-30] MEDS: clonazePAM TAB(*) 1 MG PO PRN ×2 (15:42→21:53)
[2018-07-30] MEDS: DOXYcycline IV* 100 MG in NS 0.9% 250 ML* 250 ML IVPB SCH (16:27)
[2018-07-30] MEDS: Enoxaparin(*) 40 MG/0.4 ML SYR SUBCUT SCH (16:27)
[2018-07-30] MEDS: metroNIDAZOLE IV 500 MG/100ML* 500 MG/100 ML BAG IVPB SCH ×2 (16:27→23:25)
[2018-07-30] MEDS: cefTRIAXone(*) 1 GM in NS 0.9% 50 ML* 50 ML IVPB SCH (17:39)
--- NOTE | 2018-07-30 17:57 | PN ---
Sepsis Event Evaluation Date of Evaluation: 07/30/18 Time of Evaluation: 16:00 - Late Note Current Stage of Sepsis: Septic Shock Vital Signs - Last 12 Hours: Vital Signs - 12 hr Temp Pulse Resp BP Pulse Ox 07/30/18 17:15 20 07/30/18 17:08 20 07/30/18 17:07 20 07/30/18 15:55 98.7 F 119 20 129/77 95 07/30/18 15:48 98.9 F 128 26 129/85 96 07/30/18 15:42 1 07/30/18 14:59 98.2 F 112 19 118/84 97 07/30/18 14:15 115 26 98 07/30/18 12:12 115 17 96 07/30/18 11:22 100.0 F 109 32 129/74 96 Lactic Acid: 07/30/18 07/30/18 11:49 14:37 Lactic Acid 2.4 H* 4.3 H* Exceptions to Standard of Care: Patient's Elevated lactic acid with normal BP and signs of good perfusion does not necessitate transfer to the ICU for Vasopressor administration. - Cardiopulmonary Exam Capillary Refill: Immediate Respiratory: Symmetrical Chest Expansion and Respiratory Effort, - - Diminished , Expiratory wheezing throughout. Cardiovascular: NL Sounds; No Murmurs; No JVD, No Edema, - - Tachycardia - Peripheral Pulse Exam Radial Pulses: Bilateral Normal Pedal Pulses: Bilateral Normal Posterior Tibial Pulse: Bilateral Normal - Skin Exam Skin Exam: Normal Turgor, [place] Coma Scale Best Eye Response: 4 - Spontaneous Best Motor Response: 6 - Obeys Commands Best Verbal Response: 5 - Oriented Coma Scale Total: 15 Assess/Plan/Problems-Billing Assessment:
[2018-07-30] MEDS ORDERED: NS 0.9% 1000 ML** 1,000 ML IV SCH (18:00)
--- NOTE | 2018-07-30 18:41 | HP ---
CC: Dr. Carey Loco; Dr. Billy Andres* ADMISSION HISTORY AND PHYSICAL: DATE OF ADMISSION: 07/30/18 PRIMARY CARE PROVIDER: Dr. Carey Loco. MY ATTENDING WHILE IN THE HOSPITAL: Dr. Billy Andres* (dictated by JERMAIN Gonzales). CHIEF COMPLAINT: Shortness of breath x4 days. HISTORY OF PRESENT ILLNESS: Ms. Mitchell is a 57-year-old female with past medical history significant for severe emphysema/asthma, anxiety and recent issues with right upper quadrant abdominal pain possibly related to GERD, who presents to the emergency department with 4 days of worsening shortness of breath that started initially with shortness of breath and wheezing and got progressively worse to the point of today. She cannot walk from her bathroom to her living room without having to stop to get short of breath, this is similar to the patient's previous COPD exacerbation. The patient has had no swelling in her legs. The patient does have orthopnea. The patient has no history of heart failure. The patient follows with Dr. Niño for her pulmonary care. She has not been taking her Dulera due to insurance coverage. The patient has been having sweats, but no fevers or chills. The patient has been coughing, bringing up yellow green and delatorre sputum without any blood. The patient has no recent sick contacts, no recent changes in her medications. The patient has been evaluated for right upper quadrant pain. The patient had a negative MRCP and is believed that the patient might have slow gastric emptying contributing to GERD and possible microaspirations. The patient is scheduled to have an EGD for this. The patient has been started on PPI therapy and has been trying nonpharmacologic therapy for this such as not eating before she goes to bed and sitting upright after eating. The patient has been feeling somewhat dizzy with her shortness of breath. The patient has been wheezing significantly and has no significant relief from her nebulizers which she has been taking 3 times daily. In the emergency department, the patient was found to be hypoxic, requiring 4 L oxygen. The patient was tachycardic and elevated temperature, tachypnea, normal blood pressure, elevated white blood cell count, elevated lactic acid and a chest x-ray, which shows no acute intrathoracic disease. Per report, however, there is possible right lower lobe infiltrate per this author's reading. There is concern for severe sepsis with possible ongoing pneumonia. We are asked to evaluate the patient for admission to the hospital. PAST MEDICAL HISTORY: Emphysema, asthma, anxiety, PTSD, chronic back pain, obesity, osteoarthritis, GERD, bladder prolapse. PAST SURGICAL HISTORY: Hysterectomy, bladder sling surgery. MEDICATIONS: The patient states that her medications have not changed since her most recent discharge on 05/28/18 except that she is not taking her Dulera and she finished her Z-Toni and prednisone taper. Medications per this record are: 1. Gabapentin 300 mg p.o. daily as needed. 2. Gabapentin 300 mg p.o. daily. 3. Omeprazole 20 mg p.o. b.i.d. 4. Gabapentin 600 mg p.o. at bedtime. 5. Venlafaxine 225 mg p.o. daily. 6. Tiotropium 1 cap inhalation daily. 7. [place] 5/325 one tablet t.i.d. as needed. 8. Albuterol inhaler p.r.n. 9. Clonazepam 1 mg p.o. t.i.d. as needed. ALLERGIES: PENICILLINS. FAMILY HISTORY: The patient's father is alive and has stage IV lung cancer. The patient's mother at 58 with complications of emphysema, she is a heavy smoker. The patient has 2 siblings, both of whom also have emphysema and were exposed to secondhand smoke. SOCIAL HISTORY: The patient quit smoking 19 years ago, but smoked for approximately 17 pack years before that. The patient denies alcohol or illicit drug use. 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 The patient is and has 3 children. The patient's surrogate decision maker is her , Yobany Mitchell. REVIEW OF SYSTEMS: A 14-point of review of systems was reviewed, is negative except as noted above in the HPI. PHYSICAL EXAMINATION GENERAL: The patient is a 57-year-old female who appears stated age and sitting in the bed with significantly increased work of breathing. VITAL SIGNS: At the time of evaluation, temperature 100.0, pulse rate 120, oxygen saturation 98% on 4 L, blood pressure 110/74, respiratory rate 22. HEENT: Head: Normocephalic, atraumatic. Sclerae anicteric. No conjunctival injection. Nasal mucosa moist. Oral mucosa moist. No oropharyngeal erythema, discharge, or exudate. NECK: Supple, nontender. No lymphadenopathy. No carotid bruits auscultated. No JVD. RESPIRATORY: Inspiratory and expiratory wheezing throughout. Positive egophony in the right lower lobe. Exam limited by the patient's severe shortness of breath. CARDIAC: Tachycardic. No clicks, murmurs, gallops, or rubs. Pulses are 2+ in the dorsalis pedis, posterior tibialis, and radial areas. Muffled heart sounds. ABDOMEN: Soft, slightly tender to palpation in the right upper quadrant. Bowel sounds present in all 4 quadrants. No hepatosplenomegaly. No abdominal bruits auscultated. Negative Herrera's sign. NEURO: Cranial nerves II through XII intact. No focal deficits. Alert and oriented x3. SKIN: Clean, dry, intact. No rashes. PSYCHIATRIC: Pleasant and cooperative. DIAGNOSTIC IMAGING/LAB DATA: White blood cell count 13.3, hemoglobin 11.7, platelet count 301. INR 0.99, APTT 25.3, pH 7.45, CO2 of 35, pO2 of 78, HCO3 of 25.4, oxygen saturation 97%, base excess 0.7. Sodium 138, potassium 3.5, chloride 105, carbon dioxide 26, anion gap 7, BUN 7, creatinine 0.85, glucose 184, lactic acid 2.4, calcium 9.3, bilirubin 0.5. AST 28, ALT 36, alkaline phosphatase 66. Troponin I 0.00. Protein 7.5, albumin 3.9, globulin 3.6. Studies: EKG shows sinus tachycardia, rate of 104, QTc of 458, left axis deviation, abnormal R-wave progression, no hypertrophy/enlargement, no abnormalities. Chest x-ray read as hyperventilation, no acute cardiopulmonary disease. ASSESSMENT AND PLAN: Ms. Mitchell is a 57-year-old female with past medical history significant for severe emphysema, gastroesophageal reflux disease and anxiety, who presents to the emergency department with severe shortness of breath, hypoxia, and possible pneumonia. The patient will be admitted to the hospital for management of the above. 1. Acute hypoxic respiratory failure due to chronic obstructive pulmonary disease exacerbation/pneumonia with severe sepsis. The patient is requiring 4 L oxygen to maintain her oxygen saturation above 90%. The patient is also tachycardic, has an elevated lactic acid, elevated white blood cell count, is tachypneic and borderline febrile. The patient meets criteria for severe sepsis due to her elevated lactic acid. The patient received no fluid bolus while in the emergency department. The patient will now receive a 30 mL/kg fluid bolus and have her lactic acid rechecked. The patient will be reassessed due to her severe sepsis. The patient received Levaquin in the emergency department. Given concern for the patient's low gastric emptying, heart burn and possible aspiration, we will treat the patient with ceftriaxone, doxycycline and Flagyl to cover aspiration as well as atypical organisms. We will repeat a chest x-ray in the morning to assess for possible infiltrate, consider discontinuing antibiotics except for doxycycline at that time if the patient has no clear infiltrate on repeat exam after rehydration. The patient will have inhalers, steroids, 60 mg of prednisone daily. The patient will continue on her home inhalers. The patient has been previously tested for alpha - antitrypsin deficiency with her ski maker wood. If the patient continues to have frequent chronic obstructive pulmonary disease exacerbations on optimal therapy, the patient should be assessed for vocal cord dysfunction given her gastroesophageal reflux disease. The patient will be undergoing evaluation including EGD and hopefully manometry for her slow gastric emptying. 2. Right upper quadrant abdominal pain, gastroesophageal reflux disease. The patient has symptoms what could be slow gastric emptying. If these continue to be a problem, Reglan could be trialed; however, the patient will have Zofran. At this time, continue with nonpharmacologic interventions. The patient will be continued on her omeprazole even though this predisposes to aspiration pneumonia. 3. Anxiety/posttraumatic stress disorder. Continue the patient's chronic treatments. 4. DVT prophylaxis with Lovenox. 5. FEN: The patient will have a regular unrestricted diet and foods as above. TIME SPENT: Approximately 60 minutes was spent on admission of this patient, 30 of which was spent [id number] with the patient obtaining history and physical and discussing treatment plan. The plan was discussed with my attending Dr. Billy Andres, he is in agreement. JERMAIN GONZALES [id number]/[facility] #: [id number] DARWIN
[2018-07-30] MEDS: Mometasone/Formoter 200/5 MDI INH SCH (19:10)
[2018-07-30] MEDS: Pantoprazole TAB * 40 MG TAB PO SCH (20:23)
[2018-07-30] MEDS: guaiFENesin ER TAB 600 MG PO SCH (20:23)
[2018-07-30] MEDS: Gabapentin CAP(*) 300 MG PO SCH (20:24)
[2018-07-30] MEDS ORDERED: NS 0.9% 1000 ML** 1,000 ML IV ONE (20:56)
[2018-07-30] MEDS ORDERED: Gabapentin CAP(*) 100 MG PO SCH (21:00)
[2018-07-31] MEDS: Albuterol/Ipratropium NEB.SOL* Albuterol 2.5 MG/Ipratropium 0.5 MG 3 ML INH SCH ×2 (01:05→06:59)
[2018-07-31] MEDS: DOXYcycline IV* 100 MG in NS 0.9% 250 ML* 250 ML IVPB SCH ×2 (03:50→16:49)
[2018-07-31] MEDS: Acetaminophen TAB* 325 MG PO PRN ×2 (03:55→11:05)
[2018-07-31 06:58] LABS: ABS Lymphocytes 0.8 10^3/ul (1.0-4.8); ABS Monocytes 0.3 10^3/ul (0-0.8); ABS Neutrophils 13.5 10^3/ul (1.5-7.7); Hematocrit 32 % (35-47); Hemoglobin 10.5 g/dL (12.0-16.0); Lymphocyte % 5.4 %; Mean Corpuscular HGB Conc 32 g/dL (31-36); Mean Corpuscular Hemoglobin 28 pg (27-31); Mean Corpuscular Volume 86 fL (80-97); Mean Platelet Volume 7.3 fL (7.4-10.4); Platelet Count 264 10^3/uL (150-450); Red Blood Count 3.75 10^6 /uL (3.70-4.87); Red Cell Distribution Width 16 % (10.5-15); White Blood Count 14.6 10^3/uL (3.5-10.8)
[2018-07-31] MEDS: Mometasone/Formoter 200/5 MDI INH SCH ×2 (06:59→20:12)
[2018-07-31] MEDS: Tiotropium CAP.INH* CAP.INH/18 MCG (USE ORDER SET !) INH SCH (07:05)
[2018-07-31 07:15] LABS: BUN/Creatinine Ratio 13.9 (8-20); Calcium 8.7 mg/dL (8.6-10.3); EGFR African American 101.4 (>60); EGFR Non-African American 83.8 (>60)
[2018-07-31] MEDS: metroNIDAZOLE IV 500 MG/100ML* 500 MG/100 ML BAG IVPB SCH ×3 (07:33→23:03)
[2018-07-31] MEDS: predniSONE TAB* 20 MG PO SCH (07:38)
[2018-07-31] MEDS: guaiFENesin ER TAB 600 MG PO SCH ×2 (07:38→20:10)
[2018-07-31] MEDS: Pantoprazole TAB * 40 MG TAB PO SCH ×2 (07:38→20:09)
[2018-07-31] MEDS: Venlafaxine EXT RELEASE CAP* 75 MG PO SCH (07:44)
[2018-07-31] MEDS: Gabapentin CAP(*) 300 MG PO SCH ×2 (07:45→20:09)
[2018-07-31] MEDS ORDERED: Spiriva Inhaler DEVICE* 1 EACH DEVICE INH ONE (09:00)
[2018-07-31] MEDS: clonazePAM TAB(*) 1 MG PO PRN ×2 (11:05→21:58)
--- NOTE | 2018-07-31 15:07 | PN ---
Subjective Date of Service: 07/31/18 Interval History: Patient is breathing much easier. Patient complains of persistent cough, intermittent wheezing and tightness in her chest. Patient denies F/C, N/V, abdominal pain, diarrhea, dysuria. Patient states that she has been having numerous medical issues recently and that her current decline began with a head trauma and that since then she has lost much of her cognitive ability and has been following with a neurologist without any clear answers. Patient also states that she was referred recently for a cardiology evaluation by her Mold Forms Builder due to refractory respiratory symptoms. Family History: Unchanged from Admission Social History: Unchanged from Admission Past Medical History: Unchanged from Admission Objective Active Medications: Acetaminophen (Tylenol Tab*) 650 mg PO Q6H PRN PRN Reason: FEVER/PAIN Last Admin: 07/31/18 11:05 Dose: 650 mg Hydrocodone Bitart/Acetaminophen ([place] 5-325 Tab*) 1 tab PO TID PRN PRN Reason: PAIN Last Admin: 07/30/18 21:53 Dose: 1 tab Albuterol (Ventolin 2.5 Mg/3 Ml Neb.Cassandra*) 2.5 mg INH Q2H PRN PRN Reason: SOB/WHEEZING Benzonatate (Tessalon Cap*) 100 mg PO BID PRN PRN Reason: COUGH Clonazepam (Klonopin Tab(*)) 1 mg PO TID PRN PRN Reason: ANXIETY Last Admin: 07/31/18 11:05 Dose: 1 mg Enoxaparin Sodium (Lovenox(*)) 40 mg SUBCUT Q24H [facility] Last Admin: 07/30/18 16:27 Dose: 40 mg Gabapentin (Neurontin Cap(*)) 300 mg PO Q24H PRN PRN Reason: PAIN Gabapentin (Neurontin Cap(*)) 300 mg PO DAILY [facility] Last Admin: 07/31/18 07:45 Dose: Not Given Gabapentin (Neurontin Cap(*)) 600 mg PO BEDTIME [facility] Last Admin: 07/30/18 20:24 Dose: 600 mg Guaifenesin (Mucinex*) 1,200 mg PO BID [facility] Last Admin: 07/31/18 07:38 Dose: 1,200 mg Doxycycline Hyclate 100 mg/ (Sodium Chloride) 250 mls @ 250 mls/hr IVPB Q12H [facility] Last Admin: 07/31/18 03:50 Dose: 250 mls/hr Metronidazole/Sodium Chloride (Flagyl 500 Mg Ivpb*) 500 mg in 100 mls @ 100 mls /hr IVPB Q8H [facility] Last Admin: 07/31/18 07:33 Dose: 100 mls/hr Ceftriaxone Sodium 1 gm/ (Sodium Chloride) 50 mls @ 200 mls/hr IVPB Q24H [facility] Last Admin: 07/30/18 17:39 Dose: 200 mls/hr Mometasone Furoate/Formoterol Fumar (Dulera 200/5 Mdi*) 2 puff INH BID [facility] Last Admin: 07/31/18 06:59 Dose: 2 puff Ondansetron HCl (Zofran Inj*) 4 mg IV Q6H PRN PRN Reason: NAUSEA Pantoprazole Sodium (Protonix Tab*) 40 mg PO BID [facility] Last Admin: 07/31/18 07:38 Dose: 40 mg Prednisone (Deltasone Tab*) 60 mg PO DAILY [facility] Last Admin: 07/31/18 07:38 Dose: 60 mg Tiotropium [place] (Spiriva Cap.Inh*) 1 cap INH DAILY [facility] Last Admin: 07/31/18 07:05 Dose: 1 cap Venlafaxine HCl (Effexor Xr Cap*) 225 mg PO DAILY [facility] Last Admin: 07/31/18 07:44 Dose: 225 mg Vital Signs - 8 hr 07/31/18 07/31/18 07/31/18 07:06 07:07 07:09 Temperature 97.7 F Pulse Rate 104 108 112 Respiratory 17 17 22 Rate Blood Pressure 121/64 (mmHg) O2 Sat by Pulse 97 97 100 Oximetry 07/31/18 07/31/18 07/31/18 08:00 11:05 11:34 Temperature 97.8 F Pulse Rate 110 Respiratory 20 20 20 Rate Blood Pressure 124/60 (mmHg) O2 Sat by Pulse 97 Oximetry 07/31/18 13:45 Temperature Pulse Rate Respiratory 20 Rate Blood Pressure (mmHg) O2 Sat by Pulse Oximetry Oxygen Devices in Use Now: Nasal Cannula Appearance: Patient is a 57yo cushingoid female who appears stated age sitting in the bed with moderately increased work of breathing. Eyes: No Scleral Icterus, PERRLA Ears/Nose/Mouth/Throat: NL Teeth, Lips, Gums, Clear Oropharnyx, Mucous Membranes Moist Neck: NL Appearance and Movements; NL JVP, Trachea Midline Respiratory: Symmetrical Chest Expansion and Respiratory Effort, - - Diminished , slight wheezing throughout. Cardiovascular: NL Sounds; No Murmurs; No JVD, RRR, No Edema Abdominal: NL Sounds; No Tenderness; No Distention, No Hepatosplenomegaly Lymphatic: No Cervical Adenopathy Extremities: No Edema, No Clubbing, Cyanosis Skin: No Rash or Ulcers, No Nodules or Sclerosis Neurological: Alert and Oriented x 3, NL Sensation, NL Muscle Strength and Tone , - - CN II-XII intact. Result Diagrams: 07/31/18 06:41 07/31/18 06:41 Microbiology and Other Data: Microbiology 07/30/18 11:49 Aerobic Blood Culture - Preliminary Blood Venous No Growth Day 1 Anaerobic Blood Culture - Preliminary No Growth Day 1 07/30/18 11:52 Aerobic Blood Culture - Preliminary Blood Venous No Growth Day 1 Anaerobic Blood Culture - Preliminary No Growth Day 1 07/30/18 21:58 Legionella Urinary Antigen - Final Urine Negative Legionella Antigen Streptococcus pneumoniae Ag Screen - Final Negative S. pneumo Antigen Assess/Plan/Problems-Billing Assessment: Patient is a 57yo female with a PMH for Emphysema with chronic hypoxic respiratory failure, PTSD, and GERD who presents to the ED with 4 days of worsening SOB and was found to have concern for CAP and COPD exacerbation, who is slowly improving. - Patient Problems (1) Acute respiratory failure with hypoxia Current Visit: No Status: Acute Code(s): J96.01 - ACUTE RESPIRATORY FAILURE WITH HYPOXIA SNOMED Code(s): 25634548 Comment: - Needing 4L O2, severely decreased exercise tolerance. - Secondary to asthma/COPD/Pneumonia - Echo to evaluate for CHF. (2) COPD exacerbation Current Visit: No Status: Acute Code(s): J44.1 - CHRONIC OBSTRUCTIVE PULMONARY DISEASE W (ACUTE) EXACERBATION SNOMED Code(s): 832027668 Comment: - Slow Improvement - Continue ceftriaxone, azithromycin, Flagyl, prednisone, duonebs, O2 - Check echo to assess for pHTN or HF. - May need largynoscopy to assess for vocal cord dysfunction with inspiratory wheezing on admission and GERD - Advanced Emphysema. - Conitinue Chronic Inhalers. (3) Pneumonia Current Visit: Yes Status: Acute Code(s): J18.9 - PNEUMONIA, UNSPECIFIED ORGANISM SNOMED Code(s): 239157324 Comment: - Bibasliar infiltrates with subjective fevers and borderline temperature elevations, productive cough - Concern for ? Aspirations - Continue Ceftriaxone, Doxycycline and Flagyl (4) GERD (gastroesophageal reflux disease) Current Visit: Yes Status: Acute Code(s): K21.9 - GASTRO-ESOPHAGEAL REFLUX DISEASE WITHOUT ESOPHAGITIS SNOMED Code(s): 777405828 Comment: - Undergoing evaluation of RUQ pain. Concern for slow gastric emptying contributing to GERD - ? Cause of cough and airway irritation. - Double PPI to BID. (5) Post concussion syndrome Current Visit: Yes Status: Acute Code(s): F07.81 - POSTCONCUSSIONAL SYNDROME SNOMED Code(s): 66985112 Comment: - Almost 2 years ago, has had since then a significant decrease in cognitive functioning and significant disability - Continue to follow with Neurology. (6) DVT prophylaxis Current Visit: No Status: Acute Code(s): RJN9787 - SNOMED Code(s): 743985445 Comment: -HSQ (7) Full code status Current Visit: No Status: Acute Code(s): Z78.9 - OTHER SPECIFIED HEALTH STATUS SNOMED Code(s): 101582549 Comment: Status and Disposition: Inpatient
[2018-07-31] MEDS: Enoxaparin(*) 40 MG/0.4 ML SYR SUBCUT SCH (15:45)
[2018-07-31] MEDS: cefTRIAXone(*) 1 GM in NS 0.9% 50 ML* 50 ML IVPB SCH (18:05)
[2018-07-31] MEDS: Albuterol 2.5 MG/3 ML NEB.SOL* (0.083%) INH PRN (20:12)
[2018-07-31] MEDS: HYDROcodone/ACETAMIN 5-325 MG* 1 TAB PO PRN (21:58)
[2018-08-01] MEDS: DOXYcycline IV* 100 MG in NS 0.9% 250 ML* 250 ML IVPB SCH ×2 (03:53→15:53)
[2018-08-01] MEDS ORDERED: Dextrose 50% Syringe 50 ML* 25 GM/50 ML SYRINGE IV PUSH PRN (06:58)
[2018-08-01] MEDS: metroNIDAZOLE IV 500 MG/100ML* 500 MG/100 ML BAG IVPB SCH ×3 (07:30→23:11)
[2018-08-01] MEDS: Venlafaxine EXT RELEASE CAP* 75 MG PO SCH (07:34)
[2018-08-01] MEDS: Pantoprazole TAB * 40 MG TAB PO SCH ×2 (07:34→21:22)
[2018-08-01] MEDS: Tiotropium CAP.INH* CAP.INH/18 MCG (USE ORDER SET !) INH SCH (07:34)
[2018-08-01] MEDS: guaiFENesin ER TAB 600 MG PO SCH ×2 (07:34→21:25)
[2018-08-01] MEDS: predniSONE TAB* 20 MG PO SCH (07:35)
[2018-08-01] MEDS: Mometasone/Formoter 200/5 MDI INH SCH ×2 (07:35→19:23)
[2018-08-01] MEDS: Albuterol 2.5 MG/3 ML NEB.SOL* (0.083%) INH PRN (07:38)
[2018-08-01] MEDS: Insulin LISPRO* 1 UNITS UNIT SUBCUT SCH ×4 (07:57→21:30)
[2018-08-01] MEDS: Gabapentin CAP(*) 300 MG PO SCH ×2 (07:57→21:20)
[2018-08-01] MEDS ORDERED: Perflutren Lipid Microsphere* 3 ML VIAL ONE (12:50)
[2018-08-01] MEDS: Enoxaparin(*) 40 MG/0.4 ML SYR SUBCUT SCH (13:33)
--- NOTE | 2018-08-01 14:19 | ECHO ---
*[facility]* [place] [address] Fax #: [phone] Transthoracic Echocardiogram Patient: Stephen, Height: 64 in / Libby Jones 162.6 cm : 1960 Weight: 253.5 lb / Study Date: 08/01/2018 115.2 kg Age: 57 BP: 126 / 60 Gender: F BMI/BSA: 43.6 kg/m^2 HR: 93 bpm / 2.34 m^2 *Circuit Breaker Supervisor: * Nazia Rodgers RD RN *Referring Physician: * Tarun Jauregui *Reading Physician: * Florinda Ventura MD Indications: SOB. History: PMH: COPD. Chronic hypoxic respiratory failure. Risk factors: Former tobacco use. Obese. Conclusions Summary: 1. Left ventricle: The cavity size is normal. Wall thickness is normal. There is a septal knuckle measuring 1.3 cm. Systolic function is normal. The estimated ejection fraction is 55-60%. 2. Mitral valve: There is mild regurgitation. 3. Tricuspid valve: There is trace regurgitation. 4. No previous echocardiogram available. Study data: Transthoracic echocardiogram. Procedure: Transthoracic echocardiography was performed. Image quality was fair. The study was technically limited due to body habitus and COPD. A total of 4 ml of Definity was given IV. Image enhancement administered by Mono Horner RN. Complete 2D, spectral Doppler, and color flow Doppler. Location: Procedure room. Patient status: Inpatient. Patient room number: 413-02. Rhythm: Normal sinus rhythm. Findings Left ventricle: The cavity size is normal. Wall thickness is normal. There is a septal knuckle measuring 1.3 cm. Systolic function is normal. The estimated ejection fraction is 55-60%. Wall motion is normal; there are no regional wall motion abnormalities. Left ventricular diastolic function parameters are normal. Right ventricle: The cavity size is normal. Systolic function is normal. Left atrium: The atrium is normal in size. Right atrium: The atrium is normal in size. Mitral valve: The leaflets are mildly thickened. There is no evidence of stenosis. There is mild regurgitation. Aortic valve: The valve is trileaflet. The leaflets are mildly thickened. There is no evidence of stenosis. There is no significant regurgitation. Tricuspid valve: The valve is structurally normal. There is no evidence of stenosis. There is trace regurgitation. Pulmonic valve: The valve is structurally normal. There is no evidence of stenosis. There is trace regurgitation. Aorta: Aortic root: The aortic root is not dilated. Ascending aorta: The ascending aorta is not dilated. Aortic arch: The aortic arch is not dilated. Pericardium: There is no pericardial effusion. Pulmonary arteries: Not well visualized. Systemic veins: Not visualized. Measurements Left ventricle Value Ref Right atrium Value Ref ARCELIA, LAX 4.1 cm 3.8 - ML dim, ES, A4C 4.0 cm 2.6 - 4.4 5.2 SI dim, ES, A4C 5.1 cm 3.4 - 5.3 ESD, LAX 2.8 cm 2.2 - 3.5 Aortic valve Value Ref FS, LAX 32 % 27 - 45 Peak v, S 1.43 m/sec --------- PW, ED, LAX 0.9 cm 0.6 - VTI, S 26.8 cm --------- 0.9 Mean grad, S 4.6 mm Hg --------- PW, ED 0.9 cm 0.6 - Peak grad, S 8.2 mm Hg --------- 0.9 LVOT/AV, VTI ratio 0.84 --------- IVS/PW, ED 1.07 -------- E', lat john, TDI 11.3 cm/sec >=10.0 Mitral valve Value Ref E/e', lat john, 9 -------- Peak E 1.06 m/sec ------- -- TDI Peak A 1.27 m/sec --------- E', med john, TDI 10.0 cm/sec >=7.0 Decel time 212 ms ---- ----- E/e', med john, 11 -------- Peak grad, D 4.5 mm Hg ------- -- TDI Peak E/A ratio 0.84 --------- E', avg, TDI 10.7 cm/sec -------- E/e', avg, TDI 10 <=14 Pulmonic valve Value Ref Peak v, S 1.13 m/sec --------- LVOT Value Ref Peak grad, S 5.1 mm Hg --------- Peak angie, S 1.2 m/sec -------- VTI, S 22.6 cm -------- Aortic root Value Ref Peak grad, S 6 mm Hg -------- Root diam 3.0 cm <4.4 Mean grad, S 3 mm Hg -------- Ascending aorta Value Ref Ventricular septum Value Ref AAo AP diam, S 2.8 cm --------- IVS, ED 0.9 cm 0.6 - 0.9 Aortic arch Value Ref Arch diam 2.3 cm --------- Right ventricle Value Ref ARCELIA, LAX 3.0 cm -------- Decending aorta Value Ref ARCELIA major ax, A4C (L) 2.7 cm 5.9 - Cele peak angie 1.16 m/sec --------- 8.3 Left atrium Value Ref LA ID 3.7 cm -------- SI dim ES, LAX 3.7 cm -------- ML dim, A4C 4.4 cm -------- SI dim, A4C 5.7 cm -------- Vol, ES, 2-p 56 ml -------- Vol/bsa, ES, 2-p 26 ml/m^2 16 - 34 Legend: (L) and (H) melinda values outside specified reference range. Prepared and electronically signed by Florinda Ventura MD 08/01/2018 14:19
--- NOTE | 2018-08-01 15:05 | PN ---
Subjective Date of Service: 08/01/18 Interval History: Patient is feeling better today. Patient states that she still gets very SOB with minimal exertion, but that this is improving. Patient is still coughing up sputum which is yellow and non-bloody. Patient denies CP, dizziness, palpitations, N/V, abdominal pain, constipation, or diarrhea. Family History: Unchanged from Admission Social History: Unchanged from Admission Past Medical History: Unchanged from Admission Objective Active Medications: Acetaminophen (Tylenol Tab*) 650 mg PO Q6H PRN PRN Reason: FEVER/PAIN Last Admin: 07/31/18 11:05 Dose: 650 mg Hydrocodone Bitart/Acetaminophen ([place] 5-325 Tab*) 1 tab PO TID PRN PRN Reason: PAIN Last Admin: 07/31/18 21:58 Dose: 1 tab Albuterol (Ventolin 2.5 Mg/3 Ml Neb.Cassandra*) 2.5 mg INH Q2H PRN PRN Reason: SOB/WHEEZING Last Admin: 08/01/18 07:38 Dose: 2.5 mg Benzonatate (Tessalon Cap*) 100 mg PO BID PRN PRN Reason: COUGH Clonazepam (Klonopin Tab(*)) 1 mg PO TID PRN PRN Reason: ANXIETY Last Admin: 07/31/18 21:58 Dose: 1 mg Dextrose (D50w Syringe 50 Ml*) 12.5 gm IV PUSH .FOR FS < 60 - SS PRN PRN Reason: FS < 60 Enoxaparin Sodium (Lovenox(*)) 40 mg SUBCUT Q24H [facility] Last Admin: 08/01/18 13:33 Dose: 40 mg Gabapentin (Neurontin Cap(*)) 300 mg PO Q24H PRN PRN Reason: PAIN Gabapentin (Neurontin Cap(*)) 300 mg PO DAILY [facility] Last Admin: 08/01/18 07:57 Dose: Not Given Gabapentin (Neurontin Cap(*)) 600 mg PO BEDTIME [facility] Last Admin: 07/31/18 20:09 Dose: 600 mg Guaifenesin (Mucinex*) 1,200 mg PO BID [facility] Last Admin: 08/01/18 07:34 Dose: 1,200 mg Doxycycline Hyclate 100 mg/ (Sodium Chloride) 250 mls @ 250 mls/hr IVPB Q12H [facility] Last Admin: 08/01/18 03:53 Dose: 250 mls/hr Metronidazole/Sodium Chloride (Flagyl 500 Mg Ivpb*) 500 mg in 100 mls @ 100 mls /hr IVPB Q8H [facility] Last Admin: 08/01/18 14:44 Dose: 100 mls/hr Ceftriaxone Sodium 1 gm/ (Sodium Chloride) 50 mls @ 200 mls/hr IVPB Q24H [facility] Last Admin: 07/31/18 18:05 Dose: 200 mls/hr Insulin Human Lispro (Humalog*) 0 units SUBCUT ACHS [facility]; Protocol Last Admin: 08/01/18 13:34 Dose: 9 units Mometasone Furoate/Formoterol Fumar (Dulera 200/5 Mdi*) 2 puff INH BID [facility] Last Admin: 08/01/18 07:35 Dose: 2 puff Ondansetron HCl (Zofran Inj*) 4 mg IV Q6H PRN PRN Reason: NAUSEA Pantoprazole Sodium (Protonix Tab*) 40 mg PO BID [facility] Last Admin: 08/01/18 07:34 Dose: 40 mg Prednisone (Deltasone Tab*) 60 mg PO DAILY [facility] Last Admin: 08/01/18 07:35 Dose: 60 mg Tiotropium [place] (Spiriva Cap.Inh*) 1 cap INH DAILY [facility] Last Admin: 08/01/18 07:34 Dose: 1 cap Venlafaxine HCl (Effexor Xr Cap*) 225 mg PO DAILY [facility] Last Admin: 08/01/18 07:34 Dose: 225 mg Vital Signs - 8 hr 08/01/18 08/01/18 08/01/18 07:24 07:41 07:44 Temperature 97.5 F Pulse Rate 85 104 Respiratory 16 17 18 Rate Blood Pressure 137/74 (mmHg) O2 Sat by Pulse 99 98 Oximetry Oxygen Devices in Use Now: Nasal Cannula Appearance: Patient is a 57yo female who appears stated age and is sitting in the bed in [facility]. Eyes: No Scleral Icterus, PERRLA Ears/Nose/Mouth/Throat: NL Teeth, Lips, Gums, Clear Oropharnyx, Mucous Membranes Moist Neck: NL Appearance and Movements; NL JVP, Trachea Midline Respiratory: Symmetrical Chest Expansion and Respiratory Effort, - - Slight Crackles in b/L Lower Lobes, Diminished but clear throughout. Cardiovascular: NL Sounds; No Murmurs; No JVD, RRR, No Edema Abdominal: NL Sounds; No Tenderness; No Distention, No Hepatosplenomegaly Lymphatic: No Cervical Adenopathy Extremities: No Edema, No Clubbing, Cyanosis Skin: No Rash or Ulcers, No Nodules or Sclerosis Neurological: Alert and Oriented x 3, NL Sensation, NL Muscle Strength and Tone , - - CN II-XII intact. Result Diagrams: 07/31/18 06:41 07/31/18 06:41 Microbiology and Other Data: Microbiology 07/30/18 11:49 Aerobic Blood Culture - Preliminary Blood Venous No Growth Day 1 Anaerobic Blood Culture - Preliminary No Growth Day 1 07/30/18 11:52 Aerobic Blood Culture - Preliminary Blood Venous No Growth Day 1 Anaerobic Blood Culture - Preliminary No Growth Day 1 07/30/18 21:58 Legionella Urinary Antigen - Final Urine Negative Legionella Antigen Streptococcus pneumoniae Ag Screen - Final Negative S. pneumo Antigen Assess/Plan/Problems-Billing Assessment: Patient is a 57yo female with a PMH for Emphysema with chronic hypoxic respiratory failure, PTSD, and GERD who presents to the ED with 4 days of worsening SOB and was found to have concern for CAP and COPD exacerbation, who is slowly improving. - Patient Problems (1) Acute respiratory failure with hypoxia Current Visit: No Status: Acute Code(s): J96.01 - ACUTE RESPIRATORY FAILURE WITH HYPOXIA SNOMED Code(s): 00160540 Comment: - Needing 2L O2, severely decreased exercise tolerance improving - Secondary to asthma/COPD/Pneumonia - Echo shows no signs of CHF or pHTN - Baseline is needing 2L PRN. (2) COPD exacerbation Current Visit: No Status: Acute Code(s): J44.1 - CHRONIC OBSTRUCTIVE PULMONARY DISEASE W (ACUTE) EXACERBATION SNOMED Code(s): 517229639 Comment: - Slow Improvement - Continue ceftriaxone, azithromycin, Flagyl, prednisone, duonebs, O2 - Echo non-contributory. - May need largynoscopy to assess for vocal cord dysfunction with inspiratory wheezing on admission and GERD - Advanced Emphysema. - Conitinue Chronic Inhalers. - Follow up Pulmonology outpatient. (3) Pneumonia Current Visit: Yes Status: Acute Code(s): J18.9 - PNEUMONIA, UNSPECIFIED ORGANISM SNOMED Code(s): 667701970 Comment: - Bibasliar infiltrates with subjective fevers and borderline temperature elevations, productive cough - Concern for ? Aspirations - Continue Ceftriaxone, Doxycycline and Flagyl (4) GERD (gastroesophageal reflux disease) Current Visit: Yes Status: Acute Code(s): K21.9 - GASTRO-ESOPHAGEAL REFLUX DISEASE WITHOUT ESOPHAGITIS SNOMED Code(s): 401096392 Comment: - Undergoing evaluation of RUQ pain. Concern for slow gastric emptying contributing to GERD - ? Cause of cough and airway irritation. - Double PPI to BID. - F/U GI as already scheduled. (5) Post concussion syndrome Current Visit: Yes Status: Acute Code(s): F07.81 - POSTCONCUSSIONAL SYNDROME SNOMED Code(s): 25333516 Comment: - Almost 2 years ago, has had since then a significant decrease in cognitive functioning and significant disability - Continue to follow with Neurology. (6) DVT prophylaxis Current Visit: No Status: Acute Code(s): ABY1719 - SNOMED Code(s): 221291699 Comment: -HSQ (7) Full code status Current Visit: No Status: Acute Code(s): Z78.9 - OTHER SPECIFIED HEALTH STATUS SNOMED Code(s): 881581711 Comment: Status and Disposition: Inpatient, Hopeful Discharge tomorrow.
[2018-08-01] MEDS: Acetaminophen TAB* 325 MG PO PRN (16:17)
[2018-08-01] MEDS: clonazePAM TAB(*) 1 MG PO PRN ×2 (16:18→21:21)
[2018-08-01] MEDS: cefTRIAXone(*) 1 GM in NS 0.9% 50 ML* 50 ML IVPB SCH (18:21)
[2018-08-01] MEDS: HYDROcodone/ACETAMIN 5-325 MG* 1 TAB PO PRN (21:23)
[2018-08-02] MEDS: DOXYcycline IV* 100 MG in NS 0.9% 250 ML* 250 ML IVPB SCH (03:37)
[2018-08-02] MEDS: metroNIDAZOLE IV 500 MG/100ML* 500 MG/100 ML BAG IVPB SCH (06:53)
[2018-08-02 07:05] LABS: BUN/Creatinine Ratio 14.8 (8-20); Calcium 8.7 mg/dL (8.6-10.3); EGFR African American 88.5 (>60); EGFR Non-African American 73.1 (>60); Potassium 3.5 mmol/L (3.5-5.0)
[2018-08-02 07:11] LABS: ABS Eosinophils 0.1 10^3/ul (0-0.6); ABS Monocytes 0.7 10^3/ul (0-0.8); ABS Neutrophils 7.5 10^3/ul (1.5-7.7); Eosinophil % 0.8 %; Hematocrit 34 % (35-47); Hemoglobin 10.8 g/dL (12.0-16.0); Lymphocyte % 26.7 %; Mean Corpuscular HGB Conc 32 g/dL (31-36); Mean Corpuscular Hemoglobin 28 pg (27-31); Mean Corpuscular Volume 86 fL (80-97); Mean Platelet Volume 7.4 fL (7.4-10.4); Nucleated Red Blood Cells % 0.1; Platelet Count 283 10^3/uL (150-450); Red Blood Count 3.88 10^6 /uL (3.70-4.87); Red Cell Distribution Width 17 % (10.5-15); White Blood Count 11.3 10^3/uL (3.5-10.8)
[2018-08-02] MEDS: predniSONE TAB* 20 MG PO SCH (07:25)
[2018-08-02] MEDS: Venlafaxine EXT RELEASE CAP* 75 MG PO SCH (07:25)
[2018-08-02] MEDS: Acetaminophen TAB* 325 MG PO PRN (07:25)
[2018-08-02] MEDS: Gabapentin CAP(*) 300 MG PO SCH ×2 (07:26→20:57)
[2018-08-02] MEDS: guaiFENesin ER TAB 600 MG PO SCH ×2 (07:26→20:58)
[2018-08-02] MEDS: Insulin LISPRO* 1 UNITS UNIT SUBCUT SCH ×4 (07:40→21:08)
[2018-08-02] MEDS: Pantoprazole TAB * 40 MG TAB PO SCH ×2 (07:50→20:58)
[2018-08-02] MEDS: Tiotropium CAP.INH* CAP.INH/18 MCG (USE ORDER SET !) INH SCH (09:16)
[2018-08-02] MEDS: Mometasone/Formoter 200/5 MDI INH SCH ×2 (09:17→20:42)
--- NOTE | 2018-08-02 12:49 | PN ---
Subjective Date of Service: 08/02/18 Interval History: Patient seen and examined., Increased WOB noted while patient is reclined in bed , off oxygen. States she feels her need for oxygen has increased and her dyspnea is not quite resolving. Discussed use of oxygen at length, encouraged patient to use at rest and reassess her tachypnea and WOB, patient agreeable. Denies chest pain,k no n/v, endorses mild headache, no fevers. No further complaints. Family History: Unchanged from Admission Social History: Unchanged from Admission Past Medical History: Unchanged from Admission Objective Active Medications: Acetaminophen (Tylenol Tab*) 650 mg PO Q6H PRN PRN Reason: FEVER/PAIN Last Admin: 08/02/18 07:25 Dose: 650 mg Hydrocodone Bitart/Acetaminophen ([place] 5-325 Tab*) 1 tab PO TID PRN PRN Reason: PAIN Last Admin: 08/01/18 21:23 Dose: 1 tab Albuterol (Ventolin 2.5 Mg/3 Ml Neb.Cassandra*) 2.5 mg INH Q2H PRN PRN Reason: SOB/WHEEZING Last Admin: 08/01/18 07:38 Dose: 2.5 mg Benzonatate (Tessalon Cap*) 100 mg PO BID PRN PRN Reason: COUGH Clonazepam (Klonopin Tab(*)) 1 mg PO TID PRN PRN Reason: ANXIETY Last Admin: 08/01/18 21:21 Dose: 1 mg Dextrose (D50w Syringe 50 Ml*) 12.5 gm IV PUSH .FOR FS < 60 - SS PRN PRN Reason: FS < 60 Enoxaparin Sodium (Lovenox(*)) 40 mg SUBCUT Q24H [facility] Last Admin: 08/01/18 13:33 Dose: 40 mg Gabapentin (Neurontin Cap(*)) 300 mg PO Q24H PRN PRN Reason: PAIN Gabapentin (Neurontin Cap(*)) 300 mg PO DAILY [facility] Last Admin: 08/02/18 07:26 Dose: 300 mg Gabapentin (Neurontin Cap(*)) 600 mg PO BEDTIME [facility] Last Admin: 08/01/18 21:20 Dose: 300 mg Guaifenesin (Mucinex*) 1,200 mg PO BID [facility] Last Admin: 08/02/18 07:26 Dose: 1,200 mg Doxycycline Hyclate 100 mg/ (Sodium Chloride) 250 mls @ 250 mls/hr IVPB Q12H [facility] Last Admin: 08/02/18 03:37 Dose: 250 mls/hr Metronidazole/Sodium Chloride (Flagyl 500 Mg Ivpb*) 500 mg in 100 mls @ 100 mls /hr IVPB Q8H [facility] Last Admin: 08/02/18 06:53 Dose: 100 mls/hr Ceftriaxone Sodium 1 gm/ (Sodium Chloride) 50 mls @ 200 mls/hr IVPB Q24H [facility] Last Admin: 08/01/18 18:21 Dose: 200 mls/hr Insulin Human Lispro (Humalog*) 0 units SUBCUT ACHS [facility]; Protocol Last Admin: 08/02/18 12:29 Dose: 6 units Mometasone Furoate/Formoterol Fumar (Dulera 200/5 Mdi*) 2 puff INH BID [facility] Last Admin: 08/02/18 09:17 Dose: 2 puff Ondansetron HCl (Zofran Inj*) 4 mg IV Q6H PRN PRN Reason: NAUSEA Pantoprazole Sodium (Protonix Tab*) 40 mg PO BID [facility] Last Admin: 08/02/18 07:50 Dose: 40 mg Prednisone (Deltasone Tab*) 60 mg PO DAILY [facility] Last Admin: 08/02/18 07:25 Dose: 60 mg Tiotropium [place] (Spiriva Cap.Inh*) 1 cap INH DAILY [facility] Last Admin: 08/02/18 09:16 Dose: 1 cap Venlafaxine HCl (Effexor Xr Cap*) 225 mg PO DAILY [facility] Last Admin: 08/02/18 07:25 Dose: 225 mg Vital Signs - 8 hr 08/02/18 08/02/18 08/02/18 07:26 07:41 07:48 Temperature 97.5 F Pulse Rate 87 Respiratory 16 16 20 Rate Blood Pressure 139/71 (mmHg) O2 Sat by Pulse 96 Oximetry 08/02/18 08/02/18 09:17 11:34 Temperature 97.7 F Pulse Rate 95 86 Respiratory 14 18 Rate Blood Pressure 142/61 (mmHg) O2 Sat by Pulse 93 97 Oximetry Oxygen Devices in Use Now: Nasal Cannula Appearance: alert, NAD Eyes: No Scleral Icterus, PERRLA Ears/Nose/Mouth/Throat: NL Teeth, Lips, Gums, Mucous Membranes Moist Neck: NL Appearance and Movements; NL JVP, Trachea Midline Respiratory: - - increased work of breathing, accessory muscle use and tachypnea , espiratory wheeze on left Cardiovascular: NL Sounds; No Murmurs; No JVD, No Edema Abdominal: NL Sounds; No Tenderness; No Distention Extremities: No Edema, No Clubbing, Cyanosis Skin: No Rash or Ulcers Neurological: Alert and Oriented x 3, NL Sensation, NL Muscle Strength and Tone Nutrition: Taking PO's Result Diagrams: 08/02/18 06:55 08/02/18 06:01 Microbiology and Other Data: Microbiology 07/30/18 11:49 Aerobic Blood Culture - Preliminary Blood Venous No Growth Day 1 Anaerobic Blood Culture - Preliminary No Growth Day 1 07/30/18 11:52 Aerobic Blood Culture - Preliminary Blood Venous No Growth Day 1 Anaerobic Blood Culture - Preliminary No Growth Day 1 07/30/18 21:58 Legionella Urinary Antigen - Final Urine Negative Legionella Antigen Streptococcus pneumoniae Ag Screen - Final Negative S. pneumo Antigen Assess/Plan/Problems-Billing Assessment: Patient is a 57yo female with a PMH for Emphysema with chronic hypoxic respiratory failure, PTSD, and GERD who presents to the ED with 4 days of worsening SOB and was found to have concern for CAP and COPD exacerbation, slow improvement. - Patient Problems (1) Klebsiella pneumonia Code(s): J15.0 - PNEUMONIA DUE TO KLEBSIELLA PNEUMONIAE SNOMED Code(s): 10974527 Comment: - Sputum positive for klebsiella aeruginosa - Will discontinue doxy, no need for atypical coverage, and flagyl - Follow sputum culture susceptibilities, should be ready tomorrow - Continue ceftriaxone only for now (2) GERD (gastroesophageal reflux disease) Code(s): K21.9 - GASTRO-ESOPHAGEAL REFLUX DISEASE WITHOUT ESOPHAGITIS SNOMED Code(s): 982198161 Comment: - continue PPI BID - Will f/u outpatient for slow gastric emptying and RUQ pain (3) Post concussion syndrome Code(s): F07.81 - POSTCONCUSSIONAL SYNDROME SNOMED Code(s): 01967835 Comment: - At baseline, outpatient neurology follow up (4) Acute respiratory failure with hypoxia Code(s): J96.01 - ACUTE RESPIRATORY FAILURE WITH HYPOXIA SNOMED Code(s): 16227744 Comment: - Per patient, outpatient PFTs showed moderate-severe emphysema, now with concomitant PNA and increased O2 requirement - Suspect patient now requires continuous O2 rather than intermittent given significant tachypnea off O2 today - No pHTN on ECHO - Follow with Dr. Niño outpatient (5) COPD exacerbation Code(s): J44.1 - CHRONIC OBSTRUCTIVE PULMONARY DISEASE W (ACUTE) EXACERBATION SNOMED Code(s): 822159213 Comment: - Very slow to improve - Continue prednisone, will start taper - Home inhalers and nebs PRN - Do not think GERD contributing to wheeze and cough at this point (6) DVT prophylaxis Code(s): ZQA9901 - SNOMED Code(s): 501589102 Comment: - HSQ (7) Full code status Code(s): Z78.9 - OTHER SPECIFIED HEALTH STATUS SNOMED Code(s): 063481598 Comment: Status and Disposition: Inpatient, continue to wean O2, will need to narrow antibiotics based on susceptibilities when available. Likely DC tomorrow.
[2018-08-02] MEDS: Enoxaparin(*) 40 MG/0.4 ML SYR SUBCUT SCH (14:00)
[2018-08-02] MEDS: cefTRIAXone(*) 1 GM in NS 0.9% 50 ML* 50 ML IVPB SCH (17:22)
[2018-08-02] MEDS: HYDROcodone/ACETAMIN 5-325 MG* 1 TAB PO PRN (20:57)
[2018-08-03] MEDS: Insulin LISPRO* 1 UNITS UNIT SUBCUT SCH ×2 (07:23→12:50)
[2018-08-03] MEDS: Tiotropium CAP.INH* CAP.INH/18 MCG (USE ORDER SET !) INH SCH (08:12)
[2018-08-03] MEDS: Mometasone/Formoter 200/5 MDI INH SCH (08:12)
[2018-08-03] MEDS: Venlafaxine EXT RELEASE CAP* 75 MG PO SCH (08:30)
[2018-08-03] MEDS: predniSONE TAB* 20 MG PO SCH (08:31)
[2018-08-03] MEDS: Pantoprazole TAB * 40 MG TAB PO SCH (08:31)
[2018-08-03] MEDS: guaiFENesin ER TAB 600 MG PO SCH (08:32)
[2018-08-03] MEDS: Gabapentin CAP(*) 300 MG PO SCH (08:33)
[2018-08-03 11:38] VITALS: BP 126/75
--- NOTE | 2018-08-04 01:20 | DS ---
CC: Dr. Yvonne Stover, [facility]; Dr. Feli Niño of Pulmonology; Dr. Kumar; Dr. Loco; Dr. Annika Regan* DISCHARGE SUMMARY: DATE OF ADMISSION: 07/30/18 DATE OF DISCHARGE: 08/03/18 PRIMARY CARE PROVIDER: Dr. Yvonne Stover, [facility]. MY ATTENDING FOR TODAY: Dr. Annika Regan* (dictated by Kashif Choi , DRAKE). HOSPITAL COURSE: Please refer to admitting H and P on 07/30/18, but in short, Ms. Mitchell is a 57-year-old female patient with a history significant for emphysema, anxiety, GERD, and postconcussive syndrome, who presented to the emergency department with a complaint of 4 days of worsening shortness of breath. The patient does report she has been following up with Dr. Niño very closely. She has had some COPD exacerbation since April and has been on and off prednisone for many months now. She has had also issues with some GERD and abdominal pain, for which she has been following up with GI. The patient was found to be hypoxic when she came in the emergency department, also had significant wheeze and some dizziness. She was found to be tachycardic, also with elevated temperature, tachypneic, and had some significant leukocytosis with an elevated lactic acid. Her chest x-ray did reveal a right lower lobe infiltrate and she was admitted for severe sepsis and a recurrent right lower lobar pneumonia. The patient was initially treated for her severe sepsis with IV fluids at 30 mL/kg bolus. Her lactic acid did increase after her bolus. Initial reading was 2.4 on the . Four hours later, it was 4.3. It peaked at 6.2, then trended down to 3.1, and then on 07/31/18, her lactic acidemia resolved and final reading was 1.5. The patient was initially on multiple antibiotics given her recent admissions. She was covered initially with ceftriaxone and doxycycline to cover her for atypicals and also Flagyl. There was some concern possibly for aspiration as well. She was placed on prednisone at 60 mg daily, on inhalers, and DuoNeb. However, she did have an increased oxygen requirement. At home, the patient would wear oxygen only at night and with exertion at 2 L; however, her oxygen requirement was way above her baseline requiring 4 to 5 L continuously. She did have a transthoracic echocardiogram on 07/31/18. Her echo showed normal left ventricle. There was a septal knuckle measuring 1.3 cm. Systolic function was normal. The estimated ejection fraction was 55% to 60% with mild mitral regurgitation, trace tricuspid regurgitation with no previous echocardiogram available. The patient made slow progress in terms of her wheezing and respiratory status. However, on the morning of 08/03/18, the patient did seem to be back at her baseline. Her tachypnea and work of breathing seem to have come back to her baseline. She did, however, have a persistent increased oxygen requirement. She is requiring 5 L with ambulation and 2 L at rest. She is having desaturations on 4 L to 88%. The patient was able to sustain O2 saturation of 90% on 5 L without any increased tachypnea or work of breathing and felt comfortable of being discharged on this recommendation. Also, of significant note, her sputum culture revealed Klebsiella aerogenes. Based on this finding, her antibiotics were narrowed to ceftriaxone as a single agent. The rest of the antibiotics were discontinued. The patient was ready for discharge on 08/03. REVIEW OF SYSTEMS: The patient denies any fever, fatigue, or chills. No acute shortness of breath. No chest pain. No nausea. No vomiting. No abdominal pain. No arthralgias or myalgias. No further constitutional complaints. PHYSICAL EXAMINATION: Reveals well-appearing woman, in no acute distress. Her vital signs are blood pressure 126/75, heart rate 88, respiratory rate 17, O2 saturation 96% on 2 L, temperature of 97.4. HEENT: The patient is atraumatic, normocephalic. PERRLA. Nonicteric sclerae. Oral mucosa is moist. Tongue is midline. Neck is supple, nontender. No JVD noted. No carotid bruit auscultated. Cardiovascular: S1, S2 present. No murmurs, gallops, or rubs noted. Rate and rhythm are regular. Lungs are clear at the apices bilaterally. She has good air entry bilaterally. No rhonchi or rales or wheezes noted. She does have poor expiratory effort and she is tight at the bases. Abdomen is soft, nontender, nondistended. Positive bowel sounds in all 4 quadrants. No organomegaly noted. is deferred. Musculoskeletal: There is no clubbing, no cyanosis, no edema. She has +2 distal pulses palpable. Full range of motion. Steady gait. Neurologic: Grossly intact with no focal deficits. Psychiatric: She is cooperative and appropriate. LABORATORIES: WBCs 11.3, RBCs 3.88, hemoglobin 10.8, hematocrit 34, platelets 283. Sodium 140, potassium 4.0, chloride 112, CO2 22, BUN 10, creatinine 0.72, GFR is 83.8. Hemoglobin A1c 7.0. Lactic acid 1.5. Calcium 8.7, magnesium 2.0. Arterial blood gas, pH of 7.45, CO2 35, pO2 78, bicarb 25.4, O2 saturation 97.0, with a base excess of 0.7. IMAGING: Transthoracic echo as above. Chest x-ray dated 07/31/18, shows patchy alveolar opacification of the lung bases bilaterally. No further imaging during this admission. ACTIVITY: Progress activity as tolerated. DIET: Heart-healthy as tolerated. DISCHARGE DIAGNOSES: 1. Community-acquired pneumonia secondary to klebsiella. 2. Emphysema with exacerbation. 3. History of gastroesophageal reflux disease. 4. Postconcussive syndrome, stable. 5. Acute on chronic respiratory failure with hypoxia. 6. Sepsis present on admission, now resolved. 7. Leukocytosis secondary to community-acquired pneumonia. MEDICATIONS FOR DISCHARGE: Include: 1. Albuterol nebulizer 1 neb inhaled q.6 hours as needed. 2. Effexor 225 mg p.o. daily. 3. Spiriva 1 cap inhaled daily. 4. Gabapentin 100 mg p.o. b.i.d. 5. Ventolin inhaler 1 to 2 puffs q.4 hours as needed. 6. Clonazepam 1 mg p.o. 3 times a day as needed. 7. Prednisone taper 60 mg per day for 3 days, decrease by 10 mg every 3 days until complete for an 18-day taper. 8. Guaifenesin 1200 mg p.o. b.i.d. for 4 more days. 9. Omeprazole 40 mg daily. 10. Cefuroxime 500 mg p.o. b.i.d. for 5 days. 11. Tessalon Perles 100 mg p.o. b.i.d. for 5 days as needed. 12. Dulera 200/5 two puffs inhaled b.i.d. Please note that I was called by the Pharmacy, Dulera is not covered by her pharmacy plan. This should be followed up in an outpatient setting in terms of which inhalers are covered by her insurance. DISPOSITION: The patient was discharged to home in the care of her in stable condition. FOLLOWUP: The patient was instructed to follow up with Dr. Niño in the next 1 to 2 weeks, Dr. Stover at the [facility]. Please also note that the patient was originally a patient of Dr. Kumar who is no longer with [facility]. She was supposed to be seeing Dr. Loco, but was not able to get an immediate appointment. She is wishing to see Dr. Stover at the [facility], which is also still a part of [facility]. She is aware that all her records are with [facility] and would still like to see Dr. Stover at this time. Again, the patient was discharged in stable condition. TIME SPENT: Approximately 45 minutes on discharge planning and counseling. KASHIF CHOI NP [id number]/[facility] #: [id number] [place]
== END 2018-08-03 13:30 | disposition home or self-care (01) | DRG 720 ==
LOC: ED 11:17 → MED 13:56
PROVIDERS: ADMIT Internal Medicine; ATTEND Internal Medicine
DX: A41.9 Sepsis, unspecified organism (principal); J96.01 Acute respiratory failure with hypoxia; J15.0 Pneumonia due to Klebsiella pneumoniae; R47.01 Aphasia; Z68.41 Body mass index [BMI] 40.0-44.9, adult; J43.9 Emphysema, unspecified; M41.9 Scoliosis, unspecified; F41.9 Anxiety disorder, unspecified; F32.9 Major depressive disorder, single episode, unspecified; G89.29 Other chronic pain; M54.9 Dorsalgia, unspecified; R65.20 Severe sepsis without septic shock; I08.1 Rheumatic disorders of both mitral and tricuspid valves; F07.81 Postconcussional syndrome; R40.2363 Coma scale, best motor response, obeys commands, at hospital admission; R40.2143 Coma scale, eyes open, spontaneous, at hospital admission; R40.2253 Coma scale, best verbal response, oriented, at hospital admission; E66.9 Obesity, unspecified; K21.9 Gastro-esophageal reflux disease without esophagitis; F43.10 Post-traumatic stress disorder, unspecified; Z90.710 Acquired absence of both cervix and uterus; Z88.0 Allergy status to penicillin; Z86.718 Personal history of other venous thrombosis and embolism; Z82.49 Family history of ischemic heart disease and other diseases of the circulatory system; Z82.0 Family history of epilepsy and other diseases of the nervous system; Z80.3 Family history of malignant neoplasm of breast; Z87.891 Personal history of nicotine dependence
CPT/HCPCS: 36415; 71045; 71046; 80048; 80053; 82803; 83036; 83605; 83735; 84484; 85025; 85610; 85730; 87040; 87070; 87077; 87186; 87205; 87899; 93005; 93306; 94640; 99284; A9270-GY; C8929; J0696; J1650; J2930; J3490; J7512

== ENCOUNTER 2018-08-21 07:27 | Inpatient (IN) | payer OTHER ==
[2018-08-21] MEDS ORDERED: Albuterol/Ipratropium NEB.SOL* Albuterol 2.5 MG/Ipratropium 0.5 MG 3 ML ONE (07:48)
[2018-08-21] MEDS ORDERED: Albuterol/Ipratropium NEB.SOL* Albuterol 2.5 MG/Ipratropium 0.5 MG 3 ML INH ONE ×2 (07:52→07:54)
[2018-08-21] MEDS ORDERED: NS 0.9% 1000 ML** 1,000 ML IV.FLUID IV ONE (07:52)
[2018-08-21] MEDS ORDERED: Magnesium Sulfate 2 GM IV* 2 GM/50 ML BAG IVPB ONE (07:54)
[2018-08-21] MEDS ORDERED: Dexamethasone IV* 4 MG/ML 5 ML VIAL (20 MG) IVPB ONE (07:54)
[2018-08-21] MEDS ORDERED: Azithromycin 500 mg/250 ml NS 500 MG/250 ML BAG IVPB ONE (07:56)
[2018-08-21] MEDS ORDERED: cefTRIAXone(*) 1 GM in NS 0.9% 50 ML* 50 ML IVPB ONE (07:56)
[2018-08-21] MEDS ORDERED: cefTRIAXone(*) 1 GM ADVAN/BAG ONE (08:13)
[2018-08-21 08:26] LABS: ABS Basophils 0.1 10^3/ul (0-0.2); ABS Eosinophils 0.1 10^3/ul (0-0.6); ABS Lymphocytes 1.6 10^3/ul (1.0-4.8); ABS Neutrophils 18.5 10^3/ul (1.5-7.7); Eosinophil % 0.3 %; Hematocrit 39 % (35-47); Lymphocyte % 7.7 %; Mean Corpuscular HGB Conc 33 g/dL (31-36); Mean Corpuscular Hemoglobin 29 pg (27-31); Mean Corpuscular Volume 87 fL (80-97); Mean Platelet Volume 7.4 fL (7.4-10.4); Platelet Count 284 10^3/uL (150-450); Red Blood Count 4.53 10^6 /uL (3.70-4.87); Red Cell Distribution Width 17 % (10-15); White Blood Count 21.4 10^3/uL (3.5-10.8)
[2018-08-21 08:40] LABS: Activated Partial Thrombo Time 24.8 seconds (26.0-38.0); INR 0.92 (0.82-1.09)
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
[2018-08-21 08:57] LABS: Albumin/Globulin Ratio 1.2 (1-3); BUN/Creatinine Ratio 14.5 (8-20); C Reactive Protein 17.38 mg/L (<8.01); Calcium 9.2 mg/dL (8.6-10.3); EGFR Non-African American 71.1 (>60); Globulin 3.3 g/dL (2-4); Potassium 3.5 mmol/L (3.5-5.0); Total Bilirubin 0.5 mg/dL (0.2-1.0); Total Protein 7.3 g/dL (6.4-8.9)
[2018-08-21 09:48] LABS: Magnesium 2.1 mg/dL (1.9-2.7)
[2018-08-21] MEDS ORDERED: Albuterol 2.5 MG/3 ML NEB.SOL* (0.083%) INH PRN (10:22)
[2018-08-21] MEDS ORDERED: oxyCODONE/Acetamin 5/325 MG* TAB PO PRN (10:22)
[2018-08-21] MEDS ORDERED: Potassium Chlor TAB* 20 MEQ TAB.ER PO ONE (10:56)
[2018-08-21] MEDS ORDERED: cefTRIAXone VIAL(*) 1,000 MG in NS 0.9% 50 ML* 50 ML IVPB SCH (11:00)
[2018-08-21] MEDS ORDERED: Albuterol/Ipratropium NEB.SOL* Albuterol 2.5 MG/Ipratropium 0.5 MG 3 ML INH SCH (11:00)
[2018-08-21] MEDS: Enoxaparin(*) 40 MG/0.4 ML SYR SUBCUT SCH (12:40)
[2018-08-21] MEDS: Acetaminophen TAB* 325 MG PO PRN (12:41)
[2018-08-21] MEDS ORDERED: NS 0.9% 1000 ML** 1,000 ML IV ONE (13:00)
[2018-08-21] MEDS ORDERED: HYDROcodone/ACETAMIN 5-325 MG* 1 TAB PO PRN (13:00)
[2018-08-21] MEDS ORDERED: Lactated Ringers 1000 ML Bag* 1,000 ML IV SCH (13:00)
[2018-08-21] MEDS: Albuterol/Ipratropium NEB.SOL* Albuterol 2.5 MG/Ipratropium 0.5 MG 3 ML INH SCH ×3 (14:21→23:18)
[2018-08-21 18:44] LABS: Urine Appearance Clear; Urine Bacteria Absent (Absent); Urine Bilirubin Negative (Negative); Urine Blood 1+ (Negative); Urine Color Straw; Urine Glucose 3+(>=500 mg/dL) (Negative); Urine Ketones Negative (Negative); Urine Nitrite Negative (Negative); Urine Protein Negative (Negative); Urine Red Blood Cell 1+(3-5/hpf) (Absent); Urine Specific Gravity 1.011 (1.010-1.030); Urine Squamous Epithelial Cell Present (Absent); Urine Urobilinogen Negative (Negative); Urine White Blood Cell Absent (Absent)
--- NOTE | 2018-08-21 20:38 | HP ---
CC: Dr. Yvonne Stover; Dr. Niño * HISTORY AND PHYSICAL: DATE OF ADMISSION: PRIMARY CARE PROVIDER: Dr. Yvonne Stover. HEALTH TECHNICIAN: Dr. Niño. HEALTHCARE PROXY: Her , Yobany. CODE STATUS: Full code. CHIEF COMPLAINT: Increased shortness of breath and productive cough for 2 days. HISTORY OF PRESENT ILLNESS: Ms. Mitchell is a 57-year-old woman with a past medical history of emphysema, on 2 L home oxygen; concussion; anxiety; PTSD; chronic back pain, who is presenting with subacute and progressive shortness of breath and productive cough. She reports that she recently finished a prednisone taper from a recent admission for the same, which she was also treated with pneumonia and since stopping that prednisone taper, her shortness of breath and cough have progressed. She states that she has had to increase her home O2 only on exertion and that at rest, she is able to stay on 2 L. She reports that she has also been experiencing palpitations with these subacute symptoms and diaphoresis. She denies fevers or rigors. She denies abdominal pain, nausea, vomiting, constipation, or diarrhea. She denies runny nose or sore throat. Of note, the patient has had 2 admissions prior to this one in the last 2-1/2 months. The first admission in May was treated as a COPD exacerbation. Prior to that admission, she had been treated with pneumonia as an outpatient with 7 days of Levaquin. For her second admission at the end of July, her discharge diagnosis was community-acquired pneumonia secondary to klebsiella with an emphysema exacerbation. In the emergency room, the patient was noted to be saturating 98% on 2 L with tachycardia to 130s. She was initiated on ceftriaxone, azithromycin and also given IV dexamethasone 10 mg and magnesium 2 g. She was also given 3.5 L of normal saline for a lactate of 3.1, which has since increased to 4.8. Given her good perfusion on exam, it was thought this was likely from albuterol use and it is noted that this happened during her prior admission. She was admitted to Medicine for further treatment for her possible community-acquired pneumonia versus COPD exacerbation. PAST MEDICAL HISTORY: 1. COPD, on home 2 L oxygen, following with Dr. Niño, with multiple recent hospitalizations for exacerbations. 2. Postconcussive syndrome. 3. Anxiety. 4. PTSD. 5. Chronic back pain. 6. Obesity. 7. Osteoarthritis. 8. GERD. 9. Bladder prolapse. HOME MEDICATIONS: 1. Recently stopped prednisone 10 mg. 2. Spiriva 1 inhalation daily. 3. Albuterol inhaler or nebulizers as needed. 4. Azithromycin 250 mg 3 times a week. 5. Clonazepam 1 mg up to 3 times a day as needed. 6. Venlafaxine 225 mg daily. 7. Omeprazole 20 mg twice a day. 8. Barling 5/325 one tab up to 3 times a day as needed for back pain. The patient only takes at night. ALLERGIES: PENICILLIN caused hives, itching, and difficulty breathing. FAMILY HISTORY: Her father was diagnosed with lung cancer in his 80s and is still alive. Her mother at age 58 from complications from COPD. She was a heavy smoker. Her brother has severe COPD as well and had significant smoke exposure. SOCIAL HISTORY: The patient quit smoking in 1999 with prior 76-tfvs-pyte history. She denies alcohol or other drug use. 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 She lives with her , Yobany. REVIEW OF SYSTEMS: A complete 10-point review of systems was performed and pertinent positives and negatives are documented in the HPI. PHYSICAL EXAMINATION GENERAL: She is an anxious-appearing woman, in no acute distress, not speaking in full sentences due to mild increased work of breathing. VITAL SIGNS: The patient is afebrile, heart rate 110s, blood pressure 110/60, respiratory rate 20, oxygen saturation 97% on room air. HEENT: Moist mucous membranes. OP clear. NECK: Supple. Full range of motion intact. No JVD. LUNGS: Clear to auscultation in all lung davis except for mild crackles at right base. HEART: Tachycardic. Regular rhythm. No murmurs, gallops, or rubs. ABDOMEN: Soft, nontender, nondistended. EXTREMITIES: Lower extremities warm and well perfused. No evidence of edema. NEURO: CN II through XII intact. No focal deficits. A and O x3. DIAGNOSTIC STUDIES/LAB DATA: White blood cell 21 with neutrophil percent 86. BMP unremarkable. Lactic acid 3.1 to 4.8. CRP 17 (decreased from prior 51). Chest x-ray with persistent patchy airspace disease of the left lung base. EKG with sinus tachycardia 120. ASSESSMENT AND PLAN: A 57-year-old woman with severe emphysema, on home oxygen 2 L; postconcussive syndrome; anxiety; with multiple recent diagnoses of pneumonia and/or chronic obstructive pulmonary disease exacerbation, who is presenting with progressively worsening shortness of breath and increased productive cough. 1. Possible community-acquired pneumonia. The patient is currently on home O2 level. She does have tachycardia with an elevated lactic acid and a white count , although the heart rate and lactic acid are possibly from albuterol. She is status post 30 cc/kg fluid bolus and has been initiated on ceftriaxone and azithro. Pulmonology consult has been placed. Given her lack of wheezing, Pulmonology currently not recommending steroids, although the patient has received IV steroids in the ER. Pulmonology also recommending a CT scan, but first checking a D-dimer. If D-dimer is positive, we will order CT chest with contrast. If D-dimer is negative, we can order a CT chest without contrast. We will also check an ABG as the patient would be a candidate for BiPAP if she is retaining CO2. We will also continue home Spiriva with nebulizers as needed. Pending blood and sputum cultures as well as urine antigens for strep and legionella, also pending UA to complete sepsis workup. 2. Anxiety. Continue the patient's home clonazepam 1 mg 3 times a day as needed and venlafaxine 225 mg daily. 3. Gastroesophageal reflux disease. Continue PPI. 4. Chronic back pain. Continue Barling as needed. 5. DVT prophylaxis: Initiate enoxaparin daily. 6. Code status: Full code. TIME SPENT: Approximately 60 minutes was spent on admission of this patient, more than half of which was spent at bedside for interview and exam. [id number]/[facility] #: [id number] DARWIN
--- NOTE | 2018-08-21 20:56 | CONS ---
PULMONARY CONSULTATION REPORT: DATE OF CONSULT: 08/21/18 CONSULTATION REQUESTED BY: Shanice Clifford MD REASON FOR CONSULTATION: Shortness of breath. HISTORY OF PRESENT ILLNESS: The patient is a 57-year-old female with history of COPD/emphysema, history of anxiety, PTSD, chronic back pain and other neurological issues, GERD. The patient was brought in for evaluation of worsening shortness of breath. The patient has been having recurrent shortness of breath issues. She was in emergency room a few times recently. She was also seen by me in pulmonary clinic for the same complaint. She had an episode of COPD exacerbation in early July at which time she was treated with bronchodilators and steroids with improvement. She started having significant shortness of breath recurrently. She was started on multiple courses of prednisone for presumed COPD exacerbation. She had gained significant weight recently. Reports cough productive of green phlegm. Denies cough tenderness. She has had issues with lower extremity swelling, was prescribed diuretics by her line walker. She had improvement in lower extremity swelling and also had side effects due to diuresis and stopped the medication. She claims to be compliant with her inhalers and nebulizers as prescribed with no significant improvement in her symptoms. She reports inability to take deep breath. Reports tightness in her chest. She was recently also evaluated for right upper quadrant pain. She had negative MRCP and it was thought she might be having slow gastric emptying contributing to the GERD and possible microaspirations. She is scheduled to have EGD end of this week. She has been on PPI. Has also been trying nonpharmacological measures. She has been on 2 L O2 supplementation. Has not been significantly hypoxemic. Chest x-ray done in the emergency room was personally reviewed by me - evidence of mild airspace opacity in the left lung. No evidence of pleural effusion. No any other abnormality noted. She had negative D- dimers recently. She had arterial blood gas done in July, which revealed pO2 of 78 while on room air and without any CO2 retention. She was found to have elevated lactic acid on admission, which could be type B lactic acidosis from beta agonist use. Her CRP is mildly elevated. BNP is within normal limits. She has mildly elevated anion gap. She has elevated white count, which could be from steroids; however, it is significant to be explainable just with steroid usage. She has been having elevated white count around 11 to 14 recently, it was 21 on today's labs. She did have some left shift with this. Her echocardiogram in July during her prior hospitalization showed normal systolic function with EF of 55% to 60%, mild mitral regurgitation, and trace tricuspid regurgitation. She had CT scan of the chest in May of this year, which showed significant emphysematous changes without any suspicious nodules or masses or endobronchial lesions. The patient denies fevers or chills. She reports being fatigued. The patient reports inability to get a deep breath into her lungs. Denies urinary complaints. PAST MEDICAL HISTORY: 1. COPD/emphysema. 2. Asthma. 3. Anxiety. 4. GERD. 5. PTSD. 6. Chronic back pain. 7. Obesity. 8. Osteoarthritis. 9. Bladder prolapse. PAST SURGICAL HISTORY: 1. Hysterectomy. 2. Bladder sling surgery. MEDICATIONS: 1. Gabapentin. 2. Omeprazole. 3. Venlafaxine. 4. Tiotropium. 5. [place]. 6. Advair. 7. Albuterol. 8. Klonopin. ALLERGIES: PENICILLIN. FAMILY HISTORY: Father has stage IV lung cancer. Mother at 58 with complications of emphysema and she is heavy smoker. Both her siblings have emphysema. SOCIAL HISTORY: Quit smoking 19 years ago. Smoked 17 pack years prior to that. Denies alcohol or drug abuse. 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 Has been in disability recently due to her symptoms. REVIEW OF SYSTEMS: All 14 systems reviewed and as per HPI. PHYSICAL EXAM: The patient is morbidly obese, in bed, in no apparent distress. Vital Signs: Temperature 97.8, pulse 117 per minute, respiratory rate 20 per minute, O2 sat 97% on 2 L, blood pressure 110/60. HEENT: Pupils equal, reactive to light. Mucous membranes moist. Lungs: Diminished air entry bilaterally. No wheeze or crackles. Cardiovascular: S1, S2 present. Tachycardic. Abdomen: Soft, nontender, nondistended. Bowel sounds present. Extremities: Trace edema. Neuro: Alert, awake, oriented x3. No focal deficits. Skin: No rash or bruises. DIAGNOSTIC STUDIES/LAB DATA: EKG shows sinus tachycardia with no acute ST-T wave changes. WBC count 21.4, hemoglobin 13, hematocrit 39, platelet count 284. Sodium 138, potassium 3.5, chloride 100, bicarb 26, BUN 12, creatinine 0.83, glucose 150. Troponin 3.1 on admission, increased to 5, coming down to 4.8. CRP slightly elevated to 17. AST mildly elevated. BNP 23. Chest x-ray as described above in HPI. Echo as described above. Sputum cultures in the past did show klebsiella in July; she was treated with antibiotics at that time. IMPRESSION AND RECOMMENDATIONS: 57-year-old female with recurrent healthcare visits for shortness of breath and generalized weakness, unclear etiology. She is not in acute chronic obstructive pulmonary disease exacerbation at this time. Will check the D-dimer. If the D-dimer is less than 200, we will not pursue CT with contrast. Otherwise, will do a CTA to rule out pulmonary embolism. Will otherwise do CT chest without contrast to evaluate for any parenchymal abnormality. She does not appear to be in significant fluid overload and BNP is within normal limits, which also does not explain her significant dyspnea symptoms. Will hold off on dialysis at this time. Will complete full septic workup given signs of sepsis. Will check the sputum cultures again. I agree with current antibiotic choice. Will obtain arterial blood gas first thing in the morning to evaluate for hypercapnia given recent weight gain and possibility of obesity hypoventilation syndrome. Thank you for allowing me to participate in the care of your patient. Will follow up with you. [id number]/[facility] #: [id number] D[place]WIN
[2018-08-21] MEDS: clonazePAM TAB(*) 1 MG PO PRN (22:50)
[2018-08-22 06:18] LABS: ABS Lymphocytes 1.5 10^3/ul (1.0-4.8); ABS Monocytes 0.5 10^3/ul (0-0.8); ABS Neutrophils 14.9 10^3/ul (1.5-7.7); Hematocrit 37 % (35-47); Hemoglobin 12.3 g/dL (12.0-16.0); Lymphocyte % 9.1 %; Mean Corpuscular HGB Conc 34 g/dL (31-36); Mean Corpuscular Hemoglobin 29 pg (27-31); Mean Corpuscular Volume 87 fL (80-97); Mean Platelet Volume 7.6 fL (7.4-10.4); Platelet Count 291 10^3/uL (150-450); Red Blood Count 4.21 10^6 /uL (3.70-4.87); Red Cell Distribution Width 17 % (10-15)
[2018-08-22 06:32] LABS: BUN/Creatinine Ratio 14.9 (8-20); Calcium 9.1 mg/dL (8.6-10.3); EGFR African American 110.2 (>60); Magnesium 2.7 mg/dL (1.9-2.7); Potassium 4.3 mmol/L (3.5-5.0)
[2018-08-22] MEDS: Venlafaxine EXT RELEASE CAP* 75 MG PO SCH (07:26)
[2018-08-22] MEDS: Acetaminophen TAB* 325 MG PO PRN ×2 (07:26→19:56)
[2018-08-22] MEDS: clonazePAM TAB(*) 1 MG PO PRN ×2 (07:26→19:55)
[2018-08-22] MEDS: Azithromycin TAB* 250 MG PO SCH (07:27)
[2018-08-22] MEDS: Pantoprazole TAB * 40 MG TAB PO SCH (07:27)
[2018-08-22] MEDS: cefTRIAXone VIAL(*) 1,000 MG in NS 0.9% 50 ML* 50 ML IVPB SCH (07:27)
[2018-08-22] MEDS: Tiotropium CAP.INH* CAP.INH/18 MCG (USE ORDER SET !) INH SCH (08:37)
[2018-08-22] MEDS ORDERED: Spiriva Inhaler DEVICE* 1 EACH DEVICE INH ONE (09:00)
[2018-08-22] MEDS: Enoxaparin(*) 40 MG/0.4 ML SYR SUBCUT SCH (11:54)
--- NOTE | 2018-08-22 16:21 | PN ---
Subjective Date of Service: 08/22/18 Interval History: Patient seen earlier today in her room. she was laying down reading her book. She reports improvement when compared to yesterday. She is still dyspneic with minimal exertions. D-Dimer negative and consult from Dr. Niño appreciated. I will proceed with her recommendation and obtain CT chest without contrast. Patient did express frustration regarding her recurrent infection and pneumonia ("total of 5 since april")! Past Medical History: Unchanged from Admission Objective Active Medications: Acetaminophen (Tylenol Tab*) 975 mg PO Q8H PRN PRN Reason: FEVER/PAIN Last Admin: 08/22/18 07:26 Dose: 975 mg Hydrocodone Bitart/Acetaminophen ([place] 5-325 Tab*) 1 tab PO TID PRN PRN Reason: PAIN Albuterol (Ventolin 2.5 Mg/3 Ml Neb.Cassandra*) 2.5 mg INH [id number] AWAKE PRN PRN Reason: sob/wheezing Azithromycin (Zithromax Tab*) [address] [facility] Stop: 08/25/18 09:01 Last Admin: 08/22/18 07:27 Dose: 250 mg Clonazepam (Klonopin Tab(*)) 1 mg PO TID PRN PRN Reason: ANXIETY Last Admin: 08/22/18 07:26 Dose: 1 mg Enoxaparin Sodium (Lovenox(*)) [address] [facility] Last Admin: 08/22/18 11:54 Dose: 40 mg Ceftriaxone Sodium 1,000 mg/ (Sodium Chloride) 50 mls @ 200 mls/hr IVPB Q24H [facility] Last Admin: 08/22/18 07:27 Dose: 200 mls/hr Oxycodone/Acetaminophen (Percocet 5/325 Tab*) 1 tab PO Q6H PRN PRN Reason: Pain Pantoprazole Sodium (Protonix Tab*) [address] [facility] Last Admin: 08/22/18 07:27 Dose: 40 mg Tiotropium [place] (Spiriva Cap.Inh*) [address] [facility] Last Admin: 08/22/18 08:37 Dose: Not Given Venlafaxine HCl (Effexor Xr Cap*) [address] [facility] Last Admin: 08/22/18 07:26 Dose: 225 mg Vital Signs - 8 hr 08/22/18 08/22/18 08/22/18 09:00 10:31 11:38 Temperature 98.1 F 97.9 F Pulse Rate 94 92 Respiratory 20 18 16 Rate Blood Pressure 144/63 117/64 (mmHg) O2 Sat by Pulse 98 100 Oximetry 08/22/18 15:00 Temperature 98.2 F Pulse Rate 84 Respiratory 20 Rate Blood Pressure 138/76 (mmHg) O2 Sat by Pulse 100 Oximetry Oxygen Devices in Use Now: Nasal Cannula Appearance: Awake, alert. no acute respiratory distress Eyes: No Scleral Icterus, - Ears/Nose/Mouth/Throat: NL Teeth, Lips, Gums, Mucous Membranes Moist Neck: NL Appearance and Movements; NL JVP Respiratory: - - poor air flow and distrant breath sound. I did not appreciate wheezing or rhonchi however Cardiovascular: NL Sounds; No Murmurs; No JVD, No Edema Abdominal: NL Sounds; No Tenderness; No Distention Extremities: No Edema Skin: No Rash or Ulcers Neurological: Alert and Oriented x 3 Result Diagrams: 08/22/18 05:43 08/22/18 05:43 Additional Lab and Data: Lab Results 08/21/18 08/21/18 08/21/18 Range/Units 08:15 08:15 08:15 WBC 21.4 H (3.5-10.8) 10^3/uL RBC 4.53 (3.70-4.87) 10^6 /uL Hgb 13.0 (12.0-16.0) g/dL Hct 39 (35-47) % MCV 87 (80-97) fL MCH 29 (27-31) pg MCHC 33 (31-36) g/dL RDW 17 H (10-15) % Plt Count 284 (150-450) 10^3/uL MPV 7.4 (7.4-10.4) fL Neut % (Auto) 86.5 % Lymph % (Auto) 7.7 % [place] % (Auto) 4.9 % Eos % (Auto) 0.3 % Baso % (Auto) 0.6 % Absolute Neuts (auto) 18.5 H (1.5-7.7) 10^3/ul Absolute Lymphs (auto) 1.6 (1.0-4.8) 10^3/ul Absolute Monos (auto) 1.0 H (0-0.8) 10^3/ul Absolute Eos (auto) 0.1 (0-0.6) 10^3/ul Absolute Basos (auto) 0.1 (0-0.2) 10^3/ul Absolute Nucleated RBC 0.0 10^3/ul Nucleated RBC % 0.0 INR (Anticoag Therapy) 0.92 (0.82-1.09) APTT 24.8 L (26.0-38.0) seconds Sodium Pending Potassium Pending Chloride Pending Carbon Dioxide Pending Anion Gap Pending BUN Pending Creatinine Pending Est GFR ( Amer) Pending Est GFR (Non-Af Amer) Pending BUN/Creatinine Ratio Pending Glucose Pending Calcium Pending Total Bilirubin Pending AST Pending ALT Pending Alkaline Phosphatase Pending Troponin I 0.00 (<0.04) ng/mL C-Reactive Protein Pending B-Natriuretic Peptide (<=100) pg/mL Total Protein Pending Albumin Pending Globulin Pending Albumin/Globulin Ratio Pending 08/21/18 Range/Units 08:15 WBC (3.5-10.8) 10^3/uL RBC (3.70-4.87) 10^6 /uL Hgb (12.0-16.0) g/dL Hct (35-47) % MCV (80-97) fL MCH (27-31) pg MCHC (31-36) g/dL RDW (10-15) % Plt Count (150-450) 10^3/uL MPV (7.4-10.4) fL Neut % (Auto) % Lymph % (Auto) % [place] % (Auto) % Eos % (Auto) % Baso % (Auto) % Absolute Neuts (auto) (1.5-7.7) 10^3/ul Absolute Lymphs (auto) (1.0-4.8) 10^3/ul Absolute Monos (auto) (0-0.8) 10^3/ul Absolute Eos (auto) (0-0.6) 10^3/ul Absolute Basos (auto) (0-0.2) 10^3/ul Absolute Nucleated RBC 10^3/ul Nucleated RBC % INR (Anticoag Therapy) (0.82-1.09) APTT (26.0-38.0) seconds Sodium Potassium Chloride Carbon Dioxide Anion Gap BUN Creatinine Est GFR ( Amer) Est GFR (Non-Af Amer) BUN/Creatinine Ratio Glucose Calcium Total Bilirubin AST ALT Alkaline Phosphatase Troponin I (<0.04) ng/mL C-Reactive Protein B-Natriuretic Peptide 23 (<=100) pg/mL Total Protein Albumin Globulin Albumin/Globulin Ratio Microbiology and Other Data: Microbiology 08/21/18 08:15 Aerobic Blood Culture - Preliminary Blood Venous No Growth Day 1 Anaerobic Blood Culture - Preliminary No Growth Day 1 08/21/18 08:15 Aerobic Blood Culture - Preliminary Blood Venous No Growth Day 1 Anaerobic Blood Culture - Preliminary No Growth Day 1 08/21/18 18:30 Legionella Urinary Antigen - Final Urine Negative Legionella Antigen Streptococcus pneumoniae Ag Screen - Final Negative S. pneumo Antigen Assess/Plan/Problems-Billing Assessment: 57 year old female, admitted for presumed reccurent left lower lobe pneumonaie with 21,000 WBC, Lactic acidosis 5.0; but no temperature. CT chest ordered and currently on rocephin and azithromycin - Patient Problems (1) Pneumonia Current Visit: No Status: Acute Code(s): J18.9 - PNEUMONIA, UNSPECIFIED ORGANISM SNOMED Code(s): 848341475 Comment: - CXR from this admission shows persistent patchy infiltrate but no consolidations - I agree with CT of chest. - Continue Ceftriaxone, zithromax - follow up sputum cultures and gram stains - I may consider esophagram or MBS to rule out aspirations (2) COPD (chronic obstructive pulmonary disease) Current Visit: Yes Status: Acute Code(s): J44.9 - CHRONIC OBSTRUCTIVE PULMONARY DISEASE, UNSPECIFIED SNOMED Code(s): 34792053 Comment: - not in exacerbations - Pulmonary consult noted and appreciated - Will order CT chest without Contrast, D-dimer negative - Will order ABG in am as recommended by pulm - Continue neb, spiriva and O2 (3) GERD (gastroesophageal reflux disease) Current Visit: No Status: Acute Code(s): K21.9 - GASTRO-ESOPHAGEAL REFLUX DISEASE WITHOUT ESOPHAGITIS SNOMED Code(s): 212218522 Comment: - continue PPI daily - Will need f/u outpatient for slow gastric emptying and agree to rule out aspiration. (4) Major depressive disorder, recurrent Current Visit: No Status: Acute Code(s): F33.9 - MAJOR DEPRESSIVE DISORDER, RECURRENT, UNSPECIFIED SNOMED Code(s): 67855400 Comment: - effexor 225 mg daily (5) DVT prophylaxis Current Visit: No Status: Acute Code(s): BXB3384 - SNOMED Code(s): 675960641 Comment: - Lovenox
--- NOTE | 2018-08-22 16:53 | PN ---
Progress Note - Progress Note Date of Service: 08/22/18 - Pulm f/u note Note: Pt seen and examined at bedside. Pt sitting up in chair. Reports improved breathing since admission. Denies cough or sputum. Still has ROWAN. Active Medications Generic Name Dose Route Start Last Admin Trade Name Freq PRN Reason Stop Dose Admin Acetaminophen 975 mg 08/21/18 10:22 08/22/18 07:26 Tylenol Tab* PO 975 mg Q8H PRN Administration FEVER/PAIN Hydrocodone Bitart/Acetaminophen 1 tab 08/21/18 13:00 [place] 5-325 Tab* PO TID PRN PAIN Albuterol 2.5 mg 08/21/18 15:00 Ventolin 2.5 Mg/3 Ml Neb.Cassandra* INH [id number] AWAKE PRN sob/wheezing Azithromycin 250 mg 08/22/18 09:00 08/22/18 07:27 Zithromax Tab* PO 08/25/18 09:01 250 mg DAILY [facility] Administration Clonazepam 1 mg 08/21/18 13:00 08/22/18 07:26 Klonopin Tab(*) PO 1 mg TID PRN Administration ANXIETY Enoxaparin Sodium 40 mg 08/21/18 11:00 08/22/18 11:54 Lovenox(*) SUBCUT 40 mg Q24H [facility] Administration Ceftriaxone Sodium 1,000 mg/ 50 mls @ 200 mls/hr 08/22/18 08:00 08/22/18 07: 27 Sodium Chloride IVPB 200 mls/hr Q24H [facility] Administration Oxycodone/Acetaminophen 1 tab 08/21/18 10:22 Percocet 5/325 Tab* PO Q6H PRN Pain Pantoprazole Sodium 40 mg 08/22/18 09:00 08/22/18 07:27 Protonix Tab* PO 40 mg DAILY [facility] Administration Tiotropium [place] 1 cap 08/22/18 09:00 08/22/18 08:37 Spiriva Cap.Inh* INH Not Given QAM [facility] Venlafaxine HCl 225 mg 08/22/18 09:00 08/22/18 07:26 Effexor Xr Cap* PO 225 mg QAM [facility] Administration Vital Signs Temp Pulse Resp BP Pulse Ox 98.2 F 84 20 138/76 100 08/22/18 15:00 08/22/18 15:00 08/22/18 15:00 08/22/18 15:00 08/22/18 15:00 O/E: Pt in NAD HEENT: PERRLA, no JVD Lungs: Diminished air entry, clear to auscultation b/l CVS: S1, S2+, regular Abd: Soft, BS+ Ext: Normal ROM Skin: No rash Neuro: No focal deficits Laboratory Results - last 24 hr 08/21/18 08/21/18 08/22/18 16:48 18:30 05:43 WBC 17.0 H RBC 4.21 Hgb 12.3 Hct 37 MCV 87 MCH 29 MCHC 34 RDW 17 H Plt Count 291 MPV 7.6 Neut % (Auto) 87.7 Lymph % (Auto) 9.1 [place] % (Auto) 3.1 Eos % (Auto) 0.0 Baso % (Auto) 0.1 Absolute Neuts (auto) 14.9 H Absolute Lymphs (auto) 1.5 Absolute Monos (auto) 0.5 Absolute Eos (auto) 0.0 Absolute Basos (auto) 0.0 Absolute Nucleated RBC 0.0 Nucleated RBC % 0.0 D-Dimer, Quantitative Patient Temperature ABG pH ABG pH (Temp Correct) ABG pCO2 ABG pCO2 (Temp Corrct ABG pO2 ABG pO2 (Temp Correct ABG HCO3 ABG O2 Saturation ABG Base Excess Respiration Rate O2 Delivery Device Ventilator Type Vent Mode FiO2 Inspiratory Time PEEP Pressure Support Pressure Control EPAP IPAP BiPAP Sodium Potassium Chloride Carbon Dioxide Anion Gap BUN Creatinine Est GFR ( Amer) Est GFR (Non-Af Amer) BUN/Creatinine Ratio Glucose Lactic Acid 4.8 H* Calcium Magnesium Urine Color Straw Urine Appearance Clear Urine pH 6.0 Ur Specific [place] 1.011 Urine Protein Negative Urine Ketones Negative Urine Blood 1+ A Urine Nitrate Negative Urine Bilirubin Negative Urine Urobilinogen Negative Ur Leukocyte Esterase Negative Urine WBC (Auto) Absent Urine RBC (Auto) 1+(3-5/hpf) A Ur Squamous Epith Cells Present A Urine Bacteria Absent Urine Glucose 3+(>=500 mg/dl) A 08/22/18 08/22/18 08/22/18 05:43 05:43 06:03 WBC RBC Hgb Hct MCV MCH MCHC RDW Plt Count MPV Neut % (Auto) Lymph % (Auto) [place] % (Auto) Eos % (Auto) Baso % (Auto) Absolute Neuts (auto) Absolute Lymphs (auto) Absolute Monos (auto) Absolute Eos (auto) Absolute Basos (auto) Absolute Nucleated RBC Nucleated RBC % D-Dimer, Quantitative < 200 Patient Temperature Not Reportable ABG pH 7.46 H ABG pH (Temp Correct) Not Reportable ABG pCO2 34 L ABG pCO2 (Temp Corrct Not Reportable ABG pO2 88 ABG pO2 (Temp Correct Not Reportable ABG HCO3 25.5 ABG O2 Saturation 99.2 H ABG Base Excess 0.8 Respiration Rate Not Reportable O2 Delivery Device nasal cannula Ventilator Type Not Reportable Vent Mode Not Reportable FiO2 2 Inspiratory Time Not Reportable PEEP Not Reportable Pressure Support Not Reportable Pressure Control Not Reportable EPAP Not Reportable IPAP Not Reportable BiPAP Not Reportable Sodium 140 Potassium 4.3 Chloride 106 Carbon Dioxide 26 Anion Gap 8 BUN 10 Creatinine 0.67 Est GFR ( Amer) 110.2 Est GFR (Non-Af Amer) 91.0 BUN/Creatinine Ratio 14.9 Glucose 149 H Lactic Acid Calcium 9.1 Magnesium 2.7 Urine Color Urine Appearance Urine pH Ur Specific [place] Urine Protein Urine Ketones Urine Blood Urine Nitrate Urine Bilirubin Urine Urobilinogen Ur Leukocyte Esterase Urine WBC (Auto) Urine RBC (Auto) Ur Squamous Epith Cells Urine Bacteria Urine Glucose I/R: 57 year old female, with h/o signficant emphhysema, no obstruction on PFTS , h/o mood disorder, diastolic CHF with multiple recent visits for SOB, being treated for presumed PNA and COPD exacerbations eventhough there is no definitive evidence for either, GERD/laryngeal reflux was suspected and awaiting EGD. Pt readmittedd for SOB, fatigue, was noted to have 21,000 WBC, Lactic acidosis 5.0; afebrile and possible LLL PNA. Pt with symptoamtic improvement She is not in acute COPD exacerbation She has gained signficant wt recently due to preddnisone which might also be contributing to SOB Given recurrent admissions, rpt CT chest was requested She doesnot have PE as d-dimer is normal ABG didnot reveal hypoxia or hypercapnia. She is currently on rocephin and azithromycin Will need studies for evaluation of GERD Anxiety might be paying major role Will f/u CT chest results D/w above results with pt
[2018-08-22] MEDS: Albuterol 2.5 MG/3 ML NEB.SOL* (0.083%) INH PRN ×2 (17:46→20:04)
[2018-08-23 06:07] LABS: ABS Eosinophils 0.2 10^3/ul (0-0.6); ABS Lymphocytes 3.5 10^3/ul (1.0-4.8); ABS Monocytes 0.6 10^3/ul (0-0.8); Eosinophil % 1.9 %; Hematocrit 36 % (35-47); Hemoglobin 11.9 g/dL (12.0-16.0); Lymphocyte % 28.3 %; Mean Corpuscular HGB Conc 33 g/dL (31-36); Mean Corpuscular Hemoglobin 29 pg (27-31); Mean Corpuscular Volume 86 fL (80-97); Mean Platelet Volume 7.5 fL (7.4-10.4); Nucleated Red Blood Cells % 0.1; Platelet Count 269 10^3/uL (150-450); Red Blood Count 4.18 10^6 /uL (3.70-4.87); Red Cell Distribution Width 17 % (10-15); White Blood Count 12.4 10^3/uL (3.5-10.8)
[2018-08-23 06:21] LABS: BUN/Creatinine Ratio 16.9 (8-20); Calcium 9.4 mg/dL (8.6-10.3); EGFR Non-African American 71.1 (>60); Magnesium 2.3 mg/dL (1.9-2.7); Phosphorus 3.9 mg/dL (2.5-5.0); Potassium 3.8 mmol/L (3.5-5.0)
[2018-08-23] MEDS: Azithromycin TAB* 250 MG PO SCH (07:13)
[2018-08-23] MEDS: Venlafaxine EXT RELEASE CAP* 75 MG PO SCH (07:13)
[2018-08-23] MEDS: Pantoprazole TAB * 40 MG TAB PO SCH (07:13)
[2018-08-23] MEDS: cefTRIAXone VIAL(*) 1,000 MG in NS 0.9% 50 ML* 50 ML IVPB SCH (07:14)
[2018-08-23] MEDS: Tiotropium CAP.INH* CAP.INH/18 MCG (USE ORDER SET !) INH SCH (08:05)
[2018-08-23] MEDS: Albuterol 2.5 MG/3 ML NEB.SOL* (0.083%) INH PRN ×2 (08:06→20:12)
[2018-08-23] MEDS: Enoxaparin(*) 40 MG/0.4 ML SYR SUBCUT SCH (11:33)
[2018-08-23] MEDS: Acetaminophen TAB* 325 MG PO PRN ×2 (11:37→20:51)
[2018-08-23] MEDS: clonazePAM TAB(*) 1 MG PO PRN ×2 (11:43→20:50)
--- NOTE | 2018-08-23 11:45 | PN ---
Subjective Date of Service: 08/23/18 Interval History: Patient was seen this morning, and she appears to be doing better, she is still very nervous and anxious regarding her recurrent pneumonia. I explained to her that it would be better to wait until her pneumonia improves before doing EGD to rule out Reflux or hiatal hernia. But I will proceed with esophogram to rule out esophageal dysmotility such as achalasia. Also I did notice that she had almost double portion of breakfast in her tray this morning. she finished all of her food that was brought to her from dietary and at the same time she brought food from home. I explained that it is important to control her portion and work on weight loss to avoid nocturnal reflux. I offered her sound technician but she states she already met with sound technician in the past and she knows what she should do and knows that she has to do it. She does have increase cough clearing throat after meals which could be related to reflux and or post nasal drip Past Medical History: Unchanged from Admission Objective Active Medications: Acetaminophen (Tylenol Tab*) 975 mg PO Q8H PRN PRN Reason: FEVER/PAIN Last Admin: 08/23/18 11:37 Dose: 975 mg Hydrocodone Bitart/Acetaminophen ([place] 5-325 Tab*) 1 tab PO TID PRN PRN Reason: PAIN Albuterol (Ventolin 2.5 Mg/3 Ml Neb.Cassandra*) 2.5 mg INH [id number] AWAKE PRN PRN Reason: sob/wheezing Last Admin: 08/23/18 08:06 Dose: 2.5 mg Azithromycin (Zithromax Tab*) 250 mg PO DAILY [facility] Stop: 08/25/18 09:01 Last Admin: 08/23/18 07:13 Dose: 250 mg Clonazepam (Klonopin Tab(*)) 1 mg PO TID PRN PRN Reason: ANXIETY Last Admin: 08/22/18 19:55 Dose: 1 mg Enoxaparin Sodium (Lovenox(*)) 40 mg SUBCUT Q24H [facility] Last Admin: 08/23/18 11:33 Dose: 40 mg Ceftriaxone Sodium 1,000 mg/ (Sodium Chloride) 50 mls @ 200 mls/hr IVPB Q24H [facility] Last Admin: 08/23/18 07:14 Dose: 200 mls/hr Oxycodone/Acetaminophen (Percocet 5/325 Tab*) 1 tab PO Q6H PRN PRN Reason: Pain Pantoprazole Sodium (Protonix Tab*) 40 mg PO DAILY [facility] Last Admin: 08/23/18 07:13 Dose: 40 mg Tiotropium [place] (Spiriva Cap.Inh*) 1 cap INH QAM [facility] Last Admin: 08/23/18 08:05 Dose: 2 puff Venlafaxine HCl (Effexor Xr Cap*) 225 mg PO QAM [facility] Last Admin: 08/23/18 07:13 Dose: 225 mg Vital Signs - 8 hr 08/23/18 08/23/18 07:26 08:08 Pulse Rate 82 Respiratory 20 18 Rate O2 Sat by Pulse 98 Oximetry Oxygen Devices in Use Now: Nasal Cannula Appearance: awake, anxious, no distress Eyes: No Scleral Icterus, - - EOMI Ears/Nose/Mouth/Throat: NL Teeth, Lips, Gums, Mucous Membranes Moist Neck: NL Appearance and Movements; NL JVP Respiratory: Symmetrical Chest Expansion and Respiratory Effort Cardiovascular: NL Sounds; No Murmurs; No JVD, RRR, No Edema Extremities: No Edema Skin: No Rash or Ulcers Neurological: Alert and Oriented x 3, NL Muscle Strength and Tone Result Diagrams: 08/23/18 05:23 08/23/18 05:23 Additional Lab and Data: Lab Results 08/21/18 08/21/18 08/21/18 Range/Units 08:15 08:15 08:15 WBC 21.4 H (3.5-10.8) 10^3/uL RBC 4.53 (3.70-4.87) 10^6 /uL Hgb 13.0 (12.0-16.0) g/dL Hct 39 (35-47) % MCV 87 (80-97) fL MCH 29 (27-31) pg MCHC 33 (31-36) g/dL RDW 17 H (10-15) % Plt Count 284 (150-450) 10^3/uL MPV 7.4 (7.4-10.4) fL Neut % (Auto) 86.5 % Lymph % (Auto) 7.7 % [place] % (Auto) 4.9 % Eos % (Auto) 0.3 % Baso % (Auto) 0.6 % Absolute Neuts (auto) 18.5 H (1.5-7.7) 10^3/ul Absolute Lymphs (auto) 1.6 (1.0-4.8) 10^3/ul Absolute Monos (auto) 1.0 H (0-0.8) 10^3/ul Absolute Eos (auto) 0.1 (0-0.6) 10^3/ul Absolute Basos (auto) 0.1 (0-0.2) 10^3/ul Absolute Nucleated RBC 0.0 10^3/ul Nucleated RBC % 0.0 INR (Anticoag Therapy) 0.92 (0.82-1.09) APTT 24.8 L (26.0-38.0) seconds Sodium Pending Potassium Pending Chloride Pending Carbon Dioxide Pending Anion Gap Pending BUN Pending Creatinine Pending Est GFR ( Amer) Pending Est GFR (Non-Af Amer) Pending BUN/Creatinine Ratio Pending Glucose Pending Calcium Pending Total Bilirubin Pending AST Pending ALT Pending Alkaline Phosphatase Pending Troponin I 0.00 (<0.04) ng/mL C-Reactive Protein Pending B-Natriuretic Peptide (<=100) pg/mL Total Protein Pending Albumin Pending Globulin Pending Albumin/Globulin Ratio Pending 08/21/18 Range/Units 08:15 WBC (3.5-10.8) 10^3/uL RBC (3.70-4.87) 10^6 /uL Hgb (12.0-16.0) g/dL Hct (35-47) % MCV (80-97) fL MCH (27-31) pg MCHC (31-36) g/dL RDW (10-15) % Plt Count (150-450) 10^3/uL MPV (7.4-10.4) fL Neut % (Auto) % Lymph % (Auto) % [place] % (Auto) % Eos % (Auto) % Baso % (Auto) % Absolute Neuts (auto) (1.5-7.7) 10^3/ul Absolute Lymphs (auto) (1.0-4.8) 10^3/ul Absolute Monos (auto) (0-0.8) 10^3/ul Absolute Eos (auto) (0-0.6) 10^3/ul Absolute Basos (auto) (0-0.2) 10^3/ul Absolute Nucleated RBC 10^3/ul Nucleated RBC % INR (Anticoag Therapy) (0.82-1.09) APTT (26.0-38.0) seconds Sodium Potassium Chloride Carbon Dioxide Anion Gap BUN Creatinine Est GFR ( Amer) Est GFR (Non-Af Amer) BUN/Creatinine Ratio Glucose Calcium Total Bilirubin AST ALT Alkaline Phosphatase Troponin I (<0.04) ng/mL C-Reactive Protein B-Natriuretic Peptide 23 (<=100) pg/mL Total Protein Albumin Globulin Albumin/Globulin Ratio Microbiology and Other Data: Microbiology 08/21/18 08:15 Aerobic Blood Culture - Preliminary Blood Venous No Growth Day 1 Anaerobic Blood Culture - Preliminary No Growth Day 1 08/21/18 08:15 Aerobic Blood Culture - Preliminary Blood Venous No Growth Day 1 Anaerobic Blood Culture - Preliminary No Growth Day 1 08/21/18 18:30 Legionella Urinary Antigen - Final Urine Negative Legionella Antigen Streptococcus pneumoniae Ag Screen - Final Negative S. pneumo Antigen Assess/Plan/Problems-Billing Assessment: 57 year old female, admitted for presumed reccurent left lower lobe pneumonaie with 21,000 WBC, Lactic acidosis 5.0; but no temperature. CT chest reveals severe emphysema and currently on rocephin and azithromycin - Patient Problems (1) Pneumonia Current Visit: No Status: Acute Code(s): J18.9 - PNEUMONIA, UNSPECIFIED ORGANISM SNOMED Code(s): 101455566 Comment: - CXR from this admission shows persistent patchy infiltrate but no consolidations - CT of chest revealed emphysema no consolidations. but clincially I do beleive she did have bronchial pneumoniae - Continue Ceftriaxone, zithromax day # 3 - follow up sputum cultures and gram stains - I will esophagram to rule reflux, hiatal hernia, achalsia - I did career placement services counselor her on weight loss and avoid late and large meals as that will predispose her for nocturnal reflux and aspirations. (2) COPD (chronic obstructive pulmonary disease) Current Visit: Yes Status: Acute Code(s): J44.9 - CHRONIC OBSTRUCTIVE PULMONARY DISEASE, UNSPECIFIED SNOMED Code(s): 49254253 Comment: - not in exacerbations - Pulmonary consult noted and appreciated - CT chest without Contrast, D-dimer negative, reveals emphysema - ABG this morning 08/24/18 improved - Continue neb, spiriva and O2 (3) GERD (gastroesophageal reflux disease) Current Visit: No Status: Acute Code(s): K21.9 - GASTRO-ESOPHAGEAL REFLUX DISEASE WITHOUT ESOPHAGITIS SNOMED Code(s): 524520473 Comment: - continue PPI daily - Will need f/u outpatient for slow gastric emptying and agree to rule out aspiration. (4) Major depressive disorder, recurrent Current Visit: No Status: Acute Code(s): F33.9 - MAJOR DEPRESSIVE DISORDER, RECURRENT, UNSPECIFIED SNOMED Code(s): 80672383 Comment: - effexor 225 mg daily (5) DVT prophylaxis Current Visit: No Status: Acute Code(s): WWV9492 - SNOMED Code(s): 717675831 Comment: - Lovenox
--- NOTE | 2018-08-23 15:33 | PN ---
Progress Note - Progress Note Date of Service: 08/23/18 - Pulm f/u note Note: Pt seen and examined at bedside. Pt reports feeling better. Reports GERD sx and abd discomfort. Feels food stuck in throat. Active Medications Generic Name Dose Route Start Last Admin Trade Name Freq PRN Reason Stop Dose Admin Acetaminophen 975 mg 08/21/18 10:22 08/23/18 11:37 Tylenol Tab* PO 975 mg Q8H PRN Administration FEVER/PAIN Hydrocodone Bitart/Acetaminophen 1 tab 08/21/18 13:00 [place] 5-325 Tab* PO TID PRN PAIN Albuterol 2.5 mg 08/21/18 15:00 08/23/18 08:06 Ventolin 2.5 Mg/3 Ml Neb.Cassandra* INH 2.5 mg [id number] AWAKE PRN Administration sob/wheezing Azithromycin 250 mg 08/22/18 09:00 08/23/18 07:13 Zithromax Tab* PO 08/25/18 09:01 250 mg DAILY ARELI Administration Clonazepam 1 mg 08/21/18 13:00 08/23/18 11:43 Klonopin Tab(*) PO 1 mg TID PRN Administration ANXIETY Enoxaparin Sodium 40 mg 08/21/18 11:00 08/23/18 11:33 Lovenox(*) SUBCUT 40 mg Q24H ARELI Administration Ceftriaxone Sodium 1,000 mg/ 50 mls @ 200 mls/hr 08/22/18 08:00 08/23/18 07: 14 Sodium Chloride IVPB 200 mls/hr Q24H ARELI Administration Oxycodone/Acetaminophen 1 tab 08/21/18 10:22 Percocet 5/325 Tab* PO Q6H PRN Pain Pantoprazole Sodium 40 mg 08/22/18 09:00 08/23/18 07:13 Protonix Tab* PO 40 mg DAILY ARELI Administration Tiotropium [place] 1 cap 08/22/18 09:00 08/23/18 08:05 Spiriva Cap.Inh* INH 2 puff QAM ARELI Administration Venlafaxine HCl 225 mg 08/22/18 09:00 08/23/18 07:13 Effexor Xr Cap* PO 225 mg QAM ARELI Administration Vital Signs Temp Pulse Resp BP Pulse Ox 97.6 F 94 18 116/63 100 08/23/18 11:00 08/23/18 11:00 08/23/18 14:35 08/23/18 11:00 08/23/18 11:00 O/E: Pt in NAD, lying in bed HEENT: PERRLA, no JVD Lungs: Diminished air entry, clear to auscultation b/l CVS: S1, S2+, regular Abd: Soft, BS+ Ext: Normal ROM Skin: No rash Neuro: No focal deficits Laboratory Results - last 24 hr 08/21/18 08/23/18 08/23/18 16:48 05:23 05:23 WBC 12.4 H RBC 4.18 Hgb 11.9 L Hct 36 MCV 86 MCH 29 MCHC 33 RDW 17 H Plt Count 269 MPV 7.5 Neut % (Auto) 64.3 Lymph % (Auto) 28.3 [place] % (Auto) 5.2 Eos % (Auto) 1.9 Baso % (Auto) 0.3 Absolute Neuts (auto) 8.0 H Absolute Lymphs (auto) 3.5 Absolute Monos (auto) 0.6 Absolute Eos (auto) 0.2 Absolute Basos (auto) 0.0 Absolute Nucleated RBC 0.0 Nucleated RBC % 0.1 Patient Temperature ABG pH ABG pH (Temp Correct) ABG pCO2 ABG pCO2 (Temp Corrct ABG pO2 ABG pO2 (Temp Correct ABG HCO3 ABG O2 Saturation ABG Base Excess Respiration Rate O2 Delivery Device Ventilator Type Vent Mode FiO2 Inspiratory Time PEEP Pressure Support Pressure Control EPAP IPAP BiPAP Sodium 141 Potassium 3.8 Chloride 106 Carbon Dioxide 28 Anion Gap 7 BUN 14 Creatinine 0.83 Est GFR ( Amer) 86.0 Est GFR (Non-Af Amer) 71.1 BUN/Creatinine Ratio 16.9 Glucose 107 H Calcium 9.4 Phosphorus 3.9 Magnesium 2.3 Procalcitonin <0.10 08/23/18 05:40 WBC RBC Hgb Hct MCV MCH MCHC RDW Plt Count MPV Neut % (Auto) Lymph % (Auto) [place] % (Auto) Eos % (Auto) Baso % (Auto) Absolute Neuts (auto) Absolute Lymphs (auto) Absolute Monos (auto) Absolute Eos (auto) Absolute Basos (auto) Absolute Nucleated RBC Nucleated RBC % Patient Temperature Not Reportable ABG pH 7.43 ABG pH (Temp Correct) Not Reportable ABG pCO2 39 ABG pCO2 (Temp Corrct Not Reportable ABG pO2 84 ABG pO2 (Temp Correct Not Reportable ABG HCO3 26.1 ABG O2 Saturation 98.8 H ABG Base Excess 1.5 Respiration Rate Not Reportable O2 Delivery Device nasal cannula Ventilator Type Not Reportable Vent Mode Not Reportable FiO2 28 Inspiratory Time Not Reportable PEEP Not Reportable Pressure Support Not Reportable Pressure Control Not Reportable EPAP Not Reportable IPAP Not Reportable BiPAP Not Reportable Sodium Potassium Chloride Carbon Dioxide Anion Gap BUN Creatinine Est GFR ( Amer) Est GFR (Non-Af Amer) BUN/Creatinine Ratio Glucose Calcium Phosphorus Magnesium Procalcitonin I/R: 57 year old female, with h/o significant emphysema, no obstruction on PFTS , h/o mood disorder, diastolic CHF with multiple recent visits for SOB, being treated for presumed PNA and COPD exacerbations eventhough there is no definitive evidence for either, GERD/laryngeal reflux was suspected and awaiting EGD. Pt readmitted for SOB, fatigue, was noted to have 21,000 WBC, Lactic acidosis 5.0; afebrile and possible LLL PNA. Etiology of SOB doesnot seem to be from recurrent PNA or COPD exacerbations She might be having laryngeal reflux She also gained significant wt CT chest was reviewed- Evidence of signficant emphysematous changes with no PNA She doesnot have PE as d-dimer is normal ABG didnot reveal hypoxia or hypercapnia. She is currently on rocephin and azithromycin Will need studies for evaluation of GERD and esophageal dysmotility Pt scheduled for EGD on Tuesday Anxiety might be playing a role D/w above results with pt D/w Dr Diaz
[2018-08-24 06:33] LABS: ABS Eosinophils 0.4 10^3/ul (0-0.6); ABS Lymphocytes 3.1 10^3/ul (1.0-4.8); ABS Monocytes 0.6 10^3/ul (0-0.8); ABS Neutrophils 4.9 10^3/ul (1.5-7.7); Eosinophil % 4.9 %; Hematocrit 38 % (35-47); Hemoglobin 12.3 g/dL (12.0-16.0); Lymphocyte % 33.8 %; Mean Corpuscular HGB Conc 33 g/dL (31-36); Mean Corpuscular Hemoglobin 29 pg (27-31); Mean Corpuscular Volume 88 fL (80-97); Mean Platelet Volume 7.4 fL (7.4-10.4); Nucleated Red Blood Cells % 0.1; Platelet Count 264 10^3/uL (150-450); Red Blood Count 4.31 10^6 /uL (3.70-4.87); Red Cell Distribution Width 17 % (10-15); White Blood Count 9.1 10^3/uL (3.5-10.8)
[2018-08-24 06:45] LABS: BUN/Creatinine Ratio 14.1 (8-20); Calcium 9.4 mg/dL (8.6-10.3); EGFR African American 83.7 (>60); EGFR Non-African American 69.2 (>60); Potassium 4.1 mmol/L (3.5-5.0)
[2018-08-24] MEDS: cefTRIAXone VIAL(*) 1,000 MG in NS 0.9% 50 ML* 50 ML IVPB SCH (08:52)
[2018-08-24] MEDS: Pantoprazole TAB * 40 MG TAB PO SCH (08:52)
[2018-08-24] MEDS: Azithromycin TAB* 250 MG PO SCH (08:52)
[2018-08-24] MEDS: Venlafaxine EXT RELEASE CAP* 75 MG PO SCH (08:52)
[2018-08-24] MEDS: clonazePAM TAB(*) 1 MG PO PRN (08:59)
[2018-08-24] MEDS: Tiotropium CAP.INH* CAP.INH/18 MCG (USE ORDER SET !) INH SCH (09:15)
[2018-08-24] MEDS: Albuterol 2.5 MG/3 ML NEB.SOL* (0.083%) INH PRN (09:15)
[2018-08-24 11:39] VITALS: BP 146/70
[2018-08-24] MEDS: Enoxaparin(*) 40 MG/0.4 ML SYR SUBCUT SCH (11:39)
--- NOTE | 2018-08-24 23:17 | DS ---
CC: Primary care provider; Dr. Roque Chaudhari * DISCHARGE SUMMARY: DATE OF ADMISSION: 08/21/18 DATE OF DISCHARGE: 08/24/18 FINAL DISCHARGE DIAGNOSES: 1. Left lower lobe pneumonia. 2. Gastroesophageal reflux disease. 3. Depression. 4. Obesity with a BMI of 45. HOSPITAL COURSE: The patient presented to [facility] on 08/21/18 with acute onset of shortness of breath, productive cough, worsening over the past 2 days. Recently diagnosed with emphysema, recurrent pneumonia. On admission, the patient was found to be acidotic with lactic acid of 4.8. Her white count is 21,000 in the emergency room. She was admitted to the medical service. She was started on intravenous antibiotics with ceftriaxone and Zithromax. A pulmonary consult was obtained. Recommended continued IV antibiotic and repeat CT of the chest. A CT scan of the chest, which was done on 08/22/18, did not reveal any evidence of consolidation, more so of central level emphysema; however, it did show some bibasilar atelectasis. I cannot rule out infiltrate of course. The patient continued to improve over the hospital course and on day #4, today 08/24/18, her white count has been steadily improving with white count normalized from 21,000 down to 9.1. Her lactic acid improved from max of 5.0 down to 1.3. Hence, I evaluated the patient. I deemed her stable for discharge today. I had a long discussion with the patient regarding monitoring her amount of intake she is eating. Weight loss. Increased activity and exercise and follow up with her canal lock tender chief operator, Dr. Niño in 1 month. DISCHARGE MEDICATIONS: She was discharged on her home medication as follows. 1. Albuterol inhaler. 2. Klonopin 1 mg t.i.d. 3. Neurontin 300 mg t.i.d. 4. Hydrocodone t.i.d. 5. Omeprazole 20 b.i.d. 6. Spiriva daily. 7. Effexor 225 mg daily. 8. Zithromax 250 mg daily for 2 more days. 9. Cefdinir 300 mg daily for 4 more days. DISCHARGE PHYSICAL EXAM: Her vital signs, temperature 97.4, pulse 100, respiratory rate 18, satting 99% on 2 L nasal cannula with a blood pressure of 133/71. General: She is awake, alert, slightly nervous, anxious, but does not appear in any distress. Head and Neck: Normocephalic, atraumatic and supple. Lungs: Clear to auscultation. any coarse rhonchi. Cardiovascular: S1 , S2. Tachycardic. Abdomen: Positive bowel sounds, obese, soft, nontender, nondistended. Extremities: No pedal edema. PROGRAM MANAGEMENT SPECIALIST: No motor, focal or sensory deficit. DIAGNOSTIC STUDIES: She had a CBC repeatedly. Her admission white count was 21 ,000 down to 9 prior to discharge. Her blood gas was slightly alkalotic on admission with a pH of 7.46, pCO2 34, pO2 88, bicarb 25 with 2 L. On 08/23/18, her ABG was 7.13, pCO2 39, pO2 84, bicarb 26 with 28% FiO2. Chemistry is significant for lactic acid of 5, on admission down to 1.3 on discharge, otherwise unremarkable. Microbiology. She had negative culture, negative Legionella, sputum culture negative. Chest x-ray shows persistent left lower lobe patchy infiltrate. CT of the chest shows severe emphysema with bibasilar atelectasis. Her esophagogram, which was done shows a delayed emptying of the barium in the distal esophagus, which suggests some achalasia. It is suggestive of nondiagnostic possible esophageal spasm. DISCHARGE CONDITION: The patient is to follow up with her primary care provider. Follow up with canal lock tender chief operator in 1 month's period. The patient is scheduled for outpatient EGD she tells me this coming Tuesday, which I encouraged to continue. She will benefit from referral to GI given her esophagogram finding. She was advised strongly regarding weight control, diet control, and weight loss. She is to continue her PPI twice a day. Messaged to her provider to continue with the outpatient workup including the EGD, which she tells me she has 1 done scheduled this coming Tuesday. Referral formal for GI for further management regarding her possible esophageal spasm and esophageal dilation, which is already in place for the EGD as scheduled. She is scheduled for EGD on 08/25/18, which is tomorrow. [id number]/[facility] #: [id number] [facility]PITALYulia
--- NOTE | 2018-08-26 20:07 | DS ---
DISCHARGE SUMMARY: ADDENDUM: DISCHARGE DISPOSITION: Home. DISCHARGE CONDITION: Stable. [id number]/[facility] #: [id number] MTDYulia
== END 2018-08-24 12:15 | disposition home or self-care (01) | DRG 139 ==
LOC: ED 07:27 → MED 10:22
PROVIDERS: ADMIT Internal Medicine; ATTEND Internal Medicine
DX: J18.1 Lobar pneumonia, unspecified organism (principal); F33.9 Major depressive disorder, recurrent, unspecified; I50.32 Chronic diastolic (congestive) heart failure; Z68.42 Body mass index [BMI] 45.0-49.9, adult; J43.9 Emphysema, unspecified; F41.9 Anxiety disorder, unspecified; F43.10 Post-traumatic stress disorder, unspecified; G89.29 Other chronic pain; M54.9 Dorsalgia, unspecified; K21.9 Gastro-esophageal reflux disease without esophagitis; M19.90 Unspecified osteoarthritis, unspecified site; M41.9 Scoliosis, unspecified; I08.1 Rheumatic disorders of both mitral and tricuspid valves; E66.01 Morbid (severe) obesity due to excess calories; K22.0 Achalasia of cardia; Z88.1 Allergy status to other antibiotic agents; Z86.718 Personal history of other venous thrombosis and embolism; Z90.710 Acquired absence of both cervix and uterus; Z82.49 Family history of ischemic heart disease and other diseases of the circulatory system; Z82.0 Family history of epilepsy and other diseases of the nervous system; Z80.3 Family history of malignant neoplasm of breast; Z72.89 Other problems related to lifestyle; Z87.891 Personal history of nicotine dependence; Z80.1 Family history of malignant neoplasm of trachea, bronchus and lung; Z82.5 Family history of asthma and other chronic lower respiratory diseases; Z81.2 Family history of tobacco abuse and dependence
CPT/HCPCS: 36415; 36600; 71045; 71250; 74220; 80048; 80053; 81003; 81015; 82803; 83605; 83735; 83880; 84100; 84145; 84484; 85025; 85379; 85610; 85730; 86140; 87040; 87070; 87205; 87899; 93005; 94640; 99284; A9270-GY; J0456; J0696; J1100; J1650; J3475

== ENCOUNTER 2018-10-06 04:50 | Inpatient (IN) | payer OTHER ==
[2018-10-06] MEDS ORDERED: NS 0.9% 1000 ML** 2,000 ML IV ONE (05:01)
[2018-10-06] MEDS ORDERED: Albuterol 2.5 MG/3 ML NEB.SOL* (0.083%) INH ONE (05:10)
[2018-10-06] MEDS ORDERED: Lorazepam PYXIS KEY PRN (05:10)
[2018-10-06] MEDS ORDERED: methylPREDNISolone 125 MG* 2 ML VIAL IV ONE (05:10)
[2018-10-06] MEDS ORDERED: LORazepam INJ* 2 MG/ML 1 ML VIAL IV PUSH ONE (05:10)
--- NOTE | 2018-10-06 05:11 | ED ---
Shortness of Breath - HPI Summary HPI Summary: This pt is a 58 y/o female presenting to [facility] c/o worsening SOB since last night at 20:00. Per , pt's symptoms began yesterday when she felt tired and did not have an appetite. Pt states she couldn't catch her breath last night when trying to sleep. She has hx of COPD and wears 2L of O2 via NC at all times. She notes her oxygen usually doesn't drop while on oxygen. This morning patient went to the bathroom and became very weak and noticed her oxygen dropped to 74%. Pt states her SOB is alleviated when resting but aggravated with minimal exertion. She reports a headache, productive cough with green sputum, myalgia, chills. 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 Pt notes she is taking azithromycin 3 times a week, which was prescribed by Dr. Stover. PMHx includes COPD. Pt is a former smoker. - History of Current Complaint Chief Complaint: EDShortnessOfBreath Hx Obtained From: Patient Onset/Duration: Lasting Hours, Still Present Timing: Constant Current Severity: Moderate Dyspnea At: Rest Aggravating Factors: Movement Alleviating Factors: Nothing Associated Signs & Symptoms: Cough (Productive), Chills - Allergy/Home Medications Allergies/Adverse Reactions: Allergies Allergy/AdvReac Type Severity Reaction Status Date / Time Penicillins Allergy Hives/Diff. Verified 10/06/18 04:56 Breathing/I tching Home Medications: Home Medications Azithromycin 250 mg PO MOWEFR 10/06/18 [History Confirmed 10/06/18] Fluticasone Propion/Salmeterol [Wixela 250-50 Inhub] 1 inh INH DAILY 10/06/18 [ History Confirmed 10/06/18] PMH/Surg Hx/FS Hx/Imm Hx Endocrine/Hematology History: Reports: Other Endocrine/Hematological Disorders - blood clot per pt. Denies: Hx Diabetes, Hx Thyroid Disease Cardiovascular History: Reports: Hx Deep Vein Thrombosis, Other Cardiovascular Problems/Disorders - DVT right lower calf 1991 Denies: Hx Hypertension, Hx Pacemaker/ICD Respiratory History: Reports: Hx Asthma - O2 @ 2 liters nasal all the time now, occasionally removes, Hx Chronic Obstructive Pulmonary Disease (COPD) - stage 3 , Hx Pneumonia, Other Respiratory Problems/Disorders - Pneumonia 5 times since -hosp x 3 GI History: Reports: Hx Hiatal Hernia - PROC. SCHEDULED FOR 09/08/18 Denies: Hx Ulcer, Other GI Disorders - Dysphagia, right upper quadrant pain History: Reports: Other Problems/Disorders - Frequent UTI's bladder prolapse Denies: Hx Dialysis, Hx Renal Disease Musculoskeletal History: Reports: Hx Arthritis - BACK-generalized, Hx Back Problems, Hx Scoliosis Denies: Other Musculoskeletal History Sensory History: Denies: Hx Contacts or Glasses, Hx Hearing Aid, Hx Hearing Problem Opthamlomology History: Denies: Hx Contacts or Glasses Neurological History: Reports: Hx Headaches, Other Neuro Impairments/Disorders - Concussion 2017-with aphasia and stutter Psychiatric History: Reports: Hx Anxiety, Hx Depression, Hx Post Traumatic Stress Disorder Denies: Hx Eating Disorder, Hx Panic Disorder, Hx Suicide Attempt, Hx of Violent Episodes Against Others - Cancer History Hx Chemotherapy: No Hx Radiation Therapy: No - Surgical History Surgery Procedure, Year, and Place: Hysterectomy 01/15. Bladder sling and cystocele + rectocele. Bladder repair 08/17 & 2013 Hx Anesthesia Reactions: No Infectious Disease History: No Infectious Disease History: Denies: Hx Clostridium Difficile, Hx Hepatitis, Hx Human Immunodeficiency Virus (HIV), Hx of Known/Suspected MRSA, Hx Shingles, Hx Tuberculosis, Hx Known/ Suspected VRE, Hx Known/Suspected VRSA, History Other Infectious Disease, Traveled Outside the [place] in Last 30 Days - Family History Known Family History: Positive: Cardiac Disease, Other - Epilepsy, breast cancer Family History: Epilepsy, breast cancer. Mother with COPD - Social History Alcohol Use: None Hx Substance Use: No Substance Use Type: Reports: None Substance Use Comment - Amount & Last Used: hydrocodone with tylenol and clonazepam Hx Tobacco Use: Yes Smoking Status (MU): Former Smoker Type: Cigarettes Amount Used/How Often: 1PPD 20 YRS Length of Time of Smoking/Using Tobacco: 1999 Have You Smoked in the Last Year: No Review of Systems Positive: Chills Positive: Shortness Of Breath, Cough Positive: Myalgia Positive: Headache All Other Systems Reviewed And Are Negative: Yes Physical Exam - Summary Physical Exam Summary: Appearance: Obese middle aged woman lying in the stretcher who appears somewhat dyspneic and anxious. Skin: Warm, dry, no obvious rash Eyes: sclera anicteric, no conjunctival pallor ENT: mucous membranes moist, pharynx appears normal Neck: Supple, nontender Respiratory: Lung sounds are normal Cardiovascular: Normal S1, S2. No murmurs. Normal distal pulses in tibial and radial bilaterally. Abdomen: Soft, nontender, normal active bowel sounds present Musculoskeletal: Normal, Strength/ROM Intact Neurological: A&Ox3, awake and alert, mentation is normal, speech is fluent and appropriate Psychiatric: affect is normal, does not appear anxious or depressed Triage Information Reviewed: Yes Vital Signs On Initial Exam: Initial Vitals Temp Pulse Resp BP Pulse Ox 99.6 F 124 20 146/96 95 10/06/18 04:50 10/06/18 04:50 10/06/18 04:50 10/06/18 04:50 10/06/18 04:50 Vital Signs Reviewed: Yes Diagnostics - Vital Signs Vital Signs Temp Pulse Resp BP Pulse Ox 10/06/18 04:50 99.6 F 124 20 146/96 95 - Laboratory Result Diagrams: 10/07/18 05:36 10/07/18 05:36 Lab Statement: Any lab studies that have been ordered have been reviewed, and results considered in the medical decision making process. - Radiology Chest XR Radiology Interpretation Completed By: ED Physician Summary of Radiographic Findings: No acute process. - EKG 05:21 Cardiac Rate: Tachycardia - at 115 bpm EKG Rhythm: Sinus Tachycardia Summary of EKG Findings: No STEMI. Course/Dx - Course Assessment/Plan: Pt is a 58 y/o female, with hx of COPD on 2L of O2 at all times , presenting to [facility] c/o worsening SOB since last night at 20:00. This morning patient went to the bathroom and became very weak and noticed her oxygen dropped to 74%. Pt states her SOB is alleviated when resting but aggravated with minimal exertion. She reports a headache, productive cough with green sputum, myalgia, chills. Lab results unremarkable except for WBC of 21.2, lactic acid of 2.1. Chest XR shows no acute process. In the ED course the pt received IV fluids, albuterol, solu-medrol, Ativan, Tylenol. Pt will be signed out to Dr. Jones pending labs. - Diagnoses Provider Diagnoses: COPD exacerbation Discharge - Sign-Out/Discharge Documenting (check all that apply): Sign-Out Patient Signing out patient TO: Michael Jones Patient Received Moderate/Deep Sedation with Procedure: No - Discharge Plan Condition: Stable Disposition: ADMITTED TO [facility] - Billing Disposition and Condition Condition: STABLE Disposition: Admitted to [facility] - Attestation Statements Document Initiated by Daniel: Yes Documenting Ronaldoibrhett: Shanice Rothman Provider For Whom Daniel is Documenting (Include Credential): John Munoz MD Scribrhett Attestation: Shanice Blanchard, ronaldoibed for John Munoz MD on 10/07/18 at 1926. Scribe Documentation Reviewed: Yes Provider Attestation: The documentation as recorded by the Shanice encinas accurately reflects the service I personally performed and the decisions made by me, John Munoz MD Status of Scryonnye Document: Viewed
[2018-10-06] MEDS ORDERED: Lorazepam PYXIS KEY ONE (05:23)
[2018-10-06 05:34] LABS: ABS Basophils 0.1 10^3/ul (0-0.2); ABS Eosinophils 0.1 10^3/ul (0-0.6); ABS Lymphocytes 1.2 10^3/ul (1.0-4.8); ABS Monocytes 0.9 10^3/ul (0-0.8); ABS Neutrophils 18.9 10^3/ul (1.5-7.7); Eosinophil % 0.5 %; Hematocrit 38 % (35-47); Hemoglobin 12.2 g/dL (12.0-16.0); Lymphocyte % 5.8 %; Mean Corpuscular HGB Conc 32 g/dL (31-36); Mean Corpuscular Hemoglobin 27 pg (27-31); Mean Corpuscular Volume 84 fL (80-97); Mean Platelet Volume 7.6 fL (7.4-10.4); Platelet Count 345 10^3/uL (150-450); Red Cell Distribution Width 16 % (10-15); White Blood Count 21.2 10^3/uL (3.5-10.8)
[2018-10-06] MEDS ORDERED: Acetaminophen TAB* 325 MG PO ONE (05:52)
[2018-10-06 05:56] LABS: Albumin 4.2 g/dL (3.2-5.2); Albumin/Globulin Ratio 1.2 (1-3); BUN/Creatinine Ratio 10.5 (8-20); Calcium 9.2 mg/dL (8.6-10.3); EGFR African American 94.9 (>60); EGFR Non-African American 78.4 (>60); Globulin 3.4 g/dL (2-4); Potassium 3.6 mmol/L (3.5-5.0); Total Bilirubin 0.5 mg/dL (0.2-1.0); Total Protein 7.6 g/dL (6.4-8.9)
--- NOTE | 2018-10-06 07:07 | ED ---
Progress - Progress Note Progress Note: The patient is a sign-out to Dr. Michael Jones MD, from Dr. John Munoz MD, at change of shift at 0700 on 10/06/18, pending lab work and disposition. Blood work reveals WBCs of 21.2, RDW of 16, absolute neuts of 18.9, absolute monos of 0.9, glucose of 127, lactic acid of 2.1. Blood gas reveals pO2 of 46.0 , HCO3 of 21.1, and base excess of -4.3. At 0920, the patient states that it is painful to breathe with sudden onset SOB at 0100 today despite using O2 at home. Also has had a productive cough with green phlegm for the last few days. Hx of PNA in April 2018 with Prednisone use intermittently up until August 2018, as prescribed by Dr. Niño. She notes the Prednisone caused her to gain weight, and she has noticed pitting edema in the BLE at her appointment with Dr. Hopper three days ago. She has felt feverish but didn't measure with thermometer. She additionally notes right- sided abd pain with dx of hernia and diverticulosis. PHYSICAL EXAM: Constitutional: Well-developed, Well-nourished, Alert. Rectal temperature of 100.2F. (-) Distressed Skin: Warm, Dry HENT: Normocephalic; Atraumatic Eyes: Conjunctiva normal Neck: Musculoskeletal ROM normal neck. (-) JVD, (-) Stridor, (-) Tracheal deviation Cardio: Rhythm regular, rate normal, Heart sounds normal; Intact distal pulses; The pedal pulses are 2+ and symmetric. Radial pulses are 2+ and symmetric. (-) Murmur Pulmonary/Chest wall: Tachypnea, (-) Respiratory distress, (-) Wheezes, (+) Bibasilar rales Abd: Soft, (-) tenderness, (-) Distension, (-) Guarding, (-) Rebound Musculoskeletal: (+) Pitting edema in BLE Lymph: (-) Cervical adenopathy Neuro: Alert, Oriented x3 Psych: Mood and affect Normal Patient administered Albuterol, Azithromycin, and Rocephin. Chest/Thorax CTA with contrast will be ordered to rule out PNA. Chest/Thorax CTA Impression: 1. No pulmonary arterial filling defect to suggest pulmonary embolism. 2. Emphysema. 3. Fatty infiltration of the liver. At 1135, I discussed the patient's case with Dr. Lorenzana, hospitalist, and she accepts the patient for admission. Patient understands and agrees with this plan. She is diagnosed with SOB and COPD exacerbation. - Results/Orders Results/Orders: Chest/Thorax CTA Impression: 1. No pulmonary arterial filling defect to suggest pulmonary embolism. 2. Emphysema. 3. Fatty infiltration of the liver. ED physician has reviewed this radiology report. Re-Evaluation - Re-Evaluation First Eval Re-Evaluation Time: 09:20 Comment: I spoke with patient concerning history, performed a physical, and ordered a Chest/Thorax CTA to rule out PNA. Second Eval Re-Evaluation Time: 11:40 Comment: I discussed CTA results and admission with the patient. Course/Dx - Course Course Of Treatment: The patient is a sign-out to Dr. Michael Jones MD, from Dr. John Munoz MD, at change of shift at 0700 on 10/06/18, pending lab work and disposition. She is a 58 y/o F with cc of SOB and pain with breathing sudden onset at 0100 today despite using O2 at home. Also has had a productive cough with green phlegm for the last few days. Hx of PNA in April 2018 with Prednisone use intermittently up until August 2018, as prescribed by Dr. Niño. She notes the Prednisone caused her to gain weight, and she has noticed pitting edema in the BLE at her appointment with Dr. Hopper three days ago. She has felt feverish but didn't measure with thermometer. She additionally notes right- sided abd pain with dx of hernia and diverticulosis. Upon physical exam, the patient exhibits rectal temperature of 100.2F, tachypnea, bibasilar rales, and pitting edema in BLE. In the ED course, the patient was administered Albuterol, Azithromycin, and Rocephin. Blood work reveals WBCs of 21.2, RDW of 16, absolute neuts of 18.9, absolute monos of 0.9, glucose of 127, lactic acid of 2.1. Blood gas reveals pO2 of 46.0, HCO3 of 21.1, and base excess of -4.3. Chest /Thorax CTA with contrast will be ordered to rule out PNA. Chest/Thorax CTA Impression: 1. No pulmonary arterial filling defect to suggest pulmonary embolism. 2. Emphysema. 3. Fatty infiltration of the liver. I discussed the patient's case with Dr. Lorenzana, hospitalist, and she accepts the patient for admission at 1135. Patient understands and agrees with this plan. She is diagnosed with SOB and COPD exacerbation. - Diagnoses Provider Diagnoses: COPD exacerbation - Provider Notifications Discussed Care Of Patient With: Gloria Lorenzana - hospitalist Time Discussed With Above Provider: 11:35 Instructed by Provider To: Admit As Inpatient - Dr. Lorenzana accepts the patient for admission. Discharge - Sign-Out/Discharge Documenting (check all that apply): Patient Departure - Patient is accepted for admission by Dr. Lorenzana., Receiving Sign-Out Receiving patient FROM: John Munoz - Patient is a sign-out from Dr. John Munoz MD, at change of shift at 0700 on 10/06/18, pending lab work and disposition. Patient Received Moderate/Deep Sedation with Procedure: No - Discharge Plan Condition: Stable Disposition: ADMITTED TO [facility] - Billing Disposition and Condition Condition: STABLE Disposition: Admitted to [facility] - Attestation Statements Document Initiated by Scribe: Yes Documenting Scribe: Sherry Haywood Provider For Whom Scribe is Documenting (Include Credential): Dr. Michael Jones MD Scribe Attestation: I, belle Bautistaibed for Dr. Michael Jones MD on 10/24/18 at 0823. Scribe Documentation Reviewed: Yes Provider Attestation: The documentation as recorded by the Sherry encinas accurately reflects the service I personally performed and the decisions made by me, Dr. Michael Jones MD Status of Scribe Document: Viewed
[2018-10-06] MEDS ORDERED: Azithromycin 500 mg/250 ml NS 500 MG/250 ML BAG IVPB ONE (09:30)
[2018-10-06] MEDS ORDERED: Albuterol/Ipratropium NEB.SOL* Albuterol 2.5 MG/Ipratropium 0.5 MG 3 ML INH ONE (09:30)
[2018-10-06] MEDS ORDERED: ED cefTRIAXone 1 GM/50 ML 1 GM/50 ML PREMIX.SET IVPB ONE (09:30)
[2018-10-06] MEDS ORDERED: Iohexol 350* (CONTRAST) 500 ML MDV IV ONE (09:36)
[2018-10-06 12:39] LABS: C Reactive Protein 36.84 mg/L (<8.01)
[2018-10-06] MEDS ORDERED: Albuterol/Ipratropium NEB.SOL* Albuterol 2.5 MG/Ipratropium 0.5 MG 3 ML INH PRN (12:44)
[2018-10-06] MEDS ORDERED: Acetaminophen TAB* 325 MG PO PRN (12:44)
[2018-10-06] MEDS ORDERED: Al Hydrox/Mg Hydrox/Simet LIQ* 30 ML UDC PO PRN (12:44)
[2018-10-06] MEDS ORDERED: Albuterol 2.5 MG/3 ML NEB.SOL* (0.083%) INH PRN (12:51)
[2018-10-06] MEDS ORDERED: clonazePAM TAB(*) 1 MG PO PRN (12:51)
[2018-10-06] MEDS ORDERED: Vancomycin per Pharmacy* NOTE FOLLOW UP SCH (13:00)
[2018-10-06] MEDS ORDERED: Iohexol 300* (CONTRAST) 10 ML SDV IV ONE (13:02)
[2018-10-06] MEDS ORDERED: Vancomycin(*) 1,500 MG in NS 0.9% 250 ML* 250 ML IVPB STA (13:03)
[2018-10-06] MEDS ORDERED: Cefepime 2 GM in Dextrose(*) 2 GM/50 ML BAG IV SCH (14:00)
[2018-10-06] MEDS ORDERED: NS 0.9% 1000 ML** 1,000 ML IV ONE (14:53)
[2018-10-06 15:40] LABS: Urine Appearance Clear; Urine Bacteria Absent (Absent); Urine Bilirubin Negative (Negative); Urine Blood 2+ (Negative); Urine Color Straw; Urine Glucose 1+(50 mg/dL) (Negative); Urine Ketones Negative (Negative); Urine Nitrite Negative (Negative); Urine Protein Negative (Negative); Urine Red Blood Cell 1+(3-5/hpf) (Absent); Urine Specific Gravity 1.026 (1.010-1.030); Urine Squamous Epithelial Cell Present (Absent); Urine Urobilinogen Negative (Negative); Urine White Blood Cell Absent (Absent)
[2018-10-06] MEDS: Enoxaparin(*) 40 MG/0.4 ML SYR SUBCUT SCH (16:38)
[2018-10-06] MEDS: Venlafaxine EXT RELEASE CAP* 75 MG PO SCH (17:44)
[2018-10-06] MEDS ORDERED: HYDROcodone/ACETAMIN 5-325 MG* 1 TAB PO PRN (19:17)
[2018-10-06] MEDS ORDERED: NS 0.9% 1000 ML** 1,000 ML IV SCH (20:45)
[2018-10-06] MEDS: Lactobacillus Acidophilus* 1 TAB PO SCH (21:12)
[2018-10-06] MEDS: Pantoprazole TAB * 40 MG TAB PO SCH (21:12)
--- NOTE | 2018-10-06 21:44 | HP ---
ADDENDUM NOW INCLUDED ON THIS REPORT CC: Dr. Stover; Dr. Niño * HISTORY AND PHYSICAL: DATE OF ADMISSION: 10/06/18 PROVIDER: Caitlin Orozco NP PRIMARY CARE PROVIDER: Dr. Stover. ATTENDING PHYSICIAN WHILE IN THE HOSPITAL: Dr. Gloria Lorenzana * (dictated by Caitlin Orozco NP) CHIEF COMPLAINT: Shortness of breath. HISTORY OF PRESENT ILLNESS: Ms. Mitchell is a 58-year-old female with a past medical history significant for COPD, anxiety, PTSD, post concussive syndrome, who reports she became acutely short of breath last night at approximately 8 p.m. She reports that she was unable to sleep during the night due to her increased shortness of breath. She also reports productive cough with green sputum. She reports that she has had fever, chills, and sweats on and off over the past 3 days as well as a headache with a frontal pressure. She also reports some right upper quadrant abdominal pain but reports it has been consistent for the past 2 years. She reports that she has been seen and evaluated by GI with no acute findings, but does report that the abdominal pain is worse than normal. The patient also reports that she has been taking her nebulizer at home with no relief of her shortness of breath. Due to her continued shortness of breath, we were asked to see and evaluate her for admission. While in the emergency room, the patient had routine lab work drawn. She was found to have a white count of 21.2. She was given azithromycin and ceftriaxone in the emergency room. She did have a CT of the chest that showed no pulmonary embolism and did show emphysema, but no pneumonia. Due to her shortness of breath, we were asked to see and evaluate the patient for admission. PAST MEDICAL HISTORY: Significant for: 1. COPD. 2. Anxiety. 3. PTSD. 4. Post concussive syndrome. PAST SURGICAL HISTORY: 1. Hysterectomy. 2. Bladder surgery. HOME MEDICATIONS: Include: 1. Spiriva 1 cap inhaled daily. 2. Omeprazole 20 mg p.o. b.i.d. 3. Hydrocodone/acetaminophen 5/325 one tablet p.o. t.i.d. p.r.n. pain. 4. Albuterol inhaler 1 to 2 puffs every 4 hours as needed for shortness of breath. 5. Albuterol nebulizer every 6 hours as needed for shortness of breath. 6. Wixela 250/50 Inhub 1 inhaled daily. 7. Klonopin 1 mg p.o. t.i.d. p.r.n. The patient does report she is taking 1 mg at bedtime only. 8. Effexor 225 mg p.o. q.a.m. 9. Oxygen 2 L nasal cannula. 10. Azithromycin 250 mg p.o. Tuesday, Tuesday, and Tuesday (started this 4 weeks ago). ALLERGIES: She has allergy to PENICILLIN. FAMILY HISTORY: Father with hypertension, VA, and cardiac stents. Mother with a history of COPD, at the age of 58. Father with stage IV lung cancer diagnosed in his 80s. SOCIAL HISTORY: The patient reports she quit smoking in 1999. Prior to that, she smoked for approximately 15 years. She does report occasional alcohol use. No illicit drug use. She is . Surrogate decision maker in the event she is unable to make her own decisions is her , Yobany. She is a full code. REVIEW OF SYSTEMS: The patient does report fever and chills. Denies any loss of appetite. No chest pain or edema. Does report a productive cough with green secretions. Denies any hemoptysis. She does report worsening shortness of breath since 8 p.m. last night. Denies any nausea, vomiting, diarrhea. She does complain of right upper to mid abdominal pain. Denies any gross hematuria , dysuria. She does report frequency, but denies any burning or pain with urination. Denies any focal weakness, sensory loss, visual complaints. Denies any dysphagia, arthralgias, myalgias, rashes, lesions, or open sores. Denies any psychosis or anxiety. PHYSICAL EXAMINATION GENERAL: At this time, Ms. Mitchell is alert and oriented, resting on the stretcher in the emergency room. She does not appear to be in any acute distress. VITAL SIGNS: Blood pressure 123/69, heart rate 113, respirations 14 to 20, O2 saturation 96% on 3 L nasal cannula, temperature was 99.0. HEENT: Head is atraumatic, normocephalic. Eyes: EOMs are intact. Sclerae anicteric and not pale. Oral mucosa appeared to be moist. NECK: Supple. LUNGS: Clear to auscultation bilaterally. She does have some fine crackles in the right base. No wheezes, rales, or rhonchi. CARDIAC: S1, S2. She is tachycardic. Regular rate and rhythm. No rubs or gallops. ABDOMEN: Obese, soft, mild tenderness to right mid and upper abdomen. Negative Herrera's sign. Bowel sounds are present x4. EXTREMITIES: She is able to move all 4 extremities. There is no clubbing or cyanosis. NEUROLOGIC: She is awake, alert, and oriented x3. Speech is clear. Thought process is intact. There are no gross focal deficits. SKIN: Intact. DIAGNOSTIC STUDIES/LAB DATA: WBCs are 21.2, RBCs 4.50, hemoglobin 12.2, hematocrit was 38, platelet count was 345. Venous pH was 7.32, PCO2 was 42, PO2 was 46.0, HCO3 was 21.1, O2 saturation was 80%, venous base excess was 4.3. Sodium 137; potassium 3.6; chloride 105; carbon dioxide was 24; anion gap was 8; BUN was 8; creatinine 0.76; glucose was 127; lactic acid was 2.1, repeat was 2.4; calcium 9.2. ASTs were 22, ALTs were 21, alkaline phosphatase was 71. Troponin was 0.00. C- reactive protein was 36.84. Urine was within normal limits with the exception urine blood was 2+, urine rbc's were 1+, squamous epithelial cells were present, bacteria was absent, and glucose was 1+. She had a chest x-ray, radiologist's impression: Probable basilar subsegmental atelectasis, no definite acute cardiopulmonary process was evident. She did have a CT of the chest, no pulmonary arterial filling defect to suggest pulmonary embolism, she does have fatty infiltration of the liver. She had an electrocardiogram, which showed sinus tachycardia at a rate of 115, no ST or T wave changes. ASSESSMENT AND PLAN: Ms. Mitchell is a 58-year-old female with a past medical history significant for chronic obstructive pulmonary disease, anxiety, posttraumatic stress disorder, and post concussive syndrome, who presented to the emergency room with complaints of progressively worsening shortness of breath, headache, cough, and fevers on and off for the past 3 days. She will be admitted inpatient for: 1. Chronic obstructive pulmonary disease exacerbation. I suspect her shortness of breath is related to exacerbation of chronic obstructive pulmonary disease. The patient had a CT of chest that did not show any acute findings, no evidence of pneumonia. The patient does have 21,000 white count and is tachycardic for which she meets systemic inflammatory response syndrome criteria. The patient was given azithromycin, ceftriaxone in the emergency room. The patient has reportedly been taking azithromycin 250 mg p.o. Tuesday, Tuesday, and Tuesday to help control chronic obstructive pulmonary disease exacerbation. At this time, I will change her antibiotics to vancomycin and cefepime as the patient does have increased sputum production, shortness of breath, cough. The patient is without wheezing. At this time, I will hold off on further steroid treatments. I will continue with nebulizer treatments and we will get a consultation from Dr. Niño as the patient does follow with Dr. Niño as an outpatient. We will continue with her Spiriva as well. 2. Lactic acidosis. The patient does have an elevated lactic acid of 2.4. The patient was given IV fluids. We will repeat a lactic acid in 4 hours and continue to trend this. The patient does not appear to be septic at this time as she is afebrile with no known source of infection. 3. Anxiety. We will continue on Effexor 225 mg p.o. daily as previously prescribed as well as her Klonopin 1 mg at bedtime. 4. Headaches. The patient does complain of frontal headache that is worse than her normal headaches. I will get a CT of the brain to rule out any acute pathology. 5. Right upper quadrant abdominal pain. I will get a CT of the abdomen and pelvis as the patient does report that she has chronic abdominal pain x2 years and has been acutely worse over the past few days. So, I will get a CT of the abdomen and pelvis to rule out any acute pathology. 6. FEN: She can have a regular diet. 7. Code status: She is a full code. 8. DVT prophylaxis: I will place her on Lovenox subcu. 9. Disposition: She will be placed inpatient with chronic obstructive pulmonary disease exacerbation. TIME SPENT: Time spent on this admission was approximately 60 minutes, greater than half that time was spent at the bedside reviewing events leading thus far to her hospitalization, performing physical exam, and reviewing my plan of care. I have discussed this with my attending Dr. Annika Regan; she is in agreement with my plan. CAITLIN OROZCO NP ADDENDUM: This is an addendum to the previous history and physical. ATTENDING PHYSICIAN: Dr. Gloria Lorenzana. I did speak to Dr. Niño from Pulmonology in regards to the patient's shortness of breath. The patient did have a CT of the chest that shows no acute pneumonia or underlying infection. Dr. Niño has recommended that we stop the antibiotics and monitor the patient's blood culture and urine culture over the next 24 to 48 hours. If the patient should develop a fever or develop other signs of infection, we will resuming antibiotic therapy at that time. At this time, the patient does have a 21,000 white count, she is tachycardic and tachypneic, meeting SIRS criteria, but she has no source of infection. Her lactic acid was elevated. She did receive IV fluids and her lactic acid has come down to 2. At this point, I do not feel that the patient is acutely infected and is not septic. We will continue to monitor the patient's urine and blood cultures, as well as send a urine for strep and Legionella. I have also ordered a sputum for culture and PCP. IV antibiotic will be stopped and the patient will be monitored for signs of acute infection. CAITLIN OROZCO NP [id number]/CPS #: [id number]/CPS #: [id number] DARWIN
--- NOTE | 2018-10-06 23:06 | HP ---
HISTORY AND PHYSICAL: ADDENDUM: This is an addendum to the previous history and physical. ATTENDING PHYSICIAN: Dr. Gloria Lorenzana. I did speak to Dr. Niño from Pulmonology in regards to the patient's shortness of breath. The patient did have a CT of the chest that shows no acute pneumonia or underlying infection. Dr. Niño has recommended that we stop the antibiotics and monitor the patient's blood culture and urine culture over the next 24 to 48 hours. If the patient should develop a fever or develop other signs of infection, we will consider resuming antibiotic therapy at that time. At this time, the patient does have a 21,000 white count, she is tachycardic and tachypneic, meeting SIRS criteria, but she has no source of infection. Her lactic acid was elevated. She did receive IV fluids and her lactic acid has come down to 2. At this point, I do not feel that the patient is acutely infected and is not septic. We will continue to monitor the patient' s urine and blood cultures, as well as send a urine for strep and Legionella. I have also ordered a sputum for culture and PCP. IV antibiotic will be stopped and the patient will be monitored for signs of acute infection. JACEY PECK, DRAKE [id number]/[facility] [place] #: [id number] MTDYulia
[2018-10-07] MEDS ORDERED: Vancomycin(*) 750 MG in NS 0.9% 250 ML* 250 ML IVPB SCH ×2
[2018-10-07 06:14] LABS: ABS Lymphocytes 1.7 10^3/ul (1.0-4.8); ABS Monocytes 0.6 10^3/ul (0-0.8); Hematocrit 32 % (35-47); Hemoglobin 10.3 g/dL (12.0-16.0); Mean Corpuscular HGB Conc 32 g/dL (31-36); Mean Corpuscular Hemoglobin 28 pg (27-31); Mean Corpuscular Volume 86 fL (80-97); Mean Platelet Volume 7.6 fL (7.4-10.4); Platelet Count 308 10^3/uL (150-450); Red Blood Count 3.75 10^6 /uL (3.70-4.87); Red Cell Distribution Width 16 % (10-15); White Blood Count 15.2 10^3/uL (3.5-10.8)
[2018-10-07 06:29] LABS: BUN/Creatinine Ratio 12.7 (8-20); Calcium 8.8 mg/dL (8.6-10.3); EGFR African American 102.7 (>60); EGFR Non-African American 84.8 (>60); Potassium 3.6 mmol/L (3.5-5.0)
[2018-10-07] MEDS: Acetaminophen TAB* 325 MG PO PRN (07:18)
[2018-10-07] MEDS: Tiotropium CAP.INH* CAP.INH/18 MCG INH SCH (07:38)
[2018-10-07] MEDS ORDERED: Spiriva HANDIHALER DEVICE (NF) 1 EACH DEVICE INH ONE (09:00)
[2018-10-07] MEDS: Venlafaxine EXT RELEASE CAP* 75 MG PO SCH (09:47)
[2018-10-07] MEDS: Lactobacillus Acidophilus* 1 TAB PO SCH ×2 (09:47→20:05)
[2018-10-07] MEDS: Pantoprazole TAB * 40 MG TAB PO SCH ×2 (09:48→20:05)
--- NOTE | 2018-10-07 11:40 | PN ---
Subjective Date of Service: 10/07/18 Interval History: Patient reports breathing has improved today. Denies chest pain or shortness of breath. Denies abd pain n/v/d. Denies fever or chills Afebrile overnight O2 weaned to 2 liter nasal cannula which is baseline- WBC's - trending down Sputum culture - pending Family History: Unchanged from Admission Social History: Unchanged from Admission Past Medical History: Unchanged from Admission Objective Active Medications: Acetaminophen (Tylenol Tab*) 650 mg PO Q4H PRN PRN Reason: FEVER/PAIN Last Admin: 10/07/18 07:18 Dose: 650 mg Hydrocodone Bitart/Acetaminophen ([place] 5-325 Tab*) 1 tab PO Q8H PRN PRN Reason: PAIN Last Admin: 10/06/18 19:30 Dose: 1 tab Al Hydrox/Mg Hydrox/Simethicone (Maalox Plus*) 30 ml PO Q6H PRN PRN Reason: INDIGESTION Albuterol/Ipratropium (Duoneb (Albuterol 2.5 Mg/Ipratropium 0.5 Mg)) 1 neb INH RT.[id number] AWAKE PRN PRN Reason: sob/wheexing Clonazepam (Klonopin Tab(*)) 1 mg PO BEDTIME PRN PRN Reason: ANXIETY Enoxaparin Sodium (Lovenox(*)) 40 mg SUBCUT Q24H [facility] Last Admin: 10/06/18 16:38 Dose: 40 mg Lactobacillus Rhamnosus (Lactobacillus Acidophilus*) 1 tab PO BID [facility] Last Admin: 10/07/18 09:47 Dose: 1 tab Miscellaneous (Ativan Pyxis Syed) 1 ea N/A .ATIVAN IV SYED PRN PRN Reason: PYXIS SYED Pantoprazole Sodium (Protonix Tab*) 40 mg PO BID [facility] Last Admin: 10/07/18 09:48 Dose: 40 mg Tiotropium [place] (Spiriva Cap.Inh*) 1 cap INH QAM [facility] Last Admin: 10/07/18 07:38 Dose: 1 cap Venlafaxine HCl (Effexor Xr Cap*) 225 mg PO QAM [facility] Last Admin: 10/07/18 09:47 Dose: 225 mg Vital Signs - 8 hr 10/07/18 10/07/18 04:15 07:51 Temperature 97.8 F 97.9 F Pulse Rate 91 89 Respiratory 14 16 Rate Blood Pressure 116/73 110/57 (mmHg) O2 Sat by Pulse 100 100 Oximetry Oxygen Devices in Use Now: Nasal Cannula Appearance: alert, resting in bed , no acute distress Eyes: No Scleral Icterus Ears/Nose/Mouth/Throat: Clear Oropharnyx, Mucous Membranes Moist Neck: NL Appearance and Movements; NL JVP, Trachea Midline Respiratory: Symmetrical Chest Expansion and Respiratory Effort, Clear to Auscultation Cardiovascular: NL Sounds; No Murmurs; No JVD, No Edema Abdominal: NL Sounds; No Tenderness; No Distention Extremities: No Edema Skin: No Rash or Ulcers Neurological: Alert and Oriented x 3 Nutrition: Taking PO's Result Diagrams: 10/07/18 05:36 10/07/18 05:36 Microbiology and Other Data: Microbiology 10/07/18 06:30 Gram Stain - Final Sputum Expectorated 10/06/18 05:19 Aerobic Blood Culture - Preliminary Blood Venous No Growth Day 1 Anaerobic Blood Culture - Preliminary No Growth Day 1 10/06/18 05:26 Aerobic Blood Culture - Preliminary Blood Venous No Growth Day 1 Anaerobic Blood Culture - Preliminary No Growth Day 1 10/06/18 15:00 Legionella Urinary Antigen - Final Urine Negative Legionella Antigen Streptococcus pneumoniae Ag Screen - Final Negative S. pneumo Antigen Assess/Plan/Problems-Billing Assessment: Ms. Mitchell is a 58 y.o female with past medical hx of COPD, anxiety who presented to the ER with worsening shortness of breath. Admitted for COPD exacerbation - Patient Problems (1) Leukocytosis Current Visit: Yes Status: Acute Code(s): D72.829 - ELEVATED WHITE BLOOD CELL COUNT, UNSPECIFIED SNOMED Code(s): 404784174 Comment: - elevated WBC's- trending down - will continue to monitor - no source of infection - Blood cultures with no growth x 1 day - Sputum culture pending - will repeat cbc and bmp in the AM - will continue to hold antibiotic and monitor at this time (2) COPD exacerbation Current Visit: No Status: Acute Code(s): J44.1 - CHRONIC OBSTRUCTIVE PULMONARY DISEASE W (ACUTE) EXACERBATION SNOMED Code(s): 477826558 Comment: - improving - Home inhalers and nebs PRN - no wheezing patient is afebrile with CTA negative for pneumonia - Blood cultures no growth x 1 day - will continue to follow - Sputum culture- pending - consulted Dr. Niño who recommended - stopping antibiotic and trend WBC's, send sputum and monitor for signs of infection - O2 requirement returned to baseline. (3) GERD (gastroesophageal reflux disease) Current Visit: No Status: Acute Code(s): K21.9 - GASTRO-ESOPHAGEAL REFLUX DISEASE WITHOUT ESOPHAGITIS SNOMED Code(s): 600661074 Comment: - continue PPI daily (4) Major depressive disorder, recurrent Current Visit: No Status: Acute Code(s): F33.9 - MAJOR DEPRESSIVE DISORDER, RECURRENT, UNSPECIFIED SNOMED Code(s): 95831409 Comment: - effexor 225 mg daily (5) DVT prophylaxis Current Visit: No Status: Acute Code(s): JLL1691 - SNOMED Code(s): 604874003 Comment: - Lovenox (6) Full code status Current Visit: No Status: Acute Code(s): Z78.9 - OTHER SPECIFIED HEALTH STATUS SNOMED Code(s): 505764070 Comment: Status and Disposition: inpatient- likely discharge tomorrow
[2018-10-07] MEDS: Enoxaparin(*) 40 MG/0.4 ML SYR SUBCUT SCH (13:08)
[2018-10-08] MEDS: Tiotropium CAP.INH* CAP.INH/18 MCG INH SCH (07:30)
[2018-10-08] MEDS ORDERED: Vancomycin Trough Check NOTE FOLLOW UP ONE (08:00)
[2018-10-08 08:22] LABS: Hematocrit 35 % (35-47); Hemoglobin 11.6 g/dL (12.0-16.0); Mean Corpuscular HGB Conc 33 g/dL (31-36); Mean Corpuscular Hemoglobin 28 pg (27-31); Mean Corpuscular Volume 85 fL (80-97); Mean Platelet Volume 7.7 fL (7.4-10.4); Platelet Count 321 10^3/uL (150-450); Red Blood Count 4.12 10^6 /uL (3.70-4.87); Red Cell Distribution Width 16 % (10-15); White Blood Count 9.3 10^3/uL (3.5-10.8)
[2018-10-08 08:29] LABS: BUN/Creatinine Ratio 11.8 (8-20); EGFR African American 94.9 (>60); EGFR Non-African American 78.4 (>60); Potassium 3.7 mmol/L (3.5-5.0)
[2018-10-08] MEDS: Pantoprazole TAB * 40 MG TAB PO SCH (08:31)
[2018-10-08] MEDS: Venlafaxine EXT RELEASE CAP* 75 MG PO SCH (08:31)
[2018-10-08] MEDS: Acetaminophen TAB* 325 MG PO PRN (08:31)
[2018-10-08] MEDS: Lactobacillus Acidophilus* 1 TAB PO SCH (08:32)
[2018-10-08 12:07] VITALS: BP 124/77
--- NOTE | 2018-10-08 12:19 | DS ---
DISCHARGE SUMMARY: DATE OF ADMISSION: 10/06/18 DATE OF DISCHARGE: 10/08/18 PRIMARY DIAGNOSIS: Chronic obstructive pulmonary disease exacerbation. SECONDARY DIAGNOSES: 1. Chronic obstructive pulmonary disease. 2. Anxiety. 3. Posttraumatic stress disorder. 4. Hysterectomy. 5. Bladder surgery. HOSPITAL COURSE: A 58-year-old female with past medical history of COPD, anxiety, PTSD, postconcussi ve syndrome who came into the hospital with acute shortness of breath, also had green sputum. The pa lila also reported fevers, chills, and sweats over the last 3 days. The patient was noted to have a white count of 21.2. CT of the chest showed no pulmonary embolus, did show emphysema, but no pneumon ia. The patient was admitted to the hospital for COPD exacerbation and started on ceftriaxone, azithr omycin. The patient has also been taking azithromycin 250 mg p.o. 3 times a week for COPD exacerbati on as an outpatient, was also noted to have lactic acidosis with a lactic acid of 2.4, which improved with IV steroids. In addition, the patient had all the following imaging done in the ER: 1. CT/thorax CTA: No pulmonary arterial defect to suggest PE, emphysema. Noted to have fatty infil tration of the liver. 2. The patient had a chest x-ray, which showed probable bibasilar subsegmental atelectasis. No defi nite cardiopulmonary process. 3. The patient had abdominal and pelvis CT, which showed diverticulosis, fatty infiltration of the l iver. 4. Had a brain CT, which did not show any acute intracranial pathology. Case was discussed by Caitlin Orozco NP, with Dr. Niño as the patient follows with Dr. Niño as an outpatient for COPD. She recommended that we stop the antibiotics and monitor cultures over the next 24 to 48 hours. If the patient was noted to have fevers or worsening white count, she recommend ed antibiotics; otherwise, recommended stopping the antibiotics as there was no sign of acute infecti on. The patient's symptoms have improved and reports that she is almost back to normal. Her white c ount today is 9.3. Discussed staying in the hospital for further monitoring versus going home today as the patient sarah gunn is not on any antibiotics per discussion with Pulmonary. The patient prefers to go home today a nd advised to come back if she has any worsening shortness of breath symptoms. The patient was also not placed on steroids, but was treated supportively with initial antibiotics and nebulizers and theron thing treatments for COPD exacerbation. Vitals and labs noted to be stable at time of discharge. The patient wears oxygen at home and is at her baseline. PHYSICAL EXAMINATION: Temperature 97.8, pulse 81, oxygen saturation 97% on 2 L, blood pressure 125/6 8. HEENT: NC/AT. Heart: S1, S2 present. Regular at the time of exam. Lungs: Clear to auscultat ion bilaterally. Abdomen: Soft. Extremities: No edema. Neuro: Alert, oriented. DIAGNOSTIC STUDIES/LAB DATA: Labs: WBC is 9.3, hemoglobin 11.6, hematocrit 35, platelets noted to be 321. Sodium 141, potassium 3.7, chloride 107, CO2 of 25, BUN 9, creatinine 0.76, lactic acid improve d from 3.3 to 2. Imaging: As discussed above. DISPOSITION: Home. CONDITION: Stable. DISCHARGE INSTRUCTIONS: The patient to follow up with PCP in a week. The patient to continue her az ithromycin 3 times a week as she has been taking previously and to discuss with her PCP and Pulmonary on further plan. TIME SPENT: Total time spent on discharge is equal to 45 minutes. [id number]/[facility] #: [id number]
--- NOTE | 2018-10-08 14:22 | DS ---
DISCHARGE SUMMARY: ADDENDUM: Please refer to the dictated discharge summary for full details. The patient's sputum culture was not available at time of discharge. Sputum culture is now back and noted to be positive for klebsiella and the patient's symptoms did improve with IV antibiotics that she received in the hospital. In light of this, the patient will be prescribed Ceftin for 7 days and a prescription has been called for the patient and sent to her pharmacy.Also called and let the patient know and she will be picking up the antibiotic. [id number]/[facility] #: [id number] MTDYulia
== END 2018-10-08 13:11 | disposition home or self-care (01) | DRG 140 ==
LOC: ED 04:50 → MEDTELE 12:44
PROVIDERS: ADMIT Internal Medicine; ATTEND Internal Medicine
DX: J43.9 Emphysema, unspecified (principal); E87.2 Acidosis; R65.10 Systemic inflammatory response syndrome (SIRS) of non-infectious origin without acute organ dysfunction; F33.9 Major depressive disorder, recurrent, unspecified; Z68.41 Body mass index [BMI] 40.0-44.9, adult; M41.9 Scoliosis, unspecified; K44.9 Diaphragmatic hernia without obstruction or gangrene; M15.9 Polyosteoarthritis, unspecified; K76.0 Fatty (change of) liver, not elsewhere classified; F41.9 Anxiety disorder, unspecified; E66.9 Obesity, unspecified; F43.10 Post-traumatic stress disorder, unspecified; B96.1 Klebsiella pneumoniae [K. pneumoniae] as the cause of diseases classified elsewhere; K21.9 Gastro-esophageal reflux disease without esophagitis; Z87.891 Personal history of nicotine dependence; Z86.718 Personal history of other venous thrombosis and embolism; Z87.01 Personal history of pneumonia (recurrent); Z87.440 Personal history of urinary (tract) infections; Z88.0 Allergy status to penicillin; Z90.710 Acquired absence of both cervix and uterus; Z82.49 Family history of ischemic heart disease and other diseases of the circulatory system; Z82.0 Family history of epilepsy and other diseases of the nervous system; Z80.3 Family history of malignant neoplasm of breast; Z82.5 Family history of asthma and other chronic lower respiratory diseases; Z80.1 Family history of malignant neoplasm of trachea, bronchus and lung; Z72.89 Other problems related to lifestyle
CPT/HCPCS: 36415; 36600; 70450; 71046; 71275; 74177; 80048; 80053; 80202; 81003; 81015; 82803; 83605; 84484; 85025; 85027; 86140; 87040; 87070; 87077; 87186; 87205; 87798; 87899; 93005; 94640; 99283; A9270-GY; J0456; J0692; J0696; J1650; J2060; J2930; J3370; Q9967

== ENCOUNTER 2018-12-11 20:12 | Inpatient (IN) | payer OTHER ==
[2018-12-11] MEDS ORDERED: Acetaminophen TAB* 325 MG PO ONE (20:34)
[2018-12-11] MEDS ORDERED: Albuterol 0.5% CONC NEB.SOL* 5 MG/ML 20 ml BOT INH ONE (20:34)
--- NOTE | 2018-12-11 20:39 | ED ---
Shortness of Breath - HPI Summary HPI Summary: Pt is a 58 y/o F presenting to the ED with a chief complaint of shortness of breath initially onset a couple of days ago, but worsened today. She tried two breathing tx today without relief. She reports chills, fever, headache, anxiety , and chronic edema in her LE. She denies vomiting, diarrhea, LE myalgia, or recent travel. She notes hx of hypotension, DM, blood clot in her 30s, and she took Tylenol with Hydrocodone at about 1200 today. She has been here multiple times, she sees Dr. Niño for pulmonology, and notes that her mother of emphysema at 58 y/o. - History of Current Complaint Chief Complaint: EDShortnessOfBreath Time Seen by Provider: 12/11/18 20:23 Hx Obtained From: Patient Onset/Duration: Gradual Onset, Lasting Days, Still Present, Worse Since - today Timing: Constant Current Severity: Severe Dyspnea At: Rest Aggravating Factors: Nothing Alleviating Factors: Nothing Associated Signs & Symptoms: Wheezing, Fever, Chills, Edema - Allergy/Home Medications Allergies/Adverse Reactions: Allergies Allergy/AdvReac Type Severity Reaction Status Date / Time Penicillins Allergy Hives/Diff. Verified 12/11/18 20:17 Breathing/I tching Home Medications: Home Medications Omeprazole CAP (NF) [Prilosec CAP* 20 MG] 20 mg PO BID 12/11/18 [History Confirmed 12/11/18] Venlafaxine EXT RELEASE CAP* [Effexor Xr CAP*] 75 mg PO DAILY 12/11/18 [History Confirmed 12/11/18] Venlafaxine EXT RELEASE CAP* [Effexor Xr CAP*] 150 mg PO DAILY 12/11/18 [ History Confirmed 12/11/18] clonazePAM TAB(*) [KlonoPIN TAB(*)] 1.5 mg PO DAILY PRN 12/11/18 [History Confirmed 12/11/18] PMH/Surg Hx/FS Hx/Imm Hx Previously Healthy: Yes Endocrine/Hematology History: Reports: Hx Blood Disorders - factor five, Hx Diabetes - metformin, Other Endocrine/Hematological Disorders - blood clot per pt in her 30s. DVT R lower calf 1991 Denies: Hx Anticoagulant Therapy, Hx Thyroid Disease Cardiovascular History: Reports: Hx Deep Vein Thrombosis, Hx Hypotension Denies: Hx Hypertension, Hx Pacemaker/ICD Respiratory History: Reports: Hx Asthma - O2 @ 2 liters nasal all the time now, occasionally removes, Hx Chronic Obstructive Pulmonary Disease (COPD) - stage 3 , Hx Pneumonia, Other Respiratory Problems/Disorders - Pneumonia 5 times since -hosp x 3 GI History: Reports: Hx Hiatal Hernia - PROC. SCHEDULED FOR 09/08/18 Denies: Hx Cirrhosis, Hx Ulcer, Other GI Disorders - Dysphagia, right upper quadrant pain History: Reports: Other Problems/Disorders - Frequent UTI's bladder prolapse Denies: Hx Dialysis, Hx Renal Disease Musculoskeletal History: Reports: Hx Arthritis - BACK-generalized, Hx Back Problems, Hx Scoliosis Denies: Other Musculoskeletal History Sensory History: Denies: Hx Contacts or Glasses, Hx Hearing Aid, Hx Hearing Problem Opthamlomology History: Denies: Hx Contacts or Glasses Neurological History: Reports: Hx Headaches, Other Neuro Impairments/Disorders - Concussion 2017-with aphasia and stutter Psychiatric History: Reports: Hx Anxiety, Hx Depression, Hx Post Traumatic Stress Disorder Denies: Hx Eating Disorder, Hx Panic Disorder, Hx Suicide Attempt, Hx of Violent Episodes Against Others - Cancer History Hx Chemotherapy: No Hx Radiation Therapy: No - Surgical History Surgery Procedure, Year, and Place: Hysterectomy 01/15. Bladder sling and cystocele + rectocele. Bladder repair 08/17 & 2013 Hx Anesthesia Reactions: No Infectious Disease History: No Infectious Disease History: Denies: Hx Clostridium Difficile, Hx Hepatitis, Hx Human Immunodeficiency Virus (HIV), Hx of Known/Suspected MRSA, Hx Shingles, Hx Tuberculosis, Hx Known/ Suspected VRE, Hx Known/Suspected VRSA, History Other Infectious Disease, Traveled Outside the [place] in Last 30 Days - Family History Known Family History: Positive: Cardiac Disease, Respiratory Disease - mother COPD, Seizure Disorder - epilepsy, Other - breast cancer - Social History Alcohol Use: None Hx Substance Use: No Substance Use Type: Reports: None Substance Use Comment - Amount & Last Used: hydrocodone with tylenol and clonazepam Hx Tobacco Use: Yes Smoking Status (MU): Former Smoker Type: Cigarettes Amount Used/How Often: 1PPD 20 YRS Length of Time of Smoking/Using Tobacco: 1999 Have You Smoked in the Last Year: No Review of Systems Positive: Fever, Chills Positive: Shortness Of Breath Negative: Vomiting, Diarrhea Positive: Edema - chronic. Negative: Myalgia Positive: Headache Positive: Anxious All Other Systems Reviewed And Are Negative: Yes Physical Exam - Summary Physical Exam Summary: Constitutional: Well-developed, Well-nourished, Alert. Skin: Warm, Dry HENT: Normocephalic; Atraumatic Eyes: Conjunctiva normal Neck: Musculoskeletal ROM normal neck. (-) JVD, (-) Stridor, (-) Tracheal deviation Cardio: Rhythm regular, rate tachycardic, Heart sounds normal; Intact distal pulses; Radial pulses are 2+ and symmetric. (-) Murmur Pulmonary/Chest wall: Speaking in short sentences, wheezing diffusely. Abd: Soft, (-) tenderness, (-) Distension, (-) Guarding, (-) Rebound Musculoskeletal: 1+ edema in the bilateral LE. Lymph: (-) Cervical adenopathy Neuro: Alert, Oriented x3 Psych: Mood and affect Normal Triage Information Reviewed: Yes Vital Signs On Initial Exam: Initial Vitals Temp Pulse Resp BP Pulse Ox 101.9 F 137 37 141/80 96 12/11/18 20:14 12/11/18 20:14 12/11/18 20:14 12/11/18 20:14 12/11/18 20:14 Vital Signs Reviewed: Yes Procedures - Sedation Patient Received Moderate/Deep Sedation with Procedure: No Diagnostics - Vital Signs Vital Signs Temp Pulse Resp BP Pulse Ox 12/11/18 20:14 101.9 F 137 37 141/80 96 - Laboratory Result Diagrams: 12/11/18 21:04 12/11/18 21:04 Lab Statement: Any lab studies that have been ordered have been reviewed, and results considered in the medical decision making process. - Radiology CXR Radiology Interpretation Completed By: ED Physician Summary of Radiographic Findings: No change from prior. Pending official radiology report. - CT CTA Chest/Thorax CT Interpretation Completed By: Radiologist Summary of CT Findings: 1. Mild bullous change, greatest in the upper lobes and apices and minimal fibro-atelectatic change, greatest in the lower lobes. 2. Fatty infiltration of the liver. 3. Bilateral hilar adenopathy. 4. Interrupted injection with suboptimal opacification of the pulmonary arteries. No gross central pulmonary embolism is identified. Emboli beyond first order branching are not excluded. ED physician has reviewed this report. - EKG 204 Cardiac Rate: Tachycardia - 120bpm EKG Rhythm: Sinus Tachycardia ST Segment: Normal Ectopy: None Summary of EKG Findings: EKG at 2039 shows sinus tachycardia at 120bpm. No STEMI. Course/Dx - Course Course Of Treatment: Patient is here with a COPD exacerbation. Patient isn't having monthly COPD exacerbations with associated tachycardia. Patient was given a DuoNeb with improvement in her symptoms. Patient had a CTA to rule out PE which was negative for PE. Patient does have a large quantity of apical blebs. Patient was told she should not receive steroids by her erp developer so steroids were not given. Patient was admitted to medicine - Diagnoses Provider Diagnoses: COPD exacerbation, Tachycardia, Headache - Physician Notifications Discussed Care of Patient With: Jian Roca Time Discussed With Above Provider: 23:55 Instructed by Provider To: Admit As Inpatient Discharge ED - Sign-Out/Discharge Documenting (check all that apply): Patient Departure - Discharge Plan Condition: Stable Disposition: ADMITTED TO [facility] Referrals: Yvonne Stover DO [Primary Care Provider] - - Billing Disposition and Condition Condition: STABLE Disposition: Admitted to [facility] - Attestation Statements Document Initiated by Ronaldoibe: Yes Documenting Scribe: Yesi Cowart Provider For Whom Ronaldoibe is Documenting (Include Credential): Pascual Marx MD. Scribe Attestation: Yesi Blanchard scribed for Pascual Marx MD. on 12/12/18 at 0341. Scribe Documentation Reviewed: Yes Provider Attestation: The documentation as recorded by the Yesi encinas accurately reflects the service I personally performed and the decisions made by Pascual manzo MD. Status of Scribe Document: Viewed
[2018-12-11 21:11] LABS: ABS Basophils 0.1 10^3/ul (0-0.2); ABS Eosinophils 0.1 10^3/ul (0-0.6); ABS Lymphocytes 1.1 10^3/ul (1.0-4.8); ABS Monocytes 0.7 10^3/ul (0-0.8); ABS Neutrophils 18.1 10^3/ul (1.5-7.7); Eosinophil % 0.4 %; Hematocrit 37 % (35-47); Hemoglobin 12.1 g/dL (12.0-16.0); Lymphocyte % 5.3 %; Mean Corpuscular HGB Conc 33 g/dL (31-36); Mean Corpuscular Hemoglobin 27 pg (27-31); Mean Corpuscular Volume 82 fL (80-97); Mean Platelet Volume 7.5 fL (7.4-10.4); Platelet Count 348 10^3/uL (150-450); Red Cell Distribution Width 15 % (10-15)
[2018-12-11 21:16] LABS: INR 0.97 (0.82-1.09)
[2018-12-11 21:29] LABS: Albumin 4.3 g/dL (3.2-5.2); Albumin/Globulin Ratio 1.2 (1-3); Calcium 9.5 mg/dL (8.6-10.3); EGFR African American 89.5 (>60); EGFR Non-African American 73.9 (>60); Globulin 3.6 g/dL (2-4); Potassium 3.7 mmol/L (3.5-5.0); Total Bilirubin 0.4 mg/dL (0.2-1.0); Total Protein 7.9 g/dL (6.4-8.9)
[2018-12-11 21:31] LABS: Troponin I 0.01 ng/mL (<0.04)
[2018-12-11] MEDS ORDERED: Iodixanol* (CONTRAST) 320 MG/ML 100 ML SDV IV ONE (21:33)
[2018-12-11] MEDS ORDERED: Ibuprofen TAB* 600 MG PO ONE (23:19)
[2018-12-12] MEDS ORDERED: Morphine 4 MG/ML VIAL (1 ml) 4 MG/ML VIAL IV ONE (00:22)
[2018-12-12 01:06] LABS: Urine Appearance Cloudy; Urine Bacteria Absent (Absent); Urine Bilirubin Negative (Negative); Urine Blood 1+ (Negative); Urine Color Yellow; Urine Glucose Negative (Negative); Urine Ketones Negative (Negative); Urine Nitrite Negative (Negative); Urine Protein Negative (Negative); Urine Red Blood Cell Trace(0-2/hpf) (Absent); Urine Squamous Epithelial Cell Present (Absent); Urine Urobilinogen Negative (Negative); Urine White Blood Cell Absent (Absent)
[2018-12-12] MEDS ORDERED: NS 0.9% 1000 ML** 2,000 ML IV ONE (04:30)
[2018-12-12] MEDS ORDERED: Ipratropium 0.5MG/2.5ML NEB* 0.5 MG/2.5 ML NEB.SOLN INH PRN (05:28)
[2018-12-12] MEDS: Levofloxacin 750 MG IVPREMIX(* 750 MG/150 ML BAG IVPB SCH (05:33)
[2018-12-12] MEDS ORDERED: Levalbuterol 1.25MG/0.5ML NEB INH SCH (06:00)
[2018-12-12 06:01] LABS: ABS Basophils 0.1 10^3/ul (0-0.2); ABS Eosinophils 0.1 10^3/ul (0-0.6); ABS Lymphocytes 1.2 10^3/ul (1.0-4.8); ABS Monocytes 0.6 10^3/ul (0-0.8); ABS Neutrophils 18.6 10^3/ul (1.5-7.7); Eosinophil % 0.3 %; Hematocrit 35 % (35-47); Hemoglobin 11.4 g/dL (12.0-16.0); Lymphocyte % 5.6 %; Mean Corpuscular HGB Conc 33 g/dL (31-36); Mean Corpuscular Hemoglobin 27 pg (27-31); Mean Corpuscular Volume 83 fL (80-97); Mean Platelet Volume 7.5 fL (7.4-10.4); Platelet Count 292 10^3/uL (150-450); Red Cell Distribution Width 15 % (10-15); White Blood Count 20.5 10^3/uL (3.5-10.8)
[2018-12-12 06:15] LABS: Calcium 8.4 mg/dL (8.6-10.3); Potassium 3.8 mmol/L (3.5-5.0)
[2018-12-12 06:20] LABS: BUN/Creatinine Ratio 12.8 (8-20); EGFR African American 92.1 (>60); EGFR Non-African American 76.1 (>60)
[2018-12-12] MEDS ORDERED: methylPREDNISolone SOD 40 MG* 1 ML VIAL IV SCH (07:30)
[2018-12-12] MEDS: Levalbuterol 1.25MG/0.5ML NEB INH SCH ×2 (07:45→11:05)
[2018-12-12] MEDS: Mometasone/Formoter 200/5 MDI INH SCH (07:46)
--- NOTE | 2018-12-12 08:03 | HP ---
CC: Dr. Yvonne Stover; Dr. Feli Niño * ADMISSION HISTORY AND PHYSICAL: DATE OF ADMISSION: 12/12/18 PRIMARY CARE PROVIDER: Dr. Yvonne Stover. BEER RUNNER: Dr. Niño. CHIEF COMPLAINT: Progressive shortness of breath. HISTORY OF PRESENT ILLNESS: This is a 58-year-old female with past medical history of COPD, anxiety, PTSD, post concussive syndrome, diabetes, depression, came in as she became acutely short of breath and progressively worsening shortness of breath, cough, productive of greenish delatorre sputum and has been air hungry for the last few days, but today she was much worse and has been sleepy all day, so decided to come to the ER for evaluation. While in the ER, she was noted to be febrile and initially was very short of breath and could not even exert herself for a few minutes before getting completely winded and weak. She denies any chest pain or complaints of shortness of breath or any palpitations, any nausea, vomiting, or diarrhea. She denied any other sick contacts. PAST MEDICAL HISTORY: As mentioned: 1. COPD, on 2 L nasal cannula. 2. Anxiety. 3. PTSD. 4. Postconcussive syndrome when she fell on ice 3 years ago. 5. 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 6. Depression. 7. Diabetes. PAST SURGICAL HISTORY: Includes hysterectomy and bladder reconstruction surgery due to bladder prolapse that she had, which failed. HOME MEDICATIONS: The patient is on: 1. Prilosec 20 mg p.o. b.i.d. 2. Tiotropium by inhalation in the morning. 3. Albuterol 2 puffs by inhalation q.4 hours p.r.n. 4. [place] 5/325 mg 1 tablet p.o. b.i.d. 5. Ventolin HFA q.6 hours p.r.n. 6. Klonopin 1.5 mg daily p.r.n. 7. Metformin 500 mg p.o. b.i.d. 8. Fluticasone with salmeterol by inhalation daily. 9. Effexor 150 + 75, a total of 225 dose daily. 10. Gabapentin 300 mg p.o. b.i.d. ALLERGIES: The patient is allergic to PENICILLIN, which causes hives, difficulty breathing, and itching. FAMILY HISTORY: Father had high blood pressure, AL, and cardiac stent. Mother had COPD, at the age of 58. Father had stage IV lung cancer, diagnosed in his 80s. SOCIAL HISTORY: Quit smoking in 1999. Prior to that, smoked for 15 years. Reports occasional alcohol use. No other illicit drug use. She is and lives with her who is her surrogate decision maker. She is otherwise full code. Currently working at [employer]. 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 REVIEW OF SYSTEMS: A 14-point review of systems did not reveal any new information other than what is mentioned in the HPI. PHYSICAL EXAMINATION GENERAL: The patient is awake, alert, and oriented x3, was noted to be in mild respiratory distress. VITAL SIGNS: In the ER, T-max was recorded at 101.9, BP was noted to be as low as 71/57 which improved with IV fluids to 95/58, heart rate 89, respiration rate 21, saturating 98% on 3 L nasal cannula. HEAD AND NECK: Atraumatic, normocephalic. Bilateral pupils are reactive. Oral mucosa was moist. Neck was noted to be obese. LUNGS: The patient has diffuse expiratory wheezing with few rhonchi. HEART: S1, S2. Regular tachycardia. ABDOMEN: Obese, soft, nontender. EXTREMITIES: No cyanosis, clubbing, or edema. LABORATORY DATA/DIAGNOSTIC STUDIES: CBC shows elevated white count of 20,000. Hemoglobin, hematocrit, and platelets were within normal limits. Coagulation profile was normal. Comprehensive metabolic panel shows elevated glucose at 120. Lactic acid initially was noted to be 2.0, which worsened to 2.2. Set of troponin was negative. LFTs were within normal limits. Urinalysis was negative for any leuk esterase or nitrite. Positive for 1+ blood. CTA of the chest showed mild bullous change, greatest in the upper lobes and apices; minimal fibroelastic change, greater in the lower lobes; fatty infiltration of the liver. Bilateral hilar adenopathy, interrupted injection with suboptimal opacification of the pulmonary artery. No gross central pulmonary emboli identified, emboli of the first order branches are not excluded. EKG showed sinus tachycardia at 120 beats per minute without any ST changes. When compared to her older EKG from 08/02/19, its essentially unchanged. Even the rate previously was 115, today's rate is 120. IMPRESSION: This is a 58-year-old female with chronic obstructive pulmonary disease and severe emphysema as noted in the CTA, came in with fever, cough, and severe shortness of breath likely secondary to chronic obstructive pulmonary disease exacerbation, possibly underlying pneumonia, though it is difficult to see on the CAT scan, possibly from dehydration, although noted to have hypotension and elevated lactic acid. ASSESSMENT: 1. Hypoxic respiratory failure secondary to chronic obstructive pulmonary disease exacerbation, possibly from pneumonia. We will start the patient on steroids, Levaquin and DuoNeb. 2. Sepsis. Given the elevated white count and fever, likely underlying pneumonia with multiorgan failure given her elevated lactic acid, respiratory failure, and hypotension. We will start the patient on aggressive IV hydration , repeat lactic acid in a few hours, and continue with broad-spectrum antibiotics with Levaquin. The patient's previous culture was growing to be Klebsiella aerogenes, which was sensitive to fluoroquinolones. We will also add urine legionella and Streptococcus pneumoniae antigen testing along with repeating her sputum culture and followup blood cultures as well. 3. History of diabetes. We will start the patient on insulin sliding scale and hold her p.o. diabetic medications. 4. History of chronic pain due to sciatica. We will continue her home pain medications. 5. History of anxiety. Restart her home Klonopin. 6. History of depression. Continue her Effexor. 7. DVT prophylaxis with subcu Lovenox. 8. Code status: The patient is full code with being surrogate decision maker. [id number]/[facility] #: [id number] DARWIN
[2018-12-12] MEDS: Venlafaxine EXT RELEASE CAP* 75 MG PO SCH (08:07)
[2018-12-12] MEDS: Pantoprazole TAB * 40 MG TAB PO SCH ×2 (08:07→20:06)
[2018-12-12] MEDS: Gabapentin CAP(*) 300 MG PO SCH ×2 (08:07→20:06)
[2018-12-12] MEDS: Enoxaparin(*) 40 MG/0.4 ML SYR SUBCUT SCH (08:08)
[2018-12-12] MEDS ORDERED: Venlafaxine EXT RELEASE CAP* 75 MG PO SCH (09:00)
[2018-12-12 09:50] LABS: Influenza A Molecular NEGATIVE (Negative); Influenza B Molecular NEGATIVE (Negative)
--- NOTE | 2018-12-12 10:34 | PN ---
Subjective Date of Service: 12/12/18 Interval History: Pt feels much better, cough and fever resolved, Flu test neg. Objective Active Medications: Hydrocodone Bitart/Acetaminophen ([place] 5-325 Tab*) 1 tab PO BID PRN PRN Reason: PAIN - SEVERE Clonazepam (Klonopin Tab(*)) 1.5 mg PO DAILY PRN PRN Reason: AGITATION/ANXIETY Enoxaparin Sodium (Lovenox(*)) 40 mg SUBCUT Q24H [facility] Last Admin: 12/12/18 08:08 Dose: 40 mg Gabapentin (Neurontin Cap(*)) 300 mg PO BID [facility] Last Admin: 12/12/18 08:07 Dose: 300 mg Levofloxacin/Dextrose (Levaquin 750 Mg Ivpremix(*)) 750 mg in 150 mls @ 100 mls /hr IVPB Q24H [facility]; Protocol Last Admin: 12/12/18 05:33 Dose: 100 mls/hr Sodium Chloride (Ns 0.9% 1000 Ml) 1,000 mls @ 100 mls/hr IV PER RATE [facility] Influenza Virus Vaccine (Fluarix Quad [id number] Syr) 0.5 ml IM .ONCE ONE Stop: 12/13/18 09:01 Ipratropium [place] (Atrovent 0.5 Mg Neb.Cassandra*) 0.5 mg INH Q4H PRN PRN Reason: SOB/WHEEZING Levalbuterol HCl (Xopenex 1.25 Mg/0.5 Ml Neb.Cassandra*) 1.25 mg INH [id number] AWAKE [facility] Last Admin: 12/12/18 07:45 Dose: Not Given Mometasone Furoate/Formoterol Fumar (Dulera 200/5 Mdi*) 2 puff INH DAILY [facility] Last Admin: 12/12/18 07:46 Dose: Not Given Pantoprazole Sodium (Protonix Tab*) 40 mg PO BID [facility] Last Admin: 12/12/18 08:07 Dose: 40 mg Prednisone (Deltasone Tab*) 50 mg PO DAILY [facility] Venlafaxine HCl (Effexor Xr Cap*) 225 mg PO DAILY [facility] Last Admin: 12/12/18 08:07 Dose: 225 mg Vital Signs - 8 hr 12/12/18 12/12/18 12/12/18 02:58 03:00 03:28 Temperature Pulse Rate 105 108 98 Respiratory 21 21 16 Rate Blood Pressure 108/69 100/75 (mmHg) O2 Sat by Pulse 92 90 95 Oximetry 12/12/18 12/12/18 12/12/18 03:58 04:00 04:28 Temperature Pulse Rate 101 108 94 Respiratory 21 30 21 Rate Blood Pressure 109/73 71/57 (mmHg) O2 Sat by Pulse 95 92 96 Oximetry 12/12/18 12/12/18 12/12/18 04:29 04:46 05:00 Temperature Pulse Rate 95 89 96 Respiratory 24 21 21 Rate Blood Pressure 78/60 93/58 (mmHg) O2 Sat by Pulse 97 98 96 Oximetry 12/12/18 12/12/18 12/12/18 05:05 05:28 05:58 Temperature Pulse Rate 99 96 101 Respiratory 24 23 17 Rate Blood Pressure 104/66 114/82 99/69 (mmHg) O2 Sat by Pulse 96 97 94 Oximetry 12/12/18 12/12/18 12/12/18 06:00 06:15 06:28 Temperature 98.3 F 0 F Pulse Rate 102 96 0 Respiratory 26 18 0 Rate Blood Pressure 110/74 0/0 (mmHg) O2 Sat by Pulse 95 98 0 Oximetry 12/12/18 12/12/18 12/12/18 06:41 06:45 07:00 Temperature Pulse Rate 91 92 93 Respiratory 17 18 20 Rate Blood Pressure 110/74 104/76 107/84 (mmHg) O2 Sat by Pulse 97 99 98 Oximetry 12/12/18 12/12/18 12/12/18 07:15 07:31 07:45 Temperature Pulse Rate 93 95 94 Respiratory 19 21 19 Rate Blood Pressure 125/76 114/71 114/67 (mmHg) O2 Sat by Pulse 98 97 97 Oximetry 12/12/18 12/12/18 08:00 08:16 Temperature Pulse Rate 92 98 Respiratory 21 22 Rate Blood Pressure 111/73 110/71 (mmHg) O2 Sat by Pulse 99 98 Oximetry Oxygen Devices in Use Now: Nasal Cannula Appearance: 58 yo F in nAD, AAOx3 Eyes: No Scleral Icterus, PERRLA Ears/Nose/Mouth/Throat: NL Teeth, Lips, Gums, Mucous Membranes Moist Neck: NL Appearance and Movements; NL JVP, Trachea Midline Respiratory: Symmetrical Chest Expansion and Respiratory Effort, - - diffuse posterior wheezes Cardiovascular: NL Sounds; No Murmurs; No JVD, RRR Abdominal: NL Sounds; No Tenderness; No Distention Lymphatic: No Cervical Adenopathy Extremities: No Edema, No Clubbing, Cyanosis Skin: No Rash or Ulcers, No Nodules or Sclerosis Neurological: Alert and Oriented x 3, NL Muscle Strength and Tone Result Diagrams: 12/12/18 05:53 12/12/18 05:53 Microbiology and Other Data: Microbiology 12/12/18 07:30 Nasal Screen MRSA (PCR) - Final Nasal Mrsa Not Detected Assess/Plan/Problems-Billing Assessment: 58 yo F with h/o 02 dependent COPD presented with exacerbation with severe sespis and hypotension - Patient Problems (1) Severe sepsis Comment: likley due to viral syndrome, but bacterial bronchitis cannot be r/o Cont Levaquin hypotension resolved, lactic acid back to norm (2) COPD exacerbation Comment: - improving - Home inhalers and nebs PRN - CTA negative for PE - O2 requirement returned to baseline. -wilol switch IV steroids to PO Prednisone, transfer to med floor (3) GERD (gastroesophageal reflux disease) Comment: - continue PPI (4) DM2 (diabetes mellitus, type 2) Comment: holding metformin start fingresticks BID, no ISS for now (5) DVT prophylaxis Comment: - Lovenox Status and Disposition: inpatient
--- NOTE | 2018-12-12 10:38 | PN ---
Sepsis Event Evaluation Date of Evaluation: 12/12/18 Time of Evaluation: 10:00 Current Stage of Sepsis: Severe Sepsis Vital Signs - Last 12 Hours: Vital Signs - 12 hr Temp Pulse Resp BP Pulse Ox 12/12/18 10:02 97 21 95 12/12/18 10:00 96 22 115/74 96 12/12/18 09:59 95 23 120/62 95 12/12/18 09:00 109 23 92 12/12/18 08:45 90 20 119/73 97 12/12/18 08:31 91 21 126/69 97 12/12/18 08:16 98 22 110/71 98 12/12/18 08:00 92 21 111/73 99 12/12/18 07:45 94 19 114/67 97 12/12/18 07:31 95 21 114/71 97 12/12/18 07:15 93 19 125/76 98 12/12/18 07:00 93 20 107/84 98 12/12/18 06:45 92 18 104/76 99 12/12/18 06:41 91 17 110/74 97 12/12/18 06:28 0 F 0 0 0/0 0 12/12/18 06:15 98.3 F 96 18 110/74 98 12/12/18 06:00 102 26 95 12/12/18 05:58 101 17 99/69 94 12/12/18 05:28 96 23 114/82 97 12/12/18 05:05 99 24 104/66 96 12/12/18 05:00 96 21 96 12/12/18 04:46 89 21 93/58 98 12/12/18 04:29 95 24 78/60 97 12/12/18 04:28 94 21 71/57 96 12/12/18 04:00 108 30 92 12/12/18 03:58 101 21 109/73 95 12/12/18 03:28 98 16 100/75 95 12/12/18 03:00 108 21 90 12/12/18 02:58 105 21 108/69 92 12/12/18 02:28 109 24 96/64 93 12/12/18 02:00 108 21 93 12/12/18 01:58 108 22 82/55 94 12/12/18 01:28 117 24 100/69 93 12/12/18 01:05 117 23 95/63 92 12/12/18 01:00 122 30 89 12/12/18 00:41 119 21 107/44 93 12/12/18 00:40 101.1 F 118 24 107/44 92 12/12/18 00:35 26 12/12/18 00:00 115 19 94 12/11/18 23:52 118 23 97 12/11/18 23:28 124 21 106/74 94 12/11/18 23:00 117 27 96 12/11/18 22:58 120 27 98/58 94 Lactic Acid: 12/11/18 12/12/18 12/12/18 21:04 01:04 05:53 Lactic Acid 2.0 2.2 H* 1.2 - Cardiopulmonary Exam Capillary Refill: Immediate Respiratory: Symmetrical Chest Expansion and Respiratory Effort Cardiovascular: NL Sounds; No Murmurs; No JVD, RRR - Peripheral Pulse Exam Radial Pulses: Bilateral Normal Pedal Pulses: Bilateral Normal Femoral Pulses: Bilateral Normal - Skin Exam Skin Exam: Normal Turgor - [place] Coma Scale Best Eye Response: 4 - Spontaneous Best Motor Response: 6 - Obeys Commands Best Verbal Response: 5 - Oriented - please see progress note for details Coma Scale Total: 15 Assess/Plan/Problems-Billing Assessment: 58 yo F with h/o 02 dependent COPD presented with exacerbation with severe sespis and hypotension - Patient Problems (1) Severe sepsis Comment: likley due to viral syndrome, but bacterial bronchitis cannot be r/o Cont Levaquin hypotension resolved, lactic acid back to norm (2) COPD exacerbation Comment: - improving - Home inhalers and nebs PRN - CTA negative for PE - O2 requirement returned to baseline. -wilol switch IV steroids to PO Prednisone, transfer to med floor (3) GERD (gastroesophageal reflux disease) Comment: - continue PPI (4) DM2 (diabetes mellitus, type 2) Comment: holding metformin start fingresticks BID, no ISS for now (5) DVT prophylaxis Comment: - Lovenox Status and Disposition: inpatient
[2018-12-12] MEDS: HYDROcodone/ACETAMIN 5-325 MG* 1 TAB PO PRN ×2 (10:57→20:06)
[2018-12-12] MEDS: clonazePAM TAB(*) 1 MG PO PRN (10:57)
[2018-12-12] MEDS: predniSONE TAB* 50 MG PO SCH (11:54)
[2018-12-12] MEDS ORDERED: Albuterol HFA INHALER* 8 gm MDI INH PRN (13:28)
[2018-12-12] MEDS: NS 0.9% 1000 ML** 1,000 ML IV SCH (17:48)
[2018-12-12] MEDS ORDERED: hydrOXYzine HCL TAB* 10 MG PO ONE (19:49)
[2018-12-12] MEDS: Albuterol 2.5 MG/3 ML NEB.SOL* (0.083%) INH PRN (20:09)
[2018-12-12] MEDS ORDERED: clonazePAM TAB(*) 0.5 MG PO ONE (23:00)
[2018-12-13] MEDS: NS 0.9% 1000 ML** 1,000 ML IV SCH (05:44)
[2018-12-13] MEDS: Levofloxacin 750 MG IVPREMIX(* 750 MG/150 ML BAG IVPB SCH (05:51)
[2018-12-13 06:59] LABS: ABS Eosinophils 0.1 10^3/ul (0-0.6); ABS Lymphocytes 1.8 10^3/ul (1.0-4.8); ABS Monocytes 0.4 10^3/ul (0-0.8); ABS Neutrophils 10.5 10^3/ul (1.5-7.7); Eosinophil % 0.9 %; Hematocrit 34 % (35-47); Hemoglobin 10.9 g/dL (12.0-16.0); Lymphocyte % 13.8 %; Mean Corpuscular HGB Conc 32 g/dL (31-36); Mean Corpuscular Hemoglobin 27 pg (27-31); Mean Corpuscular Volume 83 fL (80-97); Nucleated Red Blood Cells % 0.1; Platelet Count 300 10^3/uL (150-450); Red Blood Count 4.05 10^6 /uL (3.70-4.87); Red Cell Distribution Width 15 % (10-15); White Blood Count 12.8 10^3/uL (3.5-10.8)
[2018-12-13 07:03] LABS: BUN/Creatinine Ratio 12.5 (8-20); Calcium 8.7 mg/dL (8.6-10.3); EGFR Non-African American 83.5 (>60); Potassium 3.6 mmol/L (3.5-5.0)
[2018-12-13] MEDS: Mometasone/Formoter 200/5 MDI INH SCH (07:15)
[2018-12-13] MEDS ORDERED: Influenza VAC *QUAD* 2019-20* 0.5 ML SYRINGE IM ONE (09:00)
[2018-12-13] MEDS ORDERED: Pneumococcal *Vac Polyvalent 0.5 ML VIAL IM ONE (09:00)
[2018-12-13] MEDS: HYDROcodone/ACETAMIN 5-325 MG* 1 TAB PO PRN ×2 (09:26→19:55)
[2018-12-13] MEDS: Enoxaparin(*) 40 MG/0.4 ML SYR SUBCUT SCH (09:27)
[2018-12-13] MEDS: Gabapentin CAP(*) 300 MG PO SCH ×2 (10:41→20:51)
[2018-12-13] MEDS: Pantoprazole TAB * 40 MG TAB PO SCH ×2 (10:42→20:51)
[2018-12-13] MEDS: Venlafaxine EXT RELEASE CAP* 75 MG PO SCH (10:43)
[2018-12-13] MEDS: predniSONE TAB* 50 MG PO SCH (10:43)
[2018-12-13] MEDS ORDERED: Furosemide IV* 10 MG/ML 2 ML VIAL (20 MG) IV ONE (11:35)
--- NOTE | 2018-12-13 11:35 | PN ---
Subjective Date of Service: 12/13/18 Interval History: Pt is tearful and c/o feeling that she cannot catch a breath. Gets severe ROWAN and cannot ambulate without feeling like "a fish out of water" despite being on up to 4 L of oxygen today. Requests to be placed back on her clonazepam that she used to use TID Objective Active Medications: Hydrocodone Bitart/Acetaminophen ([place] 5-325 Tab*) 1 tab PO BID PRN PRN Reason: PAIN - SEVERE Last Admin: 12/13/18 09:26 Dose: 1 tab Albuterol (Ventolin 2.5 Mg/3 Ml Neb.Cassandra*) 2.5 mg INH Q6H PRN PRN Reason: SOB/WHEEZING Last Admin: 12/12/18 20:09 Dose: 2.5 mg Albuterol (Ventolin Hfa Inhaler*) 2 puff INH Q4H PRN PRN Reason: SOB/WHEEZING Clonazepam (Klonopin Tab(*)) 1.5 mg PO DAILY PRN PRN Reason: AGITATION/ANXIETY Last Admin: 12/12/18 10:57 Dose: 1.5 mg Clonazepam (Klonopin Tab(*)) 1 mg PO TID PRN PRN Reason: ANXIETY Enoxaparin Sodium (Lovenox(*)) 40 mg SUBCUT Q24H [facility] Last Admin: 12/13/18 09:27 Dose: 40 mg Gabapentin (Neurontin Cap(*)) 300 mg PO BID [facility] Last Admin: 12/13/18 10:41 Dose: 300 mg Doxycycline Hyclate 100 mg/ (Sodium Chloride) 250 mls @ 250 mls/hr IVPB Q12H [facility] Ipratropium [place] (Atrovent 0.5 Mg Neb.Cassandra*) 0.5 mg INH Q4H PRN PRN Reason: SOB/WHEEZING Mometasone Furoate/Formoterol Fumar (Dulera 200/5 Mdi*) 2 puff INH DAILY [facility] Last Admin: 12/13/18 07:15 Dose: 2 puff Pantoprazole Sodium (Protonix Tab*) 40 mg PO BID [facility] Last Admin: 12/13/18 10:42 Dose: 40 mg Prednisone (Deltasone Tab*) 50 mg PO DAILY [facility] Last Admin: 12/13/18 10:43 Dose: 50 mg Venlafaxine HCl (Effexor Xr Cap*) 225 mg PO DAILY [facility] Last Admin: 12/13/18 10:43 Dose: 225 mg Vital Signs - 8 hr 12/13/18 12/13/18 12/13/18 07:15 08:00 09:26 Temperature 97.5 F Pulse Rate 87 Respiratory 22 22 17 Rate Blood Pressure 133/67 (mmHg) O2 Sat by Pulse 100 Oximetry 12/13/18 10:41 Temperature Pulse Rate Respiratory 20 Rate Blood Pressure (mmHg) O2 Sat by Pulse Oximetry Oxygen Devices in Use Now: Nasal Cannula Appearance: 58 yo F in nAD, aAOx3 Eyes: No Scleral Icterus, PERRLA Ears/Nose/Mouth/Throat: NL Teeth, Lips, Gums, Mucous Membranes Moist Neck: NL Appearance and Movements; NL JVP, Trachea Midline Respiratory: Symmetrical Chest Expansion and Respiratory Effort, - - decreased breath sounds at bases and severe mid lung wheezez noted Cardiovascular: NL Sounds; No Murmurs; No JVD, RRR Abdominal: NL Sounds; No Tenderness; No Distention Lymphatic: No Cervical Adenopathy Extremities: No Edema Skin: No Rash or Ulcers, No Nodules or Sclerosis Neurological: Alert and Oriented x 3, NL Muscle Strength and Tone Result Diagrams: 12/13/18 05:49 12/13/18 05:49 Microbiology and Other Data: Microbiology 12/12/18 07:30 Nasal Screen MRSA (PCR) - Final Nasal Mrsa Not Detected Assess/Plan/Problems-Billing Assessment: 58 yo F with h/o 02 dependent COPD presented with exacerbation with severe sespis and hypotension - Patient Problems (1) Severe sepsis Comment: likly due to viral syndrome, but bacterial bronchitis cannot be r/o Pt was on Levaquin , but now significantly anxious and I wonder is the combination of fluoroquinolones and Predisnone may be causing it. Due to the bronchospasm, cannot d/c steroids, but will d/c Levaquin and start Doxy. she may also be in mild fluid overload -will tx with IV Lasix x1 (2) COPD exacerbation Comment: - today, symptomsa and exam appears to be actually worse. Will tx with IV Lasix. due to significant anxiety-will not escalate steroids - Home inhalers and nebs PRN - CTA negative for PE - O2 requirement increased (3) GERD (gastroesophageal reflux disease) Comment: - continue PPI (4) DM2 (diabetes mellitus, type 2) Comment: holding metformin fingresticks BID, no ISS for now (5) DVT prophylaxis Comment: - Lovenox Status and Disposition: inpatient
[2018-12-13] MEDS ORDERED: Potassium Chlor TAB* 20 MEQ TAB.ER PO ONE (11:37)
[2018-12-13] MEDS: clonazePAM TAB(*) 1 MG PO PRN ×2 (11:41→19:55)
[2018-12-13] MEDS: DOXYcycline IV* 100 MG in NS 0.9% 250 ML* 250 ML IVPB SCH (13:52)
[2018-12-13] MEDS: Albuterol 2.5 MG/3 ML NEB.SOL* (0.083%) INH PRN (20:25)
[2018-12-14] MEDS: DOXYcycline IV* 100 MG in NS 0.9% 250 ML* 250 ML IVPB SCH (01:16)
[2018-12-14 06:04] LABS: ABS Eosinophils 0.1 10^3/ul (0-0.6); ABS Monocytes 0.5 10^3/ul (0-0.8); ABS Neutrophils 8.1 10^3/ul (1.5-7.7); Eosinophil % 0.6 %; Hematocrit 33 % (35-47); Lymphocyte % 18.9 %; Mean Corpuscular HGB Conc 33 g/dL (31-36); Mean Corpuscular Hemoglobin 27 pg (27-31); Mean Corpuscular Volume 82 fL (80-97); Mean Platelet Volume 7.8 fL (7.4-10.4); Platelet Count 320 10^3/uL (150-450); Red Blood Count 4.01 10^6 /uL (3.70-4.87); Red Cell Distribution Width 16 % (10-15); White Blood Count 10.8 10^3/uL (3.5-10.8)
[2018-12-14 06:23] LABS: BUN/Creatinine Ratio 12.8 (8-20); Calcium 8.9 mg/dL (8.6-10.3); EGFR African American 92.1 (>60); EGFR Non-African American 76.1 (>60); Potassium 3.5 mmol/L (3.5-5.0)
[2018-12-14] MEDS: Mometasone/Formoter 200/5 MDI INH SCH (08:02)
[2018-12-14] MEDS: Enoxaparin(*) 40 MG/0.4 ML SYR SUBCUT SCH (08:02)
[2018-12-14] MEDS: Gabapentin CAP(*) 300 MG PO SCH ×2 (08:08→20:29)
[2018-12-14] MEDS: Venlafaxine EXT RELEASE CAP* 75 MG PO SCH (08:08)
[2018-12-14] MEDS: Albuterol 2.5 MG/3 ML NEB.SOL* (0.083%) INH PRN (08:09)
[2018-12-14] MEDS: Pantoprazole TAB * 40 MG TAB PO SCH ×2 (08:09→20:29)
[2018-12-14] MEDS: predniSONE TAB* 50 MG PO SCH (08:09)
[2018-12-14] MEDS ORDERED: Azithromycin TAB* 250 MG PO ONE (08:36)
[2018-12-14] MEDS ORDERED: diPHENhydraMINE PO* 25 MG PO PRN (08:38)
[2018-12-14] MEDS ORDERED: Furosemide IV* 10 MG/ML 2 ML VIAL (20 MG) IV ONE (11:41)
[2018-12-14] MEDS ORDERED: Potassium Chlor TAB* 20 MEQ TAB.ER PO ONE (11:41)
--- NOTE | 2018-12-14 11:41 | PN ---
Subjective Date of Service: 12/14/18 Interval History: Pt developed rah on b/l arms and upper chest, "doesn't itch". Doxycycline discontinued and pt is now placed on Azithro. Anxiety better controlled, but still very dyspneic with exertion O2 sats drop to 84% on 4 L o2 when pt is ambulating and pt c/o severe dyspnea with ambulation, feels she is not ready to go home Objective Active Medications: Hydrocodone Bitart/Acetaminophen ([place] 5-325 Tab*) 1 tab PO BID PRN PRN Reason: PAIN - SEVERE Last Admin: 12/13/18 19:55 Dose: 1 tab Albuterol (Ventolin 2.5 Mg/3 Ml Neb.Cassandra*) 2.5 mg INH Q6H PRN PRN Reason: SOB/WHEEZING Last Admin: 12/14/18 08:09 Dose: 2.5 mg Albuterol (Ventolin Hfa Inhaler*) 2 puff INH Q4H PRN PRN Reason: SOB/WHEEZING Azithromycin (Zithromax Tab*) 250 mg PO DAILY [facility] Clonazepam (Klonopin Tab(*)) 1.5 mg PO DAILY PRN PRN Reason: AGITATION/ANXIETY Last Admin: 12/13/18 11:41 Dose: 1.5 mg Clonazepam (Klonopin Tab(*)) 1 mg PO TID PRN PRN Reason: ANXIETY Last Admin: 12/13/18 19:55 Dose: 1 mg Diphenhydramine HCl (Benadryl Po*) 25 mg PO Q6H PRN PRN Reason: Allergy Symptoms Last Admin: 12/14/18 09:32 Dose: 25 mg Enoxaparin Sodium (Lovenox(*)) 40 mg SUBCUT Q24H [facility] Last Admin: 12/14/18 08:02 Dose: 40 mg Gabapentin (Neurontin Cap(*)) 300 mg PO BID [facility] Last Admin: 12/14/18 08:08 Dose: 300 mg Ipratropium [place] (Atrovent 0.5 Mg Neb.Cassandra*) 0.5 mg INH Q4H PRN PRN Reason: SOB/WHEEZING Mometasone Furoate/Formoterol Fumar (Dulera 200/5 Mdi*) 2 puff INH DAILY [facility] Last Admin: 12/14/18 08:02 Dose: 2 puff Pantoprazole Sodium (Protonix Tab*) 40 mg PO BID [facility] Last Admin: 12/14/18 08:09 Dose: 40 mg Prednisone (Deltasone Tab*) 50 mg PO DAILY [facility] Last Admin: 12/14/18 08:09 Dose: 50 mg Venlafaxine HCl (Effexor Xr Cap*) 225 mg PO DAILY [facility] Last Admin: 12/14/18 08:08 Dose: 225 mg Vital Signs - 8 hr 12/14/18 12/14/18 12/14/18 07:15 08:00 08:08 Temperature 97.9 F Pulse Rate 87 Respiratory 16 20 18 Rate Blood Pressure 129/50 (mmHg) O2 Sat by Pulse 98 Oximetry 12/14/18 12/14/18 12/14/18 08:13 09:32 10:42 Temperature Pulse Rate 88 Respiratory 20 19 18 Rate Blood Pressure (mmHg) O2 Sat by Pulse 95 Oximetry Oxygen Devices in Use Now: Nasal Cannula Appearance: 58 yo f in nAD, aAOx3 Eyes: No Scleral Icterus, PERRLA Ears/Nose/Mouth/Throat: NL Teeth, Lips, Gums, Mucous Membranes Moist Neck: NL Appearance and Movements; NL JVP, Trachea Midline Respiratory: Symmetrical Chest Expansion and Respiratory Effort, - - decreased breath sounds at b/l bases Cardiovascular: NL Sounds; No Murmurs; No JVD, RRR Abdominal: NL Sounds; No Tenderness; No Distention Lymphatic: No Cervical Adenopathy Extremities: No Edema, No Clubbing, Cyanosis Skin: No Nodules or Sclerosis, - - scattered erythematous rash on b/l arms and upper chest Neurological: Alert and Oriented x 3, NL Muscle Strength and Tone Result Diagrams: 12/14/18 05:30 12/14/18 05:30 Microbiology and Other Data: Microbiology 12/12/18 07:30 Nasal Screen MRSA (PCR) - Final Nasal Mrsa Not Detected Assess/Plan/Problems-Billing Assessment: 58 yo F with h/o 02 dependent COPD presented with exacerbation with severe sespis and hypotension - Patient Problems (1) Severe sepsis Comment: likly due to viral syndrome, but bacterial bronchitis cannot be r/o Pt was on Levaquin , but then significantly anxious and switched to Doxy, then developed rash and placed on Azithro PO on 12/14/18 she may also be in mild fluid overload -treated with IV Lasix x1 on 12/13, will repeat a dose today (2) COPD exacerbation Comment: - today pt's lungs are grossly clear on exam, but still significant DOA and desaturation despite being on 4 l 02- double pt's usual requirement) Will tx with IV Lasix. due to significant anxiety-will not escalate steroids - Home inhalers and nebs PRN - CTA negative for PE - O2 requirement increased (3) GERD (gastroesophageal reflux disease) Comment: - continue PPI (4) DM2 (diabetes mellitus, type 2) Comment: holding metformin fingresticks BID, no ISS for now (5) Rash Comment: likely allergy to Doxy, switched antibiotics to Azithro today. Sarted Benadryl prn (6) Anxiety Comment: cont Klonopin anxiety is exacerbated by steroids. Pt had used klonopin up to TID in the past, but then recently "weaned herself off" to once a day prn. Unfortunately due to ongoing illness, her anxiety has significantly worsened (7) DVT prophylaxis Comment: - Lovenox Status and Disposition: inpatient
[2018-12-14] MEDS: clonazePAM TAB(*) 1 MG PO PRN ×3 (12:51→20:30)
[2018-12-14] MEDS: HYDROcodone/ACETAMIN 5-325 MG* 1 TAB PO PRN (20:29)
[2018-12-15 06:52] LABS: ABS Eosinophils 0.3 10^3/ul (0-0.6); ABS Lymphocytes 2.7 10^3/ul (1.0-4.8); ABS Monocytes 0.6 10^3/ul (0-0.8); ABS Neutrophils 6.5 10^3/ul (1.5-7.7); Eosinophil % 2.5 %; Hematocrit 36 % (35-47); Hemoglobin 11.7 g/dL (12.0-16.0); Lymphocyte % 26.4 %; Mean Corpuscular HGB Conc 32 g/dL (31-36); Mean Corpuscular Hemoglobin 27 pg (27-31); Mean Corpuscular Volume 84 fL (80-97); Mean Platelet Volume 7.7 fL (7.4-10.4); Nucleated Red Blood Cells % 0.1; Platelet Count 343 10^3/uL (150-450); Red Blood Count 4.33 10^6 /uL (3.70-4.87); Red Cell Distribution Width 16 % (10-15); White Blood Count 10.1 10^3/uL (3.5-10.8)
[2018-12-15 07:05] LABS: BUN/Creatinine Ratio 16.9 (8-20); Calcium 9.1 mg/dL (8.6-10.3); EGFR African American 93.5 (>60); EGFR Non-African American 77.3 (>60); Potassium 3.6 mmol/L (3.5-5.0)
[2018-12-15] MEDS: Mometasone/Formoter 200/5 MDI INH SCH (07:40)
--- NOTE | 2018-12-15 07:53 | PN ---
Subjective Date of Service: 12/15/18 Interval History: HOSPITALIST PROGRESS NOTE Patient seen and examined at bedside. Care reviewed and d/w Objective Active Medications: Hydrocodone Bitart/Acetaminophen ([place] 5-325 Tab*) 1 tab PO BID PRN PRN Reason: PAIN - SEVERE Last Admin: 12/14/18 20:29 Dose: 1 tab Albuterol (Ventolin 2.5 Mg/3 Ml Neb.Cassandra*) 2.5 mg INH Q6H PRN PRN Reason: SOB/WHEEZING Last Admin: 12/14/18 08:09 Dose: 2.5 mg Albuterol (Ventolin Hfa Inhaler*) 2 puff INH Q4H PRN PRN Reason: SOB/WHEEZING Azithromycin (Zithromax Tab*) 250 mg PO DAILY [facility] Clonazepam (Klonopin Tab(*)) 1.5 mg PO DAILY PRN PRN Reason: AGITATION/ANXIETY Last Admin: 12/14/18 12:51 Dose: 1.5 mg Clonazepam (Klonopin Tab(*)) 1 mg PO TID PRN PRN Reason: ANXIETY Last Admin: 12/14/18 20:30 Dose: 1 mg Diphenhydramine HCl (Benadryl Po*) 25 mg PO Q6H PRN PRN Reason: Allergy Symptoms Last Admin: 12/14/18 09:32 Dose: 25 mg Enoxaparin Sodium (Lovenox(*)) 40 mg SUBCUT Q24H [facility] Last Admin: 12/14/18 08:02 Dose: 40 mg Gabapentin (Neurontin Cap(*)) 300 mg PO BID [facility] Last Admin: 12/14/18 20:29 Dose: 300 mg Ipratropium [place] (Atrovent 0.5 Mg Neb.Cassandra*) 0.5 mg INH Q4H PRN PRN Reason: SOB/WHEEZING Mometasone Furoate/Formoterol Fumar (Dulera 200/5 Mdi*) 2 puff INH DAILY [facility] Last Admin: 12/15/18 07:40 Dose: 2 puff Pantoprazole Sodium (Protonix Tab*) 40 mg PO BID [facility] Last Admin: 12/14/18 20:29 Dose: 40 mg Prednisone (Deltasone Tab*) 50 mg PO DAILY [facility] Last Admin: 12/14/18 08:09 Dose: 50 mg Venlafaxine HCl (Effexor Xr Cap*) 225 mg PO DAILY [facility] Last Admin: 12/14/18 08:08 Dose: 225 mg Vital Signs - 8 hr 12/15/18 12/15/18 03:03 07:44 Temperature 97.8 F Pulse Rate 78 83 Respiratory 18 15 Rate Blood Pressure 136/73 (mmHg) O2 Sat by Pulse 99 96 Oximetry Oxygen Devices in Use Now: Nasal Cannula Result Diagrams: 12/15/18 06:37 12/15/18 06:37 Microbiology and Other Data: Microbiology 12/12/18 07:30 Nasal Screen MRSA (PCR) - Final Nasal Mrsa Not Detected Assess/Plan/Problems-Billing Assessment: 58 yo F with h/o 02 dependent COPD presented with exacerbation with severe sespis and hypotension - Patient Problems (1) Anxiety Current Visit: Yes Status: Acute Code(s): F41.9 - ANXIETY DISORDER, UNSPECIFIED SNOMED Code(s): 58139296 Comment: cont Klonopin anxiety is exacerbated by steroids. Pt had used klonopin up to TID in the past, but then recently "weaned herself off" to once a day prn. Unfortunately due to ongoing illness, her anxiety has significantly worsened (2) DM2 (diabetes mellitus, type 2) Current Visit: Yes Status: Acute Comment: holding metformin fingresticks BID, no ISS for now (3) Rash Current Visit: Yes Status: Acute Code(s): R21 - RASH AND OTHER NONSPECIFIC SKIN ERUPTION SNOMED Code(s): 047819095 Comment: likely allergy to Doxy, switched antibiotics to Azithro today. Sarted Benadryl prn (4) Severe sepsis Current Visit: Yes Status: Acute Code(s): A41.9 - SEPSIS, UNSPECIFIED ORGANISM; R65.20 - SEVERE SEPSIS WITHOUT SEPTIC SHOCK SNOMED Code(s): 65081683 Comment: likly due to viral syndrome, but bacterial bronchitis cannot be r/o Pt was on Levaquin , but then significantly anxious and switched to Doxy, then developed rash and placed on Azithro PO on 12/14/18 she may also be in mild fluid overload -treated with IV Lasix x1 on 12/13, will repeat a dose today (5) COPD exacerbation Current Visit: No Status: Acute Code(s): J44.1 - CHRONIC OBSTRUCTIVE PULMONARY DISEASE W (ACUTE) EXACERBATION SNOMED Code(s): 208346210 Comment: - today pt's lungs are grossly clear on exam, but still significant DOA and desaturation despite being on 4 l 02- double pt's usual requirement) Will tx with IV Lasix. due to significant anxiety-will not escalate steroids - Home inhalers and nebs PRN - CTA negative for PE - O2 requirement increased (6) DVT prophylaxis Current Visit: No Status: Acute Code(s): HWX3006 - SNOMED Code(s): 558290747 Comment: - Kayx (7) Full code status Current Visit: No Status: Acute Code(s): Z78.9 - OTHER SPECIFIED HEALTH STATUS SNOMED Code(s): 665563662 Comment: (8) GERD (gastroesophageal reflux disease) Current Visit: No Status: Acute Code(s): K21.9 - GASTRO-ESOPHAGEAL REFLUX DISEASE WITHOUT ESOPHAGITIS SNOMED Code(s): 930173378 Comment: - continue PPI Status and Disposition: inpatient
--- NOTE | 2018-12-15 08:42 | PN ---
Subjective Date of Service: 12/15/18 Interval History: HD 4 on 12/15 58 F with PMH severe COPD, O2 dependent, anxiety, NIDDM, back pain presented with sepsis 2/2 COPD exacerbation thought to be 2/2 to bronchitis Overnight, no acute events, VSS On 3 L Labs Improving no WBC This morning: Notes prior indicate they were frustrated pt leaving hospital so soon, this morning she is feeling depressed and overwhelemed at her expereince but is physically feeling well and feels stable to return. She has met with admin and feels her voice was heard. Listened uninterrupted for >20 mins. Objective Active Medications: Hydrocodone Bitart/Acetaminophen ([place] 5-325 Tab*) 1 tab PO BID PRN PRN Reason: PAIN - SEVERE Last Admin: 12/14/18 20:29 Dose: 1 tab Albuterol (Ventolin 2.5 Mg/3 Ml Neb.Cassandra*) 2.5 mg INH Q6H PRN PRN Reason: SOB/WHEEZING Last Admin: 12/14/18 08:09 Dose: 2.5 mg Albuterol (Ventolin Hfa Inhaler*) 2 puff INH Q4H PRN PRN Reason: SOB/WHEEZING Azithromycin (Zithromax Tab*) 250 mg PO DAILY [facility] Clonazepam (Klonopin Tab(*)) 1.5 mg PO DAILY PRN PRN Reason: AGITATION/ANXIETY Last Admin: 12/14/18 12:51 Dose: 1.5 mg Clonazepam (Klonopin Tab(*)) 1 mg PO TID PRN PRN Reason: ANXIETY Last Admin: 12/14/18 20:30 Dose: 1 mg Diphenhydramine HCl (Benadryl Po*) 25 mg PO Q6H PRN PRN Reason: Allergy Symptoms Last Admin: 12/14/18 09:32 Dose: 25 mg Enoxaparin Sodium (Lovenox(*)) 40 mg SUBCUT Q24H [facility] Last Admin: 12/14/18 08:02 Dose: 40 mg Gabapentin (Neurontin Cap(*)) 300 mg PO BID [facility] Last Admin: 12/14/18 20:29 Dose: 300 mg Ipratropium [place] (Atrovent 0.5 Mg Neb.Cassandra*) 0.5 mg INH Q4H PRN PRN Reason: SOB/WHEEZING Mometasone Furoate/Formoterol Fumar (Dulera 200/5 Mdi*) 2 puff INH DAILY [facility] Last Admin: 12/15/18 07:40 Dose: 2 puff Pantoprazole Sodium (Protonix Tab*) 40 mg PO BID [facility] Last Admin: 12/14/18 20:29 Dose: 40 mg Prednisone (Deltasone Tab*) 50 mg PO DAILY [facility] Last Admin: 12/14/18 08:09 Dose: 50 mg Venlafaxine HCl (Effexor Xr Cap*) 225 mg PO DAILY [facility] Last Admin: 12/14/18 08:08 Dose: 225 mg Vital Signs - 8 hr 12/15/18 12/15/18 03:03 07:44 Temperature 97.8 F Pulse Rate 78 83 Respiratory 18 15 Rate Blood Pressure 136/73 (mmHg) O2 Sat by Pulse 99 96 Oximetry Oxygen Devices in Use Now: Nasal Cannula Appearance: Tearful woman but easily coached Eyes: No Scleral Icterus Ears/Nose/Mouth/Throat: NL Teeth, Lips, Gums Neck: NL Appearance and Movements; NL JVP Respiratory: Symmetrical Chest Expansion and Respiratory Effort, Clear to Auscultation Cardiovascular: NL Sounds; No Murmurs; No JVD, RRR Abdominal: NL Sounds; No Tenderness; No Distention Lymphatic: No Cervical Adenopathy Extremities: No Edema Skin: - - MIld eyrythema to back Neurological: Alert and Oriented x 3 Result Diagrams: 12/15/18 06:37 12/15/18 06:37 Microbiology and Other Data: Microbiology 12/11/18 21:04 Aerobic Blood Culture - Preliminary Blood Venous No Growth Day 3 Anaerobic Blood Culture - Preliminary No Growth Day 3 12/11/18 21:04 Aerobic Blood Culture - Preliminary Blood Venous No Growth Day 3 Anaerobic Blood Culture - Preliminary No Growth Day 3 12/13/18 06:25 Gram Stain - Final Sputum Expectorated 12/12/18 09:09 Legionella Urinary Antigen - Final Urine Negative Legionella Antigen Streptococcus pneumoniae Ag Screen - Final Negative S. pneumo Antigen 12/12/18 07:30 Nasal Screen MRSA (PCR) - Final Nasal Mrsa Not Detected Assess/Plan/Problems-Billing Assessment: 58 F with PMH severe COPD, O2 dependent, anxiety, NIDDM, back pain presented with sepsis 2/2 COPD exacerbation thought to be 2/2 to bronchitis - Patient Problems (1) COPD exacerbation Current Visit: No Status: Acute Code(s): J44.1 - CHRONIC OBSTRUCTIVE PULMONARY DISEASE W (ACUTE) EXACERBATION SNOMED Code(s): 900059371 Comment: - today pt's lungs are grossly clear on exam, but still significant DOA and desaturation despite being on 4 l 02- double pt's usual requirement) - Trial of lasix x1 on 12/14 - Optimize to LAMA, ICS, DANGELO - Day 4 of steroid, would trial for 7 days, descalate to 30mg then stop - Day / of abx, now on Azithro, would stop 12/16, early course c/b rash to Levaquin vs Doxy (2) Severe sepsis Current Visit: Yes Status: Acute Code(s): A41.9 - SEPSIS, UNSPECIFIED ORGANISM; R65.20 - SEVERE SEPSIS WITHOUT SEPTIC SHOCK SNOMED Code(s): 27364329 Comment: - Resolved (3) Anxiety Current Visit: Yes Status: Acute Code(s): F41.9 - ANXIETY DISORDER, UNSPECIFIED SNOMED Code(s): 91605395 Comment: - Cont home meds (4) Acute respiratory failure with hypoxia Current Visit: No Status: Acute Code(s): J96.01 - ACUTE RESPIRATORY FAILURE WITH HYPOXIA SNOMED Code(s): 38447083 Comment: - Per patient, outpatient PFTs showed moderate-severe emphysema, now with exacerbation and increased O2 requirement - No pHTN on prior ECHO - Follow with Dr. Niño outpatient (5) DM2 (diabetes mellitus, type 2) Current Visit: Yes Status: Acute Comment: - Resume metformin (6) DVT prophylaxis Current Visit: No Status: Acute Code(s): NGO3886 - SNOMED Code(s): 286436556 Comment: - Lovenox (7) Full code status Current Visit: No Status: Acute Code(s): Z78.9 - OTHER SPECIFIED HEALTH STATUS SNOMED Code(s): 882332824 Comment: Status and Disposition: Discharge to home
[2018-12-15] MEDS ORDERED: SPIRIVA Respimat* (tiotropium) 2.5 mcg/inh Inhaler INH SCH (09:00)
[2018-12-15] MEDS ORDERED: Azithromycin TAB* 250 MG PO SCH (09:00)
[2018-12-15] MEDS ORDERED: metFORMIN* 500 MG TAB PO SCH (09:00)
[2018-12-15] MEDS: Gabapentin CAP(*) 300 MG PO SCH (09:13)
[2018-12-15] MEDS: Enoxaparin(*) 40 MG/0.4 ML SYR SUBCUT SCH (09:13)
[2018-12-15] MEDS: predniSONE TAB* 50 MG PO SCH (09:14)
[2018-12-15] MEDS: Venlafaxine EXT RELEASE CAP* 75 MG PO SCH (09:14)
[2018-12-15] MEDS: Pantoprazole TAB * 40 MG TAB PO SCH (09:14)
[2018-12-15] MEDS: clonazePAM TAB(*) 1 MG PO PRN (09:41)
[2018-12-15 09:54] VITALS: BP 135/64
[2018-12-15] MEDS ORDERED: Albuterol/Ipratropium NEB.SOL* Albuterol 2.5 MG/Ipratropium 0.5 MG 3 ML INH SCH (11:00)
[2018-12-15] MEDS ORDERED: Albuterol/Ipratropium NEB.SOL* Albuterol 2.5 MG/Ipratropium 0.5 MG 3 ML INH PRN ×2 (11:51→11:56)
--- NOTE | 2018-12-15 12:55 | DS ---
CC: Dr. Yvonne Stover; Feli Niño MD DISCHARGE SUMMARY: DATE OF ADMISSION: 12/12/18 DATE OF DISCHARGE: 12/15/18 PRIMARY CARE PROVIDER: Dr. Yvonne Stover. OUTPATIENT PARK WORKER: Dr. Feli Niño. PRIMARY DIAGNOSES: 1. Chronic obstructive pulmonary disease exacerbation secondary to bronchitis. 2. Sepsis, resolved. SECONDARY DIAGNOSES: 1. Depression and anxiety. 2. History of chronic obstructive pulmonary disease, [id number] baseline on home 3 L of oxygen. 3. Non-insulin dependent diabetes. 4. Back pain on chronic opioid pain medication. 5. Post traumatic stress disorder. 6. Post concussive syndrome status post trauma 3 years prior. DISPOSITION AT THE TIME OF DISCHARGE: Stable to discharge to home. MEDICATIONS: At the time of discharge: 1. Prilosec 20 mg p.o. b.i.d. 2. Tiotropium 1 inhalation q. a.m. 3. Albuterol 2 puffs by inhalation q. 4 hours p.r.n. 4. Warwick 5/325 mg 1 tablet p.o. b.i.d. consistent with home medication. 5. Klonopin 1.5 mg daily p.r.n. 6. Metformin 500 mg p.o. daily. 7. Fluticasone/salmeterol inhaler 1 inhalation q. day. 8. Effexor 225 mg daily. 9. Gabapentin 300 mg p.o. b.i.d. 10. Prednisone 20 mg p.o. for additional 3 days status post discharge. 11. Azithromycin 250 mg for additional 1 day status post discharge. Medication changes on this hospitalization including the addition of prednisone and azithromycin. All other medication remains the same. HISTORY OF PRESENT ILLNESS AND HOSPITAL COURSE: This 58-year-old female with above past medical history who presented to the emergency room with acute shortness of breath, cough with increased greenish-delatorre sputum over 3 days, accompanied by fatigue. In the emergency room, she was noted to be febrile and short of breath requiring 3 L of nasal cannula and elevated lactic acid to 2.2. CBC also showed elevated white count of 20,000. CTA of the chest as well as chest x-ray did not show any sharon opacification or pneumonia and she was admitted to the ICU thought to be secondary to viral bronchitis causing COPD flare, there she improved rapidly with the antibiotics and then she was eventually transferred to the floor by hospital day #2. Her hospital course by problems is as follows: 1. COPD flare, thought to be secondary to viral bronchitis. Her leukocytosis down trended by hospital day #3 and was normal by 12/14/18. She was placed initially on Levaquin. She then developed a rash. She was then changed to doxy. It was unclear whether she felt that the rash was from doxy or Levaquin and the patient felt more comfortable on azithromycin. She received a total of 4 days while in the hospital of antibiotics with switches from Levaquin to doxy and finally landed on azithromycin. She will be discharged on total of 5 days for inflammation component of COPD flare. She was also optimized on triple inhaler therapy with long-acting muscarinic agent, long-acting beta agonist and short-acting beta agonist which she has at home. She is tolerating ambulation with her home oxygen requirements only increasing up from 2 to 3 L. Furthermore , she was treated with methylprednisone IV initially, then changed to oral. The patient herself feels that the prednisone is not necessarily beneficial for her, although she was responsive during this hospitalization; she will be discharged on a very brief taper. She also states that prednisone increased her anxiety. 2. Depression and anxiety. The patient did have a difficult time during this hospitalization with her depression and anxiety. I think multiple transfers from across the ICU and having a number of different providers led to her feeling overwhelmed. Marcial Rodríguez, our patient distribution sales representative, was contacted and the patient was able to have her voice be heard in terms of how she felt transitions of care could have been improved. She does have a good relationship with her primary care provider. Her venlafaxine was continued, her Klonopin was continued and overall the patient felt stable to be discharged to home. One of her most pressing concerns is that she feels that she is nearing a place where she will need to apply for disability and this process while daunting, was discussed with her, that it cannot really be initiated from the inpatient setting and usually requires the help of disability research hydraulic engineer who often works for patients in the hope that the settlement will be in their favor. She understands that to apply for disability she needs to initiate that workup on her own as an outpatient as well as understands that the process can be fraught and many times people apply only to get denied several times before they are ultimately successful. She works closely with the counselor and feels that she has some support from the mental health standpoint. Her family is also supportive and can help navigate the difficult next steps if she does decide to ultimately apply for disability from mental health and/or pulmonary standpoint. 3. Non-insulin dependent diabetes. The patient's metformin was initially held and then restarted. 4. Chronic pain. The patient is on opiates from outpatient pain medication doctor. These were continued. 5. DVT prophylaxis. The patient kept on Lovenox. Overall, on day of discharge , the patient's vital signs are stable. She is tolerating food, voiding freely , on 3 L nasal cannula and has the ability to self-titrate and ability to check. She has lungs that are clear and while overall feeling fatigued, labs, vitals and clinical picture have improved significantly. LABS AND STUDIES DONE DURING THIS HOSPITALIZATION: On admission, as noted, the patient had leukocytosis to 20 and a BMP was done, which was unremarkable save for the increase in lactic acid which trended down by hospital day #2. An influenza swab was done which was negative. A UA was done which was negative. ABG done on presentation was 7.38 pH, PCO2 of 41, PO2 of 74 and bicarb 24. On day of discharge, CBC is normal with the exception of hemoglobin mildly low at 11.7. BMP is normal. Imaging done during this hospitalization included chest/thorax CTA on 12/11/18 which showed mild bullous change greatest in the upper lobes, fatty infiltration of the liver and bilateral hilar adenopathy. No gross PE is identified. Chest X-ray done on 12/11/18 shows low lung volumes and small bibasilar infiltrates, also could be atelectasis. EKG was done, which showed sinus tachycardia with no signs of acute ischemia. CONSULTS DURING THIS HOSPITALIZATION: Pulmonology, although the patient left before meeting with skydiving instructor. It is suggested that she continues to follow with her given her overall plans to possibly apply for disability in the near coming future. ITEMS TO FOLLOW UP ON STATUS POST DISCHARGE: 1. Chronic obstructive pulmonary disease exacerbation secondary to bronchitis. The patient was sent out on azithromycin for a total of 5 days. She was also sent out on prednisone with a very brief taper as she feels that prednisone is not particularly efficacious for her. She may need restarting the prednisone in the near future and she has a primary care appointment on 12/21/[address] Stover. 2. Anxiety and depression. Beyond anything, this patient had traumatic hospitalization with difficult transitions of care, which appears to have flared her PTSD. I suggested that she work closely with mental health counsellor and discuss her fears regarding possibly wanting to apply for disability in the near future and working closely with community organizations who can help guide patients through this difficult process. Working out was offered the patient on discharge and resources and terms of following up with Mental Health and how the process of long-term disability versus short-term disability works in this country was offered to the patient at the time of discharge. 3. Hilar adenopathy. This was seen on CT scan incidentally. The radiologist did not note that it needs serial followup, most likely secondary to the viral process that led to her bronchitis given her picture was consistent with acute onset of fever, upper respiratory symptoms, and severe COPD exacerbation that quickly responded to prednisone greater than antibiotics. That being said, she was treated fully with 4 to 5 days of antibiotics and prednisone and it is more revealing than anything that she has very little reserve. TIME SPENT: Forty minutes was spent on planning of this discharge with over half of that spent directly at the bedside of patient providing direct patient care, planning care, discussing with patient and family who agree that she is stable to be discharged home with close followup. They have good relationship with primary care provider. They plan to follow up with outpatient skydiving instructor when they feel ready. They deny me making an appointment for them at time of discharge, to continue to follow and they declined seeing Dr. Niño while in the hospital on 12/15/18. This discharge summary is a distillation of care that happened over the course of 4 days. If there are any questions about specifics, please do not hesitate to reach out and contact me directly; my cell phone is [phone]. [id number]/[facility] #: [id number] DARWIN
== END 2018-12-15 11:40 | disposition home or self-care (01) | DRG 720 ==
LOC: ED 20:12 → ICU 12-12 06:37 → MED 12-12 16:36
PROVIDERS: ADMIT Internal Medicine; ATTEND Internal Medicine
DX: A41.89 Other specified sepsis (principal); J96.01 Acute respiratory failure with hypoxia; F32.9 Major depressive disorder, single episode, unspecified; F41.9 Anxiety disorder, unspecified; E11.9 Type 2 diabetes mellitus without complications; F43.10 Post-traumatic stress disorder, unspecified; J20.8 Acute bronchitis due to other specified organisms; R21 Rash and other nonspecific skin eruption; J43.9 Emphysema, unspecified; M15.0 Primary generalized (osteo)arthritis; R65.20 Severe sepsis without septic shock; T36.4X5A Adverse effect of tetracyclines, initial encounter; Y92.239 Unspecified place in hospital as the place of occurrence of the external cause; G89.29 Other chronic pain; R59.0 Localized enlarged lymph nodes; M54.30 Sciatica, unspecified side; Z90.710 Acquired absence of both cervix and uterus; Z99.81 Dependence on supplemental oxygen; Z88.0 Allergy status to penicillin; Z82.49 Family history of ischemic heart disease and other diseases of the circulatory system; Z79.84 Long term (current) use of oral hypoglycemic drugs; Z80.1 Family history of malignant neoplasm of trachea, bronchus and lung; Z87.891 Personal history of nicotine dependence; Z72.89 Other problems related to lifestyle; Z86.718 Personal history of other venous thrombosis and embolism; Z87.440 Personal history of urinary (tract) infections; Z87.01 Personal history of pneumonia (recurrent); Z87.820 Personal history of traumatic brain injury; Z82.0 Family history of epilepsy and other diseases of the nervous system
CPT/HCPCS: 36415; 36600; 71045; 71275; 80048; 80053; 81003; 81015; 82803; 83605; 84484; 85025; 85610; 87040; 87070; 87205; 87641; 87899; 90686; 93005; 94640; 99284; A9270-GY; J1650; J1940; J2270; J3535; J7512; J7611; Q9967

== ENCOUNTER 2018-12-23 15:56 | Inpatient (IN) | payer OTHER ==
--- NOTE | 2018-12-23 16:20 | ED ---
Shortness of Breath - HPI Summary HPI Summary: This patient is a 58 year old F with a hx of COPD presenting to ED with a chief complaint of SOB since this morning worsening throughout the day. She was admitted to [facility] for SOB earlier last week and after discharged she was taken off Prednisone on 12/20/18. Yesterday, patient had a mild cold and runny nose, but no breathing difficulties. However today, when patient went to the bathroom , patient noted the SOB and noted that her SpO2 dropped to the 80s per her home pulse ox. Patient used her Nebulizer once today. Patient is on 2-3L O2 at home. The patient rates the pain 0/10 in severity. Symptoms aggravated by movement. Symptoms alleviated by nothing. Patient denies fever. Patient reports cough. - History of Current Complaint Chief Complaint: EDShortnessOfBreath Time Seen by Provider: 12/23/18 16:12 Hx Obtained From: Patient Onset/Duration: Gradual Onset, Lasting Hours - Since this morning, Still Present , Worse Since Timing: Constant Current Severity: Mild Dyspnea At: Rest Aggravating Factors: Movement Alleviating Factors: Nothing Associated Signs & Symptoms: Negative - Fever, Cough (Nonproductive) - Allergy/Home Medications Allergies/Adverse Reactions: Allergies Allergy/AdvReac Type Severity Reaction Status Date / Time doxycycline Allergy Rash Verified 12/23/18 18:57 Penicillins Allergy Hives/Diff. Verified 12/23/18 16:22 Breathing/I tching PMH/Surg Hx/FS Hx/Imm Hx Endocrine/Hematology History: Reports: Hx Blood Disorders - factor five, Hx Diabetes - metformin, Hx Anemia, Other Endocrine/Hematological Disorders - blood clot per pt in her 30s. DVT R lower calf 1991 Denies: Hx Anticoagulant Therapy, Hx Thyroid Disease Cardiovascular History: Reports: Hx Deep Vein Thrombosis, Hx Hypotension, Other Cardiovascular Problems/Disorders - DVT right lower calf 1991 Denies: Hx Hypertension, Hx Pacemaker/ICD Respiratory History: Reports: Hx Asthma - O2 @ 2 liters nasal all the time now, occasionally removes, Hx Chronic Obstructive Pulmonary Disease (COPD) - stage 3 , Hx Pneumonia, Other Respiratory Problems/Disorders - Pneumonia 5 times since -hosp x 3 GI History: Reports: Hx Hiatal Hernia - PROC. SCHEDULED FOR 09/08/18 Denies: Hx Cirrhosis, Hx Ulcer, Other GI Disorders - Dysphagia, right upper quadrant pain History: Reports: Other Problems/Disorders - Frequent UTI's bladder prolapse Denies: Hx Dialysis, Hx Renal Disease Musculoskeletal History: Reports: Hx Arthritis - BACK-generalized, Hx Back Problems, Hx Scoliosis Denies: Other Musculoskeletal History Sensory History: Denies: Hx Contacts or Glasses, Hx Hearing Aid, Hx Hearing Problem Opthamlomology History: Denies: Hx Contacts or Glasses Neurological History: Reports: Hx Headaches, Other Neuro Impairments/Disorders - Concussion 2017-with aphasia and stutter Psychiatric History: Reports: Hx Anxiety, Hx Depression, Hx Post Traumatic Stress Disorder Denies: Hx Eating Disorder, Hx Panic Disorder, Hx Suicide Attempt, Hx of Violent Episodes Against Others - Cancer History Hx Chemotherapy: No Hx Radiation Therapy: No - Surgical History Surgery Procedure, Year, and Place: Hysterectomy 01/15. Bladder sling and cystocele + rectocele. Bladder repair 08/17 & 2013 Hx Anesthesia Reactions: No Infectious Disease History: No Infectious Disease History: Denies: Hx Clostridium Difficile, Hx Hepatitis, Hx Human Immunodeficiency Virus (HIV), Hx of Known/Suspected MRSA, Hx Shingles, Hx Tuberculosis, Hx Known/ Suspected VRE, Hx Known/Suspected VRSA, History Other Infectious Disease, Traveled Outside the [place] in Last 30 Days - Family History Known Family History: Positive: Cardiac Disease, Respiratory Disease - mother COPD, Seizure Disorder - epilepsy, Other - breast cancer - Social History Alcohol Use: None Hx Substance Use: No Substance Use Type: Reports: None Substance Use Comment - Amount & Last Used: hydrocodone with tylenol and clonazepam Hx Tobacco Use: Yes Smoking Status (MU): Former Smoker Type: Cigarettes Amount Used/How Often: 1PPD 20 YRS Length of Time of Smoking/Using Tobacco: 1999 Have You Smoked in the Last Year: No Review of Systems Negative: Fever Positive: Nasal Discharge Positive: Shortness Of Breath, Cough All Other Systems Reviewed And Are Negative: Yes Physical Exam - Summary Physical Exam Summary: Appearance: The patient is well-nourished in no acute distress and in no acute pain. Skin: The skin is warm and dry, and skin color reflects adequate perfusion. HEENT: The head is normocephalic and atraumatic. The pupils are equal and reactive. The conjunctivae are clear and without drainage. Nares are patent and without drainage. Mouth reveals moist mucous membranes, and the throat is without erythema and exudate. The external ears are intact. The ear canals are patent and without drainage. The tympanic membranes are intact. Neck: The neck is supple with full range of motion and non-tender. There are no carotid bruits. There is no neck vein distension. Respiratory: Decreased breath sounds. Cardiovascular: Tachycardic. Abdomen: The abdomen is soft and non-tender. There are normal bowel sounds heard in all four quadrants and there is no organomegaly palpated. Musculoskeletal: There is no back tenderness noted. Extremities are non-tender with full range of motion. There is good capillary refill. There is no peripheral edema or calf tenderness elicited. Neurological: Patient is alert and oriented to person, place and time. The patient has symmetrical motor strength in all four extremities. Cranial nerves are grossly intact. Deep tendon reflexes are symmetrical and equal in all four extremities. Psychiatric: The patient has an appropriate affect and does not exhibit any anxiety or depression. Triage Information Reviewed: Yes Vital Signs On Initial Exam: Initial Vitals Temp Pulse Resp BP Pulse Ox 99.0 F 136 20 125/85 95 12/23/18 15:58 12/23/18 15:58 12/23/18 15:58 12/23/18 15:58 12/23/18 15:58 Vital Signs Reviewed: Yes Procedures - Sedation Patient Received Moderate/Deep Sedation with Procedure: No Diagnostics - Vital Signs Vital Signs Temp Pulse Resp BP Pulse Ox 12/23/18 15:58 99.0 F 136 20 125/85 95 - Laboratory Result Diagrams: 12/23/18 16:44 12/23/18 16:39 Lab Statement: Any lab studies that have been ordered have been reviewed, and results considered in the medical decision making process. - Radiology CXR Radiology Interpretation Completed By: Radiologist Summary of Radiographic Findings: LOW LUNG VOLUMES, SMALL BIBASILAR INFILTRATES. Dr. Monreal has reviewed this radiology report. - EKG 1634 Cardiac Rate: Tachycardia - 121 BPM EKG Rhythm: Sinus Tachycardia Summary of EKG Findings: Sinus tachycardia at 121 BPM, left axis deviation. Dr. Monreal has reviewed and interpreted this EKG. Re-Evaluation - Re-Evaluation First Eval Re-Evaluation Time: 18:45 Comment: Discussed results with patient. Patient will be admitted to [facility] with dx of PNA and COPD. Patient understands and agrees with this plan. Course/Dx - Course Course Of Treatment: Ms. Mitchell had a marginal respiratory status on arrival. She uses home oxygen continuously. She had used the nebulizer just prior to arrival and had decreased breath sounds. She was given Solu-Medrol and an additional DuoNeb. On arrival I thought she was tachycardic from her shortness of breath and recent nebulizer. Her white blood cell count returned elevated and her chest x-ray revealed infiltrates, fluids and antibiotics were ordered for her. I still think her tachycardia is primarily a hypoxia issue. I spoke with the hospitalist Dr. Lorenzana about admission. - Diagnoses Provider Diagnoses: PNA (pneumonia), COPD (chronic obstructive pulmonary disease) - Physician Notifications Discussed Care of Patient With: Gloria Lorenzana Time Discussed With Above Provider: 18:52 Instructed by Provider To: Admit As Inpatient - Discussed patient case with Dr. Lorenzana, hospitalist, who accepted the patient for admission to [facility]. Discharge ED - Sign-Out/Discharge Documenting (check all that apply): Patient Departure - Admit - Discharge Plan Condition: Fair Disposition: ADMITTED TO [facility] Referrals: Yvonne Stover DO [Primary Care Provider] - - Billing Disposition and Condition Condition: FAIR Disposition: Admitted to [facility] - Attestation Statements Document Initiated by Scribe: Yes Documenting Scribe: Cruz Alexandre Provider For Whom Scribe is Documenting (Include Credential): John Monreal MD Scribe Attestation: I, Cruz Alexandre, scribed for John Monreal MD on 12/23/18 at 2110. Scribe Documentation Reviewed: Yes Provider Attestation: The documentation as recorded by the Cruz encinas accurately reflects the service I personally performed and the decisions made by me, John Monreal MD Status of Scribe Document: Viewed
[2018-12-23] MEDS ORDERED: methylPREDNISolone 125 MG* 2 ML VIAL IV ONE (16:28)
[2018-12-23 16:51] LABS: Hematocrit 39 % (35-47); Hemoglobin 12.3 g/dL (12.0-16.0); Mean Corpuscular HGB Conc 32 g/dL (31-36); Mean Corpuscular Hemoglobin 26 pg (27-31); Mean Corpuscular Volume 83 fL (80-97); Mean Platelet Volume 7.5 fL (7.4-10.4); Platelet Count 387 10^3/uL (150-450); Red Blood Count 4.69 10^6 /uL (3.70-4.87); Red Cell Distribution Width 15 % (10-15); White Blood Count 26.4 10^3/uL (3.5-10.8)
[2018-12-23 17:10] LABS: Albumin 3.8 g/dL (3.2-5.2); BUN/Creatinine Ratio 17.7 (8-20); C Reactive Protein 24.76 mg/L (<8.01); Calcium 9.2 mg/dL (8.6-10.3); EGFR African American 90.8 (>60); Globulin 3.8 g/dL (2-4); Potassium 3.8 mmol/L (3.5-5.0); Total Bilirubin 0.2 mg/dL (0.2-1.0); Total Protein 7.6 g/dL (6.4-8.9)
[2018-12-23 17:11] LABS: Troponin I 0.01 ng/mL (<0.04)
[2018-12-23 17:21] LABS: ABS Eosinophils 0.2 10^3/ul (0-0.6); ABS Lymphocytes 1.3 10^3/ul (1.0-4.8); ABS Monocytes 0.7 10^3/ul (0-0.8); ABS Neutrophils 24.2 10^3/ul (1.5-7.7); Eosinophil % 0.6 %; Lymphocyte % 4.9 %
[2018-12-23] MEDS ORDERED: NS 0.9% 1000 ML** 2,000 ML IV ONE (18:31)
[2018-12-23] MEDS ORDERED: Levofloxacin 750 MG IVPREMIX(* 750 MG/150 ML BAG IVPB ONE (18:32)
[2018-12-23] MEDS ORDERED: Albuterol/Ipratropium NEB.SOL* Albuterol 2.5 MG/Ipratropium 0.5 MG 3 ML INH ONE (18:36)
[2018-12-23] MEDS ORDERED: HYDROcodone/ACETAMIN 5-325 MG* 1 TAB PO PRN (20:04)
[2018-12-23 20:42] LABS: Urine Appearance Cloudy; Urine Bilirubin Negative (Negative); Urine Blood Negative (Negative); Urine Color Yellow; Urine Glucose Negative (Negative); Urine Ketones Negative (Negative); Urine Nitrite Negative (Negative); Urine Protein Negative (Negative); Urine Specific Gravity 1.011 (1.010-1.030); Urine Urobilinogen Negative (Negative)
[2018-12-23] MEDS ORDERED: Vancomycin(*) 1,500 MG in NS 0.9% 250 ML* 250 ML IVPB ONE (21:00)
[2018-12-23] MEDS ORDERED: Vancomycin(*) 1,500 MG in NS 0.9% 250 ML* 250 ML IVPB SCH (21:00)
[2018-12-23] MEDS ORDERED: Vancomycin per Pharmacy* NOTE FOLLOW UP SCH (21:00)
[2018-12-23] MEDS ORDERED: Dextrose 50% VIAL 50 ml IV PUSH PRN (21:33)
[2018-12-23] MEDS: Acetaminophen TAB* 325 MG PO PRN (21:44)
[2018-12-23] MEDS: clonazePAM TAB(*) 0.5 MG PO SCH (22:37)
[2018-12-23] MEDS: Enoxaparin(*) 40 MG/0.4 ML SYR SUBCUT SCH (22:37)
[2018-12-23] MEDS: Cefepime 1 GM in Dextrose(*) 1 GM/50 ML BAG IV SCH (22:40)
[2018-12-23] MEDS: NS 0.9% 1000 ML** 1,000 ML IV SCH (22:45)
--- NOTE | 2018-12-23 22:46 | PN ---
Sepsis Event Evaluation Date of Evaluation: 12/23/18 Time of Evaluation: 19:45 Current Stage of Sepsis: Severe Sepsis Vital Signs - Last 12 Hours: Vital Signs - 12 hr Temp Pulse Resp BP Pulse Ox 12/23/18 22:37 21 12/23/18 21:34 97.9 F 107 19 142/81 97 12/23/18 21:11 106 16 115/73 97 12/23/18 21:00 110 14 98 12/23/18 20:11 122 23 135/85 95 12/23/18 20:00 116 16 96 12/23/18 19:40 122 27 127/64 98 12/23/18 19:11 117 22 119/75 99 12/23/18 19:09 115 20 99 12/23/18 19:00 109 18 98 12/23/18 18:41 112 20 142/81 96 12/23/18 18:11 116 19 112/60 97 12/23/18 18:00 116 16 97 12/23/18 17:41 121 24 121/83 97 12/23/18 17:11 113 23 116/78 96 12/23/18 17:00 119 20 97 12/23/18 16:52 26 12/23/18 16:41 128 23 132/81 97 12/23/18 16:39 98 12/23/18 16:10 135 20 139/90 98 12/23/18 15:58 99.0 F 136 20 125/85 95 Lactic Acid: 12/23/18 16:44 Lactic Acid 2.2 H* - Cardiopulmonary Exam Capillary Refill: Immediate Respiratory: Symmetrical Chest Expansion and Respiratory Effort, - - crackles in the bases bilat , exp wheezes Cardiovascular: NL Sounds; No Murmurs; No JVD, No Edema - Peripheral Pulse Exam Radial Pulses: Bilateral Normal Pedal Pulses: Bilateral Normal Posterior Tibial Pulse: Bilateral Normal - Skin Exam Skin Exam: Normal Turgor - [place] Coma Scale Best Eye Response: 4 - Spontaneous Best Motor Response: 6 - Obeys Commands Best Verbal Response: 5 - Oriented Coma Scale Total: 15 Assess/Plan/Problems-Billing Assessment: Ms. Mitchell is a 58 y.o female who presented with shortness of breath and cough with green sputum found to have sepsis with 26,000 WBC's - Patient Problems (1) Sepsis Current Visit: Yes Status: Acute Comment: sepsis r/t pneumonia -will start cefepime and vancomycin - nebs as needed for shortness of breath -prednisone - blood cultures pending -urine culture pending Status and Disposition: inpatient
[2018-12-23] MEDS ORDERED: NS 0.9% 1000 ML** 1,000 ML IV ONE (23:46)
[2018-12-24] MEDS ORDERED: Cefepime 1 GM in Dextrose(*) 1 GM/50 ML BAG IV SCH
--- NOTE | 2018-12-24 00:11 | HP ---
CC: Dr. Stover; Dr. Niño * HISTORY AND PHYSICAL: DATE OF ADMISSION: 12/23/18 PROVIDER: Caitlin Orozco NP. PRIMARY CARE PROVIDER: Dr. Stover. ATTENDING PHYSICIAN WHILE IN THE HOSPITAL: Dr. Dayana Maher * (dictated by Caitlin Orozco NP). CHIEF COMPLAINT: Shortness of breath. HISTORY OF PRESENT ILLNESS: Ms. Mitchell is a 58-year-old female with past medical history significant for COPD, anxiety, PTSD, postconcussive syndrome who reports that approximately at 12 p.m. today, she became short of breath and she was unable to catch her breath. Her breathing became progressively worse. So, she presented to the emergency room for further evaluation. The patient reports that she has a productive cough with green sputum. She denies any fever or chills. She does report increased fatigue. The patient was then recently admitted from 12/12/18 to 12/15/18 for shortness of breath for which she was admitted for COPD exacerbation secondary to bronchitis and sepsis resolved. Due to the patient's shortness of breath, leukocytosis with white count of 26,000, tachycardia and tachypnea and elevated lactic acid of 2.2, she does meet for severe sepsis. The patient was given fluid in the emergency room and a repeat lactic acid is pending. Due to her shortness of breath and sepsis , Hospital Medicine was asked to see and evaluate her for admission. PAST MEDICAL HISTORY: Significant for COPD, anxiety, PTSD, postconcussive syndrome, prolapsed bladder. PAST SURGICAL HISTORY: Hysterectomy and bladder surgery. HOME MEDICATIONS: Include: 1. Spiriva 1 cap inhaled daily. 2. Omeprazole 20 mg p.o. b.i.d. 3. Hydrocodone/acetaminophen 5/325 one tablet t.i.d. p.r.n. 4. Albuterol inhaler 1 to 2 puffs every 4 hours as needed for shortness of breath. 5. Albuterol nebulizer every 6 hours as needed for shortness of breath. 6. Klonopin 1.5 mg p.o. daily. 7. Effexor 225 mg p.o. q.a.m. 8. Oxygen 2 L nasal cannula. 9. Metformin 500 mg p.o. b.i.d. 10. Gabapentin 300 mg at 5 p.m. and h.s. ALLERGIES: PENICILLIN and DOXYCYCLINE. FAMILY HISTORY: Father with a history of hypertension, VT and cardiac stents. Mother with a history of COPD, at the age of 58. Father with stage IV lung cancer diagnosed in his 80s. SOCIAL HISTORY: The patient reports she quit smoking in 1999. Prior to that, she smoked for approximately 15 years. She does report occasional alcohol use. No illicit drug use. She is . Surrogate decision maker in the event she is unable to make her own decision is her Yobany. She is a full code. REVIEW OF SYSTEMS: The patient denies any fever or chills. Denies any loss of appetite. Denies any chest pain or edema. She does report a productive cough or green sputum. She denies any hemoptysis. She does report shortness of breath that became progressively worse at approximately 12 p.m. today. She denies any nausea, vomiting or diarrhea. She denies any abdominal pain. Denies any gross hematuria or dysuria, urinary frequency, urgency, or pain with urination. She denies any focal weakness, sensory loss, visual complaints. Denies any dysphagia, arthralgias, myalgias, rashes, lesions, open sores, psychosis, or anxiety. PHYSICAL EXAMINATION GENERAL: At this time, Ms. Mitchell is alert and oriented. She is resting on the stretcher in the emergency room. She does not appear to be any acute distress. VITAL SIGNS: Temperature 99.0, heart rate is 127, respirations are 23, O2 saturation 97%, blood pressure 132/81. HEENT: Head is atraumatic, normocephalic. Eyes: EOMs are intact. Sclerae anicteric and not pale. Oral mucosa appeared to be moist. NECK: Supple. LUNGS: Clear to auscultation bilaterally. She does have crackles in the bases bilaterally and expiratory wheezes. No rales, or rhonchi. CARDIAC: S1, S2. She is tachycardic with a regular rhythm on the monitor. No rubs or gallops. ABDOMEN: Obese, soft, and nontender. Bowel sounds are present x4. EXTREMITIES: She is able to move all 4 extremities. There is no clubbing or cyanosis. NEUROLOGIC: She is awake, alert and oriented x3. Her speech is clear. Thought process is intact. There is no gross focal deficits. SKIN: Intact. DIAGNOSTIC STUDIES/LAB DATA: WBCs are 26.4, RBCs 4.69, hemoglobin 12.3, hematocrit 39, platelet count 387. Sodium is 137, potassium 3.8, chloride 102, carbon dioxide is 27, anion gap is 8, BUN 14, creatinine 0.79, glucose 191, lactic acid is 2.2, calcium 9.2. ASTs are 14, ALTs are 17, alkaline phosphatase is 79. C- reactive protein was 24.76. BNP was 18. Urine was within normal limits. Chest x-ray, radiologist's impression: Low lung volume. Small bibasilar infiltrates. She had an electrocardiogram, which showed sinus tachycardia at a rate of 121. ASSESSMENT AND PLAN: Ms. Mitchell is a 58-year-old female with a past medical history significant for chronic obstructive pulmonary disease, anxiety, posttraumatic stress disorder, postconcussive syndrome, who presented to the emergency room with complaints of progressively worsening shortness of breath since 12 p.m. today. She will be admitted inpatient for: 1. Sepsis. The patient does meet severe sepsis criteria with leukocytosis with a white count of 26.4, tachycardia, tachypnea with suspected source of bilateral pneumonia. She will be treated with cefepime and vancomycin. She did receive Solu- Medrol 125 mg in the emergency room. I will give her 40 mg of prednisone p.o. daily. The patient was recently admitted in the hospital with bronchitis and completed antibiotic therapy. She reports that she completed prednisone on Tuesday. Blood cultures are currently pending. Urine culture is pending. Urine for legionella and Strep pneumoniae have been sent. I will repeat a CBC and BMP in the a.m. She can have supplemental oxygen at 2 L. This patient is chronically on 2 L at home. She will continue her home nebulizers and Spiriva as well. 2. Lactic acidosis. The patient does have an elevated lactic acid of 2.2. She was given IV fluids and we will repeat lactic acid and continue with management based on her lactic acid. 3. Anxiety. She should continue on Effexor as previously prescribed with clonazepam 0.5 mg t.i.d. 4. Type 2 diabetes. The patient will have fingersticks a.c. and insulin sliding scale. 5. FEN: She could have a regular diet. 6. Code status: She is a full code. 7. DVT prophylaxis: I will place her on Lovenox subcu. 8. Disposition: The patient will be placed inpatient on . TIME SPENT: Time spent on this admission was 60 minutes, greater than half that time was spent at the bedside reviewing events leading thus far to her hospitalization, performing physical exam, and reviewing my plan of care. I have discussed this with my attending, Dr. Dayana Maher; she is in agreement with my plan. CAITILN OROZCO, DRUG DISCOVERY INFORMATICS SPECIALIST [id number]/CPS #: [id number] [place]
[2018-12-24] MEDS: Gabapentin CAP(*) 300 MG PO SCH ×3 (00:15→21:48)
[2018-12-24 05:32] LABS: Hematocrit 36 % (35-47); Hemoglobin 11.4 g/dL (12.0-16.0); Mean Corpuscular HGB Conc 32 g/dL (31-36); Mean Corpuscular Hemoglobin 26 pg (27-31); Mean Corpuscular Volume 83 fL (80-97); Mean Platelet Volume 7.5 fL (7.4-10.4); Platelet Count 336 10^3/uL (150-450); Red Blood Count 4.37 10^6 /uL (3.70-4.87); Red Cell Distribution Width 15 % (10-15); White Blood Count 26.3 10^3/uL (3.5-10.8)
[2018-12-24 05:33] LABS: ABS Lymphocytes 0.9 10^3/ul (1.0-4.8); ABS Monocytes 0.1 10^3/ul (0-0.8); ABS Neutrophils 25.3 10^3/ul (1.5-7.7); Lymphocyte % 3.4 %
[2018-12-24 05:45] LABS: BUN/Creatinine Ratio 14.7 (8-20); Calcium 8.7 mg/dL (8.6-10.3); EGFR African American 107.9 (>60); EGFR Non-African American 89.2 (>60); Potassium 4.2 mmol/L (3.5-5.0)
[2018-12-24] MEDS: Vancomycin(*) 1,000 MG in NS 0.9% 250 ML* 250 ML IVPB SCH ×3 (06:56→21:49)
[2018-12-24] MEDS: Levalbuterol 0.63MG/3ML NEB* UNIT OF USE INH PRN ×2 (07:17→14:22)
[2018-12-24] MEDS: Mometasone/Formoter 200/5 MDI INH SCH (07:17)
[2018-12-24] MEDS: Acetaminophen TAB* 325 MG PO PRN (08:27)
[2018-12-24] MEDS: Pantoprazole TAB * 40 MG TAB PO SCH (08:27)
[2018-12-24] MEDS: clonazePAM TAB(*) 0.5 MG PO SCH ×3 (08:27→21:38)
[2018-12-24] MEDS: predniSONE TAB* 20 MG PO SCH (08:27)
[2018-12-24] MEDS: Venlafaxine EXT RELEASE CAP* 75 MG PO SCH (08:27)
[2018-12-24] MEDS: Insulin LISPRO* 1 UNITS UNIT SUBCUT SCH ×4 (08:28→21:38)
[2018-12-24] MEDS: Cefepime 1 GM in Dextrose(*) 1 GM/50 ML BAG IV SCH ×2 (10:42→23:30)
[2018-12-24] MEDS: SPIRIVA Respimat* (tiotropium) 2.5 mcg/inh Inhaler INH SCH (16:30)
--- NOTE | 2018-12-24 17:09 | PN ---
Subjective Date of Service: 12/24/18 Interval History: Patient was seen shortly after receiving nebulizer treatment from respiratory. Stated that she felt fatigued after getting 3 hours of sleep last night, awake due to coughing and inability to fall asleep. Cough is occasionally productive with thick white sputum. Short of breath at rest, slightly winded when speaking , but able to carry on a conversation without having to pause, words slightly breathy. States that she knows when her heart is beating fast because it feels like a vibrating in her chest. Reports retrosternal pressure and discomfort when breathing in. Denies fevers/chills, lightheadedness/dizziness, nausea, vomiting, abdominal pain, issues with bowel or bladder. Spoke at length with patient about her current health trajectory and goals of care. Encouraged patient to follow up with thoracic surgeon in [place] about correcting lung blebs, stated that she would want to see risks of surgery before making a decision to see a surgeon. I informed her that I cannot do that. Patient appeared to be depressed, spoke at length about her despair with her failing health. She stated she sees a psychiatrist every 1-2 weeks. PHQ-9 score was 15 today. Family History: Unchanged from Admission Social History: Unchanged from Admission Past Medical History: Unchanged from Admission Objective Active Medications: Acetaminophen (Tylenol Tab*) 650 mg PO Q4H PRN PRN Reason: MILD PAIN or TEMP > 100.4 Last Admin: 12/24/18 08:27 Dose: 650 mg Hydrocodone Bitart/Acetaminophen ([place] 5-325 Tab*) 1 tab PO BID PRN PRN Reason: PAIN - SEVERE Albuterol/Ipratropium (Duoneb (Albuterol 2.5 Mg/Ipratropium 0.5 Mg)) 1 neb INH TID [facility] Clonazepam (Klonopin Tab(*)) 0.5 mg PO TID [facility] Last Admin: 12/24/18 14:05 Dose: 0.5 mg Dextrose (Dextrose 50% Vial 50 Ml*) 25 ml IV PUSH .FOR FS < 60 - SS PRN PRN Reason: FS < 60 Enoxaparin Sodium (Lovenox(*)) 40 mg SUBCUT Q24H [facility] Last Admin: 12/23/18 22:37 Dose: 40 mg Gabapentin (Neurontin Cap(*)) 300 mg PO 1700,2100 [facility] Last Admin: 12/24/18 00:15 Dose: 300 mg Sodium Chloride (Ns 0.9% 1000 Ml) 1,000 mls @ 75 mls/hr IV PER RATE [facility] Last Admin: 12/23/18 22:45 Dose: 75 mls/hr Vancomycin HCl 1,000 mg/ (Sodium Chloride) 250 mls @ 166.667 mls/hr IVPB Q8H [facility] Last Admin: 12/24/18 14:05 Dose: 166.667 mls/hr Cefepime HCl (Maxipime 1 Gm In Dextrose Duplex (*)) 1 gm in 50 mls @ 100 mls/ hr IV Q12H [facility] Last Admin: 12/24/18 10:42 Dose: 100 mls/hr Insulin Human Lispro (Humalog*) 0 units SUBCUT ACHS [facility]; Protocol Last Admin: 12/24/18 12:57 Dose: 3 unit Levalbuterol HCl (Xopenex 0.63mg/3ml Neb*) 0.63 mg INH Q4H PRN PRN Reason: SOB/WHEEZING Last Admin: 12/24/18 14:22 Dose: 0.63 mg Mometasone Furoate/Formoterol Fumar (Dulera 200/5 Mdi*) 2 puff INH DAILY [facility] Last Admin: 12/24/18 07:17 Dose: 2 puff Pantoprazole Sodium (Protonix Tab*) 40 mg PO DAILY [facility] Last Admin: 12/24/18 08:27 Dose: 40 mg Pharmacy Consult (Vancomycin Per Pharmacy*) 1 note FOLLOW UP .VANC PER PHARMACY [facility]; Protocol Pharmacy Profile Note (Vancomycin Trough Check) 1 note FOLLOW UP ONCE ONE Stop: 12/25/18 05:31 Prednisone (Deltasone Tab*) 40 mg PO DAILY [facility] Last Admin: 12/24/18 08:27 Dose: 40 mg Tiotropium [place] (Spiriva Respimat 2.5 Mcg) 2 puff INH DAILY [facility] Last Admin: 12/24/18 16:30 Dose: Not Given Venlafaxine HCl (Effexor Xr Cap*) 225 mg PO DAILY [facility] Last Admin: 12/24/18 08:27 Dose: 225 mg Vital Signs - 8 hr 12/24/18 12/24/18 12/24/18 10:35 11:00 14:05 Temperature 98.0 F Pulse Rate 105 Respiratory 22 22 20 Rate Blood Pressure 139/40 (mmHg) O2 Sat by Pulse 97 Oximetry 12/24/18 12/24/18 14:24 15:24 Temperature 97.3 F Pulse Rate 104 102 Respiratory 20 16 Rate Blood Pressure 118/47 (mmHg) O2 Sat by Pulse 98 99 Oximetry Oxygen Devices in Use Now: Nasal Cannula Appearance: This is a well developed, obese woman seen sitting up in bed, ill in appearance, short of breath at rest. Eyes: No Scleral Icterus, PERRLA Ears/Nose/Mouth/Throat: NL Teeth, Lips, Gums, Clear Oropharnyx, - - Mucous membranes somewhat dry Neck: NL Appearance and Movements; NL JVP, Trachea Midline Respiratory: Symmetrical Chest Expansion and Respiratory Effort, - - Inspiratory fine crackles to bilateral middle and lower lung davis. Cardiovascular: NL Sounds; No Murmurs; No JVD, RRR, No Edema Abdominal: NL Sounds; No Tenderness; No Distention Lymphatic: No Cervical Adenopathy Extremities: No Edema, No Clubbing, Cyanosis Skin: No Rash or Ulcers, No Nodules or Sclerosis Neurological: Alert and Oriented x 3, NL Sensation Lines/Tubes/Other Access: Clean, Dry and Intact Peripheral IV Result Diagrams: 12/24/18 05:20 12/24/18 05:20 Microbiology and Other Data: Microbiology 12/24/18 01:30 Legionella Urinary Antigen - Final Urine Negative Legionella Antigen Streptococcus pneumoniae Ag Screen - Final Negative S. pneumo Antigen Assess/Plan/Problems-Billing Assessment: Ms. Mitchell is a 58 y.o female with a past medical history significant for COPD who presented 12/23/18 with bilateral lower lobe pneumonia. - Patient Problems (1) Sepsis Current Visit: Yes Status: Acute Comment: -sepsis r/t bilateral lower lobe pneumonia -Continue cefepime, vancomycin - PO prednisone x 10 days. -Duonebs scheduled TID for comfort as well as PRN for shortness of breath and anxiety. Guaifenesin and tesslon pearls prn for cough. - blood cultures pending -Urine negative for legionella or S. penumo (2) COPD exacerbation Current Visit: No Status: Acute Code(s): J44.1 - CHRONIC OBSTRUCTIVE PULMONARY DISEASE W (ACUTE) EXACERBATION SNOMED Code(s): 214514472 Comment: -Expiratory fine crackles to middle an dlower bilateral lung davis , though no wheezing. Short of breath at rest. -Duonebs TID and prn -Continue spiriva and burst dose prednisone. (3) DM2 (diabetes mellitus, type 2) Current Visit: No Status: Acute Comment: -Blood sugars ranging between 160- 190. -Hold metformin. -Fingersticks ACHS with sliding scale lispro. -Continue gabapentin. (4) Anxiety Current Visit: No Status: Acute Code(s): F41.9 - ANXIETY DISORDER, UNSPECIFIED SNOMED Code(s): 94010324 (5) Major depressive disorder, recurrent Current Visit: No Status: Acute Code(s): F33.9 - MAJOR DEPRESSIVE DISORDER, RECURRENT, UNSPECIFIED SNOMED Code(s): 88720429 Comment: -PHQ-9 score of 15. -Continue effexor. (6) GERD (gastroesophageal reflux disease) Current Visit: No Status: Acute Code(s): K21.9 - GASTRO-ESOPHAGEAL REFLUX DISEASE WITHOUT ESOPHAGITIS SNOMED Code(s): 166596001 Comment: - Continue pantoprazole. No current symptoms. (7) DVT prophylaxis Current Visit: No Status: Acute Code(s): QEB0109 - SNOMED Code(s): 173820359 Comment: - Lovenox (8) Full code status Current Visit: No Status: Acute Code(s): Z78.9 - OTHER SPECIFIED HEALTH STATUS SNOMED Code(s): 099965967 Comment: Status and Disposition: Disposition: Inpatient Condition: Guarded. Attending: Gloria Lorenzana
[2018-12-24] MEDS ORDERED: Benzonatate CAP* 100 MG PO PRN (17:24)
[2018-12-24] MEDS: NS 0.9% 1000 ML** 1,000 ML IV SCH (17:31)
[2018-12-24] MEDS: Albuterol/Ipratropium NEB.SOL* Albuterol 2.5 MG/Ipratropium 0.5 MG 3 ML INH SCH (21:07)
[2018-12-24] MEDS: guaiFENesin ER TAB 600 MG PO SCH (21:37)
[2018-12-24] MEDS: Enoxaparin(*) 40 MG/0.4 ML SYR SUBCUT SCH (21:39)
[2018-12-25] MEDS ORDERED: LORazepam TAB(*) 0.5 MG PO ONE (03:20)
[2018-12-25] MEDS: Levalbuterol 0.63MG/3ML NEB* UNIT OF USE INH PRN (03:21)
[2018-12-25] MEDS: Acetaminophen TAB* 325 MG PO PRN ×3 (04:44→22:58)
[2018-12-25] MEDS ORDERED: Vancomycin Trough Check NOTE FOLLOW UP ONE (05:30)
[2018-12-25 06:28] LABS: ABS Lymphocytes 2.5 10^3/ul (1.0-4.8); ABS Monocytes 0.5 10^3/ul (0-0.8); ABS Neutrophils 12.4 10^3/ul (1.5-7.7); Eosinophil % 0.1 %; Hematocrit 33 % (35-47); Hemoglobin 11.1 g/dL (12.0-16.0); Lymphocyte % 16.2 %; Mean Corpuscular HGB Conc 33 g/dL (31-36); Mean Corpuscular Hemoglobin 27 pg (27-31); Mean Corpuscular Volume 82 fL (80-97); Mean Platelet Volume 7.5 fL (7.4-10.4); Platelet Count 325 10^3/uL (150-450); Red Blood Count 4.05 10^6 /uL (3.70-4.87); Red Cell Distribution Width 15 % (10-15); White Blood Count 15.5 10^3/uL (3.5-10.8)
[2018-12-25] MEDS: Vancomycin(*) 1,000 MG in NS 0.9% 250 ML* 250 ML IVPB SCH ×3 (07:33→22:17)
[2018-12-25] MEDS: Mometasone/Formoter 200/5 MDI INH SCH (08:04)
--- NOTE | 2018-12-25 08:12 | PN ---
Subjective Date of Service: 12/25/18 Interval History: Patient in good spirits today, states she feels much better than yesterday, though still short of breath with exertion. No longer short of breath at rest like she was yesterday. Color has improved. She stated that last night she was able to get three solid hours of sleep after taking an ativan, which is the best sleep she has gotten "in a while". Spoke with patient again about palliative care and she felt very positive about getting extra support. Reports non-productive cough though states she feels like she is beginning to move sputum up though it is getting stuck in her throat. Denies chest pain, nausea, vomiting, abdominal pain. Family History: Unchanged from Admission Social History: Unchanged from Admission Past Medical History: Unchanged from Admission Objective Active Medications: Acetaminophen (Tylenol Tab*) 650 mg PO Q4H PRN PRN Reason: MILD PAIN or TEMP > 100.4 Last Admin: 12/25/18 04:44 Dose: 650 mg Hydrocodone Bitart/Acetaminophen ([place] 5-325 Tab*) 1 tab PO BID PRN PRN Reason: PAIN - SEVERE Albuterol/Ipratropium (Duoneb (Albuterol 2.5 Mg/Ipratropium 0.5 Mg)) 1 neb INH TID [facility] Last Admin: 12/24/18 21:07 Dose: 1 neb Benzonatate (Tessalon Cap*) 100 mg PO BID PRN PRN Reason: COUGH Clonazepam (Klonopin Tab(*)) 0.5 mg PO TID [facility] Last Admin: 12/24/18 21:38 Dose: 0.5 mg Dextrose (Dextrose 50% Vial 50 Ml*) 25 ml IV PUSH .FOR FS < 60 - SS PRN PRN Reason: FS < 60 Enoxaparin Sodium (Lovenox(*)) 40 mg SUBCUT Q24H [facility] Last Admin: 12/24/18 21:39 Dose: 40 mg Gabapentin (Neurontin Cap(*)) 300 mg PO 1700,2100 [facility] Last Admin: 12/24/18 21:48 Dose: 300 mg Guaifenesin (Mucinex*) 600 mg PO BID [facility] Last Admin: 12/24/18 21:37 Dose: 600 mg Sodium Chloride (Ns 0.9% 1000 Ml) 1,000 mls @ 75 mls/hr IV PER RATE [facility] Last Admin: 12/24/18 17:31 Dose: 75 mls/hr Vancomycin HCl 1,000 mg/ (Sodium Chloride) 250 mls @ 166.667 mls/hr IVPB Q8H [facility] Last Admin: 12/25/18 07:33 Dose: 166.667 mls/hr Cefepime HCl (Maxipime 1 Gm In Dextrose Duplex (*)) 1 gm in 50 mls @ 100 mls/ hr IV Q12H [facility] Last Admin: 12/24/18 23:30 Dose: 100 mls/hr Insulin Human Lispro (Humalog*) 0 units SUBCUT ACHS [facility]; Protocol Last Admin: 12/24/18 21:38 Dose: 3 unit Levalbuterol HCl (Xopenex 0.63mg/3ml Neb*) 0.63 mg INH Q4H PRN PRN Reason: SOB/WHEEZING Last Admin: 12/25/18 03:21 Dose: 0.63 mg Mometasone Furoate/Formoterol Fumar (Dulera 200/5 Mdi*) 2 puff INH DAILY [facility] Last Admin: 12/25/18 08:04 Dose: 2 puff Pantoprazole Sodium (Protonix Tab*) 40 mg PO DAILY [facility] Last Admin: 12/24/18 08:27 Dose: 40 mg Pharmacy Consult (Vancomycin Per Pharmacy*) 1 note FOLLOW UP .VANC PER PHARMACY [facility]; Protocol Prednisone (Deltasone Tab*) 40 mg PO DAILY [facility] Last Admin: 12/24/18 08:27 Dose: 40 mg Tiotropium [place] (Spiriva Respimat 2.5 Mcg) 2 puff INH DAILY [facility] Last Admin: 12/24/18 16:30 Dose: Not Given Venlafaxine HCl (Effexor Xr Cap*) 225 mg PO DAILY [facility] Last Admin: 12/24/18 08:27 Dose: 225 mg Vital Signs - 8 hr 12/25/18 12/25/18 12/25/18 02:43 03:36 03:43 Temperature 98.2 F Pulse Rate 87 88 Respiratory 20 15 24 Rate Blood Pressure 108/59 (mmHg) O2 Sat by Pulse 98 97 Oximetry 12/25/18 12/25/18 06:00 07:28 Temperature 98.3 F Pulse Rate 82 Respiratory 22 20 Rate Blood Pressure 129/63 (mmHg) O2 Sat by Pulse 100 Oximetry Oxygen Devices in Use Now: Nasal Cannula Appearance: Patient appears somewhat tired, but bright and smiling. No acute distress. Eyes: No Scleral Icterus, PERRLA Ears/Nose/Mouth/Throat: NL Teeth, Lips, Gums, Clear Oropharnyx, Mucous Membranes Moist Neck: NL Appearance and Movements; NL JVP, Trachea Midline Respiratory: Symmetrical Chest Expansion and Respiratory Effort, - - Inspiratory fine crackles to left middle and lower lobes. Clear throughout all other lung davis. On oxygen, no accessory muscle use noted. Cardiovascular: NL Sounds; No Murmurs; No JVD, RRR, No Edema Abdominal: NL Sounds; No Tenderness; No Distention Lymphatic: No Cervical Adenopathy Extremities: No Edema, No Clubbing, Cyanosis Skin: No Rash or Ulcers, No Nodules or Sclerosis Neurological: Alert and Oriented x 3, NL Sensation Lines/Tubes/Other Access: Clean, Dry and Intact Peripheral IV Result Diagrams: 12/25/18 06:00 12/24/18 05:20 Microbiology and Other Data: Microbiology 12/24/18 01:30 Legionella Urinary Antigen - Final Urine Negative Legionella Antigen Streptococcus pneumoniae Ag Screen - Final Negative S. pneumo Antigen Assess/Plan/Problems-Billing Assessment: Ms. Mitchell is a 58 y.o female with a past medical history significant for COPD who presented 12/23/18 with bilateral lower lobe pneumonia. - Patient Problems (1) Sepsis Current Visit: Yes Status: Acute Comment: -sepsis r/t bilateral lower lobe pneumonia -Continue cefepime, vancomycin - PO prednisone x 10 days. -Duonebs scheduled TID for comfort as well as PRN for shortness of breath and anxiety. Guaifenesin and tesslon pearls prn for cough. -Urine negative for legionella or S. penumo. Preliminary blood cultures negative. (2) COPD exacerbation Current Visit: No Status: Acute Code(s): J44.1 - CHRONIC OBSTRUCTIVE PULMONARY DISEASE W (ACUTE) EXACERBATION SNOMED Code(s): 296919146 Comment: -Expiratory fine crackles to middle an dlower bilateral lung davis , though no wheezing. Short of breath at rest. -Duonebs TID and prn -Continue spiriva and burst dose prednisone. -Consulted with Dr. Ruiz about palliative care and would like to look into [facility] or other outpatient resource for additional support. -Consulted Dr. Niño, she agrees with the plan of care. (3) DM2 (diabetes mellitus, type 2) Current Visit: No Status: Acute Comment: -Blood sugars ranging between 100- 190. -Hold metformin. -Fingersticks ACHS with sliding scale lispro. -Continue gabapentin. (4) Anxiety Current Visit: No Status: Acute Code(s): F41.9 - ANXIETY DISORDER, UNSPECIFIED SNOMED Code(s): 06282957 (5) Major depressive disorder, recurrent Current Visit: No Status: Acute Code(s): F33.9 - MAJOR DEPRESSIVE DISORDER, RECURRENT, UNSPECIFIED SNOMED Code(s): 07239341 Comment: -PHQ-9 score of 15. -Continue effexor. -Recommend follow up with PCP. (6) GERD (gastroesophageal reflux disease) Current Visit: No Status: Acute Code(s): K21.9 - GASTRO-ESOPHAGEAL REFLUX DISEASE WITHOUT ESOPHAGITIS SNOMED Code(s): 159582213 Comment: - Continue pantoprazole. No current symptoms. (7) DVT prophylaxis Current Visit: No Status: Acute Code(s): IHU8224 - SNOMED Code(s): 284151428 Comment: - Lovenox (8) Full code status Current Visit: No Status: Acute Code(s): Z78.9 - OTHER SPECIFIED HEALTH STATUS SNOMED Code(s): 319104040 Comment: Status and Disposition: Disposition: Inpatient Condition: Guarded. Attending: Ramo Flores
[2018-12-25] MEDS: Insulin LISPRO* 1 UNITS UNIT SUBCUT SCH ×4 (08:13→21:03)
[2018-12-25] MEDS: Albuterol/Ipratropium NEB.SOL* Albuterol 2.5 MG/Ipratropium 0.5 MG 3 ML INH SCH ×3 (08:17→19:25)
[2018-12-25] MEDS: clonazePAM TAB(*) 0.5 MG PO SCH ×3 (08:47→21:08)
[2018-12-25] MEDS: guaiFENesin ER TAB 600 MG PO SCH ×2 (08:48→21:07)
[2018-12-25] MEDS: predniSONE TAB* 20 MG PO SCH (08:48)
[2018-12-25] MEDS: Pantoprazole TAB * 40 MG TAB PO SCH (08:48)
[2018-12-25] MEDS: Venlafaxine EXT RELEASE CAP* 75 MG PO SCH (08:48)
[2018-12-25] MEDS: Cefepime 1 GM in Dextrose(*) 1 GM/50 ML BAG IV SCH ×2 (10:27→22:46)
[2018-12-25] MEDS: SPIRIVA Respimat* (tiotropium) 2.5 mcg/inh Inhaler INH SCH ×2 (12:07→13:22)
--- NOTE | 2018-12-25 18:22 | CONS ---
PULMONARY CONSULTATION REPORT: DATE OF CONSULT: 12/25/18 CONSULTATION REQUESTED BY: Ada Garcia NP REASON FOR CONSULTATION: Evaluation of shortness of breath. HISTORY OF PRESENT ILLNESS: The patient is a 58-year-old obese female with history of COPD/emphysema, anxiety, PTSD, postconcussive syndrome. The patient is known to me from outpatient and inpatient evaluation. The patient has been having complicated course recently with recurrent admissions for shortness of breath. The patient recently was discharged after being treated for possible COPD exacerbation secondary to bronchitis. She was discharged from the hospital on 12/15/18. She presents back for evaluation of worsening shortness of breath. The patient reports productive cough with green sputum recently. Denies subjective fevers. Reports significant dyspnea with minimal exertion. The patient was noted to have elevated white count of 26,000 on admission with elevated lactic at 2.2. She also was noted to be tachypneic and tachycardic. She was admitted to the hospital for management of possible pneumonia. The patient had chest x-ray done in the hospital. I have personally reviewed the chest x-ray - evidence of airspace opacities at bases bilaterally atelectasis versus pneumonic infiltrates. I have also personally reviewed her CT scan from most recent admission. The patient with significant emphysematous changes and predominantly in the upper lung zones with paraseptal emphysema. The patient with ground-glass opacities bilaterally. The patient also with atelectatic changes at the bases. The patient with mildly prominent hilar lymph nodes. The patient with no evidence of pulmonary embolism on the recent scan. The patient was also evaluated for GERD and laryngeal reflux recently. She remains on PPI. No definitive diagnosis was ascertained for her shortness of breath symptoms. She did have serological workup in the past that did not reveal any evidence of connective tissue disease. Influenza A and B testing has been negative. The patient currently was started on treatment for hospital-acquired pneumonia given recent healthcare exposure. The patient was also initiated on prednisone at 40 mg. The patient was also initiated on bronchodilators. The patient reports significant improvement in her symptoms today. The patient reports resolution of dyspnea at rest. She reports that she is still getting dyspnea with minimal exertion. Legionella and Strep pneumo antigens were negative. Blood cultures negative to date. PAST MEDICAL HISTORY: 1. COPD/emphysema. 2. Recurrent admissions for bronchitis/sepsis. 3. Anxiety. 4. Posttraumatic stress disorder. 5. Postconcussive syndrome. 6. Prolapsed bladder. 7. Hypoxemic respiratory failure. PAST SURGICAL HISTORY: Hysterectomy and bladder surgery. MEDICATIONS: At home: 1. Spiriva. 2. Omeprazole. 3. Hydrocodone/acetaminophen. 4. Albuterol. 5. Klonopin. 6. Effexor. 7. Oxygen. 8. Metformin. 9. Gabapentin. ALLERGIES: PENICILLIN and DOXYCYCLINE. FAMILY HISTORY: Father with hypertension, OR, and cardiac stents. Mother with a history of COPD. Father with stage IV lung cancer in 80s. SOCIAL HISTORY: Quit smoking in 1999, smoked approximately for 15 years prior to the quitting. She reports occasional alcohol intake. Denies drug abuse. REVIEW OF SYSTEMS: All 14 systems reviewed as per HPI. PHYSICAL EXAMINATION: General: Obese female in bed, in no apparent distress. Vital Signs: Temperature 97.8, pulse 98 beats per minute, respiratory rate 18 per minute, O2 sat 96% on 2 L, blood pressure 106/71. HEENT: Pupils are equal and reactive to light. Mucous membranes moist. Lungs: Diminished air entry bilaterally, wheeze present on auscultation. Cardiovascular: S1, S2 present, regular. No murmurs, gallops, or rubs. Abdomen: Obese. Bowel sounds present. Extremities: Normal range of motion. No edema. Neurological: Alert , awake, oriented x3. Skin: No rash or bruises. LABORATORY DATA/DIAGNOSTIC STUDIES: WBC count trended down from 26.4 on admission to 15.5, hemoglobin 11.1, hematocrit 33, platelet count within normal limits. Sodium 138, potassium 4, chloride 109, bicarb 24, BUN 10, creatinine 0.68. Lactate was elevated on admission, repeat from this morning within normal limits. CRP is mildly elevated at 24. BNP within normal limits. UA was negative. Chest x-ray as described above in HPI. IMPRESSION AND RECOMMENDATIONS: 58-year-old obese female, former smoker with history of emphysema admitted with worsening shortness of breath being treated for pneumonia given airspace opacities in the lungs. Recent CT chest did reveal evidence of emphysematous changes in the upper lung davis and ground-glass opacities in the lower lungs likely secondary to basal atelectasis and compression from overlapping emphysematous changes in the upper lung zones. Unclear reason for the patient's recurrent hospitalizations with elevated white count and fevers and elevated lactate. Her symptoms resolve very quickly with hospitalization with initiation of antibiotics and prednisone. Bronchiolitis obliterans-organizing pneumonia/cryptogenic-organizing pneumonia is in the differential given recurrent symptoms suggestive of infection and with improvement very quickly. She is improving with current treatment. Continue with steroid taper as the wheeze improves. She is able to cough up the phlegm today, which might also help with improvement of her symptoms. Would sent sputum culture if the patient is able to expectorate the mucus. The patient is having worsening course recently; she was not able to keep up with her work. She is being evaluated for permanent disability. She should also be referred for surgical management of her chronic obstructive pulmonary disease given significant dyspnea on exertion and upper lobe bullous disease. She might benefit from lung volume reduction surgery. Thank you for allowing me to participate in the care of your patient. Will follow up with you. [id number]/CPS #: [id number] DARWIN
[2018-12-25] MEDS: Gabapentin CAP(*) 300 MG PO SCH ×2 (19:10→21:06)
--- NOTE | 2018-12-25 19:23 | CONSULT ---
Palliative / Hospice Consult Ordering Provider: Ada Garcia - PCP-Ck Referal Reason: interested in palliative care/no bowel meds/hydrocodone prn - Subjective Code Status: Full Code Advance Directives Location: Filed at Another Location - History or Present Illness History or Present Illness: 58yo female with COPD presents to ER with SOB, productive sputum and fatigue. PMH is significant for DM type 2, anxiety, depression, PTSD, post concussive syndrome, prolapse bladder and chronic sciatic nerve pain. 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 Studies ekg-sinus tach, CXR-low lung volume, small bibasilar infiltrate, wbc 26 now 15.5, H/H 11/33, BUN/Cr 10/.68, egfr 89.2, alb 3.8, CRP 24.76, urine & blood cultures neg. Pt was admitted with sepsis secondary to pneumonia and COPD exacerbation. Pt was recently in hospital 12/12- 12/15. All history is from pt and medical record. Pt has 7 ER visits and 5 admissions in the last year. Lab Values: Abnormal Lab Results 12/24/18 12/25/18 12/25/18 21:17 06:00 06:00 WBC 15.5 H RBC 4.05 Hgb 11.1 L Hct 33 L MCV 82 MCH 27 MCHC 33 RDW 15 Plt Count 325 MPV 7.5 Neut % (Auto) 80.2 Lymph % (Auto) 16.2 [place] % (Auto) 3.3 Eos % (Auto) 0.1 Baso % (Auto) 0.2 Absolute Neuts (auto) 12.4 H Absolute Lymphs (auto) 2.5 Absolute Monos (auto) 0.5 Absolute Eos (auto) 0.0 Absolute Basos (auto) 0.0 Absolute Nucleated RBC 0.0 Nucleated RBC % 0.0 POC Glucose (mg/dL) 189 H Vancomycin Trough 14.7 12/25/18 12/25/18 12/25/18 07:46 11:32 16:29 WBC RBC Hgb Hct MCV MCH MCHC RDW Plt Count MPV Neut % (Auto) Lymph % (Auto) [place] % (Auto) Eos % (Auto) Baso % (Auto) Absolute Neuts (auto) Absolute Lymphs (auto) Absolute Monos (auto) Absolute Eos (auto) Absolute Basos (auto) Absolute Nucleated RBC Nucleated RBC % POC Glucose (mg/dL) 100 165 H 176 H Vancomycin Trough Laboratory Last Values WBC 15.5 10^3/uL (3.5-10.8) H 12/25/18 06:00 RBC 4.05 10^6 /uL (3.70-4.87) 12/25/18 06:00 Hgb 11.1 g/dL (12.0-16.0) L 12/25/18 06:00 Hct 33 % (35-47) L 12/25/18 06:00 MCV 82 fL (80-97) 12/25/18 06:00 MCH 27 pg (27-31) 12/25/18 06:00 MCHC 33 g/dL (31-36) 12/25/18 06:00 RDW 15 % (10-15) 12/25/18 06:00 Plt Count 325 10^3/uL (150-450) 12/25/18 06:00 MPV 7.5 fL (7.4-10.4) 12/25/18 06:00 Neut % (Auto) 80.2 % 12/25/18 06:00 Lymph % (Auto) 16.2 % 12/25/18 06:00 [place] % (Auto) 3.3 % 12/25/18 06:00 Eos % (Auto) 0.1 % 12/25/18 06:00 Baso % (Auto) 0.2 % 12/25/18 06:00 Absolute Neuts (auto) 12.4 10^3/ul (1.5-7.7) H 12/25/18 06:00 Absolute Lymphs (auto) 2.5 10^3/ul (1.0-4.8) 12/25/18 06:00 Absolute Monos (auto) 0.5 10^3/ul (0-0.8) 12/25/18 06:00 Absolute Eos (auto) 0.0 10^3/ul (0-0.6) 12/25/18 06:00 Absolute Basos (auto) 0.0 10^3/ul (0-0.2) 12/25/18 06:00 Absolute Nucleated RBC 0.0 10^3/ul 12/25/18 06:00 Nucleated RBC % 0.0 12/25/18 06:00 Sodium 138 mmol/L (135-145) 12/24/18 05:20 Potassium 4.2 mmol/L (3.5-5.0) 12/24/18 05:20 Chloride 109 mmol/L (101-111) 12/24/18 05:20 Carbon Dioxide 24 mmol/L (22-32) 12/24/18 05:20 Anion Gap 5 mmol/L (2-11) 12/24/18 05:20 BUN 10 mg/dL (6-24) 12/24/18 05:20 Creatinine 0.68 mg/dL (0.51-0.95) 12/24/18 05:20 Est GFR ( Amer) 107.9 (>60) 12/24/18 05:20 Est GFR (Non-Af Amer) 89.2 (>60) 12/24/18 05:20 BUN/Creatinine Ratio 14.7 (8-20) 12/24/18 05:20 Glucose 193 mg/dL (70-100) H 12/24/18 05:20 POC Glucose (mg/dL) 176 mg/dL (70-100) H 12/25/18 16:29 Lactic Acid 1.2 mmol/L (0.5-2.0) 12/24/18 05:20 Calcium 8.7 mg/dL (8.6-10.3) 12/24/18 05:20 Total Bilirubin 0.20 mg/dL (0.2-1.0) 12/23/18 16:39 AST 14 U/L (13-39) 12/23/18 16:39 ALT 17 U/L (7-52) 12/23/18 16:39 Alkaline Phosphatase 79 U/L (34-104) 12/23/18 16:39 Troponin I 0.01 ng/mL (<0.04) 12/23/18 16:39 C-Reactive Protein 24.76 mg/L (<8.01) H 12/23/18 16:39 B-Natriuretic Peptide 18 pg/mL (<=100) 12/23/18 16:44 Total Protein 7.6 g/dL (6.4-8.9) 12/23/18 16:39 Albumin 3.8 g/dL (3.2-5.2) 12/23/18 16:39 Globulin 3.8 g/dL (2-4) 12/23/18 16:39 Albumin/Globulin Ratio 1.0 (1-3) 12/23/18 16:39 Urine Color Yellow 12/23/18 19:50 Urine Appearance Cloudy 12/23/18 19:50 Urine pH 7.0 (5-9) 12/23/18 19:50 Ur Specific [place] 1.011 (1.010-1.030) 12/23/18 19:50 Urine Protein Negative (Negative) 12/23/18 19:50 Urine Ketones Negative (Negative) 12/23/18 19:50 Urine Blood Negative (Negative) 12/23/18 19:50 Urine Nitrate Negative (Negative) 12/23/18 19:50 Urine Bilirubin Negative (Negative) 12/23/18 19:50 Urine Urobilinogen Negative (Negative) 12/23/18 19:50 Ur Leukocyte Esterase Negative (Negative) 12/23/18 19:50 Urine Glucose Negative (Negative) 12/23/18 19:50 Vancomycin Trough 14.7 mcg/mL 12/25/18 06:00 - Objective Active Medications: Acetaminophen (Tylenol Tab*) 650 mg PO Q4H PRN PRN Reason: MILD PAIN or TEMP > 100.4 Last Admin: 12/25/18 10:34 Dose: 650 mg Hydrocodone Bitart/Acetaminophen ([place] 5-325 Tab*) 1 tab PO BID PRN PRN Reason: PAIN - SEVERE Albuterol/Ipratropium (Duoneb (Albuterol 2.5 Mg/Ipratropium 0.5 Mg)) 1 neb INH TID [facility] Last Admin: 12/25/18 13:22 Dose: 1 neb Benzonatate (Tessalon Cap*) 100 mg PO BID PRN PRN Reason: COUGH Clonazepam (Klonopin Tab(*)) 0.5 mg PO TID [facility] Last Admin: 12/25/18 14:10 Dose: 0.5 mg Dextrose (Dextrose 50% Vial 50 Ml*) 25 ml IV PUSH .FOR FS < 60 - SS PRN PRN Reason: FS < 60 Enoxaparin Sodium (Lovenox(*)) 40 mg SUBCUT Q24H [facility] Last Admin: 12/24/18 21:39 Dose: 40 mg Gabapentin (Neurontin Cap(*)) 300 mg PO 1700,2100 [facility] Last Admin: 12/25/18 19:10 Dose: 300 mg Guaifenesin (Mucinex*) 600 mg PO BID [facility] Last Admin: 12/25/18 08:48 Dose: 600 mg Sodium Chloride (Ns 0.9% 1000 Ml) 1,000 mls @ 75 mls/hr IV PER RATE [facility] Last Admin: 12/24/18 17:31 Dose: 75 mls/hr Vancomycin HCl 1,000 mg/ (Sodium Chloride) 250 mls @ 166.667 mls/hr IVPB Q8H [facility] Last Admin: 12/25/18 14:18 Dose: 166.667 mls/hr Cefepime HCl (Maxipime 1 Gm In Dextrose Duplex (*)) 1 gm in 50 mls @ 100 mls/ hr IV Q12H [facility] Last Admin: 12/25/18 10:27 Dose: 100 mls/hr Insulin Human Lispro (Humalog*) 0 units SUBCUT ACHS [facility]; Protocol Last Admin: 12/25/18 17:57 Dose: 3 unit Levalbuterol HCl (Xopenex 0.63mg/3ml Neb*) 0.63 mg INH Q4H PRN PRN Reason: SOB/WHEEZING Last Admin: 12/25/18 03:21 Dose: 0.63 mg Mometasone Furoate/Formoterol Fumar (Dulera 200/5 Mdi*) 2 puff INH DAILY [facility] Last Admin: 12/25/18 08:04 Dose: 2 puff Pantoprazole Sodium (Protonix Tab*) 40 mg PO DAILY [facility] Last Admin: 12/25/18 08:48 Dose: 40 mg Pharmacy Consult (Vancomycin Per Pharmacy*) 1 note FOLLOW UP .VANC PER PHARMACY [facility]; Protocol Prednisone (Deltasone Tab*) 40 mg PO DAILY [facility] Stop: 01/03/19 09:00 Last Admin: 12/25/18 08:48 Dose: 40 mg Tiotropium [place] (Spiriva Respimat 2.5 Mcg) 2 puff INH 1200 [facility] Last Admin: 12/25/18 13:22 Dose: 2 puff Venlafaxine HCl (Effexor Xr Cap*) 225 mg PO DAILY [facility] Last Admin: 12/25/18 08:48 Dose: 225 mg Vital Signs: Vital Signs: Temp Pulse Resp BP Pulse Ox 97.7 F 100 22 145/66 95 12/25/18 15:18 12/25/18 15:18 12/25/18 19:10 12/25/18 15:18 12/25/18 15:18 Patient Weight: Weight 108.862 kg Intake and Output: Intake & Output 12/23/18 12/24/18 12/25/18 12/26/18 06:59 06:59 06:59 06:59 Intake Total 6070 2585 1920 Output Total 500 Balance 5570 2585 1920 Weight 108.862 kg Intake: IV Fluids 5950 1345 ABX - CEFEPIME 50 ABX - LEVAQUIN 150 ABX - VANCOMYCIN 250 250 NS (0.9%) 3000 NS0.9% 350 1095 IVPB 320 ABX - CEFEPIME 55 ABX - VANCOMYCIN 265 Oral 233 206 8055 Output: Urine 500 Other: Estimated Void Medium Date of Last Bowel [id number] Movement # Bowel Movements 0 0 # Voids 1 2 ADLs: Meal Record Start: 12/23/18 21: 53 Freq: DAILY@0900,1400,1800 Status: Active Protocol: Created 12/23/18 21:53 System (Rec: 12/23/18 21:53 System MED-C03) Document 12/24/18 09:00 [id number] (Rec: 12/24/18 10:49 [id number] MED-C09) Document 12/24/18 14:14 [id number] (Rec: 12/24/18 14:14 [id number] MED-C09) Document 12/24/18 18:00 [id number] (Rec: 12/24/18 22:44 [id number] MED-C04) Document 12/25/18 09:00 [id number] (Rec: 12/25/18 09:19 JULY5 MED-C09) Document 12/25/18 13:00 [id number] (Rec: 12/25/18 13:01 JULY5 MED-C11) Document 12/25/18 18:00 [id number] (Rec: 12/25/18 18:34 [id number] MED-C11) Intake and Output Start: 12/23/18 16: 02 Freq: Status: Active Protocol: Created 12/23/18 16:02 System (Rec: 12/23/18 16:02 System ED-C24) Intake and Output Start: 12/23/18 21: 53 Freq: DAILY@0600,1400,2200 Status: Active Protocol: Created 12/23/18 21:53 System (Rec: 12/23/18 21:53 System MED-C03) Document 12/23/18 23:50 [id number] (Rec: 12/23/18 23:51 [id number] MED-C04) Document 12/24/18 05:31 [id number] (Rec: 12/24/18 05:32 [id number] MED-C04) Document 12/24/18 14:00 [id number] (Rec: 12/24/18 15:14 [id number] MED-C11) Document 12/24/18 22:00 [id number] (Rec: 12/24/18 22:46 [id number] MED-C04) Document 12/25/18 06:00 [id number] (Rec: 12/25/18 06:18 [id number] MED-C09) Document 12/25/18 13:55 [id number] (Rec: 12/25/18 13:57 [id number] MED-C09) Eyes: No Scleral Icterus, PERRLA Ears/Nose/Mouth/Throat: NL Teeth, Lips, Gums, Clear Oropharnyx, Mucous Membranes Moist Neck: NL Appearance and Movements; NL JVP, Trachea Midline Cardiovascular: NL Sounds; No Murmurs; No JVD, RRR, No Edema Respiratory: Symmetrical Chest Expansion and Respiratory Effort Abdominal: NL Sounds; No Tenderness; No Distention Extremities: No Edema, No Clubbing, Cyanosis Neurological: Alert and Oriented x 3, NL Sensation - Assessment Assessment: 58yo female with sepsis secondary to bilateral pneumonia and COPD exacerbation - Plan Consult Plan (MU): Palliative Plan: Long conversation with patient about her health. She would like to reduce her time in the ER and the hospital. We discussed outpatient palliative programs in the area and [facility] program. She is interested in [facility] and [facility]. 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 She would like to be able to start some interventions to prevent her from getting worse and having to go to hospital. Support given for her stress over frequent illnesses. KPS 60%, PPS 60%. - Time On Unit Date of Evaluation: 12/25/18 Hospice Consult Time in: 14:15 Hospice Consult Time Out: 15:15 Hospice Consult Time Total: 60 > 50% of Time Spend In Counseling or Coordinating Care: Yes
[2018-12-25] MEDS: Enoxaparin(*) 40 MG/0.4 ML SYR SUBCUT SCH (21:08)
[2018-12-26] MEDS: Vancomycin(*) 1,000 MG in NS 0.9% 250 ML* 250 ML IVPB SCH ×3 (05:47→21:26)
[2018-12-26] MEDS: NS 0.9% 1000 ML** 1,000 ML IV SCH (05:48)
[2018-12-26 06:00] LABS: ABS Eosinophils 0.1 10^3/ul (0-0.6); ABS Lymphocytes 3.3 10^3/ul (1.0-4.8); ABS Monocytes 0.7 10^3/ul (0-0.8); ABS Neutrophils 9.1 10^3/ul (1.5-7.7); Hematocrit 35 % (35-47); Lymphocyte % 24.6 %; Mean Corpuscular HGB Conc 32 g/dL (31-36); Mean Corpuscular Hemoglobin 26 pg (27-31); Mean Corpuscular Volume 82 fL (80-97); Mean Platelet Volume 7.4 fL (7.4-10.4); Platelet Count 341 10^3/uL (150-450); Red Blood Count 4.19 10^6 /uL (3.70-4.87); Red Cell Distribution Width 16 % (10-15); White Blood Count 13.2 10^3/uL (3.5-10.8)
[2018-12-26] MEDS: Mometasone/Formoter 200/5 MDI INH SCH (07:49)
[2018-12-26] MEDS: Albuterol/Ipratropium NEB.SOL* Albuterol 2.5 MG/Ipratropium 0.5 MG 3 ML INH SCH ×3 (07:49→19:26)
[2018-12-26] MEDS: Insulin LISPRO* 1 UNITS UNIT SUBCUT SCH ×4 (08:18→23:13)
[2018-12-26] MEDS: clonazePAM TAB(*) 0.5 MG PO SCH ×3 (08:19→21:04)
[2018-12-26] MEDS: guaiFENesin ER TAB 600 MG PO SCH ×2 (08:19→21:27)
[2018-12-26] MEDS: Pantoprazole TAB * 40 MG TAB PO SCH (08:19)
[2018-12-26] MEDS: predniSONE TAB* 20 MG PO SCH (08:19)
[2018-12-26] MEDS: Venlafaxine EXT RELEASE CAP* 75 MG PO SCH (08:19)
--- NOTE | 2018-12-26 08:20 | PN ---
Progress Note - Progress Note Date of Service: 12/26/18 - Pulm f/u note Note: Pt seen and examined at bedside. Pt reports feeling better this am. Having intermittent cough, feels burn in chest after cough. Able to ambulate in room without much dyspnea. Active Medications Generic Name Dose Route Start Last Admin Trade Name Freq PRN Reason Stop Dose Admin Acetaminophen 650 mg 12/23/18 20:02 12/25/18 22:58 Tylenol Tab* PO 650 mg Q4H PRN Administration MILD PAIN or TEMP > 100.4 Hydrocodone Bitart/Acetaminophen 1 tab 12/23/18 20:04 [place] 5-325 Tab* PO BID PRN PAIN - SEVERE Albuterol/Ipratropium 1 neb 12/24/18 21:00 12/26/18 07:49 Duoneb (Albuterol 2.5 Mg/Ipratropium 0.5 Mg) INH 1 neb TID [facility] Administration Benzonatate 100 mg 12/24/18 17:24 Tessalon Cap* PO BID PRN COUGH Clonazepam 0.5 mg 12/23/18 21:00 12/25/18 21:08 Klonopin Tab(*) PO 0.5 mg TID [facility] Administration Dextrose 25 ml 12/23/18 21:33 Dextrose 50% Vial 50 Ml* IV PUSH .FOR FS < 60 - SS PRN FS < 60 Enoxaparin Sodium 40 mg 12/23/18 21:00 12/25/18 21:08 Lovenox(*) SUBCUT 40 mg Q24H [facility] Administration Gabapentin 300 mg 12/23/18 21:00 12/25/18 21:06 Neurontin Cap(*) PO 300 mg 1700,2100 [facility] Administration Guaifenesin 600 mg 12/24/18 21:00 12/25/18 21:07 Mucinex* PO 600 mg BID [facility] Administration Sodium Chloride 1,000 mls @ 75 mls/hr 12/23/18 20:15 12/26/18 05:48 Ns 0.9% 1000 Ml IV 75 mls/hr PER RATE [facility] Administration Vancomycin HCl 1,000 mg/ 250 mls @ 166.667 mls/hr 12/24/18 06:00 12/26/18 05: 47 Sodium Chloride IVPB 166.667 mls/hr Q8H [facility] Administration Cefepime HCl 1 gm in 50 mls @ 100 mls/hr 12/23/18 22:30 12/25/18 22:46 Maxipime 1 Gm In Dextrose Duplex (*) IV 100 mls/hr Q12H [facility] Administration Insulin Human Lispro 0 units 12/24/18 07:30 12/25/18 21:03 Humalog* SUBCUT Not Given ACHS [facility] Protocol Levalbuterol HCl 0.63 mg 12/23/18 20:22 12/25/18 03:21 Xopenex 0.63mg/3ml Neb* INH 0.63 mg Q4H PRN Administration SOB/WHEEZING Mometasone Furoate/Formoterol Fumar 2 puff 12/24/18 09:00 12/26/18 07:49 Dulera 200/5 Mdi* INH 2 puff DAILY [facility] Administration Pantoprazole Sodium 40 mg 12/24/18 09:00 12/25/18 08:48 Protonix Tab* PO 40 mg DAILY [facility] Administration Pharmacy Consult 1 note 12/23/18 21:00 Vancomycin Per Pharmacy* FOLLOW UP .VANC PER PHARMACY [facility] Protocol Prednisone 40 mg 12/24/18 09:00 12/25/18 08:48 Deltasone Tab* PO 01/03/19 09:00 40 mg DAILY [facility] Administration Tiotropium [place] 2 puff 12/25/18 12:00 12/25/18 13:22 Spiriva Respimat 2.5 Mcg INH 2 puff 1200 [facility] Administration Venlafaxine HCl 225 mg 12/24/18 09:00 12/25/18 08:48 Effexor Xr Cap* PO 225 mg DAILY [facility] Administration Vital Signs Temp Pulse Resp BP Pulse Ox 97.2 F 88 19 127/82 100 12/26/18 07:56 12/26/18 07:56 12/26/18 07:56 12/26/18 07:56 12/26/18 07:56 O/E: Pt in NAD HEENT: PERRLA, no JVD Lungs: Diminished air entry b/l, wheeze + CVS: S1, S2+, regular Abd: Obese, BS+ Ext: Normal ROM Neuro: No focal deficits Skin: No rash Laboratory Results - last 24 hr 12/25/18 12/25/18 12/25/18 11:32 16:29 20:52 WBC RBC Hgb Hct MCV MCH MCHC RDW Plt Count MPV Neut % (Auto) Lymph % (Auto) [place] % (Auto) Eos % (Auto) Baso % (Auto) Absolute Neuts (auto) Absolute Lymphs (auto) Absolute Monos (auto) Absolute Eos (auto) Absolute Basos (auto) Absolute Nucleated RBC Nucleated RBC % POC Glucose (mg/dL) 165 H 176 H 118 H 12/26/18 12/26/18 05:32 08:04 WBC 13.2 H RBC 4.19 Hgb 11.0 L Hct 35 MCV 82 MCH 26 L MCHC 32 RDW 16 H Plt Count 341 MPV 7.4 Neut % (Auto) 68.9 Lymph % (Auto) 24.6 [place] % (Auto) 5.2 Eos % (Auto) 1.0 Baso % (Auto) 0.3 Absolute Neuts (auto) 9.1 H Absolute Lymphs (auto) 3.3 Absolute Monos (auto) 0.7 Absolute Eos (auto) 0.1 Absolute Basos (auto) 0.0 Absolute Nucleated RBC 0.0 Nucleated RBC % 0.0 POC Glucose (mg/dL) 82 I/R: 58 y o obese f with h/o COPD with emphysematous changes, predominantly in upper lung zones with recurrent hospitalizations recently for SOB, was treated for acute COPD exacerbations during most of these visits She was admitted for sepsis and acute COPD exacerbation this time Pt with improvement in sx She is on prednisone and bronchodilators She has been requiring O2 with exertion, O2 sats are improved at rest Will c/w prednisone taper She is on broad spectrum abx for HCAP Pt to have second opinion pulm consult at [facility] as out pt
[2018-12-26] MEDS: Cefepime 1 GM in Dextrose(*) 1 GM/50 ML BAG IV SCH ×2 (11:22→23:36)
[2018-12-26] MEDS: SPIRIVA Respimat* (tiotropium) 2.5 mcg/inh Inhaler INH SCH (13:22)
[2018-12-26] MEDS: Acetaminophen TAB* 325 MG PO PRN (13:44)
[2018-12-26] MEDS: Gabapentin CAP(*) 300 MG PO SCH ×2 (17:21→21:27)
[2018-12-26] MEDS ORDERED: clonazePAM TAB(*) 1 MG PO ONE (20:58)
--- NOTE | 2018-12-26 21:07 | PN ---
Subjective Date of Service: 12/26/18 Interval History: Reports feel tired today, states that breathing is slightly improved. Denies fever or chills. Denies chest pain or shortness of breath. Denies abd pain n/v /d. Family History: Unchanged from Admission Social History: Unchanged from Admission Past Medical History: Unchanged from Admission Objective Active Medications: Acetaminophen (Tylenol Tab*) 650 mg PO Q4H PRN PRN Reason: MILD PAIN or TEMP > 100.4 Last Admin: 12/26/18 13:44 Dose: 650 mg Hydrocodone Bitart/Acetaminophen (Dickens 5-325 Tab*) 1 tab PO BID PRN PRN Reason: PAIN - SEVERE Albuterol/Ipratropium (Duoneb (Albuterol 2.5 Mg/Ipratropium 0.5 Mg)) 1 neb INH TID [facility] Last Admin: 12/26/18 19:26 Dose: 1 neb Benzonatate (Tessalon Cap*) 100 mg PO BID PRN PRN Reason: COUGH Clonazepam (Klonopin Tab(*)) 0.5 mg PO TID [facility] Last Admin: 12/26/18 13:44 Dose: 0.5 mg Clonazepam (Klonopin Tab(*)) 1 mg PO ONCE ONE Stop: 12/26/18 20:59 Dextrose (Dextrose 50% Vial 50 Ml*) 25 ml IV PUSH .FOR FS < 60 - SS PRN PRN Reason: FS < 60 Enoxaparin Sodium (Lovenox(*)) 40 mg SUBCUT Q24H [facility] Last Admin: 12/25/18 21:08 Dose: 40 mg Gabapentin (Neurontin Cap(*)) 300 mg PO 1700,2100 [facility] Last Admin: 12/26/18 17:21 Dose: 300 mg Guaifenesin (Mucinex*) 600 mg PO BID [facility] Last Admin: 12/26/18 08:19 Dose: 600 mg Sodium Chloride (Ns 0.9% 1000 Ml) 1,000 mls @ 75 mls/hr IV PER RATE [facility] Last Admin: 12/26/18 05:48 Dose: 75 mls/hr Vancomycin HCl 1,000 mg/ (Sodium Chloride) 250 mls @ 166.667 mls/hr IVPB Q8H [facility] Last Admin: 12/26/18 13:45 Dose: 166.667 mls/hr Cefepime HCl (Maxipime 1 Gm In Dextrose Duplex (*)) 1 gm in 50 mls @ 100 mls/ hr IV Q12H [facility] Last Admin: 12/26/18 11:22 Dose: 100 mls/hr Insulin Human Lispro (Humalog*) 0 units SUBCUT ACHS ARELI; Protocol Last Admin: 12/26/18 17:22 Dose: 3 unit Levalbuterol HCl (Xopenex 0.63mg/3ml Neb*) 0.63 mg INH Q4H PRN PRN Reason: SOB/WHEEZING Last Admin: 12/25/18 03:21 Dose: 0.63 mg Mometasone Furoate/Formoterol Fumar (Dulera 200/5 Mdi*) 2 puff INH DAILY [facility] Last Admin: 12/26/18 07:49 Dose: 2 puff Pantoprazole Sodium (Protonix Tab*) 40 mg PO DAILY [facility] Last Admin: 12/26/18 08:19 Dose: 40 mg Pharmacy Consult (Vancomycin Per Pharmacy*) 1 note FOLLOW UP .VANC PER PHARMACY [facility]; Protocol Prednisone (Deltasone Tab*) 40 mg PO DAILY [facility] Stop: 01/03/19 09:00 Last Admin: 12/26/18 08:19 Dose: 40 mg Tiotropium [place] (Spiriva Respimat 2.5 Mcg) 2 puff INH 1200 [facility] Last Admin: 12/26/18 13:22 Dose: 2 puff Venlafaxine HCl (Effexor Xr Cap*) 225 mg PO DAILY [facility] Last Admin: 12/26/18 08:19 Dose: 225 mg Vital Signs - 8 hr 12/26/18 12/26/18 12/26/18 13:23 13:44 15:44 Temperature Pulse Rate 102 Respiratory 18 19 16 Rate Blood Pressure (mmHg) O2 Sat by Pulse 99 Oximetry 12/26/18 12/26/18 12/26/18 15:51 17:21 19:29 Temperature 97.9 F Pulse Rate 88 88 Respiratory 16 18 18 Rate Blood Pressure 123/58 (mmHg) O2 Sat by Pulse 99 98 Oximetry Oxygen Devices in Use Now: Nasal Cannula Appearance: appears fatigued Eyes: No Scleral Icterus Ears/Nose/Mouth/Throat: Clear Oropharnyx, Mucous Membranes Moist Neck: NL Appearance and Movements; NL JVP, Trachea Midline Respiratory: Symmetrical Chest Expansion and Respiratory Effort, - - diminished with exp wheezes bilat Cardiovascular: NL Sounds; No Murmurs; No JVD, No Edema Abdominal: NL Sounds; No Tenderness; No Distention Extremities: No Edema, No Clubbing, Cyanosis Skin: No Rash or Ulcers Neurological: Alert and Oriented x 3 Nutrition: Taking PO's Result Diagrams: 12/26/18 05:32 12/24/18 05:20 Microbiology and Other Data: Microbiology 12/24/18 01:30 Legionella Urinary Antigen - Final Urine Negative Legionella Antigen Streptococcus pneumoniae Ag Screen - Final Negative S. pneumo Antigen Assess/Plan/Problems-Billing Assessment: Ms. Mitchell is a 58 y.o female with a past medical history significant for COPD who presented 12/23/18 with bilateral lower lobe pneumonia. - Patient Problems (1) Sepsis Current Visit: Yes Status: Acute Comment: -sepsis r/t bilateral lower lobe pneumonia -Continue cefepime, vancomycin - PO prednisone taper -Duonebs scheduled TID for comfort as well as PRN for shortness of breath and anxiety. Guaifenesin and tesslon pearls prn for cough. -Urine negative for legionella or S. penumo. - blood cultures negative x3 days. (2) COPD exacerbation Current Visit: No Status: Acute Code(s): J44.1 - CHRONIC OBSTRUCTIVE PULMONARY DISEASE W (ACUTE) EXACERBATION SNOMED Code(s): 823059894 Comment: -Expiratory fine crackles to middle an dlower bilateral lung davis , though no wheezing. Short of breath at rest. -Duonebs TID and prn -Continue spiriva and burst dose prednisone. -Consulted with Dr. Ruiz about palliative care and would like to look into [facility] or other outpatient resource for additional support. -Consulted Dr. Niño, she agrees with the plan of care. (3) Anxiety Current Visit: No Status: Acute Code(s): F41.9 - ANXIETY DISORDER, UNSPECIFIED SNOMED Code(s): 40789757 Comment: Anxiety exacerbated by steroids and concerns with recent poor health. -Sees a psychiatrist as an out patient once every 1-2 weeks. -Continue klonopin and effexor. (4) DM2 (diabetes mellitus, type 2) Current Visit: No Status: Acute Comment: -Blood sugars controlled -Hold metformin. -Fingersticks ACHS with sliding scale lispro. -Continue gabapentin. (5) GERD (gastroesophageal reflux disease) Current Visit: No Status: Acute Code(s): K21.9 - GASTRO-ESOPHAGEAL REFLUX DISEASE WITHOUT ESOPHAGITIS SNOMED Code(s): 918052446 Comment: - Continue pantoprazole. No current symptoms. (6) Major depressive disorder, recurrent Current Visit: No Status: Acute Code(s): F33.9 - MAJOR DEPRESSIVE DISORDER, RECURRENT, UNSPECIFIED SNOMED Code(s): 32252338 Comment: -Continue effexor. -Recommend follow up with PCP. (7) DVT prophylaxis Current Visit: No Status: Acute Code(s): EIC8879 - SNOMED Code(s): 124762355 Comment: - Lovenox (8) Full code status Current Visit: No Status: Acute Code(s): Z78.9 - OTHER SPECIFIED HEALTH STATUS SNOMED Code(s): 313866831 Comment: Status and Disposition: Disposition: Inpatient Condition: Guarded.
[2018-12-26] MEDS: Enoxaparin(*) 40 MG/0.4 ML SYR SUBCUT SCH (21:28)
[2018-12-27] MEDS: NS 0.9% 1000 ML** 1,000 ML IV SCH (01:27)
[2018-12-27] MEDS: Acetaminophen TAB* 325 MG PO PRN ×2 (04:14→11:52)
[2018-12-27] MEDS: Vancomycin(*) 1,000 MG in NS 0.9% 250 ML* 250 ML IVPB SCH (06:02)
[2018-12-27 06:42] LABS: ABS Basophils 0.1 10^3/ul (0-0.2); ABS Eosinophils 0.3 10^3/ul (0-0.6); ABS Lymphocytes 3.2 10^3/ul (1.0-4.8); ABS Monocytes 0.7 10^3/ul (0-0.8); ABS Neutrophils 6.7 10^3/ul (1.5-7.7); Eosinophil % 2.6 %; Hematocrit 34 % (35-47); Hemoglobin 11.1 g/dL (12.0-16.0); Lymphocyte % 29.5 %; Mean Corpuscular HGB Conc 33 g/dL (31-36); Mean Corpuscular Hemoglobin 27 pg (27-31); Mean Corpuscular Volume 82 fL (80-97); Mean Platelet Volume 7.6 fL (7.4-10.4); Platelet Count 334 10^3/uL (150-450); Red Cell Distribution Width 16 % (10-15)
[2018-12-27 06:54] LABS: BUN/Creatinine Ratio 16.9 (8-20); Calcium 8.8 mg/dL (8.6-10.3); EGFR African American 93.5 (>60); EGFR Non-African American 77.3 (>60); Potassium 3.6 mmol/L (3.5-5.0)
[2018-12-27] MEDS: predniSONE TAB* 20 MG PO SCH (07:26)
[2018-12-27] MEDS: Pantoprazole TAB * 40 MG TAB PO SCH (07:26)
[2018-12-27] MEDS: guaiFENesin ER TAB 600 MG PO SCH (07:26)
[2018-12-27] MEDS: Venlafaxine EXT RELEASE CAP* 75 MG PO SCH (07:27)
[2018-12-27] MEDS: Albuterol/Ipratropium NEB.SOL* Albuterol 2.5 MG/Ipratropium 0.5 MG 3 ML INH SCH ×2 (07:34→12:31)
[2018-12-27] MEDS: Mometasone/Formoter 200/5 MDI INH SCH (07:34)
[2018-12-27] MEDS: Insulin LISPRO* 1 UNITS UNIT SUBCUT SCH ×2 (07:47→11:52)
[2018-12-27] MEDS: clonazePAM TAB(*) 0.5 MG PO SCH (07:48)
[2018-12-27] MEDS ORDERED: Azithromycin TAB* 250 MG PO ONE (08:33)
[2018-12-27] MEDS ORDERED: metFORMIN* 500 MG TAB PO SCH (09:00)
[2018-12-27] MEDS: Cefepime 1 GM in Dextrose(*) 1 GM/50 ML BAG IV SCH (11:05)
[2018-12-27 11:30] VITALS: BP 142/78
--- NOTE | 2018-12-27 22:03 | DS ---
CC: Dr. Stover; Dr. Niño * DISCHARGE SUMMARY: DATE OF ADMISSION: 12/23/18 DATE OF DISCHARGE: 12/27/18 PROVIDER: JERMAIN Michael ATTENDING PROVIDER: Shanice Clifford MD * (DICTATED BY JERMAIN MICHAEL) PRIMARY CARE PROVIDER: Dr. Stover. CONSULTING FINISHED GARMENT INSPECTOR: Dr. Niño. CONSULTING PALLIATIVE CARE MEDICINE: Dr. Ruiz. PRIMARY DIAGNOSES: 1. Chronic obstructive pulmonary disease exacerbation secondary to bilateral pneumonia. 2. Sepsis secondary to bilateral lower lobe pneumonia, sepsis resolved. SECONDARY DIAGNOSES: 1. Chronic obstructive pulmonary disease, on 2 L of oxygen at home. 2. Anxiety. 3. Posttraumatic stress disorder. 4. Postconcussive syndrome. 5. History of prolapsed bladder. 6. Diabetes mellitus type 2. 7. Chronic sciatica pain. PERTINENT STUDIES: Chest x-ray on 12/23/18, impression: Low lung volumes, small bibasilar infiltrates. HISTORY OF PRESENT ILLNESS/HOSPITAL COURSE: Libby Mitchell is a 58-year-old white female with past medical history significant for COPD on 2L oxygen, diabetes mellitus type 2, presented to emergency department on 12/23/18 due to shortness of breath. For further details, please see the admitting history and physical written by Caitlin Orozco, nurse practitioner. This is a synopsis of her hospital stay and for further details, please see complete medical record. During the patient's hospital stay, she was started on vancomycin and cefepime for empiric coverage of her pneumonia and started on Solu-Medrol, considering her COPD exacerbation secondary to this pneumonia. She had a sputum culture that was collected; however, the culture is still pending at the time of discharge. Legionella and Streptococcus pneumoniae urine antigens were negative. On date of discharge, I did change her antibiotic regimen to include azithromycin to cover for atypicals and discontinued her vancomycin. Throughout her hospital stay, her leukocytosis continued to decrease, though did remain minimally elevated likely due to the steroids that were given for her COPD exacerbation. The internet sales representative, Dr. Niño saw the patient in consultation given that her recent CT during recent hospitalization represented possible cryptogenic organizing pneumonia. She recommended that the patient have a second opinion at the [facility] for evaluation of this and suggested she may benefit from lung volume reduction surgery. During this hospital stay, her oxygen requirement was initially increased and was slowly titrated down to her normal oxygen baseline requirement of 2 L. The patient was afebrile during the entirety of her stay. On day of discharge, she was able to ambulate with oxygen and actually maintained her oxygen saturation over 94% on 0.5 L. She felt well on date of discharge. She did continue to have a productive cough, but the frequency is less and the volume is decreased. She tells me she has a flutter valve at home and is encouraged to use it. During her stay, she was seen in consultation by Dr. Parul Ruiz, the education program specialist. She and the patient decided that she will have [facility] at home. PHYSICAL EXAMINATION: General: Obese white female, appears older than stated age, sitting on hospital chair, appearing comfortable, in no acute distress. Eyes: PERRL. Sclerae anicteric. ENT: Mucous membranes moist. Lungs: Clear to auscultation throughout. Cardio: Regular rate and rhythm without murmurs, rubs, or gallops. Abdomen: Soft, nontender, nondistended. Extremities: No clubbing, cyanosis, or edema. No calf tenderness. Neuro: The patient is alert and oriented x3. No focal deficits. Able to move all extremities. No tremors. DISCHARGE PLAN: Diet: Carbohydrate consistent diet. Activity: The patient may return to normal activity as tolerated with 2 L of oxygen. The patient should follow up with her primary care provider, Dr. Stover within [address] Niño's office is coordinating a second opinion that is recommended by Dr. Niño at [facility], Pulmonology. The patient knows to follow up with Dr. Niño regarding this. The patient will be followed by [facility] at home. The patient advised to continue her full prednisone taper and to continue her antibiotics until completion. The patient is advised to return to the emergency department who is experiencing shortness of breath that is not improving with nebulizer treatments, chest pain, fever, chills, hemoptysis, or other concerning symptoms. Follow up with Dr. Stover. Her sputum culture should be followed up and it is pending at the time of discharge. DISCHARGE MEDICATIONS: New medications: 1. Azithromycin 250 mg p.o. daily x4 days. 2. Cefdinir 300 mg p.o. b.i.d. x5 days. 3. Mucinex 600 mg p.o. b.i.d. x2 weeks. 4. Tessalon Perles 100 mg p.o. b.i.d. p.r.n. cough. 5. Prednisone 30 mg x3 days and 20 mg x3 days and then 10 mg x3 days and discontinue. Continued home medications: 1. Metformin 500 mg p.o. b.i.d. 2. Clonazepam 1.5 mg p.o. daily p.r.n. anxiety. 3. Venlafaxine 150 mg p.o. daily. 4. Venlafaxine 75 mg p.o. daily. 5. [place] 5/325 one tab p.o. b.i.d. p.r.n. pain. 6. Omeprazole 20 mg p.o. daily. 7. Spiriva 1 cap inhaled daily. 8. Fluticasone/salmeterol 250/50 one inhalation daily. 9. Gabapentin 300 mg p.o. b.i.d. 10. Albuterol nebulized solution 3 mL inhaled q.6 hours p.r.n. shortness of breath/wheezing. 11. Albuterol HFA inhaler 1 to 2 puffs inhaled q.4 hours p.r.n. shortness of breath/wheezing. CONDITION ON DISCHARGE: Improved. DISPOSITION: Home. TIME SPENT: Approximately 40 minutes were spent on this discharge, approximately half the time was spent at bedside discussing the plan of care to the patient and evaluating the patient. JERMAIN MICHAEL [id number]/[facility] #: [id number] MTDD
[2018-12-28] MEDS ORDERED: SPIRIVA Respimat* (tiotropium) 2.5 mcg/inh Inhaler INH SCH (07:00)
[2018-12-28] MEDS ORDERED: Azithromycin TAB* 250 MG PO SCH (09:00)
== END 2018-12-27 14:00 | disposition hospice, home (50) | DRG 720 ==
LOC: ED 15:56 → UNDOADMIN 20:02 → INTOOBSV 20:02 → MED 20:02 → OBSVTOIN 20:02 → MED 22:05 → UNDODISIN 12-27 14:00
PROVIDERS: ADMIT Hospitalist; ATTEND Internal Medicine
DX: A41.9 Sepsis, unspecified organism (principal); J18.1 Lobar pneumonia, unspecified organism; E87.2 Acidosis; Z68.41 Body mass index [BMI] 40.0-44.9, adult; F33.9 Major depressive disorder, recurrent, unspecified; J44.1 Chronic obstructive pulmonary disease with (acute) exacerbation; J44.0 Chronic obstructive pulmonary disease with (acute) lower respiratory infection; J98.11 Atelectasis; Z99.81 Dependence on supplemental oxygen; F07.81 Postconcussional syndrome; F43.10 Post-traumatic stress disorder, unspecified; R65.20 Severe sepsis without septic shock; E66.9 Obesity, unspecified; F41.9 Anxiety disorder, unspecified; F44.1 Dissociative fugue; E11.9 Type 2 diabetes mellitus without complications; K21.9 Gastro-esophageal reflux disease without esophagitis; M54.30 Sciatica, unspecified side; Z79.51 Long term (current) use of inhaled steroids; Z79.899 Other long term (current) drug therapy; Z79.84 Long term (current) use of oral hypoglycemic drugs; Z88.0 Allergy status to penicillin; Z88.8 Allergy status to other drugs, medicaments and biological substances; Z82.49 Family history of ischemic heart disease and other diseases of the circulatory system; Z82.5 Family history of asthma and other chronic lower respiratory diseases; Z80.1 Family history of malignant neoplasm of trachea, bronchus and lung; Z87.891 Personal history of nicotine dependence
CPT/HCPCS: 36415; 71045; 80048; 80053; 80202; 81003; 83605; 83880; 84484; 85025; 86140; 87040; 87070; 87205; 87899; 93005; 94640; 96361; 96375; 99284; A9270-GY; J0692; J1650; J2930; J3370; J3535; J7512

== ENCOUNTER 2021-10-30 08:27 | Observation (INO) ==
[2021-10-30 09:06] LABS: ABS Eosinophils 0.2 10^3/ul (0-0.6); ABS Lymphocytes 1.4 10^3/ul (1.0-4.8); ABS Monocytes 0.6 10^3/ul (0-0.8); ABS Neutrophils 5.9 10^3/ul (1.5-7.7); Hematocrit 34 % (35-47); Hemoglobin 10.9 g/dL (12.0-16.0); Lymphocyte % 17.3 %; Mean Corpuscular HGB Conc 32 g/dL (31-36); Mean Corpuscular Hemoglobin 26 pg (27-31); Mean Corpuscular Volume 82 fL (80-97); Mean Platelet Volume 7.2 fL (7.4-10.4); Platelet Count 326 10^3/uL (150-450); Red Blood Count 4.16 10^6 /uL (3.70-4.87); Red Cell Distribution Width 16 % (10-15); White Blood Count 8.2 10^3/uL (3.5-10.8)
[2021-10-30 09:16] LABS: INR 0.98 (0.89-1.11)
[2021-10-30] MEDS ORDERED: Lactated Ringers 1000 ml BAG 1,000 ML IV ONE (09:30)
[2021-10-30 09:54] LABS: Albumin 3.9 g/dL (3.2-5.2); Albumin/Globulin Ratio 1.3 (1-3); Calcium 9.1 mg/dL (8.6-10.3); Globulin 2.9 g/dL (2-4); Potassium 3.9 mmol/L (3.5-5.0); Total Bilirubin 0.3 mg/dL (0.2-1.0); Total Protein 6.8 g/dL (6.4-8.9); eGFR CKD-EPI 89.7 (>60)
[2021-10-30] MEDS ORDERED: Iodixanol (CONTRAST) 320 MG/ML 100 ML SDV IV ONE (10:14)
[2021-10-30 10:43] LABS: High Sensitivity Troponin 1 Hr 3 pg/mL (<15)
[2021-10-30] MEDS ORDERED: Azithromycin 500 mg/250 ml NS 500 MG/250 ML BAG IVPB ONE (11:26)
[2021-10-30] MEDS ORDERED: cefTRIAXone 2 gm/50 mL D5W 2 GM/50 ML BAG IV ONE (11:26)
[2021-10-30] MEDS ORDERED: methylPREDNISolone SOD SUCC 125 mg 2 ML VIAL IV ONE (11:42)
[2021-10-30] MEDS ORDERED: Albuterol/Ipratropium NEB.SOL (2.5/0.5 MG) 3 ML NEB.SOLN INH ONE (11:42)
[2021-10-30] MEDS ORDERED: Levalbuterol HFA INHALER MDI INH PRN (15:08)
[2021-10-30] MEDS ORDERED: methylPREDNISolone SOD SUCC 40 mg/ml 1 ml VIAL IV ONE (15:33)
[2021-10-30] MEDS: SPIRIVA Respimat (tiotropium) 2.5 mcg/inh Inhaler INH SCH (15:41)
[2021-10-30 15:55] LABS: PCO2 Arterial 36 mmHg (35-45); PO2 Arterial 91 mmHg (80-100)
[2021-10-30 16:27] LABS: C Reactive Protein 65.2 mg/L (<8.01)
[2021-10-30] MEDS: Enoxaparin 40 MG/0.4 ML SYR SUBCUT SCH (16:42)
[2021-10-30] MEDS ORDERED: Dextrose 50% Syringe 50 ml 25 GM/50 ML SYRINGE IV PUSH PRN (16:53)
[2021-10-30] MEDS: Venlafaxine XR 75 mg PO SCH (18:00)
[2021-10-30] MEDS: Levalbuterol HFA INHALER MDI INH SCH ×2 (18:29→19:11)
[2021-10-31] MEDS: Levalbuterol HFA INHALER MDI INH SCH ×5 (02:20→19:58)
[2021-10-31 05:39] LABS: ABS Lymphocytes 1.3 10^3/ul (1.0-4.8); ABS Monocytes 0.3 10^3/ul (0-0.8); ABS Neutrophils 7.4 10^3/ul (1.5-7.7); Hematocrit 34 % (35-47); Hemoglobin 10.9 g/dL (12.0-16.0); Lymphocyte % 14.3 %; Mean Corpuscular HGB Conc 32 g/dL (31-36); Mean Corpuscular Hemoglobin 26 pg (27-31); Mean Corpuscular Volume 82 fL (80-97); Nucleated Red Blood Cells % 0.1; Platelet Count 330 10^3/uL (150-450); Red Blood Count 4.15 10^6 /uL (3.70-4.87); Red Cell Distribution Width 16 % (10-15)
[2021-10-31 06:44] LABS: Albumin 3.8 g/dL (3.2-5.2); Albumin/Globulin Ratio 1.3 (1-3); Globulin 2.9 g/dL (2-4); Potassium 3.9 mmol/L (3.5-5.0); Total Bilirubin 0.3 mg/dL (0.2-1.0); Total Protein 6.7 g/dL (6.4-8.9); eGFR CKD-EPI 89.7 (>60)
[2021-10-31] MEDS: SPIRIVA Respimat (tiotropium) 2.5 mcg/inh Inhaler INH SCH (07:47)
[2021-10-31] MEDS: Venlafaxine XR 75 mg PO SCH (07:49)
[2021-10-31] MEDS ORDERED: methylPREDNISolone SOD SUCC 40 mg/ml 1 ml VIAL IV SCH (09:00)
[2021-10-31] MEDS ORDERED: Metoclopramide 5 MG/ML VIAL (10 mg) IV SLOW PU ONE (09:44)
[2021-10-31] MEDS ORDERED: cefTRIAXone 1 gm/50 mL D5W 1 GM/50 ML BAG IV SCH (12:00)
[2021-10-31] MEDS: Enoxaparin 40 MG/0.4 ML SYR SUBCUT SCH (17:02)
[2021-11-01] MEDS: Levalbuterol HFA INHALER MDI INH SCH (07:38)
[2021-11-01] MEDS: SPIRIVA Respimat (tiotropium) 2.5 mcg/inh Inhaler INH SCH (07:38)
[2021-11-01] MEDS: Venlafaxine XR 75 mg PO SCH (08:06)
[2021-11-01 11:33] VITALS: BP 132/80
== END 2021-11-01 12:39 | disposition home or self-care (01) ==
LOC: ED 08:27 → EDHOLD 08:27 → SUATTDRO 15:06 → MED 17:16
PROVIDERS: ADMIT Internal Medicine; ATTEND Student in an Organized Health Care Education/Training Program